=== PATIENT | male | born 1945 | race Caucasian/White ===

== ENCOUNTER 2016-11-11 09:36 | Emergency (ER) | payer OTHER, BC ==
[~2016-11-11] VITALS: Ht 177.8 cm; Wt 100.7 kg
[~2016-11-11 09:36] MED LIST: AMLO-114 PO; ASPI81TA28 PO; FINA5TAB PO; LSN/20125 PO; OMEG10007 PO; PRAV20TA PO; SILO8CAP PO
[2016-11-11 09:41] VITALS: TEMP 36.5; Ht 177.8 cm; Wt 100.7 kg
[2016-11-11] MEDS ORDERED: CILO50TA PO (09:56)
[2016-11-11] MEDS ORDERED: PROMETHAZINE HCL INJ 25 MG/ML 1 ML VIAL IM STA (10:17)
[2016-11-11] MEDS ORDERED: CYCLOBENZAPRINE HCL 5 MG TAB PO STA (10:17)
[2016-11-11] MEDS ORDERED: KETOROLAC TROMETHAMINE 60 MG/2 ML VIAL IM STA (10:17)
[2016-11-11] MEDS ORDERED: HYDROmorphone INJ 2 MG/ML SYR/VIAL IM STA ×2 (10:17→12:12)
--- NOTE | 2016-11-11 10:22 | EMERGENCY ROOM VISIT NOTE ---
History Report prepared by Jyoti: Siva Scott Under the Supervision of: Dr. Neil Almeida M.D. First contact with patient: 10:09 Chief Complaint: BACK PAIN Stated Complaint: BACK PAIN History of Present Illness The patient is a 70 year old male who presents to the Emergency Room with complaints of worsening right lower back pain starting 5 days ago. The patient rates his discomfort as 2/10 at rest and 8/10 with movement in severity. He reports that he went to pick strawberries for an hour five days ago when he felt a sudden strain in his lower right back to the right of his spine but denies any pain. He states that he is in severe pain with movement and reports that the pain radiated to his legs, upper back, and abdomen. The patient also reports he is experiencing nausea and dyspnea with pain radiating to his back whenever he breathes. He states that he was able to take medications last night and took his regular baby aspirin along with 80 mg of four aspirin. The patient states that he was not able to move this morning to eat or take his daily medication. He states that he had bacterial meningitis 30 years ago and has a history of prostate issues. The patient denies any incontinence. Source of History: patient Onset: 5 days ago Position: back (lower) Symptom Intensity: 2/10 rest 8/10 movement Timing: worsening Modifying Factors (Worsening): exertion, movement Modifying Factors (Relieving): rest, other (Aspirin) Associated Symptoms: + nausea, + vomiting, + abdominal pain, No urinary symptoms Review of Systems See HPI for pertinent positives & negatives. A total of 10 systems reviewed and were otherwise negative. Past Medical & Surgical Medical Problems: (1) CVA (cerebral infarction) (2) Diabetes (3) Hypertension (4) Hypertension Family History Diabetes mellitus Hypertension Social History Smoking Status: Never Smoker Alcohol Use: none Drug Use: none Marital Status: single Housing Status: lives with family Occupation Status: retired Current/Historical Medications Scheduled Amlodipine (Norvasc), 10 MG PO DAILY Aspirin (Aspirin Ec), 81 MG PO DAILY Cilostazol (Pletal), Unknown Dose PO BID Cyclobenzaprine Hcl (Flexeril), 10 MG PO TID Finasteride (Proscar), 5 MG PO DAILY Fish Oil ([place]-3), 1 CAP PO DAILY Hctz/Lisinopril (Zestoretic 20MG/12.5MG), 2 TAB PO DAILY Pravastatin (Pravachol ), 40 MG PO DAILY Silodosin (Rapaflo), 8 MG PO DAILY Scheduled PRN Oxycodone/Acetaminophen 5MG/325MG (Percocet 5MG/325MG), 1-2 TAB PO Q4H PRN for Pain Allergies Coded Allergies: Metformin (Unverified Adverse Reaction, Unknown, PROFOUND DARRHEA, 11/11/16 ) Physical Exam Vital Signs Date Time Temp Pulse Resp B/P (MAP) Pulse Ox O2 Delivery O2 Flow Rate FiO2 11/11/16 15:12 70 12 147/78 92 11/11/16 14:41 66 12 135/75 95 11/11/16 13:33 64 11 94 11/11/16 13:18 66 10 90 11/11/16 13:10 66 11/11/16 13:03 65 17 97 11/11/16 12:48 73 12 92 11/11/16 12:33 63 12 92 11/11/16 12:18 62 15 93 11/11/16 12:03 64 10 92 11/11/16 11:48 83 16 11/11/16 11:18 65 13 92 11/11/16 11:13 66 13 92 11/11/16 10:58 69 12 93 11/11/16 10:43 69 17 11/11/16 10:28 71 13 11/11/16 10:13 80 17 97 11/11/16 09:58 73 15 94 11/11/16 09:56 76 13 94 11/11/16 09:53 69 16 94 11/11/16 09:48 78 14 99 11/11/16 09:43 71 21 99 11/11/16 09:42 73 11/11/16 09:41 36.5 76 24 186/96 99 Room Air 11/11/16 09:38 186/96 Physical Exam GENERAL: Patient is a healthy-appearing well-nourished uncomfortable male HEAD: Normocephalic atraumatic EYES: Ocular movements intact pupils equal and react to light OROPHARYNX mucous membranes are moist no exudates present no erythema or edema present NECK: Supple no nuchal rigidity CHEST: Good equal expansion LUNGS: Clear and equal to auscultation CARDIAC: Normal S1 and S2 ABDOMEN: Soft nontender no guarding BACK: No CVA tenderness EXTREMITIES: No pain upon palpation normal muscle strength in all groups no clubbing cyanosis or edema 5/5 strength B/L extremities NEURO: Patient is following commands is answering questions appropriately. Alert and oriented x3 Cranial Nerves 2-12 grossly intact Medical Decision & Procedures ER Provider Diagnostic Interpretation: CT results as stated below per my review and radiologist interpretation: CT LUMBAR SPINE WITHOUT CT DOSE: 797.03 mGycm CLINICAL HISTORY: Low back pain. TECHNIQUE: Axial images of lumbar spine were obtained without IV contrast. Sagittal and coronal reconstructions were viewed. COMPARISON STUDY: None. FINDINGS: For purposes of numbering on this exam, the L5-S1 disc space is assigned to axial image 277 of 329. There is straightening of the normal lumbar lordosis. There is no fracture or suspicious lesion within the lumbar spine by CT. Paravertebral soft tissues are unremarkable. The central canal and neural foramen are suboptimally assessed by CT. However, there is suspected moderate to severe multilevel central canal stenosis at the L2-L3, L3-L4, L4-L5 levels. There is moderate to severe multilevel neural foraminal stenosis. IMPRESSION: 1. No acute lumbar spine fracture or subluxation. 2. Suboptimal evaluation of the central canal and neural foramen due to CT technique. However, suspected moderate to severe multilevel central canal and neural foraminal stenosis due to disc bulges, ligamentous hypertrophy and facet arthrosis. Electronically signed by: Alon Cervantes M.D. 11/11/2016 12:07 PM Dictated Date/Time: 11/11/2016 12:01 PM LUMBAR SPINE MRI HISTORY: Pain Pt c/o low back pain TECHNIQUE: Multiplanar multisequence MRI of the lumbar spine was performed without the use of contrast. COMPARISON: CT lumbar spine same date FINDINGS: For the purpose of the report the L5-S1 disc space will be located on axial image 23 of 25. Moderate degenerative disc changes throughout. Multilevel spinal stenosis based on the sagittal images. No evidence for bone marrow replacing process. L1-L2: Broad-based left central disc herniation. Moderate impact upon the left anterior aspect of thecal sac and left neural foramina. L2-L3: Moderate multi bacterial narrowing of spinal canal. Mild narrowing of the neuroforamina bilaterally. L3-L4: Moderate rather significant multifactorial narrowing of spinal canal. Broad-based bulging disc. Moderate narrowing of the neuroforamina bilaterally. L4-L5: Severe multifactorial spinal stenosis. Moderate narrowing of the right and to lesser extent left neuroforamina. L5-S1: Very mild broad-based disc bulge. Minimal impact upon the S1 nerve roots with no significant impact upon the thecal sac. IMPRESSION: 1. Moderate Multifactorial spinal stenosis from L1 through L3. 2. Severe multifactorial spinal stenosis L4-L5. 3. Mild disc bulge L5-S1. Electronically signed by: Didier French M.D. 11/11/2016 2:34 PM Dictated Date/Time: 11/11/2016 2:29 PM Medications Administered Medications (Trade) Dose Ordered Sig/James Route Start Time Stop Time Status Last Admin Dose Admin Hydromorphone HCl (Dilaudid Inj) 2 mg NOW STAT IM 11/11/16 10:17 11/11/16 10:20 DC 11/11/16 10:48 2 MG Ketorolac Tromethamine (Toradol Inj) 60 mg NOW STAT IM 11/11/16 10:17 11/11/16 10:20 DC 11/11/16 10:44 60 MG Promethazine HCl (Phenergan Inj) 25 mg NOW STAT IM 11/11/16 10:17 11/11/16 10:20 DC 11/11/16 10:48 25 MG Cyclobenzaprine HCl (Flexeril Tab) 10 mg NOW STAT PO 11/11/16 10:17 11/11/16 10:20 DC 11/11/16 10:43 10 MG Dexamethasone Sodium Phosphate (Decadron Inj) 10 mg NOW ONCE IM 11/11/16 12:30 11/11/16 12:31 DC 11/11/16 12:45 10 MG Miscellaneous Information (Nursing Verbal Med Order) 1 ea ONE ONCE N/A 11/11/16 12:30 11/11/16 13:38 DC 11/11/16 12:47 1 EA ED Course 1010: Past medical records reviewed. The patient was evaluated in room B05. A complete history and physical examination was performed. 1017: Flexeril Tab 10 mg PO, Phenergan Injection 25 mg IM, Toradol Injection 60 mg IM, Dilaudid Injection 2 mg IM. 1212: Dilaudid Injection 1 mg IM. 1230: Decadron Injection 10 mg IM. 1345: Dilaudid Injection 2 mg. 1502: Upon reexamination the patient is doing well. I discussed results and treatment plan with the patient. He verbalizes agreement and understanding. The patient is ready for discharge. Medical Decision The differential diagnosis includes but is not limited to: Etiologies such as musculoskeletal, disc herniation, fracture, aortic disease, metastatic disease, cord compression, discitis, infection, renal colic, gastrointestinal, acute exacerbation of chronic back pain, sciatica, cauda equina, as well as others were entertained. This is a 70-year-old male who presents emergency department complaining of severe back pain after picking strawberries several days ago. Patient's pain is so severe he could not get out of bed this morning. He has not taken anything for the pain today. Based on the patient's inability to sit up he was given pain medications including IM Dilaudid Toradol and Phenergan. Repeat exam revealed some improvement the patient's symptoms however the patient still grossly uncomfortable. He was sent for CAT scan of the spine which was concerning for possible disc slippage. Based on how uncomfortable the patient remains as well as a CT we elected to get an MRI of the spine. MRI just shows a slight disc bulge I do not see any evidence of acute process. Based on this I 'll try to conservatively treat the patient's pain. He was written for Percocet home. The patient is going to follow-up with his primary care physician as well as orthospine. Patient was in agreement with the treatment plan. Impression Primary Impression: Low back pain Scribe Attestation The scribe's documentation has been prepared under my direction and personally reviewed by me in its entirety. I confirm that the note above accurately reflects all work, treatment, procedures, and medical decision making performed by me. Departure Information Dispostion Home / Self-Care Prescriptions Oxycodone/Acetaminophen 5MG/325MG (PERCOCET 5MG/325MG) Tab 1-2 TAB PO Q4H Y for Pain, #14 TAB Prov: Neil Almeida MD 11/11/16 Cyclobenzaprine Hcl (FLEXERIL) 10 Mg Tab 10 MG PO TID, #21 TAB Prov: Neil Almeida MD 11/11/16 Referrals Lake Skinner D.O. (PCP) Forms HOME CARE DOCUMENTATION FORM, IMPORTANT VISIT INFORMATION Patient Instructions ED Back Care Tips, ED Exercises Lumbar Muscles, Lumbar Pain Causes, My [facility] Additional Instructions Need follow up with Dr Morales's office You were found to have an elevated blood pressure today (>120 sytolic or >90 diastolic). Per medicare guidelines, you need to follow up with this blood pressure screening with your Primary Care Physician (PCP). For a new PCP call [phone]. You received narcotic or benzodiazepene medication while in the emergency room today. Do not drive, operate heavy machinery, or drink alcohol under the influence of this medication. Take 600 mg Ibuprofen every 6 hours Take Flexeril as directed Take Percocet for breakthrough pain You have been examined and treated today on an emergency basis only. This is not a substitute for, or an effort to provide, complete comprehensive medical care. It is impossible to recognize and treat all injuries or illnesses in a single emergency department visit. It is therefore important that you follow up closely with Dr Wagner. Call as soon as possible for an appointment. Thank you for your time and consideration. I look forward to speaking with you again soon. Please don't hesitate to call us if you have any questions. Problem Qualifiers Primary Impression: Low back pain Chronicity: acute Back pain laterality: midline Sciatica presence: without sciatica Qualified Codes: M54.5 - Low back pain
--- NOTE | 2016-11-11 12:09 | DIAGNOSTIC IMAGING REPORT ---
CT LUMBAR SPINE WITHOUT CT DOSE: 797.03 mGycm CLINICAL HISTORY: Low back pain. TECHNIQUE: Axial images of lumbar spine were obtained without IV contrast. Sagittal and coronal reconstructions were viewed. COMPARISON STUDY: None. FINDINGS: For purposes of numbering on this exam, the L5-S1 disc space is assigned to axial image 277 of 329. There is straightening of the normal lumbar lordosis. There is no fracture or suspicious lesion within the lumbar spine by CT. Paravertebral soft tissues are unremarkable. The central canal and neural foramen are suboptimally assessed by CT. However, there is suspected moderate to severe multilevel central canal stenosis at the L2-L3, L3-L4, L4-L5 levels. There is moderate to severe multilevel neural foraminal stenosis. IMPRESSION: 1. No acute lumbar spine fracture or subluxation. 2. Suboptimal evaluation of the central canal and neural foramen due to CT technique. However, suspected moderate to severe multilevel central canal and neural foraminal stenosis due to disc bulges, ligamentous hypertrophy and facet arthrosis. Electronically signed by: Alon Cervantes M.D. 11/11/2016 12:07 PM Dictated Date/Time: 11/11/2016 12:01 PM
[2016-11-11] MEDS ORDERED: HYDROmorphone INJ 1 MG/ML SYR IM STA (12:12)
[2016-11-11] MEDS ORDERED: NURSING VERBAL MED ORDER ONE (12:30)
[2016-11-11] MEDS ORDERED: DEXAMETHASONE SOD INJ 10 MG/ML VIAL IM ONE (12:30)
[2016-11-11] MEDS ORDERED: HYDROmorphone INJ 2 MG/ML SYR/VIAL IM ONE (13:45)
--- NOTE | 2016-11-11 14:35 | DIAGNOSTIC IMAGING REPORT ---
LUMBAR SPINE MRI HISTORY: Pain Pt c/o low back pain TECHNIQUE: Multiplanar multisequence MRI of the lumbar spine was performed without the use of contrast. COMPARISON: CT lumbar spine same date FINDINGS: For the purpose of the report the L5-S1 disc space will be located on axial image 23 of 25. Moderate degenerative disc changes throughout. Multilevel spinal stenosis based on the sagittal images. No evidence for bone marrow replacing process. L1-L2: Broad-based left central disc herniation. Moderate impact upon the left anterior aspect of thecal sac and left neural foramina. L2-L3: Moderate multi bacterial narrowing of spinal canal. Mild narrowing of the neuroforamina bilaterally. L3-L4: Moderate rather significant multifactorial narrowing of spinal canal. Broad-based bulging disc. Moderate narrowing of the neuroforamina bilaterally. L4-L5: Severe multifactorial spinal stenosis. Moderate narrowing of the right and to lesser extent left neuroforamina. L5-S1: Very mild broad-based disc bulge. Minimal impact upon the S1 nerve roots with no significant impact upon the thecal sac. IMPRESSION: 1. Moderate Multifactorial spinal stenosis from L1 through L3. 2. Severe multifactorial spinal stenosis L4-L5. 3. Mild disc bulge L5-S1. Electronically signed by: Didier French M.D. 11/11/2016 2:34 PM Dictated Date/Time: 11/11/2016 2:29 PM
[2016-11-11] MEDS ORDERED: OXYC-57 PO (14:59)
[2016-11-11] MEDS ORDERED: CYCL10TA6 PO (14:59)
[2016-11-11 15:12] VITALS: BP 147/78; PULSE 70; O2SAT 92
== END 2016-11-11 15:14 | disposition home or self-care (01) ==
LOC: EDBD 09:36 → C.EDB 09:39
DX: M54.5 Low back pain (principal); I10 Essential (primary) hypertension; E11.9 Type 2 diabetes mellitus without complications; Z86.73 Personal history of transient ischemic attack (TIA), and cerebral infarction without residual deficits; Z79.82 Long term (current) use of aspirin; Z79.899 Other long term (current) drug therapy; Z88.8 Allergy status to other drugs, medicaments and biological substances; Z83.3 Family history of diabetes mellitus; Z82.49 Family history of ischemic heart disease and other diseases of the circulatory system

== ENCOUNTER 2019-05-02 07:40 | Inpatient (IN) ==
--- NOTE | 2019-04-18 14:39 | PAT Medication Instructions ---
Medication Instructions Date of Service April 18, 2019 Home Medications furosemide 20 mg tablet 20 mg PO DAILY PRN omega-3 fatty acids 1,000 mg capsule 2,000 mg PO QPM tamsulosin 0.4 mg capsule 0.4 mg PO QPM cilostazol 100 mg tablet 100 mg PO BID irbesartan 300 mg tablet 300 mg PO QPM amlodipine 5 mg tablet 5 mg PO QAM aspirin 81 mg tablet,delayed release 81 mg PO QAM pravastatin 40 mg PO QPM ASK your prescriber and surgeon aspirin 81 mg tablet,delayed release 81 mg PO QAM cilostazol 100 mg tablet 100 mg PO BID STOP taking 2 weeks before surgery (or as soon as possible if surgery is within 2 weeks) omega-3 fatty acids 1,000 mg capsule 2,000 mg PO QPM DO NOT take the morning of surgery furosemide 20 mg tablet 20 mg PO DAILY PRN Take morning of surgery With a small sip of water, OTHERWISE NOTHING TO EAT OR DRINK AFTER MIDNIGHT: amlodipine 5 mg tablet 5 mg PO QAM Take evening before surgery furosemide 20 mg tablet 20 mg PO DAILY PRN (if needed) tamsulosin 0.4 mg capsule 0.4 mg PO QPM irbesartan 300 mg tablet 300 mg PO QPM pravastatin 40 mg PO QPM Other Notes If you have any questions please call us at [phone] or [phone] or [phone] or [phone]
--- NOTE | 2019-04-19 09:19 | Anesthesiology Consultation ---
Date of Service April 19, 2019 Assessment & Plan (1) Encounter for pre-operative examination: CHECK BSG AM DOS Cardiology clearance (Alfredo) 04/11/2019: "From my standpoint, he can proceed with surgery. I believe his risk of cardiac events is in the range of 2 to 3%. His aspirin and Pletal can be stopped 1 week before the surgery and then restar tito in the postoperative period when it is safe from a surgical standpoint. Although his functional capacity is limited, his EKG is unchanged. His catheterization was 3-1/2 years ago with mild to moderate coronary artery disease. Clinically he is not having any heart failure symptoms. He has no lower extremity edema." Chart Review Chart Review: Acceptable Risk for Surgery and Patient seen in Pre Admission Testing Teaching & Discussion Instructed NPO after midnight before surgery, except medications with 15 cc of water. Medication instructions provided according to the PAT guidelines. History Surgery Operation Date: 05/03/19 09:55 Proposed Procedures p L3-L5 Decompression and Fusion with Spinal Cord Monitoring - Mateus Tsai, Height/Weight Height: 5 ft 10 in Weight: 104 kg Allergies Allergy/AdvReac Type Severity Reaction Status Date / Time metformin AdvReac Severe Diarrhea Verified 04/12/19 14:19 Medications Home Medications Medication Instructions Recorded Confirmed Last Taken furosemide 20 mg tablet 20 mg PO DAILY PRN 04/13/18 04/12/19 Unknown omega-3 fatty acids 1,000 mg 2,000 mg PO QPM cap 04/13/18 04/12/19 02/21/19 capsule tamsulosin 0.4 mg capsule 0.4 mg PO QPM 04/13/18 04/12/19 02/21/19 cilostazol 100 mg tablet 100 mg PO BID 07/01/18 04/12/19 02/21/19 irbesartan 300 mg tablet 300 mg PO QPM 07/01/18 04/12/19 02/21/19 amlodipine 5 mg tablet 5 mg PO QAM tab 09/23/18 04/12/19 02/22/19 08:15 aspirin 81 mg tablet,delayed 81 mg PO QAM tab 09/23/18 04/12/19 02/21/19 release pravastatin 40 mg PO QPM 04/12/19 04/12/19 Unknown Past Medical History Medical History Chronic back pain Coronary artery disease mild-moderate 3 vessel on 2016 cath per cardiology. CVA (cerebral vascular accident) (Chronic) 2010, no residual deficits. DM type 2 (diabetes mellitus, type 2) DIET CONTROLLED High cholesterol Hypertension (Chronic) Sleep apnea CPAP HS SOB (shortness of breath) on exertion Spinal stenosis Systolic dysfunction EF 50% Exercise / Class Metabolic Activity III < 4 Walking/Shop/Light housework (Limited by spinal stenosis and frequently SOB with exertion/walking up hills) Past Family History Family History Other Patient's father is Patient's mother is Past Surgical History Surgical History History of cardiac cath 2015 - [facility] - CP - NO STENTS/ANGIOPLASTY History of cataract surgery BL History of sebaceous cyst & REMOVED History of toe surgery History of tooth extraction Past Anesthesia History No Hx of Anesthesia Complications and No Family Hx of Anesthesia Complications History of PONV No Hx of PONV and No Hx of Motion Sickness Social History Smoking Status: Never smoker Do You Dip or Chew Tobacco: No Hx Alcohol Use: No Hx Substance Use: No substance use type: does not use Review of Systems Pt denies any recent chest pain, shortness of breath above baseline, cough, fever or URI. +occasional palpitations/awareness of heartbeat Physical Exam Vital Signs BP: 96/64 (denies lightheadedness/dizziness) P: 86bpm SPO2: 96% RA T: 97.8 F R: 16 Constitutional + obese ENMT Mouth: + dental restorations (two crowns); no chipped teeth and no loose teeth Thyromental Distance: > or= 3.5 Finger Breadths (4) Mallampati Class: II Neck + thick neck; neck extension not limited Respiratory normal respiratory effort Auscultation: lungs clear to auscultation bilaterally Cardiovascular Rate/Rhythm: regular rate and regular rhythm Heart Sounds: no murmur Vessels: no carotid bruit Extremities: no edema Testing Laboratory Results 04/19/19 09:56 04/19/19 09:56 PT 10.6 Seconds (9.0-12.0) 04/19/19 09:56 INR 1.0 (0.9-1.1) 04/19/19 09:56 APTT 24.7 Seconds (21.0-31.0) 04/19/19 09:56 Urine Color Yellow 04/19/19 09:56 Urine Appearance Clear (Clear) 04/19/19 09:56 Urine pH 5.5 (4.5-7.5) 04/19/19 09:56 Ur Specific [place] >= 1.030 (1.000-1.030) 04/19/19 09:56 Urine Protein Negative (Negative) 04/19/19 09:56 Urine Glucose (UA) 3+ (Negative) H 04/19/19 09:56 Urine Ketones Negative (Negative) 04/19/19 09:56 Urine Nitrite Negative (Negative) 04/19/19 09:56 Ur Leukocyte Esterase Negative (Negative) 04/19/19 09:56 Blood Type B Negative 04/19/19 09:56 Antibody Screen NEGATIVE 04/19/19 09:56 *surgeon notified re: elevated glucose and A1C A1C 04/19/19 = 7.7% Electrocardiogram Date: 02/03/19 Findings: + NSR @ (76) Chest X-Ray Date: 04/19/19 Findings: + NAD Cardiac Catheterization Date: 06/14/15 Findings: Mild coronary artery calcifications. Right dominant circulation. Large caliber left main giving rise to medium caliber left anterior descending and left circumflex coronary arteries. Mid LAD gives rise to a long,bifurcating diagonal. Very proximal left circumflex gives rise to a long medium caliber high marginal. Mid left circumflex gives rise to small caliber and bifurcating second marginal. The right coronary artery was a large caliber vessel giving rise to long, small -medium caliber posterior descending and posterolateral arteries. Stenoses (%) : Distal left main 10; proximal LAD 30-50; mid LAD 20-30; ostial D1 30-50; proximal and mid D1 20; proximal 30 and mid 10-20 L Cx OM1; proximal 20 OM2; proximal 10-20, mid 0-10, distal 0-10 RCA; proximal 30-50, mid 10-20 PDA; mid and distal RPL 10-20. Left ventricular angiography in 30 degree HEARN projection 65%. No mitral regurgitation. Plan: Medical therapy for CAD symptoms and CAD risk factor modification. Outpatient cardiology follow up and management by Dr. Marcus Fuentes.
--- NOTE | 2019-04-19 10:32 | XRay Report ---
XR chest Pre-admission PA/Lat CLINICAL HISTORY: pat preoperative evaluation COMPARISON STUDY: 01/26/2015 FINDINGS: The bones soft tissues and hemidiaphragms are normal. The cardiomediastinal silhouette is n ormal. The lungs are clear. The pulmonary vasculature is normal. IMPRESSION: Negative chest. The above report was generated using voice recognition software. It may contain grammatical, syntax or spelling errors. Electronically signed by: Didier French M.D. 04/19/2019 10:31 AM
[2019-04-19 10:54] LABS: Basophils # (auto) 0.03 K/uL (0-0.2); Basophils % (auto) 0.4 %; Eosinophils # (auto) 0.34 K/uL (0-0.5); Eosinophils % (auto) 4.4 %; Hematocrit (blood only) 37.6 % (42-52); Hemoglobin 13.2 g/dL (14.0-18.0); Immature Granulocytes # (auto) 0.04 K/uL (0.00-0.02); Immature Granulocytes % (auto) 0.5 %; Lymphocytes # (auto) 1.33 K/uL (1.2-3.4); Lymphocytes % (auto) 17.4 %; Mean Corpuscular Hemoglobin 30.5 pg (25-34); Mean Corpuscular Hgb Conc 35.1 g/dL (32-36); Mean Corpuscular Volume 86.8 fL (80-100); Monocytes # (auto) 0.75 K/uL (0.11-0.59); Monocytes % (auto) 9.8 %; Neutrophils # (auto) 5.16 K/uL (1.4-6.5); Neutrophils % (auto) 67.5 %; Platelet Count 153 K/uL (130-400); RDW Coefficient of Variation 13.8 % (11.5-14.5); RDW Standard Deviation 43.5 fL (36.4-46.3); Red Blood Count 4.33 M/uL (4.7-6.1); White Blood Count 7.65 K/uL (4.8-10.8)
[2019-04-19 11:05] LABS: Appearance Urine Clear (Clear); Bilirubin Urine Negative (Negative); Blood Urine Negative (Negative); Color Urine Yellow; Glucose Urine UA 3+ (Negative); Ketones Urine Negative (Negative); Leukocyte Esterase Urine Negative (Negative); Nitrite Urine Negative (Negative); Protein Urine Negative (Negative); Specific Gravity Urine >= 1.030 (1.000-1.030); Urobilinogen Urine Negative (Negative); pH Urine 5.5 (4.5-7.5)
[2019-04-19 11:08] LABS: Partial Thromboplastin Ratio 0.9; Partial Thromboplastin Time 24.7 Seconds (21.0-31.0); Prothrombin Time 10.6 Seconds (9.0-12.0)
[2019-04-19 11:09] LABS: BUN Creatinine Ratio 11.5 (10-20); Calcium 9.9 mg/dl (8.5-10.1); Creatinine Clr Calc Pharmacy 49.2 ml/min; Est GFR (African American) 47.7; Est GFR (Non-African American) 41.2; Potassium 4.8 mmol/L (3.5-5.1)
[~2019-05-02 07:40] MED LIST changes: +ACETAMINOPHEN 500 MG TAB PO SCH; -AMLO-114 PO; -ASPI81TA28 PO; +CEFAZOLIN 2000MG 2,000 MG/15 ML SYR IV SCH; +CeleBREX 200 MG CAP PO SCH; -FINA5TAB PO; +GABAPENTIN 300 MG CAP PO SCH; +HYDROmorphone INJ 2 MG/ML SYR/VIAL ONE; +LR 15ML/HR IV SCH; -LSN/20125 PO; +MIDAZOLAM HCL 1 MG/ML 2ML VIAL ONE; -OMEG10007 PO; -PRAV20TA PO; -SILO8CAP PO; +fentaNYL citrate 100 MCG/2 ML VIAL ONE
[2019-05-02] MEDS ORDERED: ePHEDrine sulfate 50 MG/ML AMP IV PRN (09:18)
[2019-05-02] MEDS ORDERED: ONDANSETRON INJ 2 MG/ML 2 ML VIAL IV PRN ×2 (09:18→14:31)
[2019-05-02] MEDS ORDERED: HYDROmorphone INJ 2 MG/ML SYR/VIAL IV PRN (09:18)
[2019-05-02] MEDS ORDERED: LABETALOL HCL IV 5 MG/ML 20ML IV PRN (09:18)
[2019-05-02] MEDS ORDERED: fentaNYL citrate 100 MCG/2 ML VIAL IV PRN (09:18)
[2019-05-02] MEDS ORDERED: ATROPINE SULFATE 0.1 MG/ML 10ML SYR IV PRN (09:18)
[2019-05-02] MEDS ORDERED: PHENYLEPHRINE 100MCG/ML 5ML SYR IV PRN (09:18)
[2019-05-02] MEDS ORDERED: MEPERIDINE HCL 25 MG/ML CARP IV PRN (09:18)
[2019-05-02] MEDS ORDERED: NovoLIN-R INSULIN PER UNIT CHARGE ONE ×2 (09:28→09:37)
[2019-05-02] MEDS ORDERED: INSULIN ASPART PER UNIT SC STA (09:38)
[2019-05-02] MEDS ORDERED: INSULIN ASPART PER UNIT ONE (09:46)
[2019-05-02] MEDS ORDERED: ONDANSETRON INJ 2 MG/ML 2 ML VIAL ONE (09:59)
[2019-05-02] MEDS ORDERED: GLYCOPYRROLATE 0.2 MG/ML VIAL ONE (09:59)
[2019-05-02] MEDS ORDERED: PROPOFOL IV EMULSION 10 MG/ML 20 ML VIAL IV ONE (09:59)
[2019-05-02] MEDS ORDERED: NEOSTIGMINE METHYLSULFATE 1 MG/ML 10ML VIAL ONE (09:59)
[2019-05-02] MEDS ORDERED: HYDROmorphone INJ 2 MG/ML SYR/VIAL ONE ×2 (09:59→11:45)
[2019-05-02] MEDS ORDERED: DEXAMETHASONE SOD INJ 4 MG/ML VIAL ONE (09:59)
[2019-05-02] MEDS ORDERED: LIDOCAINE HCL 2% 2 ML VIAL/AMP(20MG/ML) INFIL ONE (09:59)
[2019-05-02] MEDS ORDERED: ROCURONIUM BROMIDE 10 MG/ML 5 ML VIAL ONE (09:59)
--- NOTE | 2019-05-02 10:06 | History & Physical Bridge Note ---
Date of Service May 02, 2019 History & Physical Bridge Note I have examined the patient, reviewed the History & Physical and in the interval since the performance of the History & Physical I have noted the following changes of clinical significance: no changes noted
--- NOTE | 2019-05-02 10:07 | History & Physical Report ---
Date of Service May 02, 2019 Assessment & Plan (1) Neurogenic claudication due to lumbar spinal stenosis: Decompression fusion L3-L5 Present on Admission?: Yes History of Present Illness Chief Complaint: Back and bilateral leg pain Primary Care Provider: Endy Wagner MD This is a 73-year-old male well-known to me that presents with worsening back and bilateral leg pain. After failing extensive course of nonoperative care is here for surgical intervention. Allergies Allergy/AdvReac Type Severity Reaction Status Date / Time metformin AdvReac Severe Diarrhea Verified 05/02/19 08:21 Home Medications Home Medications Medication Instructions Recorded Confirmed Type furosemide 20 mg tablet 20 mg PO DAILY PRN 04/13/18 05/02/19 History omega-3 fatty acids 1,000 mg 2,000 mg PO QPM cap 04/13/18 05/02/19 History capsule tamsulosin 0.4 mg capsule 0.4 mg PO QPM 04/13/18 05/02/19 History cilostazol 100 mg tablet 100 mg PO BID 07/01/18 05/02/19 History irbesartan 300 mg tablet 300 mg PO QPM 07/01/18 05/02/19 History amlodipine 5 mg tablet 5 mg PO QAM tab 09/23/18 05/02/19 History aspirin 81 mg tablet,delayed 81 mg PO QAM tab 09/23/18 05/02/19 History release pravastatin 40 mg PO QPM 04/12/19 05/02/19 History Past Med/Surg History Medical History Chronic back pain Coronary artery disease mild-moderate 3 vessel on 2016 cath per cardiology. CVA (cerebral vascular accident) (Chronic) 2010, no residual deficits. 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 Results & Data Vital Signs (Past 12 Hours) Vital Signs Temp Pulse Resp BP Pulse Ox 05/02/19 08:27 36.3 C L 61 20 158/87 H 97
[2019-05-02] MEDS ORDERED: BACITRACIN INJ 50,000 UNIT VIAL ONE (10:24)
[2019-05-02] MEDS ORDERED: BUPIVACAINE/EPINEPHRINE 0.25% 1:200,000 30 ML VIAL ONE (10:24)
[2019-05-02] MEDS ORDERED: fentaNYL citrate 100 MCG/2 ML VIAL ONE ×5 (11:08→12:54)
[2019-05-02] MEDS ORDERED: FLOSEAL HEMOSTATIC MATRIX 10ML TOP ONE (11:14)
[2019-05-02] MEDS ORDERED: ESMOLOL HCL INJ 10 MG/ML 10ML VIAL IV ONE (13:01)
[2019-05-02] MEDS ORDERED: ePHEDrine sulfate 50 MG/ML SYR ONE (13:02)
[2019-05-02] MEDS ORDERED: LARYING-O-JET KIT (LTA) ONE (13:02)
[2019-05-02] MEDS ORDERED: PHENYLEPHRINE 100MCG/ML 5ML SYR ONE (13:02)
[2019-05-02] MEDS ORDERED: ePHEDrine sulfate 50 MG/ML AMP ONE (13:02)
[2019-05-02] MEDS ORDERED: VOLUVEN IN NSS IV ONE (13:03)
--- NOTE | 2019-05-02 13:09 | Operative Report ---
Post Operative Report Pre & Post Diagnosis Operation Date: 05/02/19 09:55 Pre-Op Diagnosis: LUMBAR SPINAL STENOSIS W/NEUROGENIC CLAUDICATION Post-Op Diagnosis: LUMBAR SPINAL STENOSIS W/NEUROGENIC CLAUDICATION I identified the patient and participated in the time-out.: Yes Procedure Operation Date: 05/02/19 09:55 Actual Procedures #1 lumbar decompression with bilateral medial facetectomies and foraminotomies L2-3 L3-4 L4-5. #2 posterior spinal fusion L3-4 L4-5. #3 placement posterior instrumentation L3-4 L4-5. #4 placement of locally harvested morselized autograft in the posterior lateral gutters. #5 placement infuse collagen sponge, master graft in the posterior lateral gutters. Surgeon Mateus Tsai, DO Nut Packer None Estimated Blood Loss 400 Findings See Below The patient is 5 foot 10 inches tall weighing over 104 kg with a BMI of 33. This combined with an EBL of 400 cc created significant technical difficulty. He required our deepest retractors and longer instruments in order to perform his surgery. This added at least 40% increase in operative time. Specimens None Indications This is a 73-year-old male that presents with above-mentioned diagnosis after failing extensive course of nonoperative care elected to go the above-mentioned procedure. Description of Procedure Patient was met with identified and informed consent obtained. Patient was then taken to the operative suite underwent intubation placed in the prone position the Barrie table on top of the Rashad frame. All bony prominences were well- padded eyes inspected to ensure no external pressure placed upon the peer at this point the lumbar spine was prepped and draped in normal sterile fashion. Sharp dissection with the assistance of Bovie cautery was performed down to and exposing the lamina and transverse processes L3-L4 and L5 bilaterally. From a caudal to cephalad fashion complete laminectomy of L4 L3 and partial laminectomy of L2 was performed including bilateral medial facetectomies and foraminotomies addressing severe stenosis. Pedicle screw was then placed in the L3-L4-L5 bilaterally with assistance of fluoroscopy the purposes leah locked in position. The transverse processes of L3-L4-L5 bur to subcortical bleeding bone. Infuse collagen sponge mass graft and local autograft was placed in the posterior lateral gutters. 15 round ALICIA drain inserted. The incision was then closed with 1 Vicryl in the fascia 2-0 Vicryl subcutaneous and 4 Monocryl for final skin closure. Steri-Strip sterile dressings placed. Patient will continue to PACU stable condition. Please note spinal cord monitoring was utilized that the procedure no changes noted. I attest to the content of the Intraoperative Record and any orders documented therein. Any exceptions are noted below.
[2019-05-02] MEDS ORDERED: LABETALOL HCL IV 5 MG/ML 20ML IV ONE (13:39)
[2019-05-02] MEDS ORDERED: METOPROLOL TARTRATE 1 MG/ML VIAL IV ONE (13:39)
--- NOTE | 2019-05-02 13:39 | Fluoroscopy Report ---
LUMBAR SPINE, INTRAOPERATIVE FLUOROSCOPY HISTORY: L3-L5 decompression and fusion. FLUOROSCOPY TIME: 26 seconds. FINDINGS: Intraoperative fluoroscopy was provided for the lumbar spine. 2 fluoroscopic spot images we re obtained. Posterior decompression fusion from L3 through L5 with pedicle screws and rods. The hard rosario appears intact. IMPRESSION: Fluoroscopy provided for a L3-L5 posterior decompression and fusion. Electronically signed by: Carlton Odonnell M.D. 05/02/2019 1:37 PM
[2019-05-02] MEDS ORDERED: SOD PHOSPHATE/SOD BIPHOSPHATE ENEMA 132 ML BTL PR PRN (14:31)
[2019-05-02] MEDS ORDERED: DO NOT ADMINISTER FLU VACCINE PRN (14:31)
[2019-05-02] MEDS ORDERED: ACETAMINOPHEN 1,000 MG/100 ML VIAL IV PRN (14:31)
[2019-05-02] MEDS ORDERED: FUROSEMIDE 20 MG TAB PO PRN (14:31)
[2019-05-02] MEDS ORDERED: DO NOT ADMINISTER PNEUMOCOCCAL VACCINE PRN (14:31)
[2019-05-02] MEDS ORDERED: ONDANSETRON 4 MG OD TAB PO PRN (14:31)
[2019-05-02] MEDS ORDERED: LORazepam 0.5 MG/1 ML VIAL IV PRN (14:31)
[2019-05-02] MEDS ORDERED: HYDROmorphone INJ 1 MG/ML SYRINGE IV PRN (14:31)
[2019-05-02] MEDS ORDERED: FAMOTIDINE 20 MG TAB PO PRN (14:31)
[2019-05-02] MEDS ORDERED: HYDROmorphone INJ 0.5 MG/0.5 ML SYR IV PRN (14:31)
[2019-05-02] MEDS ORDERED: METOCLOPRAMIDE HCL INJ 5 MG/ML 2 ML VIAL IV PRN (14:31)
[2019-05-02] MEDS ORDERED: ALUMINUM/MAGNESIUM SUSP 30 ML UDC PO PRN (14:31)
[2019-05-02] MEDS ORDERED: ACETAMINOPHEN 500 MG TAB PO PRN (14:31)
[2019-05-02] MEDS ORDERED: MAGNESIUM HYDROXIDE SUSP 30 ML UDC PO PRN (14:31)
[2019-05-02] MEDS ORDERED: PROMETHAZINE HCL 12.5 MG in SODIUM CHLORIDE 0.9% 50 ML IV PRN (14:31)
[2019-05-02] MEDS ORDERED: NALOXONE HCL 0.4 MG/1 ML VIAL/CARP IV PRN (14:31)
[2019-05-02] MEDS ORDERED: bisacodyL 10 MG SUPP PR PRN (14:31)
[2019-05-02] MEDS ORDERED: LORazepam 0.5 MG TAB PO PRN (14:31)
--- NOTE | 2019-05-02 14:35 | Anesthesiology Progress Note ---
Date of Service May 02, 2019 Anesthesia Post Procedure Vital Signs Vital Signs: Temp Pulse Pulse Resp BP Pulse Ox 05/02/19 13:55 36.7 C 77 14 169/89 H 98 05/02/19 13:45 36.5 C 77 11 L 171/88 H 99 05/02/19 13:35 36.5 C 76 13 179/82 H 100 05/02/19 13:25 36.5 C 101 H 14 185/84 H 100 05/02/19 13:19 36.5 C 103 H 12 176/93 H 100 05/02/19 08:27 36.3 C L 61 20 158/87 H 97 Pain Intensity Lower Back: Pain Intensity: 0 Transfer of Care Handoff Completed per policy Notes Mental Status: alert / awake / arousable Patient Amnestic to Procedure: Yes Nausea / Vomiting: adequately controlled Pain: adequately controlled Airway Patency, RR, SpO2: stable & adequate BP & HR: stable & adequate Hydration State: stable & adequate Anesthetic Complications: no major complications apparent and Pt Satisfied with anesthetic care
[2019-05-02] MEDS: KETOROLAC TROMETHAMINE 15 MG/ML VIAL IV SCH ×2 (15:32→21:15)
[2019-05-02] MEDS: TRAMADOL HCL 50 MG TABLET PO PRN (17:34)
--- NOTE | 2019-05-02 18:50 | Hospitalist Consultation ---
Date of Consultation May 02, 2019 Assessment & Plan (1) Neurogenic claudication due to lumbar spinal stenosis: * S/P lumbar spine decompression/fusion with Dr. Tsai on 05/02 * EBL 400cc * PT/OT/pain management/DVT prophylaxis per primary service * Monitor CBC in AM (2) Coronary artery disease: * Non-obstructive cath June [address] Meehan -- 3 vessel disease with proximal LAD 30-50%, 30-50% of R PDA * Continue ASA 81mg * continue pravastatin 40mg daily * Continue cilostazol (3) Sleep apnea: * Moderate obstructive sleep apena * Continue home CPAP -- patient has in the room with him (4) Systolic dysfunction: * Most recent ECHO with LV EF ~50%, however per most recent cardiology outpatient note, possibly related to accelerated HTN * Continue home ARB * Patient not on BB * Continue to monitor for s/sx volume overload, given patient on NS @ 150mL/hr (5) CVA (cerebral infarction): * Per patient, approximately 10 years ago * Continue home ASA 81mg (6) Hypertension: * Patient with longstanding hx of HTN. Had been on multiple agent. Follows with Dr. Fuentes. *Patient takes medications at different times in the day due to history of low BP when taking all at the same time * Continue home amlodipine 5mg, irbesartan 300mg QHS * Per history, patient with lasix 20mg prn -- per patient, he has not taken that in quite some time -- he takes prn "feet swelling" (7) Diabetes: * Previously on metformin -- profuse diarrhea as side effect * Diet/exercise -- with most recent A1c 7.3 (up from previous value) -- however, with recent functional decline prior to surgery, patient had limited exercise * SSI while inpatient * may need to add Lantus if hyperglycemia secondary to corticosteroids persists (8) CKD (chronic kidney disease) stage 3, GFR 30-59 ml/min: * Creat pre-op 1.64, eGFR 49.2 * Does not follow with Nephrology -- unclear what baseline creat is, however notes in chart show cr 1.09 earlier this year -- will continue to monitor * Renally dose all medications when appropriate * IVF NS @ 150 (9) BPH (benign prostatic hyperplasia): * Continue home flomax * Will need to monitor for urinary retention once mendoza is removed (10) Cardiomyopathy: * As above, likely secondary to longstanding HTN (11) Seborrheic keratoses: * Multiple skin lesions removed with cyotherapy, most recent 1 weeks ago -- head, right ear, etc * No evidence of further lesions currently (12) DVT prophylaxis: * Per primary * Continue ASA, pletal * SCDs Supervising Physician Co-Signing Physician Notes PA Supervision Note: I personally saw and examined the patient. I verified all nuno points and agree with BUDDY Curtis with the following exceptions and/or additions: Pt doing very well post-op, says pain in lower back is a 2-3/20 in severity. Biggest complaint is actually irritation at the penis from the Mendoza. Denies chest pain or SOB, no abd pain. History reviewed, ROS reviewed VSS NAD, AAOx3 RRR no mgr CTAB no wcr, breathing unlabored ABd +BS soft NT ND MSK: lower back with dressing in place c/d/i : Mendoza in place, meatus appears normal, no erythema, no bleeding from penis, no discharge. Mendoza is functioning appropriately with drainage of clear yellow urine Ext no edema 73 yo male here with history as above, here for lumbar decompression and fusion -plan as above -will add topical lidocaine jelly to meatus of penis for Mendoza discomfort and hope to remove Mendoza possibly tomorrow History of Present Illness Reason for Consultation: Medical Management Requesting Physician: Dr. Tsai Attending Physician: Mateus Tsai, DO History of Present Illness This is a 73-year-old white male with PMH significant for CAD (non- obstructive cath Jun 2015 with 3-vessel disease), HTN, CVA, DMII, CKD III, DM, BPH, sleep apnea presented for lumbar decompression and fusion with Dr. Tsai for worsening back and bilateral leg pain/numbness after failing extensive non- operative treatment. Patient states he had been tolerating his back and bilateral leg pain for years, but after picking strawberries several months ago, he admits his pain and numbness had worsened significantly.He states he had been given multiple pain medications and injections and nothing has worked thus far. He states it starts in his lower back and wraps around both legs and he has numbness and tingling of bilateral lower extremities to his toes. He states "it feels like someone put your feet in a container and squeezed them really hard." He does voice concerns regarding not having had a bowel movement. He states he usually has a BM everyday, but has not had one since surgery but he admits he has not been up much since arrival to his room. He denies any nausea or vomiting, as well as abdominal pain currently, and is hoping to get up with st aff for a walk around his room this evening, and was able to stand without difficulty during our conversation. 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 Meehan and was told that he had blockages, but did not require a stent at that time. He states his diabetes had been well controlled with diet and exercise following an adverse reaction of profuse diarrhea with metformin, however recently due to his decreased activity he has not had as much exercise as in the past. He states he does walk up [facility] downtown and after the three blocks uphill he does become winded. He uses that as a bench rasheeda to determine if his CAD has worsened, and denies any decline in ability to walk the same distance. He does admit to taking pletal faithfully in hopes to improve circulation in his legs. He states he does have a longstanding history of hypertension and had been on various agents in the past to see which one "fit best". He also states he did have difficulty with his blood pressure dropping and him becoming lightheaded when he was taking all of his blood pressure medications at the same time, and has since switched to his amlodipine in the morning and irbesartan in the evening at the instruction of his PCP, Dr. Wagner. With regards to his lasix prn, he states he has not required that in months, and only takes it if his legs have become swollen. Allergies Allergy/AdvReac Type Severity Reaction Status Date / Time metformin AdvReac Severe Diarrhea Verified 05/02/19 08:21 Home Medications Home Medications Medication Instructions Recorded Confirmed Type furosemide 20 mg tablet 20 mg PO DAILY PRN 04/13/18 05/02/19 History omega-3 fatty acids 1,000 mg 2,000 mg PO QPM cap 04/13/18 05/02/19 History capsule tamsulosin 0.4 mg capsule 0.4 mg PO QPM 04/13/18 05/02/19 History cilostazol 100 mg tablet 100 mg PO BID 07/01/18 05/02/19 History irbesartan 300 mg tablet 300 mg PO QPM 07/01/18 05/02/19 History amlodipine 5 mg tablet 5 mg PO QAM tab 09/23/18 05/02/19 History aspirin 81 mg tablet,delayed 81 mg PO QAM tab 09/23/18 05/02/19 History release pravastatin 40 mg PO QPM 04/12/19 05/02/19 History Patient History Medical History (Updated 05/02/19 @ 20:45 by Mallory Curtis PA-C) Chronic back pain Coronary artery disease mild-moderate 3 vessel on 2015 cath per cardiology. CVA (cerebral vascular accident) (Chronic) 2010, no residual deficits. DM type 2 (diabetes mellitus, type 2) DIET CONTROLLED High cholesterol Hypertension (Chronic) Seborrheic keratoses Sleep apnea CPAP HS SOB (shortness of breath) on exertion Spinal stenosis Systolic dysfunction EF 50% Surgical History (Updated 05/02/19 @ 19:29 by Mallory Curtis PA-C) History of cardiac cath 2016 - [facility] - CP - NO STENTS/ANGIOPLASTY History of cataract surgery BL History of sebaceous cyst & REMOVED History of toe surgery History of tooth extraction Hx of tonsillectomy Family History Other Patient's father is Patient's mother is Social History Preferred Language: Armenian Communication Ability: Effective Hearing Ability: Normal Threat Monitoring Analyst Required: No Beliefs That Will Affect Care: None marital status: Current Living Situation: Alone current occupational status: retired Other Information That Helps Us Care for You: 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 Feels Safe at Home: Yes Safety Concerns: Feels Safe At This Time Smoking Status: Never smoker Do You Dip or Chew Tobacco: No ; Second Hand Exposure: No ; Hx Alcohol Use: No Hx Substance Use: No Review of Systems Constitutional: no fever and no chills Eyes: no diplopia and no spots in vision Ear, Nose, Mouth, Throat: no sore throat and no dysphagia Respiratory: + dyspnea on exertion (3 blocks); no cough Cardiovascular: no chest pain, no palpitations and no edema Gastrointestinal: no abdominal pain, no nausea, no vomiting, no constipation and no diarrhea/loose stools Genitourinary: + problem reported (irritation from catheter, urge) Musculoskeletal: + back pain; no muscle weakness Integumentary: multiple seborrheic keratoses Neurologic: + tingling and + numbness Physical Exam Constitutional: WD/WN, vitals as above Eyes: PERRL, conjunctivae normal, anicteric sclerae ENMT: external ear and nose normal, oropharynx normal Neck: trachea midline, no thyromegaly Respiratory: normal respiratory effort, lungs clear to auscultation Cardiovascular: Rate/Rhythm: regular rate and regular rhythm Heart Sounds: normal S1, normal S2 and + murmur (1/6 systolic ejection murmur) Extremities: normal capillary refill; no edema Musculoskeletal: Dressing to lumbar spine - c/d/i -- ALICIA drain in place with 30cc bloody drainage Neurologic: PERRL, EOMI, accommodation nl, no face palsy, no dysarthria Psychiatric: A+Ox3, euthymic affect Genitourinary: Mendoza in place with copious light yellow urine Results & Data Vital Signs (Past 12 Hours) Vital Signs Temp Pulse Pulse Resp BP Pulse Ox 05/02/19 17:15 36.6 C 87 16 163/78 H 93 05/02/19 16:15 36.7 C 87 17 144/74 H 95 05/02/19 15:06 36.5 C 75 17 157/82 H 96 05/02/19 14:45 36.4 C L 75 18 154/70 H 97 05/02/19 14:15 36.9 C 70 16 166/83 H 98 05/02/19 13:55 36.7 C 77 14 169/89 H 98 05/02/19 13:45 36.5 C 77 11 L 171/88 H 99 05/02/19 13:35 36.5 C 76 13 179/82 H 100 05/02/19 13:25 36.5 C 101 H 14 185/84 H 100 05/02/19 13:19 36.5 C 103 H 12 176/93 H 100 05/02/19 08:27 36.3 C L 61 20 158/87 H 97 PG Care Time/CCT Total # of Minutes Spent Total Time Spent with Patient: Total time spent is greater than 50% in coordination of care (as documented) at patient's floor/unit and/or counseling patient:
[2019-05-02] MEDS ORDERED: GLUCOSE 40% GEL 15 GM TUBE PO PRN (18:55)
[2019-05-02] MEDS ORDERED: DEXTROSE 50% 50 ML SYRINGE IV PRN (18:55)
[2019-05-02] MEDS ORDERED: GLUCAGON FOR INJ 1 MG VIAL SQ PRN (18:55)
[2019-05-02] MEDS ORDERED: GLUCOSE 10 TABS/TUBE PO PRN (18:55)
[2019-05-02] MEDS ORDERED: CARBOHYDRATES FOR HYPOGLYCEMIA PO PRN (18:55)
[2019-05-02] MEDS ORDERED: LIDOCAINE 2% JELLY 5 ML TUBE EXT PRN (19:08)
[2019-05-02] MEDS: SODIUM CHLORIDE 0.9% 1000ML 1,000 ML IV SCH ×2 (19:15→23:44)
[2019-05-02] MEDS: CEFAZOLIN 2000MG 2,000 MG/15 ML SYR IV SCH (19:16)
[2019-05-02] MEDS: TAMSULOSIN HCL 0.4 MG CAP PO SCH (20:08)
[2019-05-02] MEDS: PRAVASTATIN SOD 40 MG TAB PO SCH (20:08)
[2019-05-02] MEDS: CILOSTAZOL 100 MG TAB PO SCH (20:09)
[2019-05-02] MEDS: IRBESARTAN 150 MG TAB PO SCH (20:09)
[2019-05-02] MEDS: DOCUSATE SODIUM/SENNA 50/8.6MG TAB PO SCH (20:09)
[2019-05-02] MEDS ORDERED: COUGH DROP (SUGAR FREE) LOZ 24 LOZ/1 BOX BUCCAL PRN (20:14)
[2019-05-02] MEDS: INSULIN ASPART 100 UNITS/ML 3 ML PEN SC SCH (21:13)
[2019-05-02] MEDS ORDERED: LANTUS PER UNIT CHARGE SQ ONE (22:00)
[2019-05-03] MEDS: CEFAZOLIN 2000MG 2,000 MG/15 ML SYR IV SCH (04:16)
[2019-05-03] MEDS: SODIUM CHLORIDE 0.9% 1000ML 1,000 ML IV SCH (04:16)
[2019-05-03] MEDS: KETOROLAC TROMETHAMINE 15 MG/ML VIAL IV SCH ×2 (04:17→10:45)
[2019-05-03] MEDS: POLYETHYLENE (MIRALAX) 17 GM PACK PO SCH ×4 (04:19→23:40)
[2019-05-03] MEDS: INSULIN ASPART 100 UNITS/ML 3 ML PEN SC SCH ×5 (04:46→21:19)
[2019-05-03 05:46] LABS: Hematocrit (blood only) 30.2 % (42-52); Hemoglobin 10.5 g/dL (14.0-18.0); Immature Granulocytes # (auto) 0.05 K/uL (0.00-0.02); Immature Granulocytes % (auto) 0.4 %; Lymphocytes # (auto) 0.86 K/uL (1.2-3.4); Mean Corpuscular Hemoglobin 30.7 pg (25-34); Mean Corpuscular Hgb Conc 34.8 g/dL (32-36); Mean Corpuscular Volume 88.3 fL (80-100); Mean Platelet Volume 8.4 fL (7.4-10.4); Monocytes # (auto) 1.05 K/uL (0.11-0.59); Monocytes % (auto) 7.4 %; Neutrophils # (auto) 12.28 K/uL (1.4-6.5); Neutrophils % (auto) 86.2 %; Platelet Count 155 K/uL (130-400); RDW Coefficient of Variation 13.6 % (11.5-14.5); RDW Standard Deviation 43.4 fL (36.4-46.3); Red Blood Count 3.42 M/uL (4.7-6.1); White Blood Count 14.24 K/uL (4.8-10.8)
[2019-05-03] MEDS ORDERED: GABAPENTIN 300 MG CAP PO SCH (06:00)
[2019-05-03] MEDS ORDERED: CEFAZOLIN 2000MG 2,000 MG/15 ML SYR IV SCH (06:00)
[2019-05-03] MEDS ORDERED: CeleBREX 200 MG CAP PO SCH (06:00)
[2019-05-03] MEDS ORDERED: ACETAMINOPHEN 500 MG TAB PO SCH (06:00)
[2019-05-03] MEDS ORDERED: LR 15ML/HR IV SCH (06:00)
[2019-05-03 06:23] LABS: BUN Creatinine Ratio 14.6 (10-20); Calcium 8.9 mg/dl (8.5-10.1); Est GFR (African American) 47.4; Est GFR (Non-African American) 40.9; Potassium 4.3 mmol/L (3.5-5.1)
--- NOTE | 2019-05-03 08:09 | Anesthesiology Progress Note ---
Date of Service May 03, 2019 Anesthesia Post Procedure Vital Signs Vital Signs: Temp Pulse Pulse Resp BP Pulse Ox 05/03/19 07:02 36.7 C 81 17 117/68 96 05/03/19 03:43 36.7 C 94 H 16 129/69 96 05/02/19 23:45 36.8 C 90 15 117/69 95 05/02/19 20:06 36.5 C 86 18 138/77 95 05/02/19 17:15 36.6 C 87 16 163/78 H 93 05/02/19 16:15 36.7 C 87 17 144/74 H 95 05/02/19 15:06 36.5 C 75 17 157/82 H 96 05/02/19 14:45 36.4 C L 75 18 154/70 H 97 05/02/19 14:15 36.9 C 70 16 166/83 H 98 05/02/19 13:55 36.7 C 77 14 169/89 H 98 05/02/19 13:45 36.5 C 77 11 L 171/88 H 99 05/02/19 13:35 36.5 C 76 13 179/82 H 100 05/02/19 13:25 36.5 C 101 H 14 185/84 H 100 05/02/19 13:19 36.5 C 103 H 12 176/93 H 100 05/02/19 08:27 36.3 C L 61 20 158/87 H 97 Pain Intensity Lower Back: Pain Intensity: 1 Notes Mental Status: alert / awake / arousable and participated in evaluation Patient Amnestic to Procedure: Yes Nausea / Vomiting: adequately controlled Pain: adequately controlled Airway Patency, RR, SpO2: stable & adequate BP & HR: stable & adequate Hydration State: stable & adequate Anesthetic Complications: no major complications apparent and Pt Satisfied with anesthetic care
--- NOTE | 2019-05-03 08:25 | Orthopedic Progress Note ---
Date of Service May 03, 2019 Assessment & Plan (1) Lumbar stenosis with neurogenic claudication: Patient will initiate physical therapy today advance his bowel regiment hopefully discharge home in the next few days. Present on Admission?: Yes Subjective Back pain controlled leg symptoms improved. Physical Exam Physical Exam: Patient is good strength testing appears comfortable. Results & Data Vital Signs (Past 12 Hours) Vital Signs Temp Pulse Resp BP Pulse Ox 05/03/19 07:02 36.7 C 81 17 117/68 96 05/03/19 03:43 36.7 C 94 H 16 129/69 96 05/02/19 23:45 36.8 C 90 15 117/69 95
[2019-05-03] MEDS: TRAMADOL HCL 50 MG TABLET PO PRN ×2 (08:57→14:19)
[2019-05-03] MEDS: CILOSTAZOL 100 MG TAB PO SCH ×2 (08:58→21:13)
[2019-05-03] MEDS: AMLODIPINE BESYLATE 5 MG TAB PO SCH (08:58)
[2019-05-03] MEDS: ASPIRIN 81 MG ECTAB PO SCH (08:58)
--- NOTE | 2019-05-03 16:31 | Hospitalist Progress Note ---
Date of Service May 03, 2019 Assessment & Plan (1) Neurogenic claudication due to lumbar spinal stenosis: * Improving * POD #1 S/P lumbar spine decompression/fusion with Dr. Tsai on 05/02 * PT/OT/pain management/DVT prophylaxis per primary service * EBL 400cc -- h/h declined to 10.5/30.2 from 13.2/37.6 * Monitor CBC in AM (2) Acute blood loss anemia: * As above * Hemoglobin dropped from 13.2 to 10.5 post-operatively -- likely due to multiple factors including blood loss from surgery, NS @150ml/hr until this morning * Of note: donation of one unit of blood two weeks ago with [facility] * Stable- h/h 10.5/30.2 -- will continue to monitor (3) Hypertension: * Patient with longstanding hx of HTN. Had been on multiple agent. Follows with Dr. Fuentes. *Patient takes medications at different times in the day due to history of low BP when taking all at the same time * Continue home amlodipine 5mg * Per history, patient with lasix 20mg prn -- per patient, he has not taken that in quite some time -- he takes prn "feet swelling" * Given patient with continue HTN post-operatively, irbesartan was continued -- BP 129/69 this morning * However, 105/57 currently --> Will hold irbesartan this evening, re-evaluate in AM (4) Coronary artery disease: * Non-obstructive cath June [address] Meehan -- 3 vessel disease with proximal LAD 30-50%, 30-50% of R PDA * Continue ASA 81mg * continue pravastatin 40mg daily * Continue cilostazol (5) Sleep apnea: * Moderate obstructive sleep apena * Continue home CPAP -- patient has in the room with him (6) Systolic dysfunction: * Most recent ECHO with LV EF ~50%, however per most recent cardiology outpatient note, possibly related to accelerated HTN * Continue home ARB * Patient not on BB * No evidence of volume overload on exam today, currently 95% on RA -- continue to monitor (7) CVA (cerebral infarction): * Per patient, approximately 10 years ago * Continue home ASA 81mg (8) Diabetes: * Previously on metformin -- profuse diarrhea as side effect * Diet/exercise, per patient, although it seems as though his dietary choices are less than healthy-- most recent A1c 7.3 (up from previous value) -- however, with recent functional decline prior to surgery, patient had limited exercise * SSI while inpatient * Tightened CF last evening as well as addition of 10 units of lantus for basal coverage * Repeat A1c in AM -- may need to initiate different oral agent at discharge (9) CKD (chronic kidney disease) stage 3, GFR 30-59 ml/min: * Unchanged, creat 1.65 today * Creat pre-op 1.64, eGFR 49.2 * Does not follow with Nephrology -- unclear what baseline creat is, however notes in chart show cr 1.09 earlier this year -- will continue to monitor * Renally dose all medications when appropriate (10) BPH (benign prostatic hyperplasia): * Continue home flomax * No signs of urinary retention since mendoza removed (11) Cardiomyopathy: * As above, likely secondary to longstanding HTN (12) Seborrheic keratoses: * Multiple skin lesions removed with cyotherapy, most recent 1 weeks ago -- head, right ear, etc * No evidence of further lesions currently (13) DVT prophylaxis: * Per primary * Continue ASA, pletal * SCDs Thank you for asking the hospitalist team for medical management of Mr. Wagner. Will follow along. Supervising Physician Co-Signing Physician Notes PA Supervision Note: I did not personally see or examine the patient today, but I verified all nuno points of BUDDY Curtis's assessment and plan with the following exceptions/additions: None Subjective Patient evaluated this morning. He states he believes the numbness has subsided in his lower extremities but he does still have some tingling. He states his back pain is tolerable with pain medications. He states he no longer has penile irritation since the mendoza was removed this morning and he did not have difficulty urinating afterword. He states he does hav e a little bit of a sore throat, but this has been manageable with cough drops. He states he has been up walking without much difficulty. Has been passing a lot of gas but no bowel movement yet. Denies abdominal pain, n/v. States that he believes he should be ready for discharge on after he spoke with Dr. Tsai this morning, and is hopeful to have the drain removed when the output is decreased. Of note, the patient does admit that he donated blood about 2 weeks ago and was told he should let his physician know. Review of Systems Constitutional: no fever and no chills Eyes: no diplopia and no eye pain Ear, Nose, Mouth, Throat: + sore throat; no dysphagia Respiratory: + dyspnea on exertion (3 blocks); no cough Cardiovascular: no chest pain, no palpitations and no edema Gastrointestinal: + constipation; no abdominal pain, no nausea and no vomiting Genitourinary: no dysuria and no hematuria Musculoskeletal: + back pain; no muscle weakness Integumentary: multiple seborrheic keratoses Neurologic: + tingling and + numbness Physical Exam Physical Exam: Constitutional WD/WN, vitals as above Eyes PERRL, conjunctivae normal, anicteric sclerae ENMT external ear and nose normal, oropharynx normal Neck trachea midline, no thyromegaly Respiratory normal respiratory effort, lungs clear to auscultation Cardiovascular Rate/Rhythm: regular rate and regular rhythm Heart Sounds: normal S1, normal S2 and + murmur (1/6 systolic ejection murmur) Extremities: normal capillary refill; no edema Musculoskeletal Dressing to lumbar spine - c/d/i -- ALICIA drain in place with 10cc bloody drainage Neurologic PERRL, EOMI, accommodation nl, no face palsy, no dysarthria Psychiatric A+Ox3, euthymic affect Lymphatic: + cervical lymphadenopathy Results & Data Vital Signs (Past 12 Hours) Vital Signs Temp Pulse Resp BP BP Pulse Ox 05/03/19 15:37 105/57 L 05/03/19 15:34 36.6 C 59 L 16 89/48 L 95 05/03/19 13:05 36.6 C 78 17 123/70 100 05/03/19 07:02 36.7 C 81 17 117/68 96 PG Care Time/CCT Total # of Minutes Spent Total Time Spent with Patient: Total time spent is greater than 50% in coordination of care (as documented) at patient's floor/unit and/or counseling patient:
[2019-05-03] MEDS: DOCUSATE SODIUM/SENNA 50/8.6MG TAB PO SCH (21:12)
[2019-05-03] MEDS: PRAVASTATIN SOD 40 MG TAB PO SCH (21:12)
[2019-05-03] MEDS: TAMSULOSIN HCL 0.4 MG CAP PO SCH (21:13)
[2019-05-03] MEDS: INSULIN GLARGINE SOLOSTAR 100 UNITS/ML 3 ML PEN SC SCH (21:20)
[2019-05-04] MEDS: TRAMADOL HCL 50 MG TABLET PO PRN ×3 (05:10→22:49)
[2019-05-04] MEDS: POLYETHYLENE (MIRALAX) 17 GM PACK PO SCH ×4 (05:10→23:35)
[2019-05-04 06:45] LABS: Hematocrit (blood only) 28.5 % (42-52); Hemoglobin 9.7 g/dL (14.0-18.0); Mean Corpuscular Hemoglobin 30.5 pg (25-34); Mean Corpuscular Volume 89.6 fL (80-100); Mean Platelet Volume 8.3 fL (7.4-10.4); Platelet Count 148 K/uL (130-400); RDW Coefficient of Variation 13.9 % (11.5-14.5); RDW Standard Deviation 46.2 fL (36.4-46.3); Red Blood Count 3.18 M/uL (4.7-6.1); White Blood Count 10.35 K/uL (4.8-10.8)
[2019-05-04 07:12] LABS: Estimated Average Glucose 200 mg/dl; Hemoglobin A1C 8.6 % (4.5-5.6)
[2019-05-04 07:18] LABS: BUN Creatinine Ratio 19.7 (10-20); Calcium 9.4 mg/dl (8.5-10.1); Creatinine Clr Calc Pharmacy 55.3 ml/min; Est GFR (African American) 54.9; Est GFR (Non-African American) 47.4; Potassium 4.1 mmol/L (3.5-5.1)
[2019-05-04] MEDS: OXYCODONE HCL IR 5 MG TAB (IMMEDIATE RELEASE) PO PRN ×4 (07:37→21:01)
[2019-05-04] MEDS: AMLODIPINE BESYLATE 5 MG TAB PO SCH (07:37)
[2019-05-04] MEDS: CILOSTAZOL 100 MG TAB PO SCH ×2 (07:37→20:54)
[2019-05-04] MEDS: ASPIRIN 81 MG ECTAB PO SCH (07:38)
[2019-05-04] MEDS: INSULIN ASPART 100 UNITS/ML 3 ML PEN SC SCH ×4 (07:41→20:48)
--- NOTE | 2019-05-04 09:41 | Orthopedic Progress Note ---
Date of Service May 04, 2019 Assessment & Plan (1) Neurogenic claudication due to lumbar spinal stenosis: This time we will continue physical therapy monitor his ALICIA output anticipate discharge home tomorrow. Present on Admission?: Yes Physical Exam Physical Exam: Patient has good strength testing appears comfortable. Results & Data Vital Signs (Past 12 Hours) Vital Signs Temp Pulse Resp BP Pulse Ox 05/04/19 06:32 36.8 C 74 16 121/65 93 05/03/19 23:12 36.7 C 76 16 115/67 96
--- NOTE | 2019-05-04 12:52 | Hospitalist Progress Note ---
Date of Service May 04, 2019 Assessment & Plan (1) Neurogenic claudication due to lumbar spinal stenosis: * Improving -- patient no longer with numbness or tingling in b/l LE * POD #2 S/P lumbar spine decompression/fusion with Dr. Tsai on 05/02. EBL 400cc * PT/OT/pain management/DVT prophylaxis per primary service * Pre-op h/h 13.2/37.6 --> currently declined to 9.7/28.5 from 10.5/30.2 yesterday -- likley donation of blood two weeks ago in addition to acute blood loss from surgery and dilution from IVF -- patient asymptomatic at this time * Continue to monitor CBC in AM (2) Acute blood loss anemia: * As above * H/H further declined from yesterday --> currently 9.7/28.5 * Of note: donation of one unit of blood two weeks ago with [place] * Continue to monitor (3) Hypertension: * STABLE * Patient with longstanding hx of HTN. Had been on multiple agent. Follows with Dr. Fuentes. *Patient takes medications at different times in the day due to history of low BP when taking all at the same time. Per history, patient with lasix 20mg prn -- per patient, he has not taken that in quite some time -- he takes prn "feet swelling" * Continue home amlodipine 5mg * Given patient with continue HTN post-operatively, irbesartan was continued * Patient did drop to 105/57 last evening and irbesartan was held * BP this morning excellent, at 121/65 --> will restart this evening and continue to monitor (4) Coronary artery disease: * Non-obstructive cath June [address] Meehan -- 3 vessel disease with proximal LAD 30-50%, 30-50% of R PDA * Continue ASA 81mg * continue pravastatin 40mg daily * Continue cilostazol for PAD * not on beta mihai-will find out why (5) Sleep apnea: * Moderate obstructive sleep apena * Continue home CPAP -- patient has in the room with him, however after discussion with patient he has not used it since Thursday and was told by staff that he wasn't snoring and felt he didn't need to use it. Discussed importance of compliance and encouraged him to use it every night. (6) Systolic dysfunction: * Most recent ECHO with LV EF ~50%, however per most recent cardiology outpatient note, possibly related to accelerated HTN * Continue home ARB * Patient not on BB * No evidence of volume overload on exam today, currently 93% on RA -- continue to monitor (7) CVA (cerebral infarction): * Per patient, approximately 10 years ago * Continue home ASA 81mg (8) Diabetes: * Previously on metformin -- profuse diarrhea as side effect * Diet/exercise, per patient, although it seems as though his dietary choices are less than healthy-- most recent A1c 7.7 on 04/18/19 and is 8.6 this morning. * After further discussion with patient, he states that he had been on glipizide in the past but had problems with feeling lightheaded and was told to discontinue it for a while. He states he did restart this medication at the lowest dose approximately 1 week ago * Diabetic education consult * SSI while inpatient * Lantus increased again last evening and multiple adjustments to CF and carb ratio with sugars 159-215 over the past 24 hours * May need to consider addition of once weekly injectable, ie Ozempic, as outpatient -- patient would like to further discuss with PCP Dr. Wagner prior to initiation of any new agents (9) CKD (chronic kidney disease) stage 3, GFR 30-59 ml/min: * Improved -- Cr down to 1.49 from 1.65 * Creat pre-op 1.64, eGFR 49.2 * Renally dose all medications when appropriate (10) BPH (benign prostatic hyperplasia): * Continue home flomax * No signs of urinary retention since mendoza removed (11) Cardiomyopathy: * As above, likely secondary to longstanding HTN (12) Seborrheic keratoses: * Multiple skin lesions removed with cyotherapy, most recent 1 weeks ago -- head, right ear, etc * No evidence of further lesions currently (13) DVT prophylaxis: * Per primary * Continue ASA, pletal * SCDs Thank you for asking the hospitalist team for medical management of Mr. Wagner. Will follow along. Supervising Physician Co-Signing Physician Notes PA Supervision Note: I did not personally see or examine the patient today, but I verified all nuno points of BUDDY Curtis's assessment and plan with the following exceptions/additions: None Subjective Patient evaluated this morning. Numbness and tingling resolved. Patient states he did not get much rest last night due to multiple interuptions as well as increased low back pain with radiation to right hip and down his legs this morning. He rated it a 5/10 worsened by bending over with a reduction to 3-4/10 after pain medications. He states he hopes to have his drain removed tomorrow. He states he has been up ambulating without much difficulty and plans on getting a walker for short term at discharge. He denies any abdominal pain, but states he continues to be without a bowel movement since surgery. He is hopeful that he will be able to have a BM today. Review of Systems Constitutional: no fever and no chills Eyes: no diplopia and no eye pain Ear, Nose, Mouth, Throat: no sore throat and no dysphagia dry mouth Respiratory: no cough and no dyspnea Cardiovascular: no chest pain, no palpitations and no edema Gastrointestinal: + constipation; no abdominal pain, no nausea and no vomiting Genitourinary: no dysuria, no difficulty urinating and no hematuria Musculoskeletal: + back pain (low back pain); no myalgia Neurologic: no tingling and no numbness Physical Exam Constitutional: WD/WN, vitals as above Eyes: PERRL, conjunctivae normal, anicteric sclerae ENMT: external ear and nose normal, oropharynx normal Neck: trachea midline, no thyromegaly Respiratory: normal respiratory effort, lungs clear to auscultation Cardiovascular: Rate/Rhythm: regular rate and regular rhythm Heart Sounds: + murmur (1/6 systolic ejection murmur) Extremities: normal capillary refill; no edema Gastrointestinal (Abdomen): normal bowel sounds, soft, nontender, no hepatosplenomegaly Musculoskeletal: no cyanosis or clubbing, extremities motor strength 5/5 Skin: ALICIA drain in place Neurologic: PERRL, EOMI, accommodation nl, no face palsy, no dysarthria Psychiatric: A+Ox3, euthymic affect Lymphatic: + cervical lymphadenopathy (enlarged Right submandibular lymph node, approx 1cm ) Results & Data Vital Signs (Past 12 Hours) Vital Signs Temp Pulse Resp BP Pulse Ox 05/04/19 06:32 36.8 C 74 16 121/65 93 Laboratory Results 05/04/19 05/04/19 05/04/19 Range/Units 12:18 06:36 06:21 WBC (4.8-10.8) K/uL RBC (4.7-6.1) M/uL Hgb (14.0-18.0) g/dL Hct (42-52) % MCV (80-100) fL MCH (25-34) pg MCHC (32-36) g/dL RDW Std Deviation (36.4-46.3) fL RDW Coeff of Patti (11.5-14.5) % Plt Count (130-400) K/uL MPV (7.4-10.4) fL Sodium (136-145) mmol/L Potassium (3.5-5.1) mmol/L Chloride (98-107) mmol/L Carbon Dioxide (21-32) mmol/L Anion Gap (3-11) BUN (7-18) mg/dl Creatinine (0.6-1.4) mg/dl Est Cr Clr Drug Dosing ml/min Est GFR ( Amer) Est GFR (Non-Af Amer) BUN/Creatinine Ratio (10-20) Glucose (70-99) mg/dl POC Glucose 159 H 168 H (70-99) Estimat Average Glucose 200 mg/dl Hemoglobin A1c 8.6 H (4.5-5.6) % Calcium (8.5-10.1) mg/dl 05/04/19 05/04/19 05/03/19 Range/Units 06:21 06:21 21:06 WBC 10.35 (4.8-10.8) K/uL RBC 3.18 L (4.7-6.1) M/uL Hgb 9.7 L (14.0-18.0) g/dL Hct 28.5 L (42-52) % MCV 89.6 (80-100) fL MCH 30.5 (25-34) pg MCHC 34.0 (32-36) g/dL RDW Std Deviation 46.2 (36.4-46.3) fL RDW Coeff of Patti 13.9 (11.5-14.5) % Plt Count 148 (130-400) K/uL MPV 8.3 (7.4-10.4) fL Sodium 139 (136-145) mmol/L Potassium 4.1 (3.5-5.1) mmol/L Chloride 109 H (98-107) mmol/L Carbon Dioxide 25 (21-32) mmol/L Anion Gap 5.0 (3-11) BUN 29 H (7-18) mg/dl Creatinine 1.46 H (0.6-1.4) mg/dl Est Cr Clr Drug Dosing 55.3 ml/min Est GFR ( Amer) 54.9 Est GFR (Non-Af Amer) 47.4 BUN/Creatinine Ratio 19.7 (10-20) Glucose 166 H (70-99) mg/dl POC Glucose 223 H (70-99) Estimat Average Glucose mg/dl Hemoglobin A1c (4.5-5.6) % Calcium 9.4 (8.5-10.1) mg/dl 05/03/19 Range/Units 17:16 WBC (4.8-10.8) K/uL RBC (4.7-6.1) M/uL Hgb (14.0-18.0) g/dL Hct (42-52) % MCV (80-100) fL MCH (25-34) pg MCHC (32-36) g/dL RDW Std Deviation (36.4-46.3) fL RDW Coeff of Patti (11.5-14.5) % Plt Count (130-400) K/uL MPV (7.4-10.4) fL Sodium (136-145) mmol/L Potassium (3.5-5.1) mmol/L Chloride (98-107) mmol/L Carbon Dioxide (21-32) mmol/L Anion Gap (3-11) BUN (7-18) mg/dl Creatinine (0.6-1.4) mg/dl Est Cr Clr Drug Dosing ml/min Est GFR ( Amer) Est GFR (Non-Af Amer) BUN/Creatinine Ratio (10-20) Glucose (70-99) mg/dl POC Glucose 215 H (70-99) Estimat Average Glucose mg/dl Hemoglobin A1c (4.5-5.6) % Calcium (8.5-10.1) mg/dl PG Care Time/CCT Total # of Minutes Spent Total Time Spent with Patient: Total time spent is greater than 50% in coordination of care (as documented) at patient's floor/unit and/or counseling patient:
[2019-05-04] MEDS: INSULIN GLARGINE SOLOSTAR 100 UNITS/ML 3 ML PEN SC SCH (20:49)
[2019-05-04] MEDS: PRAVASTATIN SOD 40 MG TAB PO SCH (20:53)
[2019-05-04] MEDS: TAMSULOSIN HCL 0.4 MG CAP PO SCH (20:54)
[2019-05-04] MEDS: DOCUSATE SODIUM/SENNA 50/8.6MG TAB PO SCH (20:54)
[2019-05-04] MEDS: IRBESARTAN 150 MG TAB PO SCH (22:42)
[2019-05-05] MEDS: OXYCODONE HCL IR 5 MG TAB (IMMEDIATE RELEASE) PO PRN ×2 (02:27→14:15)
[2019-05-05 05:47] LABS: Hematocrit (blood only) 29.5 % (42-52); Mean Corpuscular Hemoglobin 30.6 pg (25-34); Mean Corpuscular Hgb Conc 33.9 g/dL (32-36); Mean Corpuscular Volume 90.2 fL (80-100); Mean Platelet Volume 8.9 fL (7.4-10.4); Platelet Count 148 K/uL (130-400); RDW Coefficient of Variation 13.7 % (11.5-14.5); RDW Standard Deviation 45.4 fL (36.4-46.3); Red Blood Count 3.27 M/uL (4.7-6.1); White Blood Count 9.49 K/uL (4.8-10.8)
[2019-05-05 06:17] LABS: BUN Creatinine Ratio 15.8 (10-20); Calcium 9.2 mg/dl (8.5-10.1); Creatinine Clr Calc Pharmacy 57.3 ml/min; Est GFR (African American) 57.3; Est GFR (Non-African American) 49.4; Potassium 4.2 mmol/L (3.5-5.1)
[2019-05-05] MEDS: POLYETHYLENE (MIRALAX) 17 GM PACK PO SCH ×2 (06:33→15:12)
[2019-05-05] MEDS: AMLODIPINE BESYLATE 5 MG TAB PO SCH (07:32)
[2019-05-05] MEDS: TRAMADOL HCL 50 MG TABLET PO PRN (07:32)
[2019-05-05] MEDS: CILOSTAZOL 100 MG TAB PO SCH (07:33)
[2019-05-05] MEDS: ASPIRIN 81 MG ECTAB PO SCH (07:33)
[2019-05-05] MEDS: INSULIN ASPART 100 UNITS/ML 3 ML PEN SC SCH ×2 (07:35→12:52)
--- NOTE | 2019-05-05 08:31 | Discharge Summary ---
Date of Service May 05, 2019 Admission HPI Per Admitting Provider This is a 73-year-old male well-known to me that presents with worsening back and bilateral leg pain. After failing extensive course of nonoperative care is here for surgical intervention. Principal Diagnosis Lumbar spinal stenosis with neurogenic claudication Discharge Data Allergies Allergy/AdvReac Type Severity Reaction Status Date / Time metformin AdvReac Severe Diarrhea Verified 05/02/19 08:21 Consultations 05/02/19 14:31 Consult Case Management - Discharge Planning Routine 05/02/19 14:42 Consult Hospitalist Routine Procedures Performed Operation Date: 05/02/19 09:55 Actual Procedures p L3-L5 Decompression and Fusion with Spinal Cord Monitoring(Not Applicable) - Mateus Tsai DO Ordered Studies 05/02/19 09:55 FL fluoroscopy <1hr Routine FL lumbar spine 2-3V Routine Hospital Course (1) Lumbar stenosis with neurogenic claudication: Patient underwent lumbar decompression fusion tolerated so was taken to orthopedic for postoperative. Postop day 1 is up and ambulating progressed appropriately postop day #2. Postop day 3 is neurologically intact comfortable ALICIA drain decreasing probably. Subsequently discharged home. Discharge orders and instructions on the chart for further review. Total Time Total Time Spent Total Time Spent (In Minutes): 20 minutes Discharge Plan Discharge Items Patient Disposition: Home - Self-Care Reason For Visit: LUMBAR SPINAL STENOSIS W/NEUROGENIC CLAUDICATION Discharge Diagnosis: Lumbar spinal stenosis with neurogenic claudication Activity: As commented below Non-emergency contact: Primary Care Provider Call non-emergency contact if: you have any medication questions Follow-up/Referrals: Endy Wagner MD [Primary Care Provider] - Diet: Regular Addtl Attending Provider Instructions: ACTIVITY RECOMMENDATIONS: SELF CARE INSTRUCTIONS AFTER THORACIC/LUMBAR FUSIONS 1. You may walk to your tolerance. It is good exercise for your legs and back. Expect some back and intermittent leg aches and pains. 2. You may perform "counter-top" level activities (make a sandwich, yolanda with a project, etc.). 3. No bending or lifting of more than 10 pounds or back twisting of any nature (roll like a log when turning in bed). 4. You may ride in a car for 20-30 minutes at a time. No driving until after your first visit with your doctor. 5. Frequent changes of position and restricting sitting to 30 minutes at a time will help limit the amount of back spasms and stiffness you may experience. 6. You may discontinue the use of ambulatory aids (cane, crutches, etc.) once your strength and confidence allow. 7. You may finishing department supervisor the shower and let water strike your incision when you arrive home at least once daily. Do not take a tub bath, sit in a hot tub or go into a swimming pool until after your first recheck in the office. SPECIAL CARE INSTRUCTIONS: VERY IMPORTANT TO READ AND REVIEW A. Your surgical incision has been closed with a cosmetic suture under the skin that will dissolve in about 6 weeks. In 14 days, you can use a pair of clean scissors and cut the suture that is left outside of the skin at the ends of your incision. 1. The small skin tapes can be removed 7 days after surgery if they have not fallen off by that point. 2. You may keep the wound open to air as much as possible to promote healing after post-op day number 5 unless told otherwise by your doctor. 3. If you think the wound looks like it is becoming infected (redness or worsening drainage) and/or you are experiencing fever, chill or worsening back pain and muscle spasms, contact the office so that we may evaluate you as soon as possible. B. Complications are uncommon, but please contact us if you have any signs or symptoms of: 1. wound infection (fever higher than 102.5 degrees F, redness, separation of wound, drainage, or increasing pain from the incision) 2. blood clots in legs (pain, swelling, redness and warmth in legs) 3. urinary tract infection (fever higher than 102.5 degrees F, burning upon urination or increased frequency of urination) 4. nerve problems (inability to walk on your toes or heels, numbness, loss of bowel or bladder control) 5. any other symptoms that concern you C. Please call the office at if you have any concerns or questions about your operation or recovery. D. No smoking! Smoking drastically decreases the chance of a solid fusion. E. Do not take any anti-inflammatory medications (Indocin, Advil, Motrin, Asp irin, Naprosyn, etc.) as these may inhibit the chance of a solid fusion. Tylenol is okay to take for pain. MANAGING PAIN AFTER SPINAL SURGERY 1. Narcotic medication is intended for short-term use and will be provided for surgical pain. Surgical pain usually lasts for a period of 4-6 weeks. Narcotic medication includes Percocet, Vicodin, Darvocet, Tylenol #3 or Lortab. 2. Longer-term pain is more appropriately treated with non-narcotic medication such as Tylenol ES. 3. Muscle spasm is not appropriately treated with narcotics. Muscle relaxers such as Soma, Flexeril or Skelaxin can be used along with Tylenol ES. 4. Remember that we all live with some "aches and pains". This is not unusual or uncommon after an injury or as we get older. a. Back pain is expected and may include muscle spasms for 4 to 6 weeks after surgery. The pain should gradually improve. If the pain worsens for no apparent reason, please contact the office. b. Intermittent leg pain may also be experienced and should not be concerned about unless it worsens for no apparent reason. If so, please contact the office. 5. We will provide appropriate medication within the normal guidelines of their prescribed use. We will also be very cautious and aware of potential abuse and extended duration of patients' medication needs. a. Pain medications are for your comfort and to assist with sleep and rest so that the tissue can heal. They are not provided in order to return to normal activity and should not be used through the day. To do so or worsening pain at night can result from ongoing tissue damage and development of tolerance to the prescribed medicine. 6. Please allow 2-3 days to process refills. Prescriptions will not be mailed but must be picked up at the office. FOLLOW UP VISIT: Keep your scheduled follow-up appointment. Any questions, please call the office at . Pending Studies at Discharge: No Stand-Alone Forms: My [employer], Smoking Cessation Medications and DC Order Prescriptions: New tramadol 50 mg tablet 50 mg PO Q6H PRN (Reason: pain, moderate) Qty: 30 RF: 0 oxycodone 5 mg tablet 5 mg PO Q6H PRN (Reason: pain, severe) Qty: 30 RF: 0 Continued omega-3 fatty acids [Fish Oil Concentrate] 1,000 mg capsule 2,000 mg PO QPM RF: 0 tamsulosin 0.4 mg capsule 0.4 mg PO QPM RF: 0 furosemide [Lasix] 20 mg tablet 20 mg PO DAILY PRN (Reason: WATER RETENTION) RF: 0 amlodipine 5 mg tablet 5 mg PO QAM RF: 0 aspirin [Adult Aspirin Regimen] 81 mg tablet,delayed release (DR/EC) 81 mg PO QAM RF: 0 irbesartan 300 mg tablet 300 mg PO QPM RF: 0 cilostazol 100 mg tablet 100 mg PO BID RF: 0 pravastatin 40 mg Tablet 40 mg PO QPM RF: 0 Discharge Orders: Discharge Order (Routine); Ordered 05/05/19 Ordered By: Mateus Tsai Admission Data Admit Date/Time: 05/02/19 13:26 Attending Provider: Mateus Tsai Admit Provider: Mateus Tsai Primary Care Provider: Endy Wagner Other Providers: Tran Sinclair
== END 2019-05-05 15:36 | disposition home or self-care (01) | DRG 460 ==
LOC: ASU 07:40 → 3E 13:26

== ENCOUNTER 2021-04-18 05:55 | Inpatient (IN) ==
[2021-04-18] MEDS ORDERED: dexAMETHasone**PF** 10 MG/ML VIAL IV ONE (06:36)
[2021-04-18] MEDS ORDERED: ACETAMINOPHEN 500 MG TAB PO STA (06:36)
--- NOTE | 2021-04-18 06:45 | Emergency Department Note ---
Impression & Plan 2019 novel coronavirus-infected pneumonia (NCIP), Hypoxia, Weakness ED Provider Note Provider: Asad Flores MD DATE OF SERVICE: 04/18/2021 CHIEF COMPLAINT: Covid, weakness, shortness of breath HISTORY OF PRESENT ILLNESS: Patient is a 75-year-old gentleman past medical history of CKD, CAD, spinal stenosis, CVA, and diabetes presenting here today complaining of increasing weakness fatigue with COVID-19. Patient states began symptomatic on the of this month and tested positive the next day while being seen here in the ER. Patient states he is unvaccinated. Denies a history of smoking or asthma. Patient states he has not had anything significant to eat since being seen last week. Patient evidently this morning was on the way to the bathroom and felt very weak and had a lower himself to the ground. Denies actually falling or losing consciousness. States he has generalized myalgias as well as some pain in his chest and feels short of breath. Reports headaches. Denies significant fevers. Has not taken any Motrin or Tylenol recently per his report. Patient has not received monoclonal antibodies. Patient's is sick at home as well but he reports she is doing somewhat better. REVIEW OF SYSTEMS: A total of 10 review of systems was obtained and negative except as stated above in the HPI. PAST MEDICAL HISTORY: As noted above MEDICATIONS: Reviewed home medications SOCIAL HISTORY: Non-smoker, lives at home with PHYSICAL EXAM: GENERAL: alert and oriented in no acute distress on stretcher but fatigued in appearance Head: normocephalic and atraumatic EYES: No injection, discharge or icterus. NECK: Trachea midline. ENT: Mucous membranes pink and moist. LUNGS: Airway patent. No retractions but somewhat tachypneic Breath sounds clear HEART: Regular rate and rhythm. No chest wall tenderness ABDOMEN: Soft and non-tender, without guarding or rebound. SKIN: Acyanotic, warm, dry, without rashes EXTREMITIES: Without swelling, tenderness or deformity NEUROLOGICAL: No focal deficits. No aphasia. No facial droop or slurred speech. EK bpm normal sinus rhythm. No PVC or PAC. No acute ST segment elevation or depression noted with a QTC of 416. CONTINUOUS CARDIAC MONITORING: was ordered and showed a heart rate of 80s-90s bpm in normal sinus rhythm Patient's laboratory studies and imaging reviewed. Differential includes Infection, dehydration, metabolic abnormality, hypo/hyperglycemia, electrolyte disturbance, anemia, hypoxia, cardiac sources, intracerebral event, toxicologic, neurologic, as well as other pathologies. IMPRESSION/MEDICAL DECISION MAKING: Patient noted to be hypoxic on room air with significant sinus congestion reported. Placed on oxygen mask. Given dexamethasone for hypoxic Covid. Blood work was obtained in addition to chest x-ray. Chest x-ray and radiology report reviewed. Patient unvaccinated and did not receive monoclonal antibodies. Likely related to Covid symptomatologies. Not significantly tachycardic at this point but significant generalized weakness. Mild leukopenia consistent with Co vid. No anemia. No significant hypercarbia. Creatinine is mildly elevated 2.0 given a very small fluid bolus here. C-reactive protein is elevated. Again Covid positive. Negative flu last week and believe this is all Covid. Given oxygen requirement generalized weakness discussed with the hospitalist for further care here. Sounds like the patient slid to the floor and I doubt any significant traumatic injury from this requiring additional imaging. DIAGNOSIS: COVID-19 pneumonia, hypoxia, weakness DISPOSITION: Hospitalist will evaluate Patient was agreeable with this plan. Past Med/Surg History Medical History (Updated 04/18/21 @ 08:45 by Mary Landis MD) BPH (benign prostatic hyperplasia) Cardiomyopathy Chronic back pain CKD (chronic kidney disease) stage 3, GFR 30-59 ml/min Coronary artery disease mild-moderate 3 vessel on 2016 cath per cardiology. CVA (cerebral vascular accident) 2010, no residual deficits. DM type 2 (diabetes mellitus, type 2) DIET CONTROLLED High cholesterol Hypertension Seborrheic keratoses Sleep apnea CPAP HS SOB (shortness of breath) on exertion Spinal stenosis Systolic dysfunction EF 50% Surgical History History of cardiac cath 2015 - [facility] - CP - NO STENTS/ANGIOPLASTY History of cataract surgery BL History of fusion of lumbar spine History of sebaceous cyst & REMOVED History of toe surgery History of tooth extraction Hx of tonsillectomy Family History Other Patient's father is Patient's mother is Social History Smoking Status: Never smoker Second Hand Exposure: No; Hx Alcohol Use: No Hx Substance Use: No Preferred Language: Belarusian Communication Ability: Effective Hearing Ability: Normal Slope Hoist Operator Required: No Beliefs That Will Affect Care: None marital status: Current Living Situation: Alone 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 Feels Safe at Home: Yes Assistive Devices: Walker Allergies Allergies Allergy/AdvReac Type Severity Reaction Status Date / Time metformin AdvReac Severe Diarrhea Verified 04/18/21 07:52 Home Meds Home Medications Medication Instructions Recorded Confirmed omega-3 fatty acids 1,000 mg 2,000 mg PO QPM cap 04/13/18 04/18/21 capsule (Fish Oil Concentrate) cilostazol 100 mg tablet 100 mg PO BID 07/01/18 04/18/21 irbesartan 300 mg tablet 300 mg PO QPM 07/01/18 04/18/21 aspirin 81 mg tablet,delayed 81 mg PO QAM tab 09/23/18 04/18/21 release (Adult Aspirin Regimen) pravastatin 40 mg tablet 40 mg PO QPM 04/12/19 04/18/21 canagliflozin 100 mg tablet 100 mg PO DAILY 11/07/20 04/18/21 (Invokana) glipizide 2.5 mg tablet, extended 2.5 mg PO DAILY 11/07/20 04/18/21 release 24 hr Previous Rx's Medication Instructions Recorded oxycodone 5 mg tablet 5 mg PO Q6H PRN #30 tab 05/04/19 tamsulosin 0.4 mg capsule 0.4 mg PO QPM #90 cap 11/07/20 cholecalciferol (vitamin D3) 50 2,000 unit PO DAILY #30 cap 12/11/20 mcg (2,000 unit) capsule Results & Data (ED) Vital Signs Vital Signs - 24 hr 04/18/21 06:00 04/18/21 06:15 04/18/21 07:00 Temperature 37.1 C Temperature Source Oral Pulse Rate 87 81 Pulse Rate from SpO2 Sensor 81 Respiratory Rate 24 21 Blood Pressure 118/64 107/61 Blood Pressure Mean 82 76 Pulse Oximetry 88 L 88 L 91 Oxygen Delivery Method Room Air Room Air Sepsis Recent Fever Within 48 Hours No Sepsis New/Unexplained Change in Mental Status N/A Sepsis Action Taken by Nursing No Action Required Oxygen Flow Rate - Titration 2 Pulse Oximetry Post Tiitration 91 11/18/21 07:30 04/18/21 08:30 Temperature Temperature Source Pulse Rate 80 76 Pulse Rate from SpO2 Sensor 81 77 Respiratory Rate 21 15 Blood Pressure 109/73 120/71 Blood Pressure Mean 85 87 Pulse Oximetry 94 95 Oxygen Delivery Method Sepsis Recent Fever Within 48 Hours Sepsis New/Unexplained Change in Mental Status Sepsis Action Taken by Nursing Oxygen Flow Rate - Titration Pulse Oximetry Post Tiitration Laboratory Data Result diagrams: 04/18/21 06:30 04/18/21 06:30 Lab Results 04/18/21 04/18/21 04/18/21 Range/Units 05:30 05:30 06:30 WBC 4.57 L (4.8-10.8) K/uL RBC 4.92 (4.7-6.1) M/uL Hgb 14.8 (14.0-18.0) g/dL Hct 43.0 (42-52) % MCV 87.4 (80-100) fL MCH 30.1 (25-34) pg MCHC 34.4 (32-36) g/dL RDW Std Deviation 46.3 (36.4-46.3) fL RDW Coeff of Patti 14.3 (11.5-14.5) % Plt Count 121 L (130-400) K/uL MPV 9.6 (7.4-10.4) fL Immature Gran % (Auto) 0.0 % Neut % (Auto) 80.3 % Lymph % (Auto) 9.4 % Centre % (Auto) 10.3 % Eos % (Auto) 0.0 % Baso % (Auto) 0.0 % Neut # (Auto) 3.67 (1.4-6.5) K/uL Lymph # (Auto) 0.43 L (1.2-3.4) K/uL Centre # (Auto) 0.47 (0.11-0.59) K/uL Eos # (Auto) 0.00 (0-0.5) K/uL Baso # (Auto) 0.00 (0-0.2) K/uL Immature Gran # (Auto) 0.00 (0.00-0.02) K/uL PT (9.0-12.0) Seconds INR (0.9-1.1) APTT (21.0-31.0) Seconds PTT Ratio VBG pH (7.36-7.41) VBG pCO2 (38-50) mmHg VBG pO2 mmHg VBG HCO3 mmol/L VBG O2 Saturation % VBG Base Excess mEq/L Barometric Pressure mm/Hg Sodium (136-145) mmol/L Potassium (3.5-5.1) mmol/L Chloride (98-107) mmol/L Carbon Dioxide (21-32) mmol/L Anion Gap (3-11) BUN (7-18) mg/dl Creatinine (0.6-1.4) mg/dl Est Cr Clr Drug Dosing ml/min Est GFR ( Amer) ml/min Est GFR (Non-Af Amer) ml/min BUN/Creatinine Ratio (10-20) Glucose (70-99) mg/dl Calcium (8.5-10.1) mg/dl Total Bilirubin (0.2-1) mg/dl AST (15-37) U/L ALT (12-78) U/L Alkaline Phosphatase (45-117) U/L Troponin I (0-0.045) ng/ml C-Reactive Protein (0-0.29) mg/dl Total Protein (6.4-8.2) gm/dl Albumin (3.4-5.0) gm/dl Globulin (2.5-4.0) gm/dl Albumin/Globulin Ratio (0.9-2) Lipase (73-393) U/L COVID-19 Eval Order Covid19 at [facility] SARS-CoV-2 (PCR) POSITIVE A* (Negative) 04/18/21 04/18/21 04/18/21 Range/Units 06:30 06:30 06:30 WBC (4.8-10.8) K/uL RBC (4.7-6.1) M/uL Hgb (14.0-18.0) g/dL Hct (42-52) % MCV (80-100) fL MCH (25-34) pg MCHC (32-36) g/dL RDW Std Deviation (36.4-46.3) fL RDW Coeff of Patti (11.5-14.5) % Plt Count (130-400) K/uL MPV (7.4-10.4) fL Immature Gran % (Auto) % Neut % (Auto) % Lymph % (Auto) % Centre % (Auto) % Eos % (Auto) % Baso % (Auto) % Neut # (Auto) (1.4-6.5) K/uL Lymph # (Auto) (1.2-3.4) K/uL Centre # (Auto) (0.11-0.59) K/uL Eos # (Auto) (0-0.5) K/uL Baso # (Auto) (0-0.2) K/uL Immature Gran # (Auto) (0.00-0.02) K/uL PT 11.1 (9.0-12.0) Seconds INR 1.1 (0.9-1.1) APTT 32.2 H (21.0-31.0) Seconds PTT Ratio 1.2 VBG pH (7.36-7.41) VBG pCO2 (38-50) mmHg VBG pO2 mmHg VBG HCO3 mmol/L VBG O2 Saturation % VBG Base Excess mEq/L Barometric Pressure mm/Hg Sodium 137 (136-145) mmol/L Potassium 4.4 (3.5-5.1) mmol/L Chloride 106 (98-107) mmol/L Carbon Dioxide 19 L (21-32) mmol/L Anion Gap 12.0 H (3-11) BUN 33 H (7-18) mg/dl Creatinine 2.00 H (0.6-1.4) mg/dl Est Cr Clr Drug Dosing 38.9 ml/min Est GFR ( Amer) 37.0 ml/min Est GFR (Non-Af Amer) 31.9 ml/min BUN/Creatinine Ratio 16.4 (10-20) Glucose 167 H (70-99) mg/dl Calcium 9.7 (8.5-10.1) mg/dl Total Bilirubin 0.5 (0.2-1) mg/dl AST 60 H (15-37) U/L ALT 36 (12-78) U/L Alkaline Phosphatase 60 (45-117) U/L Troponin I 0.015 (0-0.045) ng/ml C-Reactive Protein 10.60 H (0-0.29) mg/dl Total Protein 7.3 (6.4-8.2) gm/dl Albumin 2.8 L (3.4-5.0) gm/dl Globulin 4.5 H (2.5-4.0) gm/dl Albumin/Globulin Ratio 0.6 L (0.9-2) Lipase 236 (73-393) U/L COVID-19 Eval Order SARS-CoV-2 (PCR) (Negative) 04/18/21 Range/Units 06:42 WBC (4.8-10.8) K/uL RBC (4.7-6.1) M/uL Hgb (14.0-18.0) g/dL Hct (42-52) % MCV (80-100) fL MCH (25-34) pg MCHC (32-36) g/dL RDW Std Deviation (36.4-46.3) fL RDW Coeff of Patti (11.5-14.5) % Plt Count (130-400) K/uL MPV (7.4-10.4) fL Immature Gran % (Auto) % Neut % (Auto) % Lymph % (Auto) % Centre % (Auto) % Eos % (Auto) % Baso % (Auto) % Neut # (Auto) (1.4-6.5) K/uL Lymph # (Auto) (1.2-3.4) K/uL Centre # (Auto) (0.11-0.59) K/uL Eos # (Auto) (0-0.5) K/uL Baso # (Auto) (0-0.2) K/uL Immature Gran # (Auto) (0.00-0.02) K/uL PT (9.0-12.0) Seconds INR (0.9-1.1) APTT (21.0-31.0) Seconds PTT Ratio VBG pH 7.33 L (7.36-7.41) VBG pCO2 40 (38-50) mmHg VBG pO2 16 mmHg VBG HCO3 21 mmol/L VBG O2 Saturation < 60.0 % VBG Base Excess -4.8 mEq/L Barometric Pressure 731.5 mm/Hg Sodium (136-145) mmol/L Potassium (3.5-5.1) mmol/L Chloride (98-107) mmol/L Carbon Dioxide (21-32) mmol/L Anion Gap (3-11) BUN (7-18) mg/dl Creatinine (0.6-1.4) mg/dl Est Cr Clr Drug Dosing ml/min Est GFR ( Amer) ml/min Est GFR (Non-Af Amer) ml/min BUN/Creatinine Ratio (10-20) Glucose (70-99) mg/dl Calcium (8.5-10.1) mg/dl Total Bilirubin (0.2-1) mg/dl AST (15-37) U/L ALT (12-78) U/L Alkaline Phosphatase (45-117) U/L Troponin I (0-0.045) ng/ml C-Reactive Protein (0-0.29) mg/dl Total Protein (6.4-8.2) gm/dl Albumin (3.4-5.0) gm/dl Globulin (2.5-4.0) gm/dl Albumin/Globulin Ratio (0.9-2) Lipase (73-393) U/L COVID-19 Eval Order SARS-CoV-2 (PCR) (Negative) Administered Medications Aspirin (Aspirin 81 Mg Ectab) 81 mg PO QAM MIR Stop: 05/18/21 10:59 Last Admin: 04/18/21 12:10 Dose: 81 mg Documented by: [id number] Cilostazol (Cilostazol 100 Mg Tab) 100 mg PO BID MIR Stop: 05/18/21 11:14 Last Admin: 04/18/21 12:10 Dose: 100 mg Documented by: [id number] Enoxaparin Sodium (Enoxaparin Inj 40 Mg/0.4 Ml Syr) 40 mg SQ Q12 MIR Stop: 05/18/21 11:14 Last Admin: 04/18/21 12:10 Dose: 40 mg Documented by: [id number] Insulin Aspart (Insulin Aspart 100 Units/Ml 3 Ml Pen) 0 units SC ACHS MIR Stop: 05/18/21 11:29 Last Admin: 04/18/21 13:03 Dose: 10 units Documented by: [id number] Cosigned by: [id number] Insulin Human NPH (Insulin Human Nph) 20 units SC DAILY MIR Stop: 05/18/21 12:59 Last Admin: 04/18/21 13:09 Dose: 20 units Documented by: [id number] Cosigned by: [id number] Sodium Chloride (Sodium Chloride 0.9% 10ml Flush) 30 ml IV DAILY@1300 MIR Stop: 04/22/21 13:01 Last Admin: 04/18/21 12:09 Dose: 30 ml Documented by: [id number] Discontinued Medications Acetaminophen (Acetaminophen 500 Mg Tab) 1,000 mg PO NOW STA Stop: 04/18/21 06:37 Last Admin: 04/18/21 06:44 Dose: 1,000 mg Documented by: [id number] Dexamethasone Sodium Phosphate (DexamethasonePf 10 Mg/Ml Vial) 6 mg IV NOW ONE Stop: 04/18/21 06:37 Last Admin: 04/18/21 06:44 Dose: 6 mg Documented by: [id number] Sodium Chloride (Nss) 500 mls @ 999 mls/hr IV .Q31M ONE Stop: 04/18/21 07:52 Last Infusion: 04/18/21 09:06 Dose: 0 mls/hr Documented by: [id number] Admin: 04/18/21 08:30 Dose: 999 mls/hr Documented by: [id number] Remdesivir 200 mg/ Sodium (Chloride) 250 mls @ 125 mls/hr IV ONE STA; Protocol Stop: 04/18/21 10:56 Last Infusion: 04/18/21 12:12 Dose: 0 mls/hr Documented by: [id number] Admin: 04/18/21 10:08 Dose: 125 mls/hr Documented by: [id number] Insulin Glargine (Insulin Glargine Solostar 100 Units/Ml 3 Ml Pen) 7 units SC BID [facility] Stop: 05/18/21 09:01 Last Admin: 04/18/21 10:11 Dose: 7 units Documented by: [id number] Cosigned by: [id number] Sodium Chloride (Sodium Chloride 0.9% 10ml Flush) 30 ml IV Q24H [facility] Stop: 04/22/21 09:01 Last Admin: 04/18/21 12:12 Dose: Not Given Documented by: [id number] Imaging Data Radiologist's Impression: Chest X-Ray 04/18/21 06:08 XR chest 1V portable CLINICAL HISTORY: Atypical chest pain TECHNIQUE: Single frontal radiograph of the chest was obtained. Comparison: Comparison is made to chest one view 04/11/2021 FINDINGS: No lines and tubes are seen. The cardiomediastinal silhouette is normal. Airspace opacity is seen in the right midlung and left lower lung. No evidence of pleural effusion or pneumothorax. IMPRESSION: Multiple airspace opacities are favored to represent atelectasis with or without superimposed pneumonia/aspiration. ACT 112: Negative or not required by law. Electronically signed by: Jose Christensen M.D. 04/18/2021 8:16 AM Hip/Pelvis X-Ray 04/18/21 06:09 XR hips ONESIMO 1v w pelvis HISTORY: 75 years-old Male fall acute bilateral hip pain status post fall COMPARISON: Acute abdominal series radiographs 05/09/2019 TECHNIQUE: AP view of the pelvis with 2 views of the hips FINDINGS: Partially imaged lumbar spinal fusion hardware. There is mild right with [id number] left hip osteoarthritis. No acute fracture, dislocation or avascular necrosis. Unremarkable soft tissues. IMPRESSION: No acute fracture or dislocation. ACT 112: Negative or not required by law. The above report was generated using voice recognition software. It may contain grammatical, syntax or spelling errors. Electronically signed by: Nitin Titus M.D. 04/18/2021 7:32 AM Discharge Plan Visit Data Chief Complaint: Illness Stated Complaint: BREATHING DIFF ED Provider: Asad Flores Discharge Problem: 2019 novel coronavirus-infected pneumonia (NCIP), Hypoxia, Weakness Patient Disposition: Admitted As Inpatient Discharge Instructions Interventions: ED Discharge Assessment Last Done: 04/18/21 10:13
[2021-04-18 06:59] LABS: Base Excess VBG -4.8 mEq/L; HCO3 VBG 21 mmol/L; PCO2 VBG 40 mmHg (38-50); PO2 VBG 16 mmHg; pH VBG 7.33 (7.36-7.41)
[2021-04-18 06:59] LABS: Hemoglobin 14.8 g/dL (14.0-18.0); Lymphocytes # (auto) 0.43 K/uL (1.2-3.4); Lymphocytes % (auto) 9.4 %; Mean Corpuscular Hemoglobin 30.1 pg (25-34); Mean Corpuscular Hgb Conc 34.4 g/dL (32-36); Mean Corpuscular Volume 87.4 fL (80-100); Mean Platelet Volume 9.6 fL (7.4-10.4); Monocytes # (auto) 0.47 K/uL (0.11-0.59); Monocytes % (auto) 10.3 %; Neutrophils # (auto) 3.67 K/uL (1.4-6.5); Neutrophils % (auto) 80.3 %; Platelet Count 121 K/uL (130-400); RDW Coefficient of Variation 14.3 % (11.5-14.5); RDW Standard Deviation 46.3 fL (36.4-46.3); Red Blood Count 4.92 M/uL (4.7-6.1); White Blood Count 4.57 K/uL (4.8-10.8)
[2021-04-18 07:00] LABS: Oxygen Saturation VBG < 60.0 %
[2021-04-18 07:09] LABS: INR 1.1 (0.9-1.1); Partial Thromboplastin Ratio 1.2; Partial Thromboplastin Time 32.2 Seconds (21.0-31.0); Prothrombin Time 11.1 Seconds (9.0-12.0)
[2021-04-18 07:11] LABS: Albumin Level 2.8 gm/dl (3.4-5.0); BUN Creatinine Ratio 16.4 (10-20); Calcium 9.7 mg/dl (8.5-10.1); Creatinine Clr Calc Pharmacy 38.9 ml/min; Est GFR (Non-African American) 31.9 ml/min; Potassium 4.4 mmol/L (3.5-5.1)
[2021-04-18 07:15] LABS: Albumin Globulin Ratio 0.6 (0.9-2); Bilirubin,Total 0.5 mg/dl (0.2-1); Globulin 4.5 gm/dl (2.5-4.0); Total Protein 7.3 gm/dl (6.4-8.2); Troponin I 0.015 ng/ml (0-0.045)
[2021-04-18] MEDS ORDERED: SODIUM CHLORIDE 0.9% 500 ML IV ONE (07:22)
--- NOTE | 2021-04-18 07:33 | XRay Report ---
XR hips ONESIMO 1v w pelvis HISTORY: 75 years-old Male fall acute bilateral hip pain status post fall COMPARISON: Acute abdominal series radiographs 05/09/2019 TECHNIQUE: AP view of the pelvis with 2 views of the hips FINDINGS: Partially imaged lumbar spinal fusion hardware. There is mild right with [id number] left hip os teoarthritis. No acute fracture, dislocation or avascular necrosis. Unremarkable soft tissues. IMPRESSION: No acute fracture or dislocation. ACT 112: Negative or not required by law. The above report was generated using voice recognition software. It may contain grammatical, syntax o r spelling errors. Electronically signed by: Nitin Titus M.D. 04/18/2021 7:32 AM
--- NOTE | 2021-04-18 08:18 | XRay Report ---
XR chest 1V portable CLINICAL HISTORY: Atypical chest pain TECHNIQUE: Single frontal radiograph of the chest was obtained. Comparison: Comparison is made to chest one view 04/11/2021 FINDINGS: No lines and tubes are seen. The cardiomediastinal silhouette is normal. Airspace opacity is seen in the right midlung and left lower lung. No evidence of pleural effusion or pneumothorax. IMPRESSION: Multiple airspace opacities are favored to represent atelectasis with or without superimposed pneumon ia/aspiration. ACT 112: Negative or not required by law. Electronically signed by: Jose Christensen M.D. 04/18/2021 8:16 AM
--- NOTE | 2021-04-18 08:46 | History & Physical Report ---
Date of Service April 18, 2021 Assessment & Plan (1) COVID-19: Plan: 75 y/o M with multiple comorbidites here with weakness and shortness of breath sec to covid 19 Covid 19 with hypoxia - severe Unvaccinated Immunosuppressed given h/o DM and CMP/CAD/CKD/HTN. Procal last week was negative. Received IV dexa 6mgs in ED. continue 10 days. Remdesivir 5 days. Current GFR 38. Monitor renal and liver function. Combivent QID prn. Check daily CRP, cbc, cmp Lovenox for DVT proph ROCKY on CKD-3 - prerenal 500ml NSS in ED Bladder scan Hold nephrotoxic meds - irbesartan Encourage PO intake bmp in am Diarrhea Start with clears. Follow. Chest pain with h/o CAD/CMP - EF 50% Trend trop continue statin, aspirin. Holding ARB Abnormal CBC mildly low wbc/platelet follow cbc DM Sept A1c 8.3 hold oral meds. Start insulin - lantus/log. glycemic consult. HTN Hold irbesartan d/t renal function. systolic in 100s BPH flomax. bladder scan. PAD Continue cilostazol. Chronic back pain No concern of injury this morning as he slid down and not fall. Hip xray done in ED - neg continue home narcotics Lovenox DNR NSS 500ml. Med/Tele, Isolation (2) Hypoxia: (3) Acute renal failure: (4) Diarrhea: (5) CKD (chronic kidney disease) stage 3, GFR 30-59 ml/min: (6) Coronary artery disease: (7) Diabetes: (8) Hypertension: (9) Sleep apnea: (10) HTN (hypertension), benign: (11) BPH (benign prostatic hyperplasia): (12) Hyperparathyroidism: History of Present Illness Chief Complaint: Weakness Primary Care Provider: Endy Wagner MD 75 y/o M with PMHx CAD - 3 vessel ds - noted on C in range of 30-50% stenosis, CKD -3, spinal stenosis, CVA, diabetes, HTN, PAD, h/o CVA 2010, CMP - EF 50%, BPH and moderate sleep apnea came to ED for increasing weakness fatigue with COVID-19. He started having symptom on the of this month as diarrhea and tested positive the next day in the ER. Since Apr 11 he has had continued diarrhea and was seen in ED. He has not had anything significant to eat since being seen last week. This morning he started to feel very weak and had to lower himself to the ground so came to ED. Denies actually falling or losing consciousness. He does report having pain all over and worse in the back. He reported feeling short of breath and mild left sided chest pain. No further questioning he repored pain all over the body. Patient states he is unvaccinated. During his earlier ED visit, he declined monoclonal antibodies due to concern of side effects. Patient's is sick at home as well but he reports she is doing somewhat better. In the ED he has received IV steroids and is receiving 500ml NSS Allergies Allergy/AdvReac Type Severity Reaction Status Date / Time metformin AdvReac Severe Diarrhea Verified 04/18/21 07:52 Home Medications Medication Instructions Recorded Confirmed Type omega-3 fatty acids 1,000 mg 2,000 mg PO QPM cap 04/13/18 04/18/21 History capsule (Fish Oil Concentrate) cilostazol 100 mg tablet 100 mg PO BID 07/01/18 04/18/21 History irbesartan 300 mg tablet 300 mg PO QPM 07/01/18 04/18/21 History aspirin 81 mg tablet,delayed 81 mg PO QAM tab 09/23/18 04/18/21 History release (Adult Aspirin Regimen) pravastatin 40 mg tablet 40 mg PO QPM 04/12/19 04/18/21 History oxycodone 5 mg tablet 5 mg PO Q6H PRN #30 tab 05/04/19 04/18/21 Rx canagliflozin 100 mg tablet 100 mg PO DAILY 11/07/20 04/18/21 History (Invokana) glipizide 2.5 mg tablet, extended 2.5 mg PO DAILY 11/07/20 04/18/21 History release 24 hr tamsulosin 0.4 mg capsule 0.4 mg PO QPM #90 cap 11/07/20 04/18/21 Rx cholecalciferol (vitamin D3) 50 2,000 unit PO DAILY #30 cap 12/11/20 04/18/21 Rx mcg (2,000 unit) capsule Past Med/Surg History Medical History (Updated 04/18/21 @ 08:45 by Mary Landis MD) BPH (benign prostatic hyperplasia) Cardiomyopathy Chronic back pain CKD (chronic kidney disease) stage 3, GFR 30-59 ml/min Coronary artery disease mild-moderate 3 vessel on 2016 cath per cardiology. CVA (cerebral vascular accident) 2010, no residual deficits. DM type 2 (diabetes mellitus, type 2) DIET CONTROLLED High cholesterol Hypertension Seborrheic keratoses Sleep apnea CPAP HS SOB (shortness of breath) on exertion Spinal stenosis Systolic dysfunction EF 50% Surgical History History of cardiac cath 2016 - [facility] - CP - NO STENTS/ANGIOPLASTY History of cataract surgery BL History of fusion of lumbar spine History of sebaceous cyst & REMOVED History of toe surgery History of tooth extraction Hx of tonsillectomy Family History Other Patient's father is Patient's mother is Social History Smoking Status: Never smoker Second Hand Exposure: No; Hx Alcohol Use: No Hx Substance Use: No Preferred Language: Maori Communication Ability: Effective Hearing Ability: Normal Marketing Information Analyst Required: No Beliefs That Will Affect Care: None marital status: Current Living Situation: Alone 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 Mild lethargy. Eyes: PERRL, conjunctivae normal, anicteric sclerae ENMT: external ear and nose normal, oropharynx normal (mucous membrane dry) Neck: trachea midline, no thyromegaly Respiratory: normal respiratory effort, lungs clear to auscultation Cardiovascular: RRR, no murmur, no edema Gastrointestinal (Abdomen): normal bowel sounds, soft, nontender, no hepatosplenomegaly Musculoskeletal: Extremities: extremities normal to inspection Skin: no rashes, warm and dry Neurologic: No focal deficit Psychiatric: A+Ox3, euthymic affect Results & Data Results & Data ([facility]) Vital Signs (Past 12 Hours) Vital Signs Temp Pulse Resp BP Pulse Ox 04/18/21 07:30 80 21 109/73 94 04/18/21 07:00 81 21 107/61 91 04/18/21 06:15 88 L 04/18/21 06:00 37.1 C 87 24 118/64 88 L
[2021-04-18] MEDS ORDERED: REMDESIVIR 200 MG in SODIUM CHLORIDE 0.9% 210 ML IV STA (08:57)
[2021-04-18] MEDS ORDERED: SODIUM CHLORIDE 0.9% 10ML FLUSH IV SCH (09:00)
[2021-04-18] MEDS ORDERED: INSULIN GLARGINE SOLOSTAR 100 UNITS/ML 3 ML PEN SC SCH (09:02)
--- NOTE | 2021-04-18 09:25 | Electrocardiogram Report ---
Test Reason : Blood Pressure : / mmHG Vent. Rate : 086 BPM Atrial Rate : 086 BPM P-R Int : 160 ms QRS Dur : 096 ms QT Int : 348 ms P-R-T Axes : 044 004 038 degrees QTc Int : 416 ms Normal sinus rhythm Normal ECG When compared with ECG of 11-APR-2021 18:41, No significant change was found Confirmed by Chon Smith [id number]) on 04/18/2021 9:24:33 AM Referred By: REFERRED SELF Confirmed By:Chon Smith
[2021-04-18] MEDS ORDERED: MoRPHine SULFATE 2 MG/ML CARP IV PRN (10:15)
[2021-04-18] MEDS ORDERED: PHARMACY GLYCEMIC MGMT CONSULT PRN (10:15)
[2021-04-18] MEDS ORDERED: DEXTROSE 50% 50 ML SYRINGE IV PRN (10:15)
[2021-04-18] MEDS ORDERED: GLUCAGON FOR INJ 1 MG VIAL SQ PRN (10:15)
[2021-04-18] MEDS ORDERED: ONDANSETRON INJ 2 MG/ML 2 ML VIAL IV PRN (10:15)
[2021-04-18] MEDS ORDERED: ALUMINUM/MAGNESIUM SUSP 30 ML UDC PO PRN (10:15)
[2021-04-18] MEDS ORDERED: ALBUTEROL HFA 8 GM INHALER INH PRN (10:15)
[2021-04-18] MEDS ORDERED: IPRATROPIUM BROMIDE HFA INHALER INH PRN (10:15)
[2021-04-18] MEDS ORDERED: GLUCOSE 40% GEL 15 GM TUBE PO PRN (10:15)
[2021-04-18] MEDS ORDERED: NITROGLYCERIN SL 0.4 MG/TAB TAB SL PRN (10:15)
[2021-04-18] MEDS ORDERED: GLUCOSE 10 TABS/TUBE PO PRN (10:15)
[2021-04-18] MEDS ORDERED: oxyCODONE HCL IR 5 MG TAB (IMMEDIATE RELEASE) PO PRN (10:15)
[2021-04-18] MEDS ORDERED: IPRATROPIUM BROMIDE/ALBUTEROL respimat INH INH PRN (10:15)
[2021-04-18] MEDS: SODIUM CHLORIDE 0.9% 10ML FLUSH IV SCH (12:09)
[2021-04-18] MEDS: ASPIRIN 81 MG ECTAB PO SCH (12:10)
[2021-04-18] MEDS: ENOXAPARIN INJ 40 MG/0.4 ML SYR SQ SCH ×2 (12:10→22:11)
[2021-04-18] MEDS: cilostazoL 100 MG TAB PO SCH ×2 (12:10→22:11)
[2021-04-18] MEDS ORDERED: INSULIN HUMAN NPH SC SCH (13:00)
[2021-04-18] MEDS: INSULIN ASPART 100 UNITS/ML 3 ML PEN SC SCH ×3 (13:03→21:01)
--- NOTE | 2021-04-18 13:03 | Pharmacy Report ---
Pharmacy Glycemic Short Note 2 - Date of Service April 18, 2021 - Glycemic Short BSG Results (Last 24 hours): 04/18/21 04/18/21 06:30 12:06 Glucose 167 H POC Glucose 208 H OUTPATIENT ANTIDIABETIC REGIMEN: * CANAGLIFLOZIN 100MG PO DAILY * GLIPIZIDE ER 25MG PO DAILY ASSESSMENT: * Initial BSGs elevated in setting of history of DM, acute stressors, and daily steroids (dex 6mg). * Type 2 DM diet ordered. Acute on chronic kidney injury (SCr-2mg/dL today) which may prolong duration of action of insulin doses. * HbA1C 8.6% from 05/2019. A1C ordered for tomorrow to assess outpatient control. * Will start Novolog weight based stress of 3 based upon steroid use and utilize NPH for prandial coverage of steroid. * Plan for midnight/0400 checks overnight tonight for close monitoring of initial BSGs. PLAN FOR INPATIENT GLYCEMIC CONTROL: * Hold outpatient oral diabetes medications * Basal insulin * Lantus -- HS scale depending on HS BSG * NPH: 20 units daily with dexamethasone * Bolus insulin * NovoLog per scale ACHS or Q6hrs while NPO * Goal Range: Low 110 mg/dL - High 140 mg/dL * Correction Factor: 15mg/dL/unit * Nutritional / Prandial insulin per carb ratio of 1 unit per 5 grams CHO consumed
[2021-04-18] MEDS ORDERED: INSULIN GLARGINE SOLOSTAR 100 UNITS/ML 3 ML PEN SC ONE (21:00)
[2021-04-18] MEDS: PRAVASTATIN SOD 40 MG TAB PO SCH (22:11)
[2021-04-18] MEDS: TAMSULOSIN HCL 0.4 MG CAP PO SCH (22:12)
[2021-04-19] MEDS: INSULIN ASPART 100 UNITS/ML 3 ML PEN SC SCH ×6 (01:12→21:03)
[2021-04-19 02:42] LABS: Appearance Urine Clear (Clear); Bilirubin Urine Negative (Negative); Blood Urine 2+ (Negative); Color Urine Yellow; Glucose Urine UA 3+ (Negative); Ketones Urine Trace (Negative); Leukocyte Esterase Urine Negative (Negative); Nitrite Urine Negative (Negative); Protein Urine 1+ (Negative); RBC Urine Automated 0-4 /hpf (0-4); Specific Gravity Urine 1.026 (1.000-1.030); Urobilinogen Urine Negative (Negative)
[2021-04-19 03:12] LABS: Bacteria Urine Automated 1+ (Negative)
[2021-04-19 08:11] LABS: Hematocrit (blood only) 42.9 % (42-52); Hemoglobin 14.5 g/dL (14.0-18.0); Immature Granulocytes # (auto) 0.01 K/uL (0.00-0.02); Immature Granulocytes % (auto) 0.2 %; Lymphocytes # (auto) 0.45 K/uL (1.2-3.4); Mean Corpuscular Hemoglobin 29.4 pg (25-34); Mean Corpuscular Hgb Conc 33.8 g/dL (32-36); Mean Platelet Volume 9.5 fL (7.4-10.4); Monocytes # (auto) 0.53 K/uL (0.11-0.59); Monocytes % (auto) 10.6 %; Neutrophils % (auto) 80.2 %; Platelet Count 135 K/uL (130-400); RDW Coefficient of Variation 14.3 % (11.5-14.5); RDW Standard Deviation 45.8 fL (36.4-46.3); Red Blood Count 4.93 M/uL (4.7-6.1); White Blood Count 4.99 K/uL (4.8-10.8)
[2021-04-19 08:39] LABS: Albumin Level 2.4 gm/dl (3.4-5.0); BUN Creatinine Ratio 28.8 (10-20); C Reactive Protein 10.8 mg/dl (0-0.29); Calcium 9.8 mg/dl (8.5-10.1); Creatinine Clr Calc Pharmacy 45.5 ml/min; Est GFR (Non-African American) 38.9 ml/min; Magnesium 2.7 mg/dl (1.8-2.4); Potassium 4.3 mmol/L (3.5-5.1)
[2021-04-19 08:43] LABS: Albumin Globulin Ratio 0.6 (0.9-2); Bilirubin,Total 0.5 mg/dl (0.2-1); Estimated Average Glucose 192 mg/dl; Hemoglobin A1C 8.3 % (4.5-5.6); Phosphorus 3.1 mg/dl (2.5-4.9); Total Protein 6.4 gm/dl (6.4-8.2)
[2021-04-19] MEDS ORDERED: dexAMETHasone 6 MG in SYRINGE 0 ML IV SCH (09:00)
[2021-04-19] MEDS ORDERED: REMDESIVIR 100 MG in SODIUM CHLORIDE 0.9% 230 ML IV SCH (09:00)
[2021-04-19] MEDS: ASPIRIN 81 MG ECTAB PO SCH (09:44)
[2021-04-19] MEDS: ENOXAPARIN INJ 40 MG/0.4 ML SYR SQ SCH ×2 (09:44→21:01)
[2021-04-19] MEDS: INSULIN HUMAN NPH SC SCH (11:00)
[2021-04-19] MEDS: cilostazoL 100 MG TAB PO SCH ×2 (11:27→21:00)
[2021-04-19] MEDS: REMDESIVIR 100 MG in SODIUM CHLORIDE 0.9% 230 ML IV SCH (13:41)
--- NOTE | 2021-04-19 14:47 | Pharmacy Report ---
Pharmacy Glycemic Short Note 2 - Date of Service April 19, 2021 - Glycemic Short BSG Results (Last 24 hours): 04/18/21 04/18/21 04/19/21 16:54 20:20 00:14 Glucose POC Glucose 176 H 154 H 140 H 04/19/21 04/19/21 04/19/21 04:30 07:36 07:54 Glucose 161 H POC Glucose 168 H 144 H 04/19/21 11:51 Glucose POC Glucose 204 H OUTPATIENT ANTIDIABETIC REGIMEN: * CANAGLIFLOZIN 100MG PO DAILY * GLIPIZIDE ER 25MG PO DAILY ASSESSMENT: 04/18 * Patient received total of 60 units of insulin yesterday, of which 44 units were basal * Fasting BSG 144 mg/dL - plan to trial Lantus 20 units at HS * Received Lantus 7 + NPH 20 units yesterday AM, plan to increase NPH to 30 units this AM to give with IV dex * Late administration of insulin on JUL documented this Am, spoke with RN and it was actually given early 9-10am, she will adjust time 04/19 * Initial BSGs elevated in setting of history of DM, acute stressors, and daily steroids (dex 6mg). * Type 2 DM diet ordered. Acute on chronic kidney injury (SCr-2mg/dL today) which may prolong duration of action of insulin doses. * HbA1C 8.6% from 05/2019. A1C ordered for tomorrow to assess outpatient control. * Will start Novolog weight based stress of 3 based upon steroid use and utilize NPH for prandial coverage of steroid. * Plan for midnight/0400 checks overnight tonight for close monitoring of initial BSGs. PLAN FOR INPATIENT GLYCEMIC CONTROL: * Hold outpatient oral diabetes medications * Basal insulin * Lantus - 20 units HS * NPH: 30 units daily with dexamethasone * Bolus insulin * NovoLog per scale ACHS or Q6hrs while NPO * Goal Range: Low 110 mg/dL - High 140 mg/dL * Correction Factor: 15 mg/dL/unit * Nutritional / Prandial insulin per carb ratio of 1 unit per 5 grams CHO consumed
[2021-04-19] MEDS: SODIUM CHLORIDE 0.9% 10ML FLUSH IV SCH (15:17)
--- NOTE | 2021-04-19 16:54 | Hospitalist Progress Note ---
Date of Service April 19, 2021 Assessment & Plan (1) COVID-19: Plan: 75 y/o M with multiple comorbidites here with weakness and shortness of breath sec to covid 19 Covid 19 Pneumonia - severe Unvaccinated Immunosuppressed given h/o DM and CMP/CAD/CKD/HTN. Procal last week was negative. Received IV dexa 6mgs in ED. continue 10 days. Remdesivir 5 days. Current GFR 38. Monitor renal and liver function. Combivent QID prn. CRP - stable Check daily CRP, cbc, cmp Lovenox for DVT proph Acute hypoxic respiratory failure Now on high flow O2. consult pulmonary. ROCKY on CKD-3 - prerenal 500ml NSS in ED Hold nephrotoxic meds - irbesartan Encourage PO intake Creatinine improved bmp in am Diarrhea None since admitted. Chest pain with h/o CAD/CMP - EF 50% Trend trop continue statin, aspirin. Holding ARB DM Sept A1c 8.3 hold oral meds. Start insulin - lantus/log. glycemic consult. HTN Hold irbesartan d/t renal function. systolic in 90s BPH flomax. PAD Continue cilostazol. Chronic back pain No concern of injury this morning as he slid down and not fall. Hip xray done in ED - neg continue home narcotics Lovenox DNR NSS 500ml. Med/Tele, Isolation (2) Hypoxia: (3) Acute renal failure: (4) Diarrhea: (5) CKD (chronic kidney disease) stage 3, GFR 30-59 ml/min: (6) Coronary artery disease: (7) Diabetes: (8) Hypertension: (9) Sleep apnea: (10) HTN (hypertension), benign: (11) BPH (benign prostatic hyperplasia): (12) Hyperparathyroidism: Admission and Anticipated Discharge Date Admission Date: April 18, 2021 Subjective Feels the same with breathing. coughing with minimal movement. generalized pain not as bad. ate his meals. no fever Physical Exam Eyes: PERRL, conjunctivae normal, anicteric sclerae Respiratory: Mild respiratory distress fair air entry. no rhonchi. Cardiovascular: RRR, no murmur, no edema Gastrointestinal (Abdomen): normal bowel sounds, soft, nontender, no hepatosplenomegaly Musculoskeletal: Extremities: extremities normal to inspection Skin: no rashes, warm and dry Psychiatric: A+Ox3, euthymic affect Results & Data Results & Data ([facility]) Vital Signs (Past 12 Hours) Vital Signs Temp Pulse Pulse Resp BP BP Pulse Ox 04/19/21 15:31 73 20 93 04/19/21 12:04 36.3 C L 77 18 107/69 95 04/19/21 11:37 75 20 92 04/19/21 08:25 36.6 C 75 16 129/76 98 04/19/21 07:18 73 19 93 04/19/21 04:59 83
[2021-04-19] MEDS ORDERED: dexAMETHasone 4 MG in SYRINGE 0 ML IV ONE (18:15)
[2021-04-19] MEDS: TAMSULOSIN HCL 0.4 MG CAP PO SCH (21:00)
[2021-04-19] MEDS: PRAVASTATIN SOD 40 MG TAB PO SCH (21:00)
[2021-04-19] MEDS: INSULIN GLARGINE SOLOSTAR 100 UNITS/ML 3 ML PEN SC SCH (21:04)
[2021-04-20 07:00] LABS: Hematocrit (blood only) 40.1 % (42-52); Hemoglobin 13.8 g/dL (14.0-18.0); Immature Granulocytes # (auto) 0.03 K/uL (0.00-0.02); Immature Granulocytes % (auto) 0.5 %; Lymphocytes # (auto) 0.41 K/uL (1.2-3.4); Lymphocytes % (auto) 7.1 %; Mean Corpuscular Hemoglobin 29.8 pg (25-34); Mean Corpuscular Hgb Conc 34.4 g/dL (32-36); Mean Corpuscular Volume 86.6 fL (80-100); Mean Platelet Volume 9.8 fL (7.4-10.4); Monocytes % (auto) 6.9 %; Neutrophils # (auto) 4.95 K/uL (1.4-6.5); Neutrophils % (auto) 85.5 %; Platelet Count 159 K/uL (130-400); RDW Coefficient of Variation 14.4 % (11.5-14.5); RDW Standard Deviation 45.8 fL (36.4-46.3); Red Blood Count 4.63 M/uL (4.7-6.1); White Blood Count 5.79 K/uL (4.8-10.8)
[2021-04-20 07:37] LABS: Albumin Level 2.2 gm/dl (3.4-5.0); BUN Creatinine Ratio 33.8 (10-20); C Reactive Protein 5.68 mg/dl (0-0.29); Calcium 9.3 mg/dl (8.5-10.1); Creatinine Clr Calc Pharmacy 42.5 ml/min; Est GFR (African American) 41.5 ml/min; Est GFR (Non-African American) 35.8 ml/min; Magnesium 2.7 mg/dl (1.8-2.4); Potassium 4.1 mmol/L (3.5-5.1)
[2021-04-20 07:43] LABS: Albumin Globulin Ratio 0.6 (0.9-2); Bilirubin,Total 0.3 mg/dl (0.2-1); Globulin 3.8 gm/dl (2.5-4.0)
[2021-04-20] MEDS: dexAMETHasone 10 MG in SYRINGE 0 ML IV SCH (08:44)
[2021-04-20] MEDS: ASPIRIN 81 MG ECTAB PO SCH (08:45)
[2021-04-20] MEDS: cilostazoL 100 MG TAB PO SCH ×2 (08:45→19:35)
[2021-04-20] MEDS: ENOXAPARIN INJ 40 MG/0.4 ML SYR SQ SCH (08:46)
[2021-04-20] MEDS ORDERED: Heparin IV Adult Wt-Based Standard WITH Bolus Protocol IV SCH (09:00)
[2021-04-20] MEDS: INSULIN ASPART 100 UNITS/ML 3 ML PEN SC SCH ×4 (09:12→21:13)
[2021-04-20] MEDS: INSULIN HUMAN NPH SC SCH (09:13)
[2021-04-20] MEDS ORDERED: HEPARIN SOD (PORCINE) 1000 UNIT/ML IV ONE (10:00)
[2021-04-20 10:37] LABS: INR 1.2 (0.9-1.1); Partial Thromboplastin Ratio 1.2; Partial Thromboplastin Time 31.1 Seconds (21.0-31.0); Prothrombin Time 11.7 Seconds (9.0-12.0)
--- NOTE | 2021-04-20 10:46 | Ultrasound Report ---
US venous doppler LE BI CLINICAL HISTORY: r/o DVT, B/l COMPARISON: None available at the time of this dictation. TECHNIQUE: Bilateral lower extremity real-time compression venous ultrasound with Color Doppler imagi ng. Utilizing real-time ultrasonic imaging multiple real time high-resolution ultrasonic images with comp ression and noncompression maneuvers of the deep venous system in addition to color doppler imaging w ere performed from the common femoral vein through the proximal calf veins. FINDINGS: Currently there is normal compressibility of the deep venous system from the common femoral vein thro ugh the proximal calf veins. No current evidence of acute thrombosis is identified. Impression: No evidence of deep venous thrombus. ACT 112: Negative or not required by law. Electronically signed by: Jose Christensen M.D. 04/20/2021 10:44 AM
[2021-04-20] MEDS: HEPARIN SODIUM/DEXTROSE 25,000 UNITS/500 ML BAG IV SCH (11:16)
[2021-04-20] MEDS: REMDESIVIR 100 MG in SODIUM CHLORIDE 0.9% 230 ML IV SCH (13:01)
--- NOTE | 2021-04-20 13:21 | Pharmacy Report ---
Pharmacy Glycemic Short Note 2 - Date of Service April 20, 2021 - Glycemic Short BSG Results (Last 24 hours): 04/19/21 04/19/21 04/20/21 16:43 20:53 06:30 Glucose 195 H POC Glucose 148 H 194 H 04/20/21 04/20/21 08:35 12:37 Glucose POC Glucose 183 H 191 H OUTPATIENT ANTIDIABETIC REGIMEN: * CANAGLIFLOZIN 100MG PO DAILY * GLIPIZIDE ER 25MG PO DAILY ASSESSMENT: 04/20 * Patient received total of 89 units of insulin yesterday, of which 50 units were basal, blood sugars 144-204mg/dl * Blood sugars rising throughout the day, tighten CF/CR starting today at lunch * Dexamethasone increased from 6mg to 10mg IV Daily today, NPH already given, increase dose tomorrow morning 04/19 * Patient received total of 60 units of insulin yesterday, of which 44 units were basal * Fasting BSG 144 mg/dL - plan to trial Lantus 20 units at HS * Received Lantus 7 + NPH 20 units yesterday AM, plan to increase NPH to 30 units this AM to give with IV dex * Late administration of insulin on JUL documented this Am, spoke with RN and it was actually given early 9-10am, she will adjust time 04/18 * Initial BSGs elevated in setting of history of DM, acute stressors, and daily steroids (dex 6mg). * Type 2 DM diet ordered. Acute on chronic kidney injury (SCr-2mg/dL today) which may prolong duration of action of insulin doses. * HbA1C 8.6% from 05/2019. A1C ordered for tomorrow to assess outpatient control. * Will start Novolog weight based stress of 3 based upon steroid use and utilize NPH for prandial coverage of steroid. * Plan for midnight/0400 checks overnight tonight for close monitoring of initial BSGs. PLAN FOR INPATIENT GLYCEMIC CONTROL: * Hold outpatient oral diabetes medications * Basal insulin * Lantus - 20 units HS * NPH: 35 units daily with dexamethasone * Bolus insulin * NovoLog per scale ACHS or Q6hrs while NPO * Goal Range: Low 110 mg/dL - High 140 mg/dL * Correction Factor: 12 mg/dL/unit * Nutritional / Prandial insulin per carb ratio of 1 unit per 3 grams CHO consumed
--- NOTE | 2021-04-20 13:42 | Pulmonary Consultation ---
Date of Consultation April 20, 2021 Assessment & Plan (1) Sleep apnea: (2) Acute respiratory failure with hypoxia: (3) Multilobar lung infiltrate: (4) COVID-19: Chest x-ray 04/18/2021 personally reviewed: Portable film, good inspiratory effort, bilateral costophrenic and cardiophrenic angles are clean, increased cardiac silhouette --Acute hypoxic respiratory failure Secondary to multilobar COVID-19 pneumonia COVID-19 PCR positive 04/11/2021 CRP 10.8 --> 5.68 Procalcitonin <0.05 Continue with O2 supplementation to keep oxygen saturation between 90-92%. Awake proning will be helpful Continue with incentive spirometry Continue with flutter valve. Recommend patient to be kept euvolemic to negative balance --STEPHANIE Patient does not like to use the mask at the head. We will try to get the CPAP which he uses at home Plan: Patient's degree of hypoxia does not correlate with the chest x-ray finding Patient has underlying CKD and unfortunately we cannot use IV contrast VQ scan will not be helpful as during the Covid pandemic ventilation is not being performed only perfusion is I will order Doppler bilateral lower extremity to see if the patient has DVT and start the patient on heparin drip irrespective of Doppler results Increase dexamethasone 10 mg on a daily basis Continue with incentive spirometry and flutter valve Social work consult to get home CPAP for the patient Try to keep the patient negative balance Case discussed with Dr. Landis Please note the above document was generated using voice recognition software. It may contain grammatical, syntax or spelling errors.Any formal questions or concerns about the content, text or information contained within the body of this dictation should be directly addressed to the provider for clarification. History of Present Illness Attending Physician: Mary Landis MD History of Present Illness 75-year-old male past medical history of coronary artery disease, CKD, hypertension, CVA, STEPHANIE presented to the hospital with increased weakness and shortness of breath He was diagnosed COVID-19 Pulmonary consulted because of increasing oxygen requirement At the time of examination patient was on 40 L, 100% high flow, saturating 92- 93% He was saying that he is feeling the same and is not improving since last couple of days. He seems to be depressed He says he has been using incentive spirometry as well as flutter valve not bringing up any phlegm Denies any hemoptysis. Had diarrhea prior to coming to the hospital but it has since resolved He seems to be constipated for the last 10 days Patient is unable to tolerate the full facemask although he has CPAP. Denies any vomiting. Does complain of nausea. Social history: Lifetime non-smoker Allergies Allergy/AdvReac Type Severity Reaction Status Date / Time metformin AdvReac Severe Diarrhea Verified 04/18/21 07:52 Home Medications Medication Instructions Recorded Confirmed Type omega-3 fatty acids 1,000 mg 2,000 mg PO QPM cap 04/13/18 04/18/21 History capsule (Fish Oil Concentrate) cilostazol 100 mg tablet 100 mg PO BID 07/01/18 04/18/21 History irbesartan 300 mg tablet 300 mg PO QPM 07/01/18 04/18/21 History aspirin 81 mg tablet,delayed 81 mg PO QAM tab 09/23/18 04/18/21 History release (Adult Aspirin Regimen) pravastatin 40 mg tablet 40 mg PO QPM 04/12/19 04/18/21 History oxycodone 5 mg tablet 5 mg PO Q6H PRN #30 tab 05/04/19 04/18/21 Rx canagliflozin 100 mg tablet 100 mg PO DAILY 11/07/20 04/18/21 History (Invokana) glipizide 2.5 mg tablet, extended 2.5 mg PO DAILY 11/07/20 04/18/21 History release 24 hr tamsulosin 0.4 mg capsule 0.4 mg PO QPM #90 cap 11/07/20 04/18/21 Rx cholecalciferol (vitamin D3) 50 2,000 unit PO DAILY #30 cap 12/11/20 04/18/21 Rx mcg (2,000 unit) capsule Patient History Medical History (Updated 04/20/21 @ 13:37 by Les Hernandez MD) BPH (benign prostatic hyperplasia) Cardiomyopathy Chronic back pain CKD (chronic kidney disease) stage 3, GFR 30-59 ml/min Coronary artery disease mild-moderate 3 vessel on 2016 cath per cardiology. CVA (cerebral vascular accident) 2010, no residual deficits. DM type 2 (diabetes mellitus, type 2) DIET CONTROLLED High cholesterol Hypertension Seborrheic keratoses Sleep apnea CPAP HS SOB (shortness of breath) on exertion Spinal stenosis Systolic dysfunction EF 50% Surgical History History of cardiac cath 2016 - [facility] - CP - NO STENTS/ANGIOPLASTY History of cataract surgery BL History of fusion of lumbar spine History of sebaceous cyst & REMOVED History of toe surgery History of tooth extraction Hx of tonsillectomy Family History Other Patient's father is Patient's mother is Social History Smoking Status: Never smoker Second Hand Exposure: No; Do You Dip or Chew Tobacco: No; Tobacco Cessation Education Requested by Patient: No Hx Alcohol Use: No Hx Substance Use: No Preferred Language: Frisian Communication Ability: Impaired Hearing Ability: Normal Insurance Special Agent Required: No Beliefs That Will Affect Care: None marital status: Current Living Situation: Alone current occupational status: retired Other Information That Helps Us Care for You: No other: 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 Feels Safe at Home: Yes Safety Concerns: Feels Safe At This Time Assistive Devices: Walker Review of Systems Review of Systems: All systems reviewed & are unremarkable except as noted in HPI & below Physical Exam Physical Exam: Constitutional: No acute distress HEENT: EOMI, PERRLA Respiratory system: Decreased antibiotic, no wheeze, rhonchi, positive crackles bilaterally CVS: S1-S2 positive, no murmurs or gallops Abdomen: Soft, nontender, nondistended, positive bowel sounds x4, obese Extremities: +2 pulses bilaterally radialis/ dorsalis pedis, no cyanosis, no edema Neuro: Awake alert oriented x3 Psych: Normal mood and affect G/U: No Santiago Skin: no rashes, warm and dry Lymphatic: no cervical or axillary lymphadenopathy Results & Data Results & Data ([facility]) Vital Signs (Past 12 Hours) Vital Signs Temp Pulse Pulse Pulse Resp BP Pulse Ox 04/20/21 13:09 36.4 C L 87 18 115/71 91 04/20/21 10:57 81 20 90 04/20/21 07:10 73 04/20/21 06:07 79 22 93 04/20/21 04:25 24 86 L 04/20/21 03:41 36.5 C 78 20 108/65 91 04/20/21 02:51 74 04/20/21 06:30 04/20/21 06:30 PG Care Time/CCT Total # of Minutes Spent Total Time Spent with Patient: Total time spent is greater than 50% in coordination of care (as documented) at patient's floor/unit and/or counseling patient: Coding Level of Care Code 18459 Initial Inpt Care Lvl 3 Diagnoses Sleep apnea G47.30 Acute respiratory failure with hypoxia J96.01 Multilobar lung infiltrate R91.8 COVID-19 U07.1
[2021-04-20] MEDS: SODIUM CHLORIDE 0.9% 10ML FLUSH IV SCH (14:34)
--- NOTE | 2021-04-20 15:29 | Hospitalist Progress Note ---
Date of Service April 20, 2021 Assessment & Plan (1) COVID-19: Plan: 75 y/o M with multiple comorbidites here with weakness and shortness of breath sec to covid 19 Covid 19 Pneumonia - severe Unvaccinated Immunosuppressed given h/o DM and CMP/CAD/CKD/HTN. Procal last week was negative. Received IV dexa 6mgs in ED. continue 10 days. Remdesivir 5 days. Monitor labs Combivent QID prn. CRP - better. Keep negative fluid balance Flutter valve, Incentive spirometry. Lovenox for DVT proph Acute hypoxic respiratory failure Worsening hypoxia high flow O2. Pul consulted- Hypoxia disproportionate to the CXR findings - concern of PE. unable to do CT angiogram. VQ not helpful Started heparin Venous doppler - neg Continue with O2 supplementation to keep oxygen saturation between 90-92%. Awake proning will be helpful ROCKY on CKD-3 - prerenal 500ml NSS in ED. Rise in creatinine. Holding IV hydration to maintain neg fluid balance. Hold nephrotoxic meds - irbesartan Encourage PO intake Creatinine improved bmp in am Diarrhea None since admitted. Chest pain with h/o CAD/CMP - EF 50% Trend trop continue statin, aspirin. Holding ARB Sleep apnea Cpap ordered on admission doesnt' like to use the mask. DM Sept A1c 8.3 hold oral meds. Added insulin - lantus/log. glycemic consult. HTN Hold irbesartan d/t renal function. systolic in 90s BPH flomax. PAD Continue cilostazol. Chronic back pain No concern of injury this morning as he slid down and not fall. Hip xray done in ED - neg continue home narcotics Lovenox DNR NSS 500ml. Med/Tele, Isolation (2) Hypoxia: (3) Acute renal failure: (4) Diarrhea: (5) CKD (chronic kidney disease) stage 3, GFR 30-59 ml/min: (6) Coronary artery disease: (7) Diabetes: (8) Hypertension: (9) Sleep apnea: (10) HTN (hypertension), benign: (11) BPH (benign prostatic hyperplasia): (12) Hyperparathyroidism: Admission and Anticipated Discharge Date Admission Date: April 18, 2021 Subjective continuing to feel the same declined using cpap mask. very uncomfortable. no chest pain. eating breakfast no fever Physical Exam Eyes: PERRL, conjunctivae normal, anicteric sclerae Respiratory: Mild resp distress decreased breath sounds. no adventitious sounds Cardiovascular: RRR, no murmur, no edema Gastrointestinal (Abdomen): normal bowel sounds, soft, nontender, no hepatosplenomegaly Musculoskeletal: Extremities: extremities normal to inspection Skin: no rashes, warm and dry Psychiatric: A+Ox3, euthymic affect Results & Data Results & Data ([facility]) Vital Signs (Past 12 Hours) Vital Signs Temp Pulse Pulse Pulse Resp BP Pulse Ox 04/20/21 15:14 87 04/20/21 14:28 21 87 L 04/20/21 13:09 36.4 C L 87 18 115/71 91 04/20/21 10:57 81 20 90 04/20/21 07:10 73 04/20/21 06:07 79 22 93 04/20/21 04:25 24 86 L 04/20/21 03:41 36.5 C 78 20 108/65 91
[2021-04-20 17:56] LABS: Partial Thromboplastin Ratio > 5.3
[2021-04-20 18:00] LABS: Partial Thromboplastin Time > 139.0 Seconds (21.0-31.0)
[2021-04-20] MEDS: PRAVASTATIN SOD 40 MG TAB PO SCH (19:34)
[2021-04-20] MEDS: TAMSULOSIN HCL 0.4 MG CAP PO SCH (19:34)
[2021-04-20] MEDS: guaiFENesin 600 MG TABCR PO SCH (19:35)
[2021-04-20 19:59] LABS: Partial Thromboplastin Ratio 3.3
--- NOTE | 2021-04-20 21:32 | Communication Note ---
Date of Service: April 20, 2021 Notified by nursing that patient was not tolerating bipap and that he "would rather than wear this." Discussed with patient at the bedside about the harms of removal of bipap and the risks including sudden . Patient notes that he understands the risks and would still prefer removal of the bipap mask knowing the risks. Discussed with respiratory therapy and will at this time remove bipap and switch back to high flow with oxymask overlay. Should patients oxygenation continue to worsen while off of bipap and on max high-flow/oxymask settings, will return to room to further discuss with patient goals of care. Nursing notified of change. Resident Activity Tracking Resident Involvement: Resident Care Provided and Change Management Administrator Coverage Note Care Provided: Adult Hospital Medicine
[2021-04-20] MEDS: INSULIN GLARGINE SOLOSTAR 100 UNITS/ML 3 ML PEN SC SCH (22:14)
[2021-04-20] MEDS ORDERED: MoRPHine SULFATE 2 MG/ML CARP IV PRN (22:58)
--- NOTE | 2021-04-20 22:58 | Communication Note ---
Date of Service: April 20, 2021 Returned to patient's room as he remains roughly 80-85% O2 saturation while maxxed on High-Flow. Discussed with patient in regards to his goals of care moving forward. At this time he notes that he would not want any further escalations to his care and would prefer a comfort approach instead. He notes that should his breathing worsen or he become uncomfortable, he would prefer analgesics such as morphine for his air hunger and tachypnea. He is willing to continue his current medications and care including the heparin gtt and oxygen. 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
[2021-04-21 02:27] LABS: Partial Thromboplastin Ratio 2.4
[2021-04-21 02:39] LABS: Partial Thromboplastin Time 63.6 Seconds (21.0-31.0)
[2021-04-21 07:24] LABS: Hematocrit (blood only) 40.1 % (42-52); Hemoglobin 13.9 g/dL (14.0-18.0); Mean Corpuscular Hemoglobin 29.8 pg (25-34); Mean Corpuscular Hgb Conc 34.7 g/dL (32-36); Mean Corpuscular Volume 85.9 fL (80-100); Mean Platelet Volume 9.6 fL (7.4-10.4); Platelet Count 180 K/uL (130-400); RDW Coefficient of Variation 14.3 % (11.5-14.5); Red Blood Count 4.67 M/uL (4.7-6.1); White Blood Count 6.92 K/uL (4.8-10.8)
[2021-04-21 07:44] LABS: Partial Thromboplastin Ratio 1.9
[2021-04-21 07:50] LABS: Basophils # (auto) 0.01 K/uL (0-0.2); Basophils % (auto) 0.1 %; Immature Granulocytes # (auto) 0.06 K/uL (0.00-0.02); Immature Granulocytes % (auto) 0.9 %; Lymphocytes # (auto) 0.52 K/uL (1.2-3.4); Lymphocytes % (auto) 7.5 %; Monocytes # (auto) 0.61 K/uL (0.11-0.59); Monocytes % (auto) 8.8 %; Neutrophils # (auto) 5.72 K/uL (1.4-6.5); Neutrophils % (auto) 82.7 %
[2021-04-21 07:54] LABS: Albumin Level 2.3 gm/dl (3.4-5.0); BUN Creatinine Ratio 33.7 (10-20); C Reactive Protein 2.72 mg/dl (0-0.29); Calcium 9.8 mg/dl (8.5-10.1); Creatinine Clr Calc Pharmacy 41.6 ml/min; Est GFR (African American) 40.4 ml/min; Est GFR (Non-African American) 34.9 ml/min; Magnesium 2.7 mg/dl (1.8-2.4); Potassium 4.2 mmol/L (3.5-5.1)
[2021-04-21 07:59] LABS: Partial Thromboplastin Time 50.6 Seconds (21.0-31.0)
[2021-04-21 08:00] LABS: Albumin Globulin Ratio 0.6 (0.9-2); Bilirubin,Total 0.4 mg/dl (0.2-1); Globulin 3.9 gm/dl (2.5-4.0); Phosphorus 3.4 mg/dl (2.5-4.9); Total Protein 6.2 gm/dl (6.4-8.2)
[2021-04-21] MEDS: ASPIRIN 81 MG ECTAB PO SCH (08:46)
[2021-04-21] MEDS: cilostazoL 100 MG TAB PO SCH ×2 (08:47→20:25)
[2021-04-21] MEDS: dexAMETHasone 10 MG in SYRINGE 0 ML IV SCH (08:47)
[2021-04-21] MEDS: guaiFENesin 600 MG TABCR PO SCH ×2 (08:48→20:24)
[2021-04-21] MEDS ORDERED: INSULIN HUMAN NPH SC SCH (09:00)
[2021-04-21] MEDS: INSULIN ASPART 100 UNITS/ML 3 ML PEN SC SCH ×4 (09:14→21:00)
[2021-04-21] MEDS: HEPARIN SODIUM/DEXTROSE 25,000 UNITS/500 ML BAG IV SCH (09:16)
--- NOTE | 2021-04-21 12:10 | Pulmonology Progress Note ---
Date of Service April 21, 2021 Assessment & Plan (1) Sleep apnea: (2) Acute respiratory failure with hypoxia: (3) Multilobar lung infiltrate: (4) COVID-19: Plan: Chest x-ray 04/18/2021 personally reviewed: Portable film, good inspiratory effort, bilateral costophrenic and cardiophrenic angles are clean, increased cardiac silhouette --Acute hypoxic respiratory failure Secondary to multilobar COVID-19 pneumonia COVID-19 PCR positive 04/11/2021 CRP 10.8 --> 5.68 Procalcitonin <0.05 Continue with O2 supplementation to keep oxygen saturation between 90-92%. Awake proning will be helpful Continue with incentive spirometry Continue with flutter valve. Recommend patient to be kept euvolemic to negative balance --Doppler bilateral lower extremity negative for DVT Patient has CKD unfortunately cannot do CTA Given the high risk of PE would continue with heparin drip VQ scan will not be helpful as during the Covid pandemic ventilation is not being performed only perfusion is --STEPHANIE Patient does not like to use the mask at the head. We will try to get the CPAP which he uses at home Plan: Continue with heparin drip Continue with steroids Need to get patient's home CPAP so that he can use it Keep the patient negative balance Addition of antidepressive would be beneficial Case discussed with Dr. Landis Please note the above document was generated using voice recognition software. It may contain grammatical, syntax or spelling errors.Any formal questions or concerns about the content, text or information contained within the body of this dictation should be directly addressed to the provider for clarification. Admission and Anticipated Discharge Date Admission Date: April 18, 2021 Subjective Patient seen and examined at bedside. No acute distress. Patient seems to be depressed He was on 40 L, 95% saturating 90-92% Denied any chest pain no abdominal pain. Decreased appetite He says he is feeling the same no significant change in his shortness of breath No headache, no vomiting. Patient had breakfast as well as lunch Review of Systems Review of Systems: All systems reviewed & are unremarkable except as noted in Subjective Physical Exam Physical Exam: Constitutional: No acute distress HEENT: EOMI, PERRLA Respiratory system: Decreased antibiotic, no wheeze, rhonchi, positive crackles bilaterally CVS: S1-S2 positive, no murmurs or gallops Abdomen: Soft, nontender, nondistended, positive bowel sounds x4, obese Extremities: +2 pulses bilaterally radialis/ dorsalis pedis, no cyanosis, no edema Neuro: Awake alert oriented x3 Psych: Normal mood and affect G/U: No Santiago Skin: no rashes, warm and dry Lymphatic: no cervical or axillary lymphadenopathy Results & Data Results & Data ([facility]) Vital Signs (Past 12 Hours) Vital Signs Temp Pulse Pulse Pulse Resp BP Pulse Ox 04/21/21 10:29 83 18 94 04/21/21 08:57 36.8 C 81 18 119/73 90 04/21/21 07:28 87 21 83 L 04/21/21 07:09 100 H 04/21/21 03:37 86 20 72 L 04/21/21 03:16 36.6 C 83 16 124/74 77 L 04/21/21 02:10 93 H 04/21/21 06:25 04/21/21 06:25 PG Care Time/CCT Total # of Minutes Spent Total Time Spent with Patient: Total time spent is greater than 50% in coordination of care (as documented) at patient's floor/unit and/or counseling patient: Coding Level of Care Code 62820 Subseq Hosp Care Lvl 2 Diagnoses Sleep apnea G47.30 Acute respiratory failure with hypoxia J96.01 Multilobar lung infiltrate R91.8 COVID-19 U07.1
--- NOTE | 2021-04-21 12:13 | Hospitalist Progress Note ---
Date of Service April 21, 2021 Assessment & Plan (1) COVID-19: Plan: 75 y/o M with multiple comorbidites here with weakness and shortness of breath sec to covid 19 Covid 19 Pneumonia - severe Unvaccinated Immunosuppressed given h/o DM and CMP/CAD/CKD/HTN. Received IV dexa 6mgs in ED. continue 10 days. Remdesivir 5 days. Monitor labs Combivent QID prn. CRP - down to 2 Keep negative fluid balance Flutter valve, Incentive spirometry. Lovenox for DVT proph Acute hypoxic respiratory failure On High flow with saturation of high 80s. Pul consulted- Hypoxia disproportionate to the CXR findings - concern of PE. unable to do CT angiogram. VQ not helpful Started heparin Venous doppler - neg Continue with O2 supplementation to keep oxygen saturation between 90-92%. Awake proning will be helpful Declining bipap mask. Attempting to get cpap from home to see if will be able to tolerate that mask. ROCKY on CKD-3 - prerenal 500ml NSS in ED. Rise in creatinine. Holding IV hydration to maintain neg fluid balance. Hold nephrotoxic meds - irbesartan Encourage PO intake bmp in am Depression Add prozac 10mgs (significant CY inhibition with Cilostazol - see below) Diarrhea None since admitted. Chest pain with h/o CAD/CMP - EF 50% Trend trop continue statin, aspirin. Holding ARB due to BP running low and renal function Sleep apnea Cpap ordered on admission doesnt' like to use the mask. DM Sept A1c 8.3 hold oral meds. Added insulin - lantus/log. glycemic consult. HTN Hold irbesartan d/t renal function. systolic in 90s BPH flomax. PAD Continue cilostazol - dose decreased to 50mgs bid due to addition of prozac Chronic back pain No concern of injury this morning as he slid down and not fall. Hip xray done in ED - neg continue home narcotics Lovenox DNR NSS 500ml. Med/Tele, Isolation (2) Hypoxia: (3) Acute renal failure: (4) Diarrhea: (5) CKD (chronic kidney disease) stage 3, GFR 30-59 ml/min: (6) Coronary artery disease: (7) Diabetes: (8) Hypertension: (9) Sleep apnea: (10) HTN (hypertension), benign: (11) BPH (benign prostatic hyperplasia): (12) Hyperparathyroidism: Admission and Anticipated Discharge Date Admission Date: April 18, 2021 Subjective hypoxic overnight. kept refusing bipap. this morning - feeling fatigues, tired. coughing dry off and on. breathing feels the same. no fever doesnt' care if he dies Physical Exam Respiratory: normal respiratory effort, lungs clear to auscultation Cardiovascular: RRR, no murmur, no edema Psychiatric: A+Ox3, euthymic affect Results & Data Results & Data ([facility]) Vital Signs (Past 12 Hours) Vital Signs Temp Pulse Pulse Pulse Resp BP Pulse Ox 04/21/21 10:29 83 18 94 04/21/21 08:57 36.8 C 81 18 119/73 90 04/21/21 07:28 87 21 83 L 04/21/21 07:09 100 H 04/21/21 03:37 86 20 72 L 04/21/21 03:16 36.6 C 83 16 124/74 77 L 04/21/21 02:10 93 H
[2021-04-21] MEDS: REMDESIVIR 100 MG in SODIUM CHLORIDE 0.9% 230 ML IV SCH (12:17)
[2021-04-21] MEDS: FLUoxetine HCL 10 MG CAP PO SCH (13:19)
[2021-04-21] MEDS: guaiFENesin/CODEINE 100MG/10MG 5ML UDC PO SCH ×3 (13:20→23:32)
[2021-04-21] MEDS: SODIUM CHLORIDE 0.9% 10ML FLUSH IV SCH (13:20)
[2021-04-21] MEDS: PRAVASTATIN SOD 40 MG TAB PO SCH (20:23)
[2021-04-21] MEDS: TAMSULOSIN HCL 0.4 MG CAP PO SCH (20:24)
[2021-04-21] MEDS: INSULIN GLARGINE SOLOSTAR 100 UNITS/ML 3 ML PEN SC SCH (21:10)
[2021-04-22] MEDS: guaiFENesin/CODEINE 100MG/10MG 5ML UDC PO SCH ×3 (05:14→17:19)
[2021-04-22] MEDS: HEPARIN SODIUM/DEXTROSE 25,000 UNITS/500 ML BAG IV SCH (05:23)
[2021-04-22 08:29] LABS: Basophils # (auto) 0.01 K/uL (0-0.2); Basophils % (auto) 0.1 %; Hematocrit (blood only) 41.2 % (42-52); Hemoglobin 14.2 g/dL (14.0-18.0); Immature Granulocytes # (auto) 0.06 K/uL (0.00-0.02); Immature Granulocytes % (auto) 0.8 %; Lymphocytes # (auto) 0.48 K/uL (1.2-3.4); Lymphocytes % (auto) 6.5 %; Mean Corpuscular Hemoglobin 29.9 pg (25-34); Mean Corpuscular Hgb Conc 34.5 g/dL (32-36); Mean Corpuscular Volume 86.7 fL (80-100); Mean Platelet Volume 9.7 fL (7.4-10.4); Monocytes # (auto) 0.83 K/uL (0.11-0.59); Monocytes % (auto) 11.2 %; Neutrophils # (auto) 6.02 K/uL (1.4-6.5); Neutrophils % (auto) 81.4 %; Platelet Count 190 K/uL (130-400); RDW Coefficient of Variation 14.1 % (11.5-14.5); RDW Standard Deviation 45.1 fL (36.4-46.3); Red Blood Count 4.75 M/uL (4.7-6.1)
[2021-04-22 08:47] LABS: Partial Thromboplastin Ratio 1.9
[2021-04-22] MEDS: cilostazoL 100 MG TAB PO SCH ×2 (08:50→20:32)
[2021-04-22] MEDS: ASPIRIN 81 MG ECTAB PO SCH (08:50)
[2021-04-22] MEDS: dexAMETHasone 10 MG in SYRINGE 0 ML IV SCH (08:51)
[2021-04-22] MEDS: FLUoxetine HCL 10 MG CAP PO SCH (08:51)
[2021-04-22] MEDS: guaiFENesin 600 MG TABCR PO SCH ×2 (08:51→20:32)
[2021-04-22 08:52] LABS: Albumin Level 2.3 gm/dl (3.4-5.0); BUN Creatinine Ratio 32.3 (10-20); C Reactive Protein 1.33 mg/dl (0-0.29); Calcium 9.4 mg/dl (8.5-10.1); Creatinine Clr Calc Pharmacy 46.9 ml/min; Est GFR (African American) 46.7 ml/min; Est GFR (Non-African American) 40.3 ml/min; Potassium 4.6 mmol/L (3.5-5.1)
[2021-04-22 08:53] LABS: Partial Thromboplastin Time 51.2 Seconds (21.0-31.0)
[2021-04-22 08:55] LABS: Albumin Globulin Ratio 0.6 (0.9-2); Bilirubin,Total 0.6 mg/dl (0.2-1); Globulin 3.8 gm/dl (2.5-4.0); Total Protein 6.1 gm/dl (6.4-8.2)
[2021-04-22] MEDS: INSULIN HUMAN NPH SC SCH (09:07)
[2021-04-22] MEDS: INSULIN ASPART 100 UNITS/ML 3 ML PEN SC SCH ×4 (09:07→20:43)
[2021-04-22] MEDS: REMDESIVIR 100 MG in SODIUM CHLORIDE 0.9% 230 ML IV SCH (11:42)
[2021-04-22] MEDS: SODIUM CHLORIDE 0.9% 10ML FLUSH IV SCH (13:45)
[2021-04-22] MEDS ORDERED: FUROSEMIDE INJ 20 MG/2 ML VIAL IV ONE (14:22)
--- NOTE | 2021-04-22 15:39 | Pulmonology Progress Note ---
Date of Service April 22, 2021 Assessment & Plan (1) Sleep apnea: (2) Acute respiratory failure with hypoxia: (3) Multilobar lung infiltrate: (4) COVID-19: Plan: Attending: Dr. Major Impression: This is a 75-year-old male. He has a past medical history including chronic kidney disease stage III hypercalcemia, hyperparathyroidism, BPH, cardiomyopathy, neurogenic claudication due to lumbar spinal stenosis, systolic dysfunction, CAD, obstructive sleep apnea on CPAP at home, history of CVA, hypertension, diabetes mellitus type 2, chronic noncardiac chest pain, obesity with a BMI of 32.1 kg/m. Patient presented to the emergency department on 04/11/2021 with flulike symptoms. Covid testing was done and patient was found to be positive. He refused monoclonal treatment at that time and was discharged home. The patient continued to have worsening of symptoms and presented back to emergency department 04/18/2021 and was admitted by the medic ine service. He was started on dexamethasone 6 mg IV daily, remdesivir daily, and supplemental oxygen. Since that time, the dexamethasone has been increased to 10 mg IV daily. Remdesivir was discontinued after 5 days. I do not see any record of administration of tocilizumab or baricitinib. Patient continues on high flow oxygen and currently is at 40 L/min with an FiO2 of 95%. He is currently saturating at 87 to 88% with rest. Recommendations: 1. COVID-19/ARDs: * Completed course of remdesivir * Dexamethasone 10 mg IV daily (increased from 6 mg IV daily) * Currently requiring high flow supplemental oxygen * Refusing BiPAP or other noninvasive ventilation * Refusing endotracheal intubation/mechanical ventilation * CRP is trending downward. Procalcitonin was negative. * Most previous chest x-ray is 04/18/2021 with multifocal opacities. * No CT scan of the chest has been completed. 2. Acute hypoxic respiratory failure: * Secondary to COVID-19 * Continue supplemental oxygenation to maintain SaO2 greater than 90% * No tobacco abuse history * Continue with incentive spirometry and flutter valve * Discussed proning with patient. He states he is unwilling to prone as it is not comfortable for him. * Lower extremity Dopplers negative for DVT * Patient has continued on heparin drip due to high risk of pulmonary emboli * Unable to perform CTA of chest secondary to acute on chronic renal failure 3. Obstructive sleep apnea: * Previous diagnosis. Patient has CPAP machine at home. He reports settings have been 6 cm of water * Patient currently refusing CPAP mask * Continue with high flow supplemental oxygen * BiPAP when tolerated Long discussion with primary care hospitalist team with Dr. Jack. At this time, continue supportive care. The pulmonary team will sign off. Please feel free to reconsult as needed should the patient's condition change. Case discussed with Dr. Major. Please refer to his addendum for any corrections or changes. Admission and Anticipated Discharge Date Admission Date: April 18, 2021 Supervising Physician Co-Signing Physician Notes Reviewed with ASHER and discussed with off going pulmonary provider. Pt refusing most interventions and wants to be kept comfortable. Seems appropriate to initiate palliative care at this point. Not much to offer. Will sign off. Call if needed. Subjective Attending: Dr. Major Patient seen and examined at bedside in room 278-2. He continues to be hypoxic. He continues on high flow nasal cannula at 40 L/min and an FiO2 of 95%. Is currently saturating 87% at rest. Patient states that he feels "miserable". He is refusing BiPAP. I had a lengthy discussion with him regarding endotracheal intubation and mechanical ventilation. He continues to state that he does not want mechanical ventilation. I expressed that this could result in him dying. He stated that he was aware but he does not want it. The patient is fairly uncomfortable. He states he has generalized back pain. He has some rib pain and chest pain with deep inspiration. Inflammatory markers are trending downward. Troponin was negative on 04/18/2021 at which time patient has similar complaints. Patient states that he is not vaccinated. His is also sick at home with Covid. When asked how she is doing, patient says that he does not talk to her that she cannot hear. Patient denies any sputum production. He does have chronic cough associated with this admission. He states he is chronically short of breath since admi ssion. He does not tolerate BiPAP. Unable to use home BiPAP unit as it will not provide enough flow of supplemental oxygen. Patient reports he is afebrile. He has no nausea or vomiting. No diarrhea. He is having some urinary incontinence. He has no rigors. He is unaware of any tachyarrhythmia or palpitations. Ventilator Ordered Settings Respiratory Rate 20 04/22/21 11:08 Fraction of Inspired Oxygen 95 04/22/21 12:27 Ventilator - PT Measurements Respiratory Rate 20 Review of Systems Review of Systems: All systems reviewed & are unremarkable except as noted in Subjective Physical Exam Physical Exam: GENERAL : Patient appears ill EYES: No icterus, gaze conjugate. Pupils equal and round NOSE: No evidence of epistaxis. High flow nasal cannula in place. MOUTH: No lesions or candidiasis. Mucosa is moist NECK: Supple. No evidence of JVD LUNGS: Diminished. Poor inspirational effort due to cough. Rales at the bilateral bases. HEART: Regular, rate controlled in the 80s ABDOMEN: Soft, NT, ND, BS Present EXTREMITIES: No LE edema, pedal pulses intact NEURO: A&OX3 Results & Data Results & Data ([facility]) Vital Signs (Past 12 Hours) Vital Signs Temp Pulse Pulse Resp BP Pulse Ox 04/22/21 11:08 83 20 91 04/22/21 09:26 36.5 C 83 16 146/84 H 84 L 04/22/21 07:21 75 04/22/21 04:00 36.4 C L 81 18 137/82 91 Laboratory Results 04/22/21 08:03 04/22/21 08:03 04/18/21 06:42 VBG pH 7.33 L VBG pCO2 40 VBG pO2 16 VBG HCO3 21 VBG O2 Saturation < 60.0 VBG Base Excess -4.8 COVID-19 Results 04/18/21 05:30 SARS-CoV-2 (PCR) POSITIVE A* PG Care Time/CCT Total # of Minutes Spent Total Time Spent with Patient: Total time spent is greater than 50% in coordination of care (as documented) at patient's floor/unit and/or counseling patient: 30 minutes including discussion with Dr. Jack and with the patient Coding Level of Care Code 93817 Subseq Hosp Care Lvl 2 Diagnoses Sleep apnea G47.30 Acute respiratory failure with hypoxia J96.01 Multilobar lung infiltrate R91.8 COVID-19 U07.1 Time Spent (min) 30
--- NOTE | 2021-04-22 16:56 | Hospitalist Progress Note ---
Date of Service April 22, 2021 Assessment & Plan (1) COVID-19: Plan: COVID-19 with acute respiratory failure and multilobar infiltratesdoes not appear to have a secondary bacterial pneumonia based on his exam/vitals/lab workobviously need to maintain vigilance for this, low threshold to initiate antibiotic coverage but none at this time -Has been treated with remdesivir, continue dexamethasone -Due to sudden worsening of hypoxia without a clear explanation, heparin was initiated to empirically cover for PEcontinue -Continue supplemental oxygen and supportive care -Given situations with other similar patients, coarse lung exam to myself, bibasilar rales to pulmonary (who was able to listen to his back a little bit better)continue Lasix dose by dose, following for response, and following creatinine (2) Acute respiratory failure with hypoxia: (3) Multilobar lung infiltrate: (4) Fatigue: (5) Weakness: Plan: Appears to be due to the severity of his Covid pneumonia/hypoxiaright now too soon to really be out of work with him with PT/OT, but as his oxygenation improves, will need to try to push for more exertion. Fortunately he is able to eat and drink, and I encouraged him to continue to do so (6) CKD (chronic kidney disease) stage 3, GFR 30-59 ml/min: Plan: Creatinine 1.65 todaysafe to redose with Lasix (7) Coronary artery disease: Plan: No angina, continue to monitor (8) Sleep apnea: Plan: Does not want CPAP at this time, perhaps if his is able to bring in his unit from home he may be more amenable (9) Hypertension: Plan: Blood pressures quite reasonable given situation (10) Diabetes: Plan: Poorly controlled at baseline as well as acutely. Adjust insulinspharmacy managing at this time (11) HTN (hypertension), benign: (12) Lumbar stenosis with neurogenic claudication: Plan: Will likely represent an impediment to PT/OT once he has improved enough, will need to help him work through this as well (13) DVT prophylaxis: Plan: Currently on heparin drip (14) Discharge planning issues: Plan: Remains acutely ill on high flow nasal cannula, continue current level of supportive care. Highly likely to need rehab once he starts to show improvement Admission and Anticipated Discharge Date Admission Date: April 18, 2021 Subjective Still feeling baddoes not feel that he is any worse than the last 2 days, but definitely not any better either. Dyspnea/very fatigued/very weak. Is able to eat and drink, no loss of taste or smell. Discussed with pulmonary, input appreciated. Review of Systems Review of Systems: All systems reviewed & are unremarkable except as noted in HPI & below Review of systems otherwise negative except for as above Physical Exam Physical Exam: In general he is awake and alert very fatigued appearing but otherwise not in respiratory distresshe is laying in bed appearing very tired but without obvious dyspnea. HEENT normocephalic atraumatic mucous membranes moist. Breathing is unlabored without accessory muscles although he is on high flow nasal cannulawhenever I go in the room the cannulas only in his left nostril, but he is still 90%, help adjust the cannula back in place, lungs sound somewhat coarseit is a bit of a difficult exam due to fatigue/weakness/positioning, some not able to get a great listen to his\lung bases. Cardio is regular without rubs murmurs or gallops. Results & Data Results & Data ([facility]) Vital Signs (Past 12 Hours) Vital Signs Temp Pulse Pulse Resp BP Pulse Ox 04/22/21 16:33 80 04/22/21 16:08 98.2 F 84 20 136/86 90 04/22/21 11:08 83 20 91 04/22/21 09:26 97.7 F 83 16 146/84 H 84 L 04/22/21 07:21 75 PG Care Time/CCT Total # of Minutes Spent Total Time Spent with Patient: Total time spent is greater than 50% in coordination of care (as documented) at patient's floor/unit and/or counseling patient: Coding Level of Care Code 96779 Subseq Hosp Care Lvl 3 Diagnoses COVID-19 U07.1 Acute respiratory failure with hypoxia J96.01 Multilobar lung infiltrate R91.8 Fatigue R53.83 Fatigue type: unspecified Weakness R53.1 CKD (chronic kidney disease) stage 3, GFR 30-59 ml/min N18.3 Coronary artery disease I25.10 Sleep apnea G47.30 Hypertension I10 Diabetes E11.9 HTN (hypertension), benign I10 Lumbar stenosis with neurogenic claudication M48.062 DVT prophylaxis Z29.9 Discharge planning issues Z02.9 (1) Fatigue Fatigue type: unspecified Qualified Code(s): R53.83 - Other fatigue
[2021-04-22] MEDS: PRAVASTATIN SOD 40 MG TAB PO SCH (20:32)
[2021-04-22] MEDS: TAMSULOSIN HCL 0.4 MG CAP PO SCH (20:32)
[2021-04-22] MEDS: INSULIN GLARGINE SOLOSTAR 100 UNITS/ML 3 ML PEN SC SCH (20:43)
[2021-04-23] MEDS: guaiFENesin/CODEINE 100MG/10MG 5ML UDC PO SCH ×4 (00:23→18:06)
[2021-04-23] MEDS: HEPARIN SODIUM/DEXTROSE 25,000 UNITS/500 ML BAG IV SCH (06:41)
[2021-04-23 10:13] LABS: Partial Thromboplastin Ratio 1.8
[2021-04-23 10:15] LABS: Partial Thromboplastin Time 46.4 Seconds (21.0-31.0)
[2021-04-23] MEDS: INSULIN ASPART 100 UNITS/ML 3 ML PEN SC SCH ×4 (10:15→22:01)
[2021-04-23] MEDS: INSULIN HUMAN NPH SC SCH (10:15)
[2021-04-23] MEDS: cilostazoL 100 MG TAB PO SCH ×2 (10:23→20:40)
[2021-04-23] MEDS: guaiFENesin 600 MG TABCR PO SCH ×2 (10:23→20:42)
[2021-04-23] MEDS: ASPIRIN 81 MG ECTAB PO SCH (10:24)
[2021-04-23] MEDS: FLUoxetine HCL 10 MG CAP PO SCH (10:24)
[2021-04-23] MEDS: dexAMETHasone 10 MG in SYRINGE 0 ML IV SCH (10:24)
[2021-04-23 10:38] LABS: BUN Creatinine Ratio 34.5 (10-20); C Reactive Protein 1.26 mg/dl (0-0.29); Calcium 9.2 mg/dl (8.5-10.1); Creatinine Clr Calc Pharmacy 52.4 ml/min; Est GFR (African American) 53.3 ml/min
--- NOTE | 2021-04-23 15:12 | Pharmacy Report ---
Pharmacy Glycemic Short Note 2 - Date of Service April 23, 2021 - Glycemic Short BSG Results (Last 24 hours): 04/22/21 04/22/21 04/23/21 16:08 20:11 08:40 Glucose POC Glucose 258 H 224 H 118 H 04/23/21 04/23/21 09:20 12:32 Glucose 150 H POC Glucose 146 H OUTPATIENT ANTIDIABETIC REGIMEN: * CANAGLIFLOZIN 100MG PO DAILY * GLIPIZIDE ER 25MG PO DAILY ASSESSMENT: 04/23 * Patient received total of 154 units of insulin yesterday, of which 40 units NPH to cover Dex and 20 units basal * Fasting BSG 118 mg/dL - continue same basal insulin * Had tighten CR slightly more this AM, but will loosen more today as I anticipate higher dosing of NPH 40 units to cover steroids (day 2 of higher NPH dose) 04/20 * Patient received total of 89 units of insulin yesterday, of which 50 units were basal, blood sugars 144-204mg/dl * Blood sugars rising throughout the day, tighten CF/CR starting today at lunch * Dexamethasone increased from 6mg to 10mg IV Daily today, NPH already given, increase dose tomorrow morning 04/19 * Patient received total of 60 units of insulin yesterday, of which 44 units were basal * Fasting BSG 144 mg/dL - plan to trial Lantus 20 units at HS * Received Lantus 7 + NPH 20 units yesterday AM, plan to increase NPH to 30 units this AM to give with IV dex * Late administration of insulin on JUL documented this Am, spoke with RN and it was actually given early 9-10am, she will adjust time 04/18 * Initial BSGs elevated in setting of history of DM, acute stressors, and daily steroids (dex 6mg). * Type 2 DM diet ordered. Acute on chronic kidney injury (SCr-2mg/dL today) which may prolong duration of action of insulin doses. * HbA1C 8.6% from 05/2019. A1C ordered for tomorrow to assess outpatient control. * Will start Novolog weight based stress of 3 based upon steroid use and utilize NPH for prandial coverage of steroid. * Plan for midnight/0400 checks overnight tonight for close monitoring of initial BSGs. PLAN FOR INPATIENT GLYCEMIC CONTROL: * Hold outpatient oral diabetes medications * Basal insulin * Lantus - 20 units HS * NPH: 40 units daily with dexamethasone * Bolus insulin * NovoLog per scale AC * Goal Range: Low 110 mg/dL - High 140 mg/dL * Correction Factor: 8 mg/dL/unit * Nutritional / Prandial insulin per carb ratio of 1 unit per 2 grams CHO consumed
[2021-04-23] MEDS ORDERED: FUROSEMIDE INJ 20 MG/2 ML VIAL IV ONE (16:40)
--- NOTE | 2021-04-23 16:40 | Hospitalist Progress Note ---
Date of Service April 23, 2021 Assessment & Plan (1) COVID-19: Plan: COVID-19 with acute respiratory failure and multilobar infiltratesdoes not appear to have a secondary bacterial pneumonia based on his exam/vitals/lab workobviously need to maintain vigilance for this, low threshold to initiate antibiotic coverage but none at this time -Has been treated with remdesivir, continue dexamethasone -Due to sudden worsening of hypoxia without a clear explanation, heparin was initiated to empirically cover for PEcontinue -Continue supplemental oxygen and supportive care, encourage proning, scheduled combivent to see if improvement, incentive spirometer -since still rales and creat improved after lasix - additional 20mg IV today (2) Acute respiratory failure with hypoxia: (3) Multilobar lung infiltrate: (4) Fatigue: (5) Weakness: Plan: Appears to be due to the severity of his Covid pneumonia/hypoxiaright now too soon to really be out of work with him with PT/OT, but as his oxygenation improves, will need to try to push for more exertion. Fortunately he is able to eat and drink, and I encouraged him to continue to do so - with poor appetite and broken sleep - trial of remeron to hopefully help w sleep and improve appetite (6) CKD (chronic kidney disease) stage 3, GFR 30-59 ml/min: Plan: Creatinine 1.48 todaysafe to redose with Lasix (7) Coronary artery disease: Plan: No angina, continue to monitor (8) Sleep apnea: Plan: Does not want CPAP at this time, perhaps if his is able to bring in his unit from home he may be more amenable (9) Hypertension: Plan: Blood pressures quite reasonable given situation (10) Diabetes: Plan: Poorly controlled at baseline as well as acutely. continue to adjust insulinspharmacy managing at this time (11) HTN (hypertension), benign: (12) Lumbar stenosis with neurogenic claudication: Plan: Will likely represent an impediment to PT/OT once he has improved enough, will need to help him work through this as well (13) DVT prophylaxis: Plan: Currently on heparin drip (14) Discharge planning issues: Plan: Remains acutely ill on high flow nasal cannula, continue current level of supportive care. Highly likely to need rehab once he starts to show improvement Admission and Anticipated Discharge Date Admission Date: April 18, 2021 Subjective Generally feeling about the samevery easily fatigued, shortness of breath persistsyet again not really any better or worse than yesterday. Not much of an appetite, although with encouragement whenever I am in the room he eats about half of his chicken. Notes that his sleep is off and on and rather broken. Review of Systems Review of Systems: All systems reviewed & are unremarkable except as noted in HPI & below Physical Exam Physical Exam: gen aaox3 fatigued heent nc at mmm cardio reg no r/m/g lungs faint base rales better exam than yesterday, vaguely coarse throughout no rhonchi or wheeze good effort no accessory muscles good effort skin no rashes no pallor or icterus neuro no focal deficits Results & Data Results & Data ([facility]) Vital Signs (Past 12 Hours) Vital Signs Temp Pulse Pulse Resp BP Pulse Ox 04/23/21 15:23 76 18 91 04/23/21 14:19 77 04/23/21 12:53 97.7 F 84 22 147/78 H 90 04/23/21 08:56 97.7 F 78 22 148/77 H 90 04/23/21 07:58 78 20 92 04/23/21 06:15 72 PG Care Time/CCT Total # of Minutes Spent Total Time Spent with Patient: Total time spent is greater than 50% in coordination of care (as documented) at patient's floor/unit and/or counseling patient: Coding Level of Care Code 04909 Subseq Hosp Care Lvl 3 Diagnoses COVID-19 U07.1 Acute respiratory failure with hypoxia J96.01 Multilobar lung infiltrate R91.8 Fatigue R53.83 Fatigue type: unspecified Weakness R53.1 CKD (chronic kidney disease) stage 3, GFR 30-59 ml/min N18.3 Coronary artery disease I25.10 Sleep apnea G47.30 Hypertension I10 Diabetes E11.9 HTN (hypertension), benign I10 Lumbar stenosis with neurogenic claudication M48.062 DVT prophylaxis Z29.9 Discharge planning issues Z02.9 (1) Fatigue Fatigue type: unspecified Qualified Code(s): R53.83 - Other fatigue
[2021-04-23] MEDS ORDERED: IPRATROPIUM BROMIDE/ALBUTEROL respimat INH INH SCH (17:00)
[2021-04-23] MEDS: ALBUTEROL HFA 8 GM INHALER INH SCH (19:43)
[2021-04-23] MEDS: IPRATROPIUM BROMIDE HFA INHALER INH SCH (19:44)
[2021-04-23] MEDS: TAMSULOSIN HCL 0.4 MG CAP PO SCH (20:40)
[2021-04-23] MEDS: MIRTAZAPINE TAB 15 MG TAB PO SCH (20:40)
[2021-04-23] MEDS: PRAVASTATIN SOD 40 MG TAB PO SCH (20:40)
[2021-04-23] MEDS: FAMOTIDINE 20 MG TAB PO SCH (20:41)
[2021-04-23] MEDS: INSULIN GLARGINE SOLOSTAR 100 UNITS/ML 3 ML PEN SC SCH (22:01)
[2021-04-24] MEDS: guaiFENesin/CODEINE 100MG/10MG 5ML UDC PO SCH ×5 (00:05→23:49)
[2021-04-24] MEDS: HEPARIN SODIUM/DEXTROSE 25,000 UNITS/500 ML BAG IV SCH (05:25)
[2021-04-24] MEDS: IPRATROPIUM BROMIDE HFA INHALER INH SCH ×4 (07:53→19:26)
[2021-04-24] MEDS: ALBUTEROL HFA 8 GM INHALER INH SCH ×4 (07:53→19:27)
[2021-04-24 08:30] LABS: Basophils # (auto) 0.02 K/uL (0-0.2); Basophils % (auto) 0.3 %; Hematocrit (blood only) 38.7 % (42-52); Hemoglobin 13.1 g/dL (14.0-18.0); Immature Granulocytes # (auto) 0.32 K/uL (0.00-0.02); Immature Granulocytes % (auto) 4.5 %; Lymphocytes # (auto) 0.41 K/uL (1.2-3.4); Lymphocytes % (auto) 5.7 %; Mean Corpuscular Hemoglobin 29.8 pg (25-34); Mean Corpuscular Hgb Conc 33.9 g/dL (32-36); Mean Platelet Volume 9.5 fL (7.4-10.4); Monocytes # (auto) 0.87 K/uL (0.11-0.59); Monocytes % (auto) 12.2 %; Neutrophils # (auto) 5.53 K/uL (1.4-6.5); Neutrophils % (auto) 77.3 %; Platelet Count 178 K/uL (130-400); RDW Coefficient of Variation 14.2 % (11.5-14.5); RDW Standard Deviation 46.3 fL (36.4-46.3); White Blood Count 7.15 K/uL (4.8-10.8)
[2021-04-24] MEDS: INSULIN HUMAN NPH SC SCH (08:30)
[2021-04-24] MEDS: INSULIN ASPART 100 UNITS/ML 3 ML PEN SC SCH ×4 (08:30→21:31)
[2021-04-24] MEDS: dexAMETHasone 10 MG in SYRINGE 0 ML IV SCH (08:35)
[2021-04-24] MEDS: cilostazoL 100 MG TAB PO SCH ×2 (08:35→21:48)
[2021-04-24] MEDS: ASPIRIN 81 MG ECTAB PO SCH (08:35)
[2021-04-24] MEDS: FAMOTIDINE 20 MG TAB PO SCH ×2 (08:36→21:50)
[2021-04-24] MEDS: FLUoxetine HCL 10 MG CAP PO SCH (08:36)
[2021-04-24] MEDS: ZINC SULFATE 220 MG CAPSULE PO SCH (08:37)
[2021-04-24 08:56] LABS: Partial Thromboplastin Ratio 2.4
[2021-04-24 09:02] LABS: Partial Thromboplastin Time 63.4 Seconds (21.0-31.0)
[2021-04-24 09:39] LABS: BUN Creatinine Ratio 36.6 (10-20); Calcium 9.2 mg/dl (8.5-10.1); Creatinine Clr Calc Pharmacy 57.7 ml/min; Est GFR (African American) 60.1 ml/min; Est GFR (Non-African American) 51.8 ml/min; Potassium 4.7 mmol/L (3.5-5.1)
[2021-04-24] MEDS: guaiFENesin 600 MG TABCR PO SCH ×2 (12:25→21:50)
--- NOTE | 2021-04-24 16:59 | Hospitalist Progress Note ---
Date of Service April 24, 2021 Assessment & Plan (1) COVID-19: Plan: COVID-19 with acute respiratory failure and multilobar infiltratesdoes not appear to have a secondary bacterial pneumonia based on his exam/vitals/lab workobviously need to maintain vigilance for this, low threshold to initiate antibiotic coverage but none at this time -Has been treated with remdesivir, continue dexamethasone for 10 days unless significant clincal changes -Due to sudden worsening of hypoxia without a clear explanation, heparin was initiated to empirically cover for PEcontinue this for now -Continue supplemental oxygen and supportive care, encourage proning, scheduled combivent to see if improvement (has shown improvement - will continue), incentive spirometer -hold on additional lasix today -CRP slight uptrend but still in overall reassuringly low range - continue to follow -encourage nutrition (2) Acute respiratory failure with hypoxia: (3) Multilobar lung infiltrate: (4) Fatigue: (5) Weakness: Plan: Appears to be due to the severity of his Covid pneumonia/hypoxiaright now too soon to really be out of work with him with PT/OT, but as his oxygenation improves, will need to try to push for more exertion. Fortunately he is able to eat and drink, and I encouraged him to continue to do so - with poor appetite and broken sleep - trial of remeron to hopefully help w sleep and improve appe tite (last night no change but will continue for now) (6) CKD (chronic kidney disease) stage 3, GFR 30-59 ml/min: Plan: Continue to follow creatinine (7) Coronary artery disease: Plan: No angina, continue to monitor (8) Sleep apnea: Plan: Does not want CPAP at this time, perhaps if his is able to bring in his unit from home he may be more amenable (9) Hypertension: Plan: Blood pressures remain quite reasonable given situation (10) Diabetes: Plan: Poorly controlled at baseline as well as acutely. continue to adjust insulinspharmacy managing at this time (11) HTN (hypertension), benign: (12) Lumbar stenosis with neurogenic claudication: Plan: Will likely represent an impediment to PT/OT once he has improved enough, will need to help him work through this as well (13) DVT prophylaxis: Plan: Currently on heparin drip (14) Discharge planning issues: Plan: Remains acutely ill on high flow nasal cannula, continue current level of supportive care. Highly likely to need rehab once he starts to show improvement. possibly starting to turn corner given FiO2 was able to be reduced a little today Admission and Anticipated Discharge Date Admission Date: April 18, 2021 Subjective moderately poor appetite, no real change. sleep still intermittent and broken, no real chnage. still quite fatigued and tires easily. breathing feels about the same. is down to 90% FiO2 though. hasn't talked with family and does not have anyone he wants me to call to update Review of Systems Review of Systems: All systems reviewed & are unremarkable except as noted in HPI & below Physical Exam Physical Exam: gen aao pleasant very fatigued. heent nc at mmm lungs overall seem clear maybe possibly faint base rales but not entirely overt that this is the case definitely more clear than before and better air entry overall no accessory muscles. no focal neuro deficits Results & Data Results & Data ([facility]) Vital Signs (Past 12 Hours) Vital Signs Temp Pulse Pulse Resp BP BP Pulse Ox 04/24/21 15:17 74 04/24/21 15:04 98.2 F 92 H 20 134/74 90 04/24/21 14:48 83 20 91 04/24/21 12:11 98.1 F 81 20 139/77 88 L 04/24/21 11:36 82 20 92 04/24/21 11:19 04/24/21 08:08 97.7 F 76 20 162/93 H 90 04/24/21 07:55 73 20 95 04/24/21 07:16 63 Pulse Ox 04/24/21 15:17 04/24/21 15:04 04/24/21 14:48 04/24/21 12:11 04/24/21 11:36 04/24/21 11:19 88 L 04/24/21 08:08 04/24/21 07:55 04/24/21 07:16 PG Care Time/CCT Total # of Minutes Spent Total Time Spent with Patient: Total time spent is greater than 50% in coordination of care (as documented) at patient's floor/unit and/or counseling patient: Coding Level of Care Code 17790 Subseq Hosp Care Lvl 3 Diagnoses COVID-19 U07.1 Acute respiratory failure with hypoxia J96.01 Multilobar lung infiltrate R91.8 Fatigue R53.83 Fatigue type: unspecified Weakness R53.1 CKD (chronic kidney disease) stage 3, GFR 30-59 ml/min N18.3 Coronary artery disease I25.10 Sleep apnea G47.30 Hypertension I10 Diabetes E11.9 HTN (hypertension), benign I10 Lumbar stenosis with neurogenic claudication M48.062 DVT prophylaxis Z29.9 Discharge planning issues Z02.9 (1) Fatigue Fatigue type: unspecified Qualified Code(s): R53.83 - Other fatigue
[2021-04-24] MEDS: INSULIN GLARGINE SOLOSTAR 100 UNITS/ML 3 ML PEN SC SCH (21:33)
[2021-04-24] MEDS: MIRTAZAPINE TAB 15 MG TAB PO SCH (21:51)
[2021-04-24] MEDS: TAMSULOSIN HCL 0.4 MG CAP PO SCH (21:51)
[2021-04-24] MEDS: PRAVASTATIN SOD 40 MG TAB PO SCH (21:51)
[2021-04-25] MEDS: guaiFENesin/CODEINE 100MG/10MG 5ML UDC PO SCH ×4 (05:54→23:37)
[2021-04-25] MEDS: HEPARIN SODIUM/DEXTROSE 25,000 UNITS/500 ML BAG IV SCH (06:12)
[2021-04-25] MEDS: IPRATROPIUM BROMIDE HFA INHALER INH SCH ×4 (07:15→20:17)
[2021-04-25] MEDS: ALBUTEROL HFA 8 GM INHALER INH SCH ×4 (07:15→20:16)
[2021-04-25 08:14] LABS: Partial Thromboplastin Ratio 2.4
[2021-04-25 08:18] LABS: C Reactive Protein 1.97 mg/dl (0-0.29); Calcium 9.4 mg/dl (8.5-10.1); Creatinine Clr Calc Pharmacy 55.2 ml/min; Est GFR (African American) 56.5 ml/min; Est GFR (Non-African American) 48.7 ml/min; Potassium 4.6 mmol/L (3.5-5.1)
[2021-04-25 08:19] LABS: Partial Thromboplastin Time 61.9 Seconds (21.0-31.0)
[2021-04-25] MEDS: INSULIN ASPART 100 UNITS/ML 3 ML PEN SC SCH ×4 (08:30→21:23)
[2021-04-25] MEDS: INSULIN HUMAN NPH SC SCH (08:30)
[2021-04-25] MEDS: POLYETHYLENE (MIRALAX) 17 GM PACK PO PRN (08:34)
[2021-04-25] MEDS: FAMOTIDINE 20 MG TAB PO SCH ×2 (08:34→20:55)
[2021-04-25] MEDS: MAGNESIUM HYDROXIDE SUSP 30 ML UDC PO PRN (08:34)
[2021-04-25] MEDS: dexAMETHasone 10 MG in SYRINGE 0 ML IV SCH (08:34)
[2021-04-25] MEDS: FLUoxetine HCL 10 MG CAP PO SCH (08:35)
[2021-04-25] MEDS: ZINC SULFATE 220 MG CAPSULE PO SCH (08:35)
[2021-04-25] MEDS: cilostazoL 100 MG TAB PO SCH ×2 (08:35→20:54)
[2021-04-25] MEDS: ASPIRIN 81 MG ECTAB PO SCH (08:35)
[2021-04-25] MEDS: guaiFENesin 600 MG TABCR PO SCH ×2 (08:37→20:55)
--- NOTE | 2021-04-25 11:15 | Pharmacy Report ---
Pharmacy Glycemic Short Note 2 - Date of Service April 25, 2021 - Glycemic Short BSG Results (Last 24 hours): 04/24/21 04/24/21 04/24/21 12:03 17:24 20:59 Glucose POC Glucose 173 H 210 H 238 H 04/25/21 04/25/21 07:26 07:29 Glucose 189 H POC Glucose 179 H OUTPATIENT ANTIDIABETIC REGIMEN: * Canagliflozin 100MG PO daily * Glipizide ER 2.5 mg PO daily * HbA1c: 8.3% (04/19/21) ASSESSMENT: 04/25 * BSGs trended up throughout the day yesterday, 152, 173, 210, and 238 mg/dL * Received 152 units of insulin (40 units of NPH, 20 units of Lantus, and 92 units of Novolog) * Given upward trend throughout the day, will increase NPH with IV dexamethasone today * Fasting BSG elevated at 179 mg/dL - will likely increase Lantus this evening 04/23 * Patient received total of 154 units of insulin yesterday, of which 40 units NPH to cover Dex and 20 units basal * Fasting BSG 118 mg/dL - continue same basal insulin * Had tighten CR slightly more this AM, but will loosen more today as I anticipate higher dosing of NPH 40 units to cover steroids (day 2 of higher NPH dose) 04/18 * Initial BSGs elevated in setting of history of DM, acute stressors, and daily steroids (dex 6mg). * Type 2 DM diet ordered. Acute on chronic kidney injury (SCr-2mg/dL today) which may prolong duration of action of insulin doses. * HbA1C 8.6% from 05/2019. A1C ordered for tomorrow to assess outpatient control. * Will start Novolog weight based stress of 3 based upon steroid use and utilize NPH for prandial coverage of steroid. * Plan for midnight/0400 checks overnight tonight for close monitoring of initial BSGs. PLAN FOR INPATIENT GLYCEMIC CONTROL: * Hold outpatient oral diabetes medications * Basal insulin - increase NPH, scale Lantus * Lantus - 20-25 units HS (see EHR for details) * NPH: 45 units daily with dexamethasone * Bolus insulin * NovoLog per scale AC * Goal Range: Low 110 mg/dL - High 140 mg/dL * Correction Factor: 8 mg/dL/unit AC, 15 mg/dL/unit HS * Nutritional / Prandial insulin per carb ratio of 1 unit per 1.5 grams CHO consumed AC, none at HS PLAN FOR DISCHARGE: * HbA1c of 8.3% is elevated * Reasonable goal may be less than 8% given multiple comorbidities * Options limited based on CKD and reported intolerance to metformin * Continue current outpatient regimen * Could consider addition of a third oral agent such as an SGLT-2 inhibitor (i.e. linagliptin 5 mg PO daily)
--- NOTE | 2021-04-25 16:07 | Hospitalist Progress Note ---
Date of Service April 25, 2021 Assessment & Plan (1) COVID-19: Plan: COVID-19 with acute respiratory failure and multilobar infiltratesdoes not appear to have a secondary bacterial pneumonia based on his exam/vitals/lab workobviously need to maintain vigilance for this, low threshold to initiate antibiotic coverage but none at this time -Has been treated with remdesivir, continue dexamethasone for 10 days unless significant clinical changes -Due to sudden worsening of hypoxia without a clear explanation, heparin was initiated to empirically cover for PEhe is clinically improving, at some point in the near future with his kidney function improving, hopefully we can consider CT to confirm, for now to aid in the ability of hopefully being able to get him out of bed and moving more, we will transition heparin to Eliquis -Continue supplemental oxygen and supportive care, encourage proning, scheduled combivent, incentive spirometer -hold on additional lasix today againcreatinine seems to have been in a plateau, and his lungs continue to examine overall clear of rales -CRP trended back down -encourage nutrition (2) Acute respiratory failure with hypoxia: (3) Multilobar lung infiltrate: (4) Fatigue: Plan: Encourage activity, encourage out of bed, PT/OT eval and treat, hopefully with better sleep that may start to improve some to. (5) Weakness: Plan: Appears to be due to the severity of his Covid pneumonia/hypoxiasee above (6) CKD (chronic kidney disease) stage 3, GFR 30-59 ml/min: Plan: Continue to follow creatininestable at this time (7) Coronary artery disease: Plan: No angina, continue to monitor (8) Sleep apnea: Plan: Does not want CPAP at this time, perhaps if his is able to bring in his unit from home he may be more amenable (9) Hypertension: Plan: Blood pressures remain quite reasonable given situation (10) Diabetes: Plan: Poorly controlled at baseline as well as acutely. continue to adjust insulinspharmacy managing at this time (11) HTN (hypertension), benign: (12) Lumbar stenosis with neurogenic claudication: Plan: Will likely represent an impediment to PT/OT once he has improved enough, will need to help him work through this as well (13) DVT prophylaxis: Plan: Currently on heparin drip (14) Discharge planning issues: Plan: Remains acutely ill on high flow nasal cannula, continue current level of supportive care. Highly likely to need rehab once he starts to show improvement. Becoming more reassuring as his FiO2 is trending down daily Admission and Anticipated Discharge Date Admission Date: April 18, 2021 Subjective Continues to feel about the same. Probably 8 about the same, although may be a little bit better. Does note that he slept better. Oxygen is now down to 80%. He has not been out of bed. Review of Systems Review of Systems: All systems reviewed & are unremarkable except as noted in HPI & below Physical Exam Physical Exam: In general he is awake and alert still very fatigued no distress. HEENT normocephalic atraumatic mucous membranes moist. Breathing is unlabored, diminished air entry throughout although still better than it was a few days ago, little bit more difficult exam due to his weakness and positioning although yet again today I do not hear rales rhonchi on his first breath there was a wheeze but it pretty much immediately cleared, no accessory muscle use. Skin shows no rashes no pallor or icterus. Neuro without focal deficits. Results & Data Results & Data ([facility]) Vital Signs (Past 12 Hours) Vital Signs Temp Pulse Pulse Resp BP Pulse Ox Pulse Ox 04/25/21 15:15 77 04/25/21 15:06 75 18 90 04/25/21 12:00 98.1 F 90 19 164/80 H 88 L 04/25/21 11:00 84 20 91 04/25/21 10:58 84 20 94 04/25/21 10:53 61 04/25/21 10:49 93 04/25/21 07:39 97.3 F L 66 20 156/82 H 92 04/25/21 07:27 58 L 18 95 PG Care Time/CCT Total # of Minutes Spent Total Time Spent with Patient: Total time spent is greater than 50% in coordination of care (as documented) at patient's floor/unit and/or counseling patient: Coding Level of Care Code 32484 Subseq Hosp Care Lvl 3 Diagnoses COVID-19 U07.1 Acute respiratory failure with hypoxia J96.01 Multilobar lung infiltrate R91.8 Fatigue R53.83 Fatigue type: unspecified Weakness R53.1 CKD (chronic kidney disease) stage 3, GFR 30-59 ml/min N18.3 Coronary artery disease I25.10 Sleep apnea G47.30 Hypertension I10 Diabetes E11.9 HTN (hypertension), benign I10 Lumbar stenosis with neurogenic claudication M48.062 DVT prophylaxis Z29.9 Discharge planning issues Z02.9 (1) Fatigue Fatigue type: unspecified Qualified Code(s): R53.83 - Other fatigue
[2021-04-25] MEDS ORDERED: INSULIN HUMAN REGULAR PER UNIT 10 UNITS in SYRINGE 9.9 ML IV ONE (17:00)
[2021-04-25] MEDS: APIXABAN 5 MG TABLET PO SCH (17:54)
[2021-04-25] MEDS: TAMSULOSIN HCL 0.4 MG CAP PO SCH (20:54)
[2021-04-25] MEDS: PRAVASTATIN SOD 40 MG TAB PO SCH (20:54)
[2021-04-25] MEDS: MIRTAZAPINE TAB 15 MG TAB PO SCH (20:55)
[2021-04-25] MEDS: INSULIN GLARGINE SOLOSTAR 100 UNITS/ML 3 ML PEN SC SCH (21:23)
[2021-04-26] MEDS: guaiFENesin/CODEINE 100MG/10MG 5ML UDC PO SCH ×4 (05:53→22:18)
[2021-04-26] MEDS: IPRATROPIUM BROMIDE HFA INHALER INH SCH ×4 (06:32→20:11)
[2021-04-26] MEDS: ALBUTEROL HFA 8 GM INHALER INH SCH ×4 (06:33→20:13)
[2021-04-26 06:58] LABS: Hematocrit (blood only) 37.5 % (42-52); Hemoglobin 12.5 g/dL (14.0-18.0); Mean Corpuscular Hemoglobin 29.4 pg (25-34); Mean Corpuscular Hgb Conc 33.3 g/dL (32-36); Mean Corpuscular Volume 88.2 fL (80-100); Mean Platelet Volume 9.7 fL (7.4-10.4); Platelet Count 197 K/uL (130-400); RDW Coefficient of Variation 14.4 % (11.5-14.5); RDW Standard Deviation 46.7 fL (36.4-46.3); Red Blood Count 4.25 M/uL (4.7-6.1); White Blood Count 9.13 K/uL (4.8-10.8)
[2021-04-26 07:17] LABS: Basophils # (auto) 0.02 K/uL (0-0.2); Basophils % (auto) 0.2 %; Eosinophils # (auto) 0.02 K/uL (0-0.5); Eosinophils % (auto) 0.2 %; Immature Granulocytes # (auto) 0.56 K/uL (0.00-0.02); Immature Granulocytes % (auto) 6.1 %; Lymphocytes # (auto) 1.03 K/uL (1.2-3.4); Lymphocytes % (auto) 11.3 %; Monocytes # (auto) 0.38 K/uL (0.11-0.59); Monocytes % (auto) 4.2 %; Neutrophils # (auto) 7.12 K/uL (1.4-6.5); Partial Thromboplastin Ratio 0.9; Partial Thromboplastin Time 24.9 Seconds (21.0-31.0)
[2021-04-26 07:29] LABS: BUN Creatinine Ratio 31.5 (10-20); C Reactive Protein 1.58 mg/dl (0-0.29); Calcium 9.8 mg/dl (8.5-10.1); Est GFR (African American) 56.5 ml/min; Est GFR (Non-African American) 48.7 ml/min; Potassium 4.6 mmol/L (3.5-5.1)
[2021-04-26] MEDS: INSULIN ASPART 100 UNITS/ML 3 ML PEN SC SCH ×3 (08:00→21:53)
[2021-04-26] MEDS: ZINC SULFATE 220 MG CAPSULE PO SCH (08:23)
[2021-04-26] MEDS: guaiFENesin 600 MG TABCR PO SCH ×2 (08:23→22:17)
[2021-04-26] MEDS: cilostazoL 100 MG TAB PO SCH ×2 (08:24→20:37)
[2021-04-26] MEDS: APIXABAN 5 MG TABLET PO SCH ×2 (08:24→22:16)
[2021-04-26] MEDS: dexAMETHasone 10 MG in SYRINGE 0 ML IV SCH (08:25)
[2021-04-26] MEDS: FAMOTIDINE 20 MG TAB PO SCH ×2 (08:25→22:17)
[2021-04-26] MEDS: ASPIRIN 81 MG ECTAB PO SCH (08:26)
[2021-04-26] MEDS: INSULIN HUMAN NPH SC SCH (08:46)
[2021-04-26] MEDS: FLUoxetine HCL 10 MG CAP PO SCH (11:06)
[2021-04-26] MEDS ORDERED: INSULIN ASPART 100 UNITS/ML 3 ML PEN SC SCH ×2 (11:30→16:30)
[2021-04-26] MEDS ORDERED: FUROSEMIDE 40 MG/4 ML VIAL IV ONE (17:03)
--- NOTE | 2021-04-26 17:08 | Hospitalist Progress Note ---
Date of Service April 26, 2021 Assessment & Plan (1) COVID-19: Plan: COVID-19 with acute respiratory failure and multilobar infiltratesdoes not appear to have a secondary bacterial pneumonia based on his exam/vitals/lab workobviously need to maintain vigilance for this, low threshold to initiate antibiotic coverage but none at this time -Has been treated with remdesivir, continue dexamethasone for 10 days unless significant clinical changes -Due to sudden worsening of hypoxia without a clear explanation, heparin was initiated to empirically cover for PEhe is clinically improving, at some point in the near future with his kidney function improving, hopefully we can consider CT to confirm, for now to aid in the ability of hopefully being able to get him out of bed and moving more, we will transition heparin to Eliquis -Continue supplemental oxygen and supportive care, encourage proning, scheduled combivent, incentive spirometer -CRP trended back down -encourage nutrition (added Remeron a few days ago, still not really helpingafter discussion of risk/benefit will give trial to Marinol) -With lung findings todayadditional Lasix today (2) Acute respiratory failure with hypoxia: (3) Multilobar lung infiltrate: (4) Fatigue: Plan: Encourage activity, encourage out of bed, PT/OT eval and treat, hopefully with better sleep that may start to improve some too. Did get out of bed (5) Weakness: Plan: Appears to be due to the severity of his Covid pneumonia/hypoxiasee above (6) CKD (chronic kidney disease) stage 3, GFR 30-59 ml/min: Plan: Continue to follow creatininestable at this time, certainly stable to administer more Lasix (7) Coronary artery disease: Plan: No angina, continue to monitor (8) Sleep apnea: Plan: Does not want CPAP at this time, perhaps if his is able to bring in his unit from home he may be more amenable (9) Hypertension: Plan: Blood pressures are acceptable given situation (10) Diabetes: Plan: Poorly controlled at baseline as well as acutely. continue to adjust insulinspharmacy is managing at this time (11) Lumbar stenosis with neurogenic claudication: Plan: Will likely represent an impediment to PT/OT once he has improved enough, will need to help him work through this as well (12) DVT prophylaxis: Plan: Currently on heparin drip (13) Discharge planning issues: Plan: Remains acutely ill on high flow nasal cannula, continue current level of supportive care. Highly likely to need rehab once he starts to show improvement. Becoming more reassuring with his overall trend looking like it will hopefully be slow improvement Admission and Anticipated Discharge Date Admission Date: April 18, 2021 Subjective Continues to feel about the same, breathing about the same not worse. eating still fairly poor. just not much of an appetite. did get out of bed Review of Systems Review of Systems: All systems reviewed & are unremarkable except as noted in HPI & below Physical Exam Physical Exam: In general he is awake and alert fatigued but no distress. HEENT normocephalic atraumatic mucous membranes moist. Breathing unlabored no a ccessory muscle use good effort. Lungs, however, do have a return of some diffuse wet sounds, sort of more of a rhonchorous but predominantly basilar. No accessory muscle use, no conversational dyspnea. Very fatigued. No focal neuro deficits. Skin without rashes/pallor/icterus Results & Data Results & Data ([facility]) Vital Signs (Past 12 Hours) Vital Signs Temp Pulse Pulse Resp BP BP Pulse Ox 04/26/21 15:26 67 04/26/21 15:18 57 L 18 93 04/26/21 12:33 97.7 F 86 18 153/80 H 84 L 04/26/21 11:04 69 18 90 04/26/21 08:54 98.6 F 80 18 165/80 H 86 L 04/26/21 07:19 60 04/26/21 06:35 68 18 95 PG Care Time/CCT Total # of Minutes Spent Total Time Spent with Patient: Total time spent is greater than 50% in coordination of care (as documented) at patient's floor/unit and/or counseling patient: Coding Level of Care Code 87048 Subseq Hosp Care Lvl 3 Diagnoses COVID-19 U07.1 Acute respiratory failure with hypoxia J96.01 Multilobar lung infiltrate R91.8 Fatigue R53.83 Fatigue type: unspecified Weakness R53.1 CKD (chronic kidney disease) stage 3, GFR 30-59 ml/min N18.3 Coronary artery disease I25.10 Sleep apnea G47.30 Hypertension I10 Diabetes E11.9 Lumbar stenosis with neurogenic claudication M48.062 DVT prophylaxis Z29.9 Discharge planning issues Z02.9 (1) Fatigue Fatigue type: unspecified Qualified Code(s): R53.83 - Other fatigue
[2021-04-26] MEDS: INSULIN GLARGINE SOLOSTAR 100 UNITS/ML 3 ML PEN SC SCH (21:53)
[2021-04-26] MEDS: TAMSULOSIN HCL 0.4 MG CAP PO SCH (22:16)
[2021-04-26] MEDS: PRAVASTATIN SOD 40 MG TAB PO SCH (22:16)
[2021-04-26] MEDS: MIRTAZAPINE TAB 15 MG TAB PO SCH (22:16)
[2021-04-26 22:55] LABS: Appearance Urine Clear (Clear); Bacteria Urine Automated 1+ (Negative); Bilirubin Urine Negative (Negative); Blood Urine 1+ (Negative); Color Urine Yellow; Glucose Urine UA Negative (Negative); Ketones Urine Negative (Negative); Leukocyte Esterase Urine Negative (Negative); Nitrite Urine Positive (Negative); Protein Urine Negative (Negative); RBC Urine Automated 0-4 /hpf (0-4); Urobilinogen Urine Negative (Negative); WBC Urine Automated 0 /hpf (0-5)
[2021-04-27] MEDS: guaiFENesin/CODEINE 100MG/10MG 5ML UDC PO SCH ×4 (06:42→20:58)
[2021-04-27 07:17] LABS: BUN Creatinine Ratio 37.7 (10-20); Calcium 10.2 mg/dl (8.5-10.1); Creatinine Clr Calc Pharmacy 52.6 ml/min; Est GFR (African American) 54.6 ml/min; Est GFR (Non-African American) 47.1 ml/min; Potassium 4.5 mmol/L (3.5-5.1)
[2021-04-27 07:21] LABS: C Reactive Protein 1.38 mg/dl (0-0.29)
[2021-04-27] MEDS ORDERED: INSULIN ASPART 100 UNITS/ML 3 ML PEN SC SCH (07:30)
[2021-04-27] MEDS: POLYETHYLENE (MIRALAX) 17 GM PACK PO PRN (07:39)
[2021-04-27] MEDS: dexAMETHasone 10 MG in SYRINGE 0 ML IV SCH (07:40)
[2021-04-27] MEDS: cilostazoL 100 MG TAB PO SCH ×2 (07:40→20:57)
[2021-04-27] MEDS: ZINC SULFATE 220 MG CAPSULE PO SCH (07:41)
[2021-04-27] MEDS: FAMOTIDINE 20 MG TAB PO SCH ×2 (07:41→20:56)
[2021-04-27] MEDS: ASPIRIN 81 MG ECTAB PO SCH (07:41)
[2021-04-27] MEDS: FLUoxetine HCL 10 MG CAP PO SCH (07:41)
[2021-04-27] MEDS: APIXABAN 5 MG TABLET PO SCH ×2 (07:41→20:57)
[2021-04-27] MEDS: guaiFENesin 600 MG TABCR PO SCH ×2 (07:41→20:57)
[2021-04-27] MEDS: ALBUTEROL HFA 8 GM INHALER INH SCH ×3 (08:13→17:44)
[2021-04-27] MEDS: IPRATROPIUM BROMIDE HFA INHALER INH SCH ×3 (08:13→17:44)
[2021-04-27] MEDS: INSULIN ASPART 100 UNITS/ML 3 ML PEN SC SCH ×4 (08:42→22:40)
[2021-04-27] MEDS: INSULIN HUMAN NPH SC SCH (08:43)
--- NOTE | 2021-04-27 08:50 | Pharmacy Report ---
Pharmacy Glycemic Short Note 2 - Date of Service April 27, 2021 - Glycemic Short BSG Results (Last 24 hours): 04/26/21 04/26/21 04/26/21 12:10 17:19 20:41 Glucose POC Glucose 134 H 115 H 168 H 04/27/21 04/27/21 06:21 07:33 Glucose 101 H POC Glucose 95 OUTPATIENT ANTIDIABETIC REGIMEN: * Canagliflozin 100MG PO daily * Glipizide ER 2.5 mg PO daily * HbA1c: 8.3% (04/19/21) ASSESSMENT: 04/27/21 * Patient's BSGs yesterday were [phone] mg/dL with fasting today of 95 mg/dL. * Patient received 158 units of insulin with 65 units of basal (20 units of Lantus and 45 units of bolus) and 93 units of bolus. * Fasting stable at 95 mg/dL. Will fix dose at 22 units nightly -- believe 25 units too aggressive but 20 units is probably not sufficient. * BSGs stable throughout the day so continue. Loosen HS CF. 04/25 * BSGs trended up throughout the day yesterday, 152, 173, 210, and 238 mg/dL * Received 152 units of insulin (40 units of NPH, 20 units of Lantus, and 92 units of Novolog) * Given upward trend throughout the day, will increase NPH with IV dexamethasone today * Fasting BSG elevated at 179 mg/dL - will likely increase Lantus this evening 04/23 * Patient received total of 154 units of insulin yesterday, of which 40 units NPH to cover Dex and 20 units basal * Fasting BSG 118 mg/dL - continue same basal insulin * Had tighten CR slightly more this AM, but will loosen more today as I anticipate higher dosing of NPH 40 units to cover steroids (day 2 of higher NPH dose) 04/18 * Initial BSGs elevated in setting of history of DM, acute stressors, and daily steroids (dex 6mg). * Type 2 DM diet ordered. Acute on chronic kidney injury (SCr-2mg/dL today) which may prolong duration of action of insulin doses. * HbA1C 8.6% from 05/2019. A1C ordered for tomorrow to assess outpatient control. * Will start Novolog weight based stress of 3 based upon steroid use and utilize NPH for prandial coverage of steroid. * Plan for midnight/0400 checks overnight tonight for close monitoring of initial BSGs. PLAN FOR INPATIENT GLYCEMIC CONTROL: * Hold outpatient oral diabetes medications * Basal insulin * Lantus -22 units nightly * NPH: 45 units daily with dexamethasone * Bolus insulin * NovoLog per scale AC * Goal Range: Low 110 mg/dL - High 140 mg/dL * Correction Factor: 8 mg/dL/unit AC, 25 mg/dL/unit HS * Nutritional / Prandial insulin per carb ratio of 1 unit per 1.5 grams CHO consumed AC, none at HS PLAN FOR DISCHARGE: * HbA1c of 8.3% is elevated * Reasonable goal may be less than 8% given multiple comorbidities * Options limited based on CKD and reported intolerance to metformin * Continue current outpatient regimen * with eGFR 30-59 mL/min do not exceed Invokana 100 mg daily. * Could consider addition of Lantus 20 units nightly.
--- NOTE | 2021-04-27 14:32 | Hospitalist Progress Note ---
Date of Service April 27, 2021 Assessment & Plan (1) COVID-19: Plan: COVID-19 with acute respiratory failure and multilobar infiltratesdoes not appear to have a secondary bacterial pneumonia based on his exam/vitals/lab workobviously need to maintain vigilance for this, low threshold to initiate antibiotic coverage but none at this time -Has been treated with remdesivir, continue dexamethasone for 10 days unless significant clinical changes -Due to sudden worsening of hypoxia without a clear explanation, heparin was initiated to empirically cover for PEhe is clinically improving, at some point in the near future with his kidney function improving, hopefully we can consider CT to confirm, for now to aid in the ability of hopefully being able to get him out of bed and moving more, we will transition heparin to Eliquis -Continue high flow supplemental oxygen and supportive care, encourage proning, scheduled combivent, incentive spirometer -CRP continue to improve. -encourage nutrition (added Remeron a few days ago, still not really helpingafter discussion of risk/benefit will give trial to Marinol) -will continue above treatment. (2) Acute respiratory failure with hypoxia: (3) Multilobar lung infiltrate: (4) Fatigue: Plan: Encourage activity, encourage out of bed, PT/OT eval and treat, hopefully with better sleep that may start to improve some too. Did get out of bed (5) Weakness: Plan: Appears to be due to the severity of his Covid pneumonia/hypoxiasee above (6) CKD (chronic kidney disease) stage 3, GFR 30-59 ml/min: Plan: Continue to follow creatininestable at this time, certainly stable to administer more Lasix (7) Coronary artery disease: Plan: No angina, continue to monitor (8) Sleep apnea: Plan: Does not want CPAP at this time, perhaps if his is able to bring in his unit from home he may be more amenable (9) Hypertension: Plan: Blood pressures are acceptable given situation (10) Diabetes: Plan: Poorly controlled at baseline as well as acutely. continue to adjust insulinspharmacy is managing at this time (11) Lumbar stenosis with neurogenic claudication: Plan: Will likely represent an impediment to PT/OT once he has improved enough, will need to help him work through this as well (12) DVT prophylaxis: Plan: Currently on heparin drip (13) Discharge planning issues: Plan: Remains acutely ill on high flow nasal cannula, continue current level of supportive care. Highly likely to need rehab once he starts to show improvement. Becoming more reassuring with his overall trend looking like it will hopefully be slow improvement Admission and Anticipated Discharge Date Admission Date: April 18, 2021 Subjective Patient is a 75 yo male who reports no new changes. He is not proning but reports that he understands the possible benefits of proning. Patient reports feeling comfortable on the high flow oxygen. Review of Systems Review of Systems: All systems reviewed & are unremarkable except as noted in HPI & below Physical Exam Physical Exam: Constitutional: Patient is lying in bed with no new complaints. Eyes: PERRL, conjunctivae normal, anicteric sclerae Respiratory: Mild resp distress, decreased breath sounds. no adventitious sounds Cardiovascular: RRR, no murmur, no edema Gastrointestinal (Abdomen): normal bowel sounds, soft, nontender, no hepatosplenomegaly Musculoskeletal: Extremities: extremities normal to inspection Skin: no rashes, warm and dry Psychiatric: A+Ox3, euthymic affect Results & Data Results & Data ([facility]) Vital Signs (Past 12 Hours) Vital Signs Temp Pulse Pulse Resp BP BP Pulse Ox 04/27/21 11:10 36.6 C 69 16 145/83 H 92 04/27/21 10:40 72 22 93 04/27/21 08:15 81 22 94 04/27/21 08:13 87 20 94 04/27/21 07:37 36.4 C L 67 16 137/82 40 L 04/27/21 07:15 63 04/27/21 03:20 36.6 C 68 20 179/77 H 87 L PG Care Time/CCT Total # of Minutes Spent Total Time Spent with Patient: Total time spent is greater than 50% in coordination of care (as documented) at patient's floor/unit and/or counseling patient: Coding Level of Care Code 97665 Subseq Hosp Care Lvl 2 Diagnoses COVID-19 U07.1 Acute respiratory failure with hypoxia J96.01 Multilobar lung infiltrate R91.8 Fatigue R53.83 Fatigue type: unspecified Weakness R53.1 CKD (chronic kidney disease) stage 3, GFR 30-59 ml/min N18.3 Coronary artery disease I25.10 Sleep apnea G47.30 Hypertension I10 Diabetes E11.9 Lumbar stenosis with neurogenic claudication M48.062 DVT prophylaxis Z29.9 Discharge planning issues Z02.9 Time Spent (min) 25 (1) Fatigue Fatigue type: unspecified Qualified Code(s): R53.83 - Other fatigue
[2021-04-27] MEDS ORDERED: ALBUTEROL HFA 8 GM INHALER INH PRN (17:16)
[2021-04-27] MEDS ORDERED: IPRATROPIUM BROMIDE HFA INHALER INH PRN (17:17)
[2021-04-27] MEDS: TAMSULOSIN HCL 0.4 MG CAP PO SCH (20:57)
[2021-04-27] MEDS: PRAVASTATIN SOD 40 MG TAB PO SCH (20:57)
[2021-04-27] MEDS: MIRTAZAPINE TAB 15 MG TAB PO SCH (20:57)
[2021-04-27] MEDS ORDERED: INSULIN GLARGINE SOLOSTAR 100 UNITS/ML 3 ML PEN SC SCH (21:00)
[2021-04-28] MEDS: guaiFENesin/CODEINE 100MG/10MG 5ML UDC PO SCH ×3 (06:11→17:37)
[2021-04-28] MEDS: CARBOHYDRATES FOR HYPOGLYCEMIA PO PRN ×2 (08:03→08:31)
[2021-04-28] MEDS: dexAMETHasone 10 MG in SYRINGE 0 ML IV SCH (08:09)
[2021-04-28] MEDS: cilostazoL 100 MG TAB PO SCH ×2 (08:09→21:53)
[2021-04-28] MEDS: MAGNESIUM HYDROXIDE SUSP 30 ML UDC PO PRN (08:09)
[2021-04-28] MEDS: APIXABAN 5 MG TABLET PO SCH ×2 (08:10→21:54)
[2021-04-28] MEDS: FLUoxetine HCL 10 MG CAP PO SCH (08:10)
[2021-04-28] MEDS: guaiFENesin 600 MG TABCR PO SCH ×2 (08:10→21:52)
[2021-04-28] MEDS: FAMOTIDINE 20 MG TAB PO SCH ×2 (08:11→21:53)
[2021-04-28] MEDS: ZINC SULFATE 220 MG CAPSULE PO SCH (08:11)
[2021-04-28] MEDS: ASPIRIN 81 MG ECTAB PO SCH (08:11)
[2021-04-28 08:18] LABS: Basophils # (auto) 0.03 K/uL (0-0.2); Basophils % (auto) 0.2 %; Eosinophils # (auto) 0.12 K/uL (0-0.5); Eosinophils % (auto) 0.9 %; Hematocrit (blood only) 43.1 % (42-52); Hemoglobin 14.3 g/dL (14.0-18.0); Immature Granulocytes # (auto) 0.64 K/uL (0.00-0.02); Lymphocytes # (auto) 1.36 K/uL (1.2-3.4); Lymphocytes % (auto) 10.6 %; Mean Corpuscular Hgb Conc 33.2 g/dL (32-36); Mean Corpuscular Volume 90.4 fL (80-100); Mean Platelet Volume 9.5 fL (7.4-10.4); Monocytes # (auto) 0.58 K/uL (0.11-0.59); Monocytes % (auto) 4.5 %; Neutrophils # (auto) 10.12 K/uL (1.4-6.5); Neutrophils % (auto) 78.8 %; Platelet Count 197 K/uL (130-400); RDW Coefficient of Variation 14.5 % (11.5-14.5); RDW Standard Deviation 48.2 fL (36.4-46.3); Red Blood Count 4.77 M/uL (4.7-6.1); White Blood Count 12.85 K/uL (4.8-10.8)
[2021-04-28 08:47] LABS: C Reactive Protein 1.62 mg/dl (0-0.29)
[2021-04-28] MEDS: INSULIN ASPART 100 UNITS/ML 3 ML PEN SC SCH ×4 (08:54→21:55)
--- NOTE | 2021-04-28 08:54 | Pharmacy Report ---
Pharmacy Glycemic Short Note 2 - Date of Service April 28, 2021 - Glycemic Short BSG Results (Last 24 hours): 04/27/21 04/27/21 04/27/21 11:06 17:15 21:03 POC Glucose 118 H 126 H 156 H 04/28/21 04/28/21 04/28/21 08:00 08:01 08:29 POC Glucose 68 L* 66 L* 66 L* 04/28/21 04/28/21 08:29 08:47 POC Glucose 69 L* 80 OUTPATIENT ANTIDIABETIC REGIMEN: * Canagliflozin 100MG PO daily * Glipizide ER 2.5 mg PO daily * HbA1c: 8.3% (04/19/21) ASSESSMENT: 04/28/21 * Patient's BSGs yesterday were [phone] mg/dL with fasting today of 68 mg/dL. * Patient received 169 units of insulin with 67 units of basal (22 units of Lantus and 45 units of basal) and 102 units of bolus. * Hypoglycemic this morning with several OJ. Decrease Lantus by 50% to 10 units. * BSGs stable throughout the day. Concern with lower BSG this AM so loosen CR. 04/27/21 * Patient's BSGs yesterday were [phone] mg/dL with fasting today of 95 mg/dL. * Patient received 158 units of insulin with 65 units of basal (20 units of Lantus and 45 units of bolus) and 93 units of bolus. * Fasting stable at 95 mg/dL. Will fix dose at 22 units nightly -- believe 25 units too aggressive but 20 units is probably not sufficient. * BSGs stable throughout the day so continue. Loosen HS CF. 04/25 * BSGs trended up throughout the day yesterday, 152, 173, 210, and 238 mg/dL * Received 152 units of insulin (40 units of NPH, 20 units of Lantus, and 92 units of Novolog) * Given upward trend throughout the day, will increase NPH with IV dexamethasone today * Fasting BSG elevated at 179 mg/dL - will likely increase Lantus this evening 04/23 * Patient received total of 154 units of insulin yesterday, of which 40 units NPH to cover Dex and 20 units basal * Fasting BSG 118 mg/dL - continue same basal insulin * Had tighten CR slightly more this AM, but will loosen more today as I anticipate higher dosing of NPH 40 units to cover steroids (day 2 of higher NPH dose) 04/18 * Initial BSGs elevated in setting of history of DM, acute stressors, and daily steroids (dex 6mg). * Type 2 DM diet ordered. Acute on chronic kidney injury (SCr-2mg/dL today) which may prolong duration of action of insulin doses. * HbA1C 8.6% from 05/2019. A1C ordered for tomorrow to assess outpatient control. * Will start Novolog weight based stress of 3 based upon steroid use and utilize NPH for prandial coverage of steroid. * Plan for midnight/0400 checks overnight tonight for close monitoring of initial BSGs. PLAN FOR INPATIENT GLYCEMIC CONTROL: * Hold outpatient oral diabetes medications * Basal insulin * Lantus -10 units nightly * NPH: 45 units daily with dexamethasone * Bolus insulin * NovoLog per scale AC * Goal Range: Low 110 mg/dL - High 140 mg/dL * Correction Factor: 8 mg/dL/unit AC, 25 mg/dL/unit HS * Nutritional / Prandial insulin per carb ratio of 1 unit per 2 grams CHO consumed AC, none at HS PLAN FOR DISCHARGE: * HbA1c of 8.3% is elevated * Reasonable goal may be less than 8% given multiple comorbidities * Options limited based on CKD and reported intolerance to metformin * Continue current outpatient regimen * with eGFR 30-59 mL/min do not exceed Invokana 100 mg daily. * Could consider addition of Lantus 20 units nightly.
[2021-04-28] MEDS: INSULIN HUMAN NPH SC SCH (08:55)
[2021-04-28] MEDS ORDERED: INSULIN GLARGINE SOLOSTAR 100 UNITS/ML 3 ML PEN SC SCH ×2 (21:00)
--- NOTE | 2021-04-28 21:03 | Hospitalist Progress Note ---
Date of Service April 28, 2021 Assessment & Plan (1) COVID-19: Plan: COVID-19 with acute respiratory failure and multilobar infiltratesdoes not appear to have a secondary bacterial pneumonia based on his exam/vitals/lab workobviously need to maintain vigilance for this, low threshold to initiate antibiotic coverage but none at this time -Has been treated with remdesivir, continue dexamethasone for 10 days unless significant clinical changes -Due to sudden worsening of hypoxia without a clear explanation, heparin was initiated to empirically cover for PEhe is clinically improving, at some point in the near future with his kidney function improving, hopefully we can consider CT to confirm, for now to aid in the ability of hopefully being able to get him out of bed and moving more, we will transition heparin to Eliquis -Patient continues to fail to prone. -Continue high flow supplemental oxygen and supportive care, encourage proning, scheduled combivent, incentive spirometer -CRP is stable. -encourage nutrition (added Remeron a few days ago, still not really helpingafter discussion of risk/benefit will give trial to Marinol) -will continue above treatment. (2) Acute respiratory failure with hypoxia: (3) Multilobar lung infiltrate: (4) Fatigue: Plan: Encourage activity, encourage out of bed, PT/OT eval and treat, hopefully with better sleep that may start to improve some too. Did get out of bed (5) Weakness: Plan: Appears to be due to the severity of his Covid pneumonia/hypoxiasee above (6) CKD (chronic kidney disease) stage 3, GFR 30-59 ml/min: Plan: Continue to follow creatininestable at this time, certainly stable to administ er more Lasix (7) Coronary artery disease: Plan: No angina, continue to monitor (8) Sleep apnea: Plan: Does not want CPAP at this time, perhaps if his is able to bring in his unit from home he may be more amenable (9) Hypertension: Plan: Blood pressures are acceptable given situation (10) Diabetes: Plan: Poorly controlled at baseline as well as acutely. continue to adjust insulinspharmacy is managing at this time (11) Lumbar stenosis with neurogenic claudication: Plan: Will likely represent an impediment to PT/OT once he has improved enough, will need to help him work through this as well (12) DVT prophylaxis: Plan: Currently on heparin drip (13) Discharge planning issues: Plan: Remains acutely ill on high flow nasal cannula, continue current level of supportive care. Highly likely to need rehab once he starts to show improvement. Becoming more reassuring with his overall trend looking like it will hopefully be slow improvement Admission and Anticipated Discharge Date Admission Date: April 18, 2021 Subjective Patient reports no new symptoms. Review of Systems Review of Systems: All systems reviewed & are unremarkable except as noted in HPI & below Physical Exam Physical Exam: Constitutional: Patient is lying in bed with no new complaints. Eyes: PERRL, conjunctivae normal, anicteric sclerae Respiratory: Mild resp distress, decreased breath sounds. no adventitious sounds Cardiovascular: RRR, no murmur, no edema Gastrointestinal (Abdomen): normal bowel sounds, soft, nontender, no hepatosplenomegaly Musculoskeletal: Extremities: extremities normal to inspection Skin: no rashes, warm and dry Psychiatric: A+Ox3, euthymic affect Results & Data Results & Data ([facility]) Vital Signs (Past 12 Hours) Vital Signs Temp Pulse Pulse Resp BP Pulse Ox 04/28/21 16:58 36.8 C 73 16 136/81 94 04/28/21 15:33 77 04/28/21 15:00 67 20 92 04/28/21 12:16 36.9 C 75 16 132/72 93 04/28/21 11:28 77 22 89 L PG Care Time/CCT Total # of Minutes Spent Total Time Spent with Patient: Total time spent is greater than 50% in coordination of care (as documented) at patient's floor/unit and/or counseling patient: Coding Level of Care Code 77489 Subseq Hosp Care Lvl 2 Diagnoses COVID-19 U07.1 Acute respiratory failure with hypoxia J96.01 Multilobar lung infiltrate R91.8 Fatigue R53.83 Fatigue type: unspecified Weakness R53.1 CKD (chronic kidney disease) stage 3, GFR 30-59 ml/min N18.3 Coronary artery disease I25.10 Sleep apnea G47.30 Hypertension I10 Diabetes E11.9 Lumbar stenosis with neurogenic claudication M48.062 DVT prophylaxis Z29.9 Discharge planning issues Z02.9 Time Spent (min) 25 (1) Fatigue Fatigue type: unspecified Qualified Code(s): R53.83 - Other fatigue
[2021-04-28] MEDS: PRAVASTATIN SOD 40 MG TAB PO SCH (21:51)
[2021-04-28] MEDS: TAMSULOSIN HCL 0.4 MG CAP PO SCH (21:51)
[2021-04-28] MEDS: MIRTAZAPINE TAB 15 MG TAB PO SCH (21:52)
[2021-04-29] MEDS: guaiFENesin/CODEINE 100MG/10MG 5ML UDC PO SCH ×3 (00:46→13:00)
[2021-04-29 08:40] LABS: Hematocrit (blood only) 42.5 % (42-52); Mean Corpuscular Hemoglobin 29.7 pg (25-34); Mean Corpuscular Hgb Conc 32.9 g/dL (32-36); Mean Corpuscular Volume 90.2 fL (80-100); Mean Platelet Volume 10.2 fL (7.4-10.4); Platelet Count 169 K/uL (130-400); RDW Coefficient of Variation 14.3 % (11.5-14.5); RDW Standard Deviation 47.6 fL (36.4-46.3); Red Blood Count 4.71 M/uL (4.7-6.1)
[2021-04-29] MEDS: dexAMETHasone 10 MG in SYRINGE 0 ML IV SCH (09:06)
[2021-04-29] MEDS: cilostazoL 100 MG TAB PO SCH ×2 (09:06→23:15)
[2021-04-29] MEDS: APIXABAN 5 MG TABLET PO SCH ×2 (09:06→23:16)
[2021-04-29] MEDS: ASPIRIN 81 MG ECTAB PO SCH (09:07)
[2021-04-29] MEDS: ZINC SULFATE 220 MG CAPSULE PO SCH (09:07)
[2021-04-29] MEDS: FLUoxetine HCL 10 MG CAP PO SCH (09:08)
[2021-04-29] MEDS: guaiFENesin 600 MG TABCR PO SCH ×2 (09:08→23:16)
[2021-04-29] MEDS: FAMOTIDINE 20 MG TAB PO SCH ×2 (09:08→23:16)
[2021-04-29 09:10] LABS: BUN Creatinine Ratio 32.1 (10-20); C Reactive Protein 3.77 mg/dl (0-0.29); Calcium 9.9 mg/dl (8.5-10.1); Est GFR (African American) 58.5 ml/min; Est GFR (Non-African American) 50.4 ml/min; Potassium 4.8 mmol/L (3.5-5.1)
[2021-04-29] MEDS: INSULIN ASPART 100 UNITS/ML 3 ML PEN SC SCH ×4 (09:54→21:00)
[2021-04-29] MEDS: INSULIN HUMAN NPH SC SCH (09:58)
--- NOTE | 2021-04-29 10:31 | Pharmacy Report ---
Pharmacy Glycemic Short Note 2 - Date of Service April 29, 2021 - Glycemic Short BSG Results (Last 24 hours): 04/28/21 04/28/21 04/28/21 11:39 16:41 21:37 Glucose POC Glucose 151 H 146 H 96 04/29/21 04/29/21 07:57 07:58 Glucose 75 POC Glucose 77 OUTPATIENT ANTIDIABETIC REGIMEN: * Canagliflozin 100MG PO daily * Glipizide ER 2.5 mg PO daily * HbA1c: 8.3% (04/19/21) ASSESSMENT: 04/29/21 * Last day of dexamethsone will be today - dc NPH tomorrow when dexamethasone dc. * AM fasting still below goal range despite significant dose reduction in Lantus last evening. Will hold Lantus this AM and restart QAM tomorrow. Will give Lantus when NPH dc. * NovoLog CF/CR will need loosened 04/30 without steroids on board. 04/28/21 * Patient's BSGs yesterday were [phone] mg/dL with fasting today of 68 mg/dL. * Patient received 169 units of insulin with 67 units of basal (22 units of Lantus and 45 units of basal) and 102 units of bolus. * Hypoglycemic this morning with several OJ. Decrease Lantus by 50% to 10 units. * BSGs stable throughout the day. Concern with lower BSG this AM so loosen CR. 04/27/21 * Patient's BSGs yesterday were [phone] mg/dL with fasting today of 95 mg/dL. * Patient received 158 units of insulin with 65 units of basal (20 units of Lantus and 45 units of bolus) and 93 units of bolus. * Fasting stable at 95 mg/dL. Will fix dose at 22 units nightly -- believe 25 units too aggressive but 20 units is probably not sufficient. * BSGs stable throughout the day so continue. Loosen HS CF. 04/25 * BSGs trended up throughout the day yesterday, 152, 173, 210, and 238 mg/dL * Received 152 units of insulin (40 units of NPH, 20 units of Lantus, and 92 units of Novolog) * Given upward trend throughout the day, will increase NPH with IV dexamethasone today * Fasting BSG elevated at 179 mg/dL - will likely increase Lantus this evening 04/23 * Patient received total of 154 units of insulin yesterday, of which 40 units NPH to cover Dex and 20 units basal * Fasting BSG 118 mg/dL - continue same basal insulin * Had tighten CR slightly more this AM, but will loosen more today as I anticipate higher dosing of NPH 40 units to cover steroids (day 2 of higher NPH dose) 04/18 * Initial BSGs elevated in setting of history of DM, acute stressors, and daily steroids (dex 6mg). * Type 2 DM diet ordered. Acute on chronic kidney injury (SCr-2mg/dL today) which may prolong duration of action of insulin doses. * HbA1C 8.6% from 05/2019. A1C ordered for tomorrow to assess outpatient control. * Will start Novolog weight based stress of 3 based upon steroid use and utilize NPH for prandial coverage of steroid. * Plan for midnight/0400 checks overnight tonight for close monitoring of initial BSGs. PLAN FOR INPATIENT GLYCEMIC CONTROL: * Hold outpatient oral diabetes medications * Basal insulin * Lantus- d/c HOLD today * Start Lantus 10 units SQ AM tomorrow (no NPH will be given tomorrow) * NPH: 45 units daily with dexamethasone- last dose today * Bolus insulin * NovoLog per scale AC * Goal Range: Low 110 mg/dL - High 140 mg/dL * Correction Factor: 8 mg/dL/unit AC, 25 mg/dL/unit HS * Nutritional / Prandial insulin per carb ratio of 1 unit per 2 grams CHO consumed AC, none at HS PLAN FOR DISCHARGE: * HbA1c of 8.3% is elevated * Reasonable goal may be less than 8% given multiple comorbidities * Options limited based on CKD and reported intolerance to metformin * Continue current outpatient regimen * with eGFR 30-59 mL/min do not exceed Invokana 100 mg daily. * Could consider addition of Lantus 20 units nightly.
--- NOTE | 2021-04-29 22:51 | Hospitalist Progress Note ---
Date of Service April 29, 2021 Assessment & Plan (1) COVID-19: Plan: COVID-19 with acute respiratory failure and multilobar infiltratesdoes not appear to have a secondary bacterial pneumonia based on his exam/vitals/lab workobviously need to maintain vigilance for this, low threshold to initiate antibiotic coverage but none at this time -Has been treated with remdesivir, continue dexamethasone for 10 days unless significant clinical changes -Due to sudden worsening of hypoxia without a clear explanation, heparin was initiated to empirically cover for PEhe is clinically improving, at some point in the near future with his kidney function improving, hopefully we can consider CT to confirm, for now to aid in the ability of hopefully being able to get him out of bed and moving more, we will transition heparin to Eliquis -Patient continues to fail to prone. -Continue high flow supplemental oxygen and supportive care, encourage proning, scheduled combivent, incentive spirometer -CRP is increasing. Patient on 10 mg of dexamethasone. -encourage nutrition (added Remeron a few days ago, still not really helpingafter discussion of risk/benefit will give trial to Marinol) -will continue above treatment. (2) Acute respiratory failure with hypoxia: (3) Multilobar lung infiltrate: (4) Fatigue: Plan: Encourage activity, encourage out of bed, PT/OT eval and treat, hopefully with better sleep that may start to improve some too. Did get out of bed (5) Weakness: Plan: Appears to be due to the severity of his Covid pneumonia/hypoxiasee above (6) CKD (chronic kidney disease) stage 3, GFR 30-59 ml/min: Plan: Continue to follow creatininestable at this time, certainly stable to administer more Lasix (7) Coronary artery disease: Plan: No angina, continue to monitor (8) Sleep apnea: Plan: Does not want CPAP at this time, perhaps if his is able to bring in his unit from home he may be more amenable (9) Hypertension: Plan: Blood pressures are acceptable given situation (10) Diabetes: Plan: Poorly controlled at baseline as well as acutely. continue to adjust insulinspharmacy is managing at this time (11) Lumbar stenosis with neurogenic claudication: Plan: Will likely represent an impediment to PT/OT once he has improved enough, will need to help him work through this as well (12) DVT prophylaxis: Plan: Currently on heparin ip (13) Discharge planning issues: Plan: Remains acutely ill on high flow nasal cannula, continue current level of supportive care. Highly likely to need rehab once he starts to show improvement. Becoming more reassuring with his overall trend looking like it will hopefully be slow improvement Admission and Anticipated Discharge Date Admission Date: April 18, 2021 Subjective Patient continues to refuse to prone. No new complaints. Review of Systems Review of Systems: All systems reviewed & are unremarkable except as noted in HPI & below Physical Exam Physical Exam: Constitutional: Patient is lying in bed with no new complaints. Eyes: PERRL, conjunctivae normal, anicteric sclerae Respiratory: Mild resp distress, decreased breath sounds. no adventitious sounds Cardiovascular: RRR, no murmur, no edema Gastrointestinal (Abdomen): normal bowel sounds, soft, nontender, no hepatosplenomegaly Musculoskeletal: Extremities: extremities normal to inspection Skin: no rashes, warm and dry Psychiatric: A+Ox3, euthymic affect Results & Data Results & Data ([facility]) Vital Signs (Past 12 Hours) Vital Signs Temp Pulse Pulse Resp BP Pulse Ox 04/29/21 20:15 36.4 C L 68 18 136/71 91 04/29/21 16:36 36.5 C 74 20 135/76 87 L 04/29/21 15:46 69 04/29/21 14:46 77 24 92 04/29/21 11:53 36.8 C 70 20 117/68 90 PG Care Time/CCT Total # of Minutes Spent Total Time Spent with Patient: Total time spent is greater than 50% in coordination of care (as documented) at patient's floor/unit and/or counseling patient: Coding Level of Care Code 74711 Subseq Hosp Care Lvl 2 Diagnoses COVID-19 U07.1 Acute respiratory failure with hypoxia J96.01 Multilobar lung infiltrate R91.8 Fatigue R53.83 Fatigue type: unspecified Weakness R53.1 CKD (chronic kidney disease) stage 3, GFR 30-59 ml/min N18.3 Coronary artery disease I25.10 Sleep apnea G47.30 Hypertension I10 Diabetes E11.9 Lumbar stenosis with neurogenic claudication M48.062 DVT prophylaxis Z29.9 Discharge planning issues Z02.9 (1) Fatigue Fatigue type: unspecified Qualified Code(s): R53.83 - Other fatigue
[2021-04-29] MEDS: PRAVASTATIN SOD 40 MG TAB PO SCH (23:16)
[2021-04-29] MEDS: MIRTAZAPINE TAB 15 MG TAB PO SCH (23:16)
[2021-04-29] MEDS: TAMSULOSIN HCL 0.4 MG CAP PO SCH (23:17)
[2021-04-30] MEDS: guaiFENesin/CODEINE 100MG/10MG 5ML UDC PO SCH ×5 (00:09→18:27)
[2021-04-30] MEDS ORDERED: MoRPHine SULFATE 2 MG/ML CARP ONE (02:50)
[2021-04-30] MEDS ORDERED: NITROGLYCERIN 2% OINTMENT 30GM TUBE ONE ×2 (02:54→02:55)
[2021-04-30] MEDS ORDERED: HEPARIN 25000 UNIT/500 ML D5W IV ONE (03:01)
[2021-04-30 03:34] LABS: Basophils # (auto) 0.03 K/uL (0-0.2); Basophils % (auto) 0.2 %; Eosinophils # (auto) 0.01 K/uL (0-0.5); Eosinophils % (auto) 0.1 %; Hematocrit (blood only) 46.1 % (42-52); Hemoglobin 15.2 g/dL (14.0-18.0); Immature Granulocytes # (auto) 0.65 K/uL (0.00-0.02); Immature Granulocytes % (auto) 4.6 %; Lymphocytes # (auto) 0.89 K/uL (1.2-3.4); Lymphocytes % (auto) 6.3 %; Mean Corpuscular Volume 90.9 fL (80-100); Mean Platelet Volume 10.6 fL (7.4-10.4); Monocytes # (auto) 1.63 K/uL (0.11-0.59); Monocytes % (auto) 11.6 %; Neutrophils # (auto) 10.87 K/uL (1.4-6.5); Neutrophils % (auto) 77.2 %; Platelet Count 195 K/uL (130-400); RDW Coefficient of Variation 14.7 % (11.5-14.5); RDW Standard Deviation 48.4 fL (36.4-46.3); Red Blood Count 5.07 M/uL (4.7-6.1); White Blood Count 14.08 K/uL (4.8-10.8)
--- NOTE | 2021-04-30 03:34 | Communication Note ---
Date of Service: April 30, 2021 Notified by nursing at 02:43 that patient was having increased SOB, wheezing, and distress. Patient was noted to have taken off his oxygen and scooted himself to the edge of the bed and when asked, was attempting to get out of bed to have a bowel movement. Upon my arrival to the room patient was laying in bed saturating in the high 60-low 70's on high-flow in addition to overlying oxymask. Patient was noting crushing chest pain in addition to abdominal pain and would motion that the pain ran from the top of his chest down through his stomach. He was given 2mg of morphine IV and a repeat given shortly after for a total 4mg. Discussed with patient again in regards to cpap/bipap mask, and at this time he noted that HE WOULD want a mask. Patient was placed on cpap 16 100% and his saturations improved to 89-90%. As patient was still complaining of chest pain, he was given 1 inch of nitro paste, 1 SL nitro, and an EKG was performed showing sinus rhythm without obvious ST-Twave changes concerning for STEMI or NSTEMI. Patients pain did improve from a 10/10 to a 3/10. 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
[2021-04-30] MEDS ORDERED: NITROGLYCERIN SL 0.4 MG/TAB TAB SL STA (03:38)
[2021-04-30] MEDS ORDERED: MoRPHine SULFATE 2 MG/ML CARP IV STA ×2 (03:38)
[2021-04-30] MEDS ORDERED: NITROGLYCERIN 2% OINTMENT 30GM TUBE EXT STA (03:38)
[2021-04-30 04:02] LABS: Base Excess ABG -2.4 mEq/L (-9-1.8); HCO3 ABG 22 mmol/L (19-24); Oxygen Saturation ABG 92.8 % (90-95); PCO2 ABG 38 mmHg (35-46); PO2 ABG 77 mmHg (80-95); pH ABG 7.38 (7.35-7.45)
[2021-04-30 04:04] LABS: Allen Test Pos (Pos)
[2021-04-30 04:47] LABS: BUN Creatinine Ratio 35.1 (10-20); Blood Urea Nitrogen 51 mg/dl (7-18); Calcium 10.7 mg/dl (8.5-10.1); Carbon Dioxide 23 mmol/L (21-32); Chloride 111 mmol/L (98-107); Creatinine Clr Calc Pharmacy 52.9 ml/min; Est GFR (African American) 54.6 ml/min; Est GFR (Non-African American) 47.1 ml/min; Glucose 157 mg/dl (70-99); Potassium 4.8 mmol/L (3.5-5.1); Sodium 139 mmol/L (136-145); Troponin I < 0.015 ng/ml (0-0.045)
[2021-04-30 04:59] LABS: Magnesium 2.6 mg/dl (1.8-2.4); Phosphorus 3.7 mg/dl (2.5-4.9)
[2021-04-30] MEDS ORDERED: INSULIN GLARGINE SOLOSTAR 100 UNITS/ML 3 ML PEN SC SCH ×2 (09:00→10:45)
[2021-04-30] MEDS: INSULIN ASPART 100 UNITS/ML 3 ML PEN SC SCH ×4 (10:00→23:24)
[2021-04-30] MEDS: APIXABAN 5 MG TABLET PO SCH (10:19)
[2021-04-30] MEDS: ASPIRIN 81 MG ECTAB PO SCH (10:20)
[2021-04-30] MEDS: cilostazoL 100 MG TAB PO SCH ×2 (10:20→23:19)
[2021-04-30] MEDS: guaiFENesin 600 MG TABCR PO SCH (10:21)
[2021-04-30] MEDS: FLUoxetine HCL 10 MG CAP PO SCH (10:21)
[2021-04-30] MEDS: ZINC SULFATE 220 MG CAPSULE PO SCH (10:22)
--- NOTE | 2021-04-30 10:51 | XRay Report ---
SINGLE VIEW CHEST CLINICAL HISTORY: Hypoxia. Covid pneumonia. FINDINGS: An AP, portable, upright chest radiograph is compared to study dated 04/18/2021. The heart appears enlarged. Pneumomediastinum is new from previous. Multifocal airspace consolidation is seen t hroughout both lungs. This has significantly increased from previous. No large pleural effusion is id entified. Suspect trace left apical pneumothorax. The skeletal structures are osteopenic. The bony th orax is grossly intact. IMPRESSION: 1. Multifocal airspace consolidation has significantly worsened as compared to 04/18/2021. This is co nsistent with the reported history of a viral pneumonia. 2. Pneumomediastinum is new from previous. 3. Suspect a trace left apical pneumothorax. ACT 112: Negative or not required by law. Electronically signed by: Stevie Fermin M.D. 04/30/2021 10:50 AM
[2021-04-30] MEDS ORDERED: ENOXAPARIN 100 MG/1ML SYR SQ SCH (11:00)
[2021-04-30] MEDS: NORMOSOL-R 1,000 ML IV SCH (11:43)
[2021-04-30] MEDS: FAMOTIDINE 20 MG TAB PO SCH (13:00)
--- NOTE | 2021-04-30 13:04 | Pharmacy Report ---
Pharmacy Glycemic Short Note 2 - Date of Service April 30, 2021 - Glycemic Short BSG Results (Last 24 hours): 04/29/21 04/29/21 04/30/21 16:35 19:57 03:26 Glucose 157 H POC Glucose 173 H 188 H 04/30/21 04/30/21 07:55 12:32 Glucose POC Glucose 144 H 155 H OUTPATIENT ANTIDIABETIC REGIMEN: * Canagliflozin 100MG PO daily * Glipizide ER 2.5 mg PO daily * HbA1c: 8.3% (04/19/21) ASSESSMENT: 04/30: * Patient received total of 109 units of insulin yesterday: 45 units basal NPH + 64 units bolus. * Fasting BSG = 144 mg/dl today. Since Dexamethasone was discontinued, basal NPH discontinued after yesterday's dose. * Lantus HS dose was moved to AM today but since patient was hypoxic last night and started on continuous CPAP, Lantus dose reduced to [address] Burks. Spoke to RN, patient's CPAP should not be paused per respiratory and hence he cannot take anything by mouth for now. Novolog dose held this AM. 04/29/21 * Last day of dexamethsone will be today - dc NPH tomorrow when dexamethasone dc. * AM fasting still below goal range despite significant dose reduction in Lantus last evening. Will hold Lantus this AM and restart QAM tomorrow. Will give Lantus when NPH dc. * NovoLog CF/CR will need loosened 04/30 without steroids on board. 04/28/21 * Patient's BSGs yesterday were [phone] mg/dL with fasting today of 68 mg/dL. * Patient received 169 units of insulin with 67 units of basal (22 units of Lantus and 45 units of basal) and 102 units of bolus. * Hypoglycemic this morning with several OJ. Decrease Lantus by 50% to 10 units. * BSGs stable throughout the day. Concern with lower BSG this AM so loosen CR. 04/27/21 * Patient's BSGs yesterday were 70-155-198-168 mg/dL with fasting today of 95 mg/dL. * Patient received 158 units of insulin with 65 units of basal (20 units of Lantus and 45 units of bolus) and 93 units of bolus. * Fasting stable at 95 mg/dL. Will fix dose at 22 units nightly -- believe 25 units too aggressive but 20 units is probably not sufficient. * BSGs stable throughout the day so continue. Loosen HS CF. 04/25 * BSGs trended up throughout the day yesterday, 152, 173, 210, and 238 mg/dL * Received 152 units of insulin (40 units of NPH, 20 units of Lantus, and 92 units of Novolog) * Given upward trend throughout the day, will increase NPH with IV dexamethasone today * Fasting BSG elevated at 179 mg/dL - will likely increase Lantus this evening 04/23 * Patient received total of 154 units of insulin yesterday, of which 40 units NPH to cover Dex and 20 units basal * Fasting BSG 118 mg/dL - continue same basal insulin * Had tighten CR slightly more this AM, but will loosen more today as I anticipate higher dosing of NPH 40 units to cover steroids (day 2 of higher NPH dose) 04/18 * Initial BSGs elevated in setting of history of DM, acute stressors, and daily steroids (dex 6mg). * Type 2 DM diet ordered. Acute on chronic kidney injury (SCr-2mg/dL today) which may prolong duration of action of insulin doses. * HbA1C 8.6% from 05/2019. A1C ordered for tomorrow to assess outpatient control. * Will start Novolog weight based stress of 3 based upon steroid use and utilize NPH for prandial coverage of steroid. * Plan for midnight/0400 checks overnight tonight for close monitoring of initial BSGs. PLAN FOR INPATIENT GLYCEMIC CONTROL: * Hold outpatient oral diabetes medications * Basal insulin * Lantus 5 units SQ AM * Bolus insulin * NovoLog per scale ACHS * Goal Range: Low 110 mg/dL - High 140 mg/dL * Correction Factor: 20 mg/dL/unit * Nutritional / Prandial insulin per carb ratio of 1 unit per 7 grams CHO consumed PLAN FOR DISCHARGE: * HbA1c of 8.3% is elevated * Reasonable goal may be less than 8% given multiple comorbidities * Options limited based on CKD and reported intolerance to metformin * Continue current outpatient regimen * with eGFR 30-59 mL/min do not exceed Invokana 100 mg daily. * Could consider addition of Lantus 15 units QAM
--- NOTE | 2021-04-30 13:23 | Electrocardiogram Report ---
Test Reason : Blood Pressure : / mmHG Vent. Rate : 110 BPM Atrial Rate : 468 BPM P-R Int : 000 ms QRS Dur : 084 ms QT Int : 370 ms P-R-T Axes : 000 004 029 degrees QTc Int : 500 ms Poor data quality, interpretation may be adversely affected Tachycardia Confirmed by Hong Feldman ([id number]) on 04/30/2021 1:23:10 PM Referred By: REFERRED SELF Confirmed By:Mundo Feldman
--- NOTE | 2021-04-30 13:23 | Electrocardiogram Report ---
Test Reason : Blood Pressure : / mmHG Vent. Rate : 096 BPM Atrial Rate : 096 BPM P-R Int : 168 ms QRS Dur : 088 ms QT Int : 338 ms P-R-T Axes : 081 003 070 degrees QTc Int : 427 ms Normal sinus rhythm Normal ECG Confirmed by Hong Feldman ([id number]) on 04/30/2021 1:23:23 PM Referred By: REFERRED SELF Confirmed By:Mundo Feldman
--- NOTE | 2021-04-30 13:24 | Electrocardiogram Report ---
Test Reason : Blood Pressure : / mmHG Vent. Rate : 091 BPM Atrial Rate : 091 BPM P-R Int : 160 ms QRS Dur : 090 ms QT Int : 348 ms P-R-T Axes : 043 004 074 degrees QTc Int : 428 ms Normal sinus rhythm Normal ECG When compared with ECG of 30-APR-2021 03:11, (unconfirmed) No significant change was found Confirmed by Hong Feldman ([id number] on 04/30/2021 1:23:32 PM Referred By: REFERRED SELF Confirmed By:Mundo Feldman
[2021-04-30] MEDS ORDERED: LORazepam 0.5 MG/1 ML VIAL IV STA (13:46)
[2021-04-30] MEDS ORDERED: LORazepam 2 MG/4 ML VIAL ONE (13:49)
[2021-04-30] MEDS ORDERED: RAPID SEQUENCE INDUCTION BAG ONE (14:11)
[2021-04-30] MEDS ORDERED: PROPOFOL IV EMULSION 10 MG/ML 100 ML VIAL IV ONE (14:26)
[2021-04-30] MEDS ORDERED: fentaNYL citrate 100 MCG/2 ML VIAL ONE (14:48)
[2021-04-30] MEDS ORDERED: NOREPINEPHRINE/D5W 8 MG/508 ML IV ONE (15:07)
--- NOTE | 2021-04-30 15:45 | XRay Report ---
XR chest 1V portable at 3:10 PM CLINICAL HISTORY: Status post intubation. COMPARISON STUDY: Portable chest on 04/30/2021 at 10:08 AM TECHNIQUE: 1 view of the chest FINDINGS: Single frontal view of the chest demonstrates the cardiomediastinal silhouette to be within normal li mits. However, there is radiolucency at the left heart border suspicious for pneumopericardium. The p atient is status post intubation with the tip of the endotracheal tube 4.2 cm above the ana. There is decreased expansion of lungs with interval development of patchy alveolar opacities bilatera lly. Diffuse haziness is now seen involving the left lung when compared to the right characteristic o f pleural fluid layering along the posterior gutter. There is no evidence for right pleural effusion. There is mild central vascular congestion. There is no acute osseous pathology. Left subclavian catheter is also been placed with its tip in the distal SVC. IMPRESSION: Status post intubation with endotracheal tube in anatomic position. Left subclavian jorge ter is also in place with no evidence for pneumothorax. However, there has been interval development of bilateral alveolar opacities, left greater than right and probable left pleural effusion. There is also evidence for mild pneumopericardium. ACT 112: Negative or not required by law. Electronically signed by: Taz Gavin M.D. 04/30/2021 3:44 PM
[2021-04-30] MEDS ORDERED: VECURONIUM BROMIDE 10 MG VIAL IV STA (16:03)
[2021-04-30] MEDS ORDERED: VECURONIUM BROMIDE 10 MG VIAL IV ONE ×3 (16:04→18:20)
--- NOTE | 2021-04-30 16:29 | Procedure Note ---
Procedure Note Date of Service April 30, 2021 Note INTUBATION PROCEDURE NOTE: Dr. Aaron Temple A time-out was completed verifying correct patient, procedure, site, positioning. Patient was evaluated and required intubation for hypoxemic respiratory failure. Sedative agent used: 20 mg of etomidate Paralysis agent used: 50 mg of rocuronium Emergent consent was implied given patients rapidly declining clinical status and need for airway protection. Number of attempts: 1 The patient was prepared in the appropriate fashion. Sedation was achieved utilizing etomidate and rocuronium. The patient was easily ventilated using [id number] to achieve adequate oxygenation. A 8 Sammarinese endotracheal tube was placed under glide scope guidance to twenty-four cm at the lip. The stylette was removed and balloon was inflated with 10mL of air. Appropriate Colorimetric change was appreciated. Bilateral breath sounds were heard without air sounds in the abdomen. Post Intubation Chest X-ray ordered. Post procedure chest x-ray reviewed with adequate placement of the endotracheal tube. Increasing left-sided infiltrates. Coding CPT Codes Resuscitation - Resuscitation: 09006 Endotracheal Intubation, emergency (P [id number]) [facility] [place] Procedure Codes (Charges) Resuscitation Resuscitation: 49811 Endotracheal Intubation, emergency
[2021-04-30 16:40] LABS: Basophils # (auto) 0.02 K/uL (0-0.2); Basophils % (auto) 0.1 %; Eosinophils # (auto) 0.03 K/uL (0-0.5); Eosinophils % (auto) 0.2 %; Hematocrit (blood only) 40.4 % (42-52); Hemoglobin 13.1 g/dL (14.0-18.0); Immature Granulocytes # (auto) 0.37 K/uL (0.00-0.02); Immature Granulocytes % (auto) 2.4 %; Lymphocytes # (auto) 1.06 K/uL (1.2-3.4); Lymphocytes % (auto) 6.9 %; Mean Corpuscular Hemoglobin 29.7 pg (25-34); Mean Corpuscular Volume 91.6 fL (80-100); Monocytes # (auto) 0.84 K/uL (0.11-0.59); Monocytes % (auto) 5.5 %; Neutrophils # (auto) 12.94 K/uL (1.4-6.5); Neutrophils % (auto) 84.9 %; Platelet Count 173 K/uL (130-400); RDW Coefficient of Variation 14.6 % (11.5-14.5); RDW Standard Deviation 49.4 fL (36.4-46.3); Red Blood Count 4.41 M/uL (4.7-6.1); White Blood Count 15.26 K/uL (4.8-10.8)
[2021-04-30 16:55] LABS: Mean Corpuscular Hgb Conc 32.4 g/dL (32-36)
[2021-04-30] MEDS ORDERED: OPTIRAY 320 125ml IV ONE (16:55)
--- NOTE | 2021-04-30 16:56 | Procedure Note ---
Procedure Note Date of Service April 30, 2021 Note INTERNAL JUGULAR CENTRAL LINE PROCEDURE NOTE: Procedure: Left internal Jugular Central Line Placement Indication: Central Drug Administration, Poor Venous Access, Multiple Lab Draws Necessary, etc. Anesthesia: Continuous propofol fentanyl infusing. 8 mL of 1% lidocaine used. Emergent consent was implied due to the patient's respiratory failure and need for access. A time-out was completed verifying correct patient, procedure, site, positioning, and implants(s) or special equipment if applicable. Patients left neck was cleansed and draped in the typical sterile fashion using Chloraprep. The Internal Jugular Vein and Carotid Artery were identified using ultrasound. The superficial tissue was anesthetized using eight mL of 1% lidocaine without epinephrine under direct visualization with the ultrasound. After adequate an esthetization was achieved, the Internal Jugular vein was cannulated under direct ultrasound guidance using an introducer needle on a syringe. Good venous blood return was maintained prior to removal of syringe from introducer needle. Using Seldinger Technique, a guide wire was advanced through the introducer needle without resistance. The introducer needle was removed and ultrasound images were obtained of the guide wire within the Internal Jugular Vein and saved to the patients medical record. A small incision was made in penetrating fashion at the guide wire insertion site utilizing an 11 blade scalpel. The dilator was advanced to the vessel without resistance. The dilator was exchanged for the triple lumen catheter which was advanced into the vessel without resistance. The guide wire was removed intact from the catheter without issue. Claves were placed on each catheter tip with confirmation of good blood flow from each lumen. Each port was easily flushed with sterile saline. The catheter was placed at thirteen cm and sutured in place. BioPatch was applied to the catheter and a sterile Tegaderm dressing was applied over the catheter with careful attention to sterility. Patient tolerated procedure well. No immediate complications were met. Post procedure x-ray was completed, placement was appropriate and no pneumothorax was noted. Coding CPT Codes Tubes, Drains, and Vasc Access - Tubes, Drains, and Vasc Access: [id number] Place catheter in vein superior or inferior vena cava ([id number]) Tubes, Drains, and Vasc Access - Tubes, Drains, and Vasc Access: [id number] Ultrasound Guidance For Vascular ([id number]) [facility] [place] Codes (Charges) Tubes, Drains, and Vasc Access Procedure 1: Tubes, Drains, and Vasc Access: [id number] Place catheter in vein superior or inferior vena cava Procedure 2: Tubes, Drains, and Vasc Access: [id number] Ultrasound Guidance For Vascular
[2021-04-30] MEDS ORDERED: VANCOMYCIN CONSULT ACTIVE PRN (16:57)
--- NOTE | 2021-04-30 17:03 | Critical Care Consultation ---
Date of Consultation April 30, 2021 Assessment & Plan (1) Multilobar lung infiltrate: (2) Acute respiratory failure with hypoxia: (3) Pleural effusion: Neurologic: Continue sedation and analgesia with propofol and fentanyl. Nimbex started to promote ventilator synchrony. Pulmonary: Continue lung protective ventilation strategy. CT chest without evidence of pulmonary blood some, but possible hemothorax that is loculated in the left lower lobe. Diffuse pneumomediastinum seen. No clear pocket for chest tube insertion. Will need to consider transfer to a tertiary center for thoracic surgery or interventional radiology. Bronchoscopy performed today at bedside while intubated with minimal old blood noted in the left lower lobe. Consent was obtained for the bronchoscopy to the patient's over the phone as the patient is unable to give consent at this time due to his intubation status. No airway malformations were seen in the bilateral tracheobronchial tree. No active signs of bleeding. Hold all anticoagulation at this time. Unclear whether the loculation represents a chronic or acute process. Will trend CBC. Cardiovascular: Hypotension related to sedation. No hemodynamic issues prior to intubation. Continue Levophed as needed. The left IJ central venous line placed by me appears to be abutting the SVC on the chest x-ray. 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 Repeat chest x-ray demonstrates that the central line appears to be in the same position. I attempted placement of a right IJ central line and was unsuccessful due to poor vascular anatomy and collapse of the internal jugular vein. I did puncture the carotid artery at one point and pressure was applied. No obvious signs of bleeding were seen no hematoma was seen to be forming. We will continue to keep a close eye on this. Will attempt arterial line placement later this evening. Gastrointestinal: NPO. PPI twice daily. Renal: Hypercalcemia present likely related to immobility. Will check vitamin D and PTH. Continue gentle hydration. ROCKY present likely related to poor p.o. intake. Infectious disease: Vancomycin and cefepime initiated. MRSA screen obtained. Hematologic: Monitor CBC given the concern for hemothorax. Hold all anticoagulation. Fibrinogen pending. Endocrine: Hyperglycemia per ICU protocol VTE prophylaxis: SCD CODE STATUS: Full code. Lengthy discussion with the patient's over the phone. She notes that he has a history of prostate cancer. He used to follow closely with Dr. Wagner of primary care. Patient was adamant throughout the hospitalization per nursing and hospitalist that he did not want intubation or life support. Prior to moving to the ICU, the patient insisted that he actually would want to be intubated if it were to prolong his life and help with potential recovery. Palliative care consult in the a.m. Family at bedside: Updated both son and over the phone. Disposition: Remain in the ICU I have personally spent 109 minutes of critical care time in the direct management of this patient. This is a life/limb threatening event. This includes time spent evaluating patient, direct bedside care, chart review, placing or ders, interpretation of diagnostic studies, discussion with consultants, patient, and family members, as well as other required patient management activities. This time is exclusive of all separately billable procedures, and teaching time and separate from and in addition to any other critical care service time. Thank you for allowing us to participate in the care of this patient. History of Present Illness Reason for Consultation: Worsening hypoxemic respiratory failure and COVID-19 Attending Physician: Ace Burks History of Present Illness 75-year-old male with history of CAD, CKD stage III, hypertension, CVA and obstructive sleep apnea who presented to the hospital due to shortness of breath. Diagnosed with COVID-19. Apparently earlier in the hospitalization he was refusing CPAP therapy intermittently and did not wish to be intubated. Today he had increasing oxygen demands and was ripping off his oxygen and CPAP. He was agreeable to intubation. Endorses shortness of breath and cough. He denies chest pain. Overnight he had an event with increasing shortness of breath and chest pain. EKG was obtained with no concerning signs for ischemia. He has been on full dose anticoagulation with Lovenox due to concerns of possible pulmonary embolism. He has not undergone a CT of his chest due to ROCKY. I have ordered a CT chest with contrast. Chest x-ray obtained today demonstrated trace left apical pneumothorax and pneumomediastinum. Allergies Allergy/AdvReac Type Severity Reaction Status Date / Time metformin AdvReac Severe Diarrhea Verified 04/18/21 07:52 Home Medications Medication Instructions Recorded Confirmed Type omega-3 fatty acids 1,000 mg 2,000 mg PO QPM cap 04/13/18 04/18/21 History capsule (Fish Oil Concentrate) cilostazol 100 mg tablet 100 mg PO BID 07/01/18 04/18/21 History irbesartan 300 mg tablet 300 mg PO QPM 07/01/18 04/18/21 History aspirin 81 mg tablet,delayed 81 mg PO QAM tab 09/23/18 04/18/21 History release (Adult Aspirin Regimen) pravastatin 40 mg tablet 40 mg PO QPM 04/12/19 04/18/21 History oxycodone 5 mg tablet 5 mg PO Q6H PRN #30 tab 05/04/19 04/18/21 Rx canagliflozin 100 mg tablet 100 mg PO DAILY 11/07/20 04/18/21 History (Invokana) glipizide 2.5 mg tablet, extended 2.5 mg PO DAILY 11/07/20 04/18/21 History release 24 hr tamsulosin 0.4 mg capsule 0.4 mg PO QPM #90 cap 11/07/20 04/18/21 Rx cholecalciferol (vitamin D3) 50 2,000 unit PO DAILY #30 cap 12/11/20 04/18/21 Rx mcg (2,000 unit) capsule Patient History Medical History (Updated 04/30/21 @ 19:52 by Aaron Temple MD) BPH (benign prostatic hyperplasia) Cardiomyopathy Chronic back pain CKD (chronic kidney disease) stage 3, GFR 30-59 ml/min Coronary artery disease mild-moderate 3 vessel on 2016 cath per cardiology. CVA (cerebral vascular accident) 2010, no residual deficits. DM type 2 (diabetes mellitus, type 2) DIET CONTROLLED High cholesterol Hypertension Pleural effusion Seborrheic keratoses Sleep apnea CPAP HS SOB (shortness of breath) on exertion Spinal stenosis Systolic dysfunction EF 50% Surgical History History of cardiac cath 2015 - [facility] - CP - NO STENTS/ANGIOPLASTY History of cataract surgery BL History of fusion of lumbar spine History of sebaceous cyst & REMOVED History of toe surgery History of tooth extraction Hx of tonsillectomy Family History Other Patient's father is Patient's mother is Social History Smoking Status: Never smoker Second Hand Exposure: No; Do You Dip or Chew Tobacco: No; Tobacco Cessation Education Requested by Patient: No Hx Alcohol Use: No Hx Substance Use: No Preferred Language: Khmer Communication Ability: Impaired Hearing Ability: Normal 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 Appears stated age. Eyes: Pupils are equal round and reactive to light. Conjunctivae are normal. Anicteric sclera. Ears nose, mouth and throat: Mallampati class 2. Normal posterior oropharynx. Uvula is midline. Neck: Trachea is midline. Visual inspection is normal. Respiratory: Tachypneic. Decreased lung sounds bilaterally. Cardiovascular: Tachycardic. No edema. No murmurs. Gastrointestinal: Normal bowel sounds, soft, nontender and nondistended. No hepatosplenomegaly noted. Musculoskeletal: Patient is able to move all extremities. Skin: No rashes, warm dry and intact. Neurologic: No obvious focal neurological deficits seen. Psychiatric: Alert and oriented x3 with a euthymic affect. Results & Data Results & Data ([facility]) Vital Signs (Past 12 Hours) Vital Signs Temp Pulse Pulse Resp BP Pulse Ox 04/30/21 14:36 105 H 20 95 04/30/21 11:55 36.5 C 93 H 18 157/94 H 86 L 04/30/21 10:34 72 22 94 04/30/21 08:19 36.5 C 90 17 156/98 H 95 04/30/21 07:45 90 27 H 90 04/30/21 06:20 55 L Vital signs, labs and imaging reviewed [facility] [place] Procedure Codes (Charges) Pulmonary/Thoracic Procedure 1: Pulmonary and Thoracic: 79341 Bronchoscopy, clear airways Tubes, Drains, and Vasc Access Procedure 1: Tubes, Drains, and Vasc Access: [id number] Place catheter in vein superior or inferior vena cava Procedure 2: Tubes, Drains, and Vasc Access: [id number] Ultrasound Guidance For Vascular Coding Level of Care Code Critical Care 1st 30-74 mins Medical Decision Making Low Complexity Diagnoses Multilobar lung infiltrate R91.8 Acute respiratory failure with hypoxia J96.01 Pleural effusion J90 CPT Codes Tubes, Drains, and Vasc Access - Tubes, Drains, and Vasc Access: [id number] Place catheter in vein superior or inferior vena cava ([id number]) Tubes, Drains, and Vasc Access - Tubes, Drains, and Vasc Access: [id number] Ultrasound Guidance For Vascular ([id number]) Pulmonary/Thoracic - Pulmonary and Thoracic: 37613 Bronchoscopy, clear airways ([id number]) Time Spent (min) 109
--- NOTE | 2021-04-30 17:12 | CT Scan Report ---
CHEST CTA for PULMONARY ARTERIES CT DOSE: 513.12 mGycm HISTORY: Shortness of breath. Covid positive. TECHNIQUE: Multiaxial CT images of the chest were performed following the intravenous administration of contrast to evaluate the pulmonary arteries. Maximal intensity projection images were also obtaine d. A dose lowering technique was utilized adhering to the principles of ALARA. COMPARISON STUDY: Chest 04/30/2021. FINDINGS: Limited views of the upper abdomen demonstrate a normal liver and spleen. The visualized ri ght adrenal gland contains a 7 mm indeterminate nodule. The left adrenal gland is not identified on t his study. Nasogastric tube terminates below the diaphragm. The tip is not included on this study. No pericardial effusion. The heart is normal in size. There is a hyperdense loculated small to moderate left posterior pleural effusion. This favors a loculated hemothorax. No acute fractures within the v isualized osseous structures. Normal caliber esophagus. No significant mediastinal or hilar lymphaden opathy. Normal caliber thoracic aorta with no evidence for dissection. Nondiagnostic evaluation of th e bilateral lower lobe and left upper lobe subsegmental pulmonary arteries due to the respiratory mot ion. However, the remaining pulmonary arteries show no filling defects to suggest a pulmonary embolus . There is extensive pneumomediastinum. No pneumothorax. Bilateral patchy groundglass airspace opacit ies consistent with the patient's history of a viral pneumonia. There are additional consolidative de nsities within the lungs posteriorly. This could represent a combination of atelectasis and pneumonia . Endotracheal tube terminates 3.5 cm from the ana. IMPRESSION: 1. No evidence for pulmonary embolus with limitations as described above. 2. Multifocal bilateral airspace opacities consistent with a viral pneumonia. 3. Small to moderate hyperdense loculated left posterior pleural effusion. This favors a loculated he mothorax. 4. Extensive pneumomediastinum. 5. Satisfactory support line placement. ACT 112: Negative or not required by law. Electronically signed by: Carlton Odonnell M.D. 04/30/2021 5:11 PM
[2021-04-30] MEDS ORDERED: VANCOMYCIN HCL 2,000 MG in SODIUM CHLORIDE 0.9% 500 ML IV ONE (17:30)
[2021-04-30] MEDS: CEFEPIME 2,000 MG in SYRINGE 0 ML IV SCH (17:49)
[2021-04-30 17:55] LABS: iSTAT Allen Test Pass; iSTAT Arterial Blood Gas HCO3 23 meg/L (19-24); iSTAT Arterial Blood Gas pCO2 46 mmHg (35-46); iSTAT Arterial Blood Gas pO2 37 mmHg (80-95); iSTAT Carbon Dioxide 24 mmol/L (24-31); iSTAT FiO2 100 %; iSTAT Site R Radial
[2021-04-30 17:55] LABS: iSTAT Allen Test Pass; iSTAT Arterial Blood Gas HCO3 21 meg/L (19-24); iSTAT Arterial Blood Gas pCO2 40 mmHg (35-46); iSTAT Arterial Blood Gas pH 7.32 (7.35-7.45); iSTAT Arterial Blood Gas pO2 64 mmHg (80-95); iSTAT Carbon Dioxide 22 mmol/L (24-31); iSTAT FiO2 100 %; iSTAT Site R Radial
[2021-04-30] MEDS ORDERED: MIDAZOLAM HCL 1 MG/ML 2ML VIAL ONE (18:17)
[2021-04-30 18:22] LABS: INR 1.2 (0.9-1.1); Partial Thromboplastin Ratio 1.1; Prothrombin Time 11.9 Seconds (9.0-12.0)
[2021-04-30] MEDS ORDERED: STAT IV Infusion **Titration per Protocol STA ×3 (18:33→23:13)
[2021-04-30] MEDS ORDERED: PROPOFOL BOLUS FROM BAG IV PRN (18:33)
[2021-04-30] MEDS: ARTIFICIAL TEARS OP OINT 3.5 GM TUBE OP SCH ×2 (18:37→23:26)
[2021-04-30] MEDS: CISATRACURIUM BESYLATE 40 MG in 0.9 % SODIUM CHLORIDE 80 ML IV SCH ×2 (19:06→23:27)
[2021-04-30] MEDS: fentaNYL DRIP 1,250 MCG/250 ML BAG IV SCH ×2 (19:06→23:26)
[2021-04-30] MEDS: propofoL 1,000 MG/100 ML VIAL IV SCH ×3 (19:07→23:27)
--- NOTE | 2021-04-30 19:40 | XRay Report ---
XR chest 1V portable HISTORY: R/O PNX, Fluid collection COMPARISON: Chest 04/30/2021. FINDINGS: Nasogastric tube terminates in the stomach. Endotracheal tube terminates 4.6 cm from the ca lissette. Left jugular central venous catheter terminates at the brachiocephalic/SVC junction. This remai ns unchanged. Bilateral airspace opacities, left greater the right persist. Pneumomediastinum is agai n noted. No definite pneumothorax. Left perihilar density corresponds the patient's known loculated l eft hemothorax. IMPRESSION: 1. Satisfactory support line placement which is unchanged from the prior study. 2. Bilateral airspace opacities and pneumomediastinum persists. 3. Left perihilar density corresponds the patient's known loculated left hemothorax. ACT 112: Negative or not required by law. Electronically signed by: Carlton Odonnell M.D. 04/30/2021 7:38 PM
[2021-04-30 20:10] LABS: Hematocrit (blood only) 47.1 % (42-52); Hemoglobin 15.5 g/dL (14.0-18.0); Mean Corpuscular Hemoglobin 29.9 pg (25-34); Mean Corpuscular Hgb Conc 32.9 g/dL (32-36); Mean Corpuscular Volume 90.8 fL (80-100); Mean Platelet Volume 10.3 fL (7.4-10.4); Platelet Count 257 K/uL (130-400); RDW Coefficient of Variation 14.5 % (11.5-14.5); RDW Standard Deviation 48.7 fL (36.4-46.3); Red Blood Count 5.19 M/uL (4.7-6.1); White Blood Count 26.68 K/uL (4.8-10.8)
--- NOTE | 2021-04-30 20:13 | Procedure Note ---
Procedure Note Date of Service April 30, 2021 Note Bronchoscopy performed due to concerns of massive hemoptysis. The bronchoscope was inserted via the endotracheal tube. Patient was on 100% FiO2 prior to insertion of the bronchoscope. Tracheobronchial tree was inspected. Old blood noted in the left lower lobe which was minimal with no active extravasation. No other intraluminal abnormalities were noted. Minimal secretions. Scope was withdrawn. Patient tolerated the procedure well. Please see the critical care consultation note from the same day for billing. Coding
[2021-04-30 20:26] LABS: Basophils # (auto) 0.02 K/uL (0-0.2); Basophils % (auto) 0.1 %; Eosinophils # (auto) 0.01 K/uL (0-0.5); Immature Granulocytes # (auto) 0.59 K/uL (0.00-0.02); Immature Granulocytes % (auto) 2.2 %; Lymphocytes # (auto) 2.49 K/uL (1.2-3.4); Lymphocytes % (auto) 9.3 %; Monocytes # (auto) 0.78 K/uL (0.11-0.59); Monocytes % (auto) 2.9 %; Neutrophils # (auto) 22.79 K/uL (1.4-6.5); Neutrophils % (auto) 85.5 %; Polychromasia 1+
[2021-04-30 21:06] LABS: Hematocrit (blood only) 41.6 % (42-52); Hemoglobin 13.8 g/dL (14.0-18.0); Mean Corpuscular Hemoglobin 30.4 pg (25-34); Mean Corpuscular Hgb Conc 33.2 g/dL (32-36); Mean Corpuscular Volume 91.6 fL (80-100); Mean Platelet Volume 9.9 fL (7.4-10.4); Platelet Count 272 K/uL (130-400); RDW Coefficient of Variation 14.6 % (11.5-14.5); RDW Standard Deviation 48.7 fL (36.4-46.3); Red Blood Count 4.54 M/uL (4.7-6.1)
--- NOTE | 2021-04-30 21:12 | Procedure Note ---
Procedure Note Date of Service April 30, 2021 Note Procedure: Arterial Line Placement Attending: Dr. Temple APC: Juan Ramirez PA-C Indication: Hemodynamic monitoring Anesthesia: None Emergent Consent implied in the setting of clinical deterioration and need for close hemodynamic monitoring, ABG monitoring, frequent lab draws, etc. A time-out was completed verifying correct patient, procedure, site, positioning, and implant(s) or special equipment if applicable. Allens test was performed to ensure adequate perfusion. Patients RIGHT wrist was prepped and draped in the usual sterile fashion. Ultrasound guidance was used to aid needle placement. A 20g Arrow arterial line was introduced into the RIGHT Radial artery. Catheter was threaded, and the needle was removed with appropriate blood return. Good waveform was observed. The patient tolerated the procedure well. Confirmation of placement with ultrasound. Blood Loss: Minimal Complications: None Procedural Ultrasound Guidance: Procedure Date: 04/30/2021 Indication: Hemodynamic Monitoring, Frequent ABGs/Lab draws. Attending: Dr. Temple APC: Juan Ramirez PA-C Artery Identified: YES Line confirmed in Artery with ultrasound: YES Complications: NONE Patient tolerated procedure: WELL Coding CPT Codes Tubes, Drains, and Vasc Access - Tubes, Drains, and Vasc Access: [id number] Place Catheter In Artery ([id number]) [facility] [place] Codes (Charges) Tubes, Drains, and Vasc Access Procedure 3: Tubes, Drains, and Vasc Access: [id number] Place Catheter In Artery
--- NOTE | 2021-04-30 21:41 | Communication Note ---
Date of Service: April 30, [id number]: Spoke with patient's son, Ubaldo (patient's present as well). Provided update. Family ok with proning patient, chest tube, transfer, etc. if necessary. Family wishes to continue with FULL CODE status at this time, but they are realistic and recognize that if his condition were to deteriorate, we will readdress code status. I have personally spent 20 minutes of critical care time in the direct management of this patient. This is a life/limb threatening event. This includes time spent evaluating patient, direct bedside care, chart review, placing orders, interpretation of diagnostic studies, discussion with consultants, patient, and family members, as well as other required patient management activities. This time is exclusive of all separately billable procedures, and teaching time and separate from and in addition to any other critical care service time. Coding Level of Care Code Critical Care radha velasquez'l 30 min Time Spent (min) 20
[2021-04-30 21:46] LABS: Fibrinogen 657 mg/dl (184-400)
[2021-04-30 21:48] LABS: Basophils # (auto) 0.03 K/uL (0-0.2); Basophils % (auto) 0.1 %; Echinocytes 2+; Eosinophils # (auto) 0.03 K/uL (0-0.5); Eosinophils % (auto) 0.1 %; Immature Granulocytes # (auto) 0.41 K/uL (0.00-0.02); Immature Granulocytes % (auto) 1.3 %; Lymphocytes # (auto) 3.34 K/uL (1.2-3.4); Lymphocytes % (auto) 10.4 %; Monocytes # (auto) 0.53 K/uL (0.11-0.59); Monocytes % (auto) 1.7 %; Neutrophils # (auto) 27.76 K/uL (1.4-6.5); Neutrophils % (auto) 86.4 %; Polychromasia 1+
--- NOTE | 2021-04-30 21:56 | Hospitalist Progress Note ---
Date of Service April 30, 2021 Assessment & Plan (1) Acute respiratory failure with hypoxia: Plan: Patient is in acute respiratory failure. No longer tolerating high flow, on CPAP. Prognosis is poor, discussed code status, patient at this point chooses to be intubated if needed. D/W son on the phone. 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 will transfer patient to the ICU. will order cta chest and chest x ray (2) COVID-19: Plan: COVID-19 with acute respiratory failure and multilobar infiltratesdoes not appear to have a secondary bacterial pneumonia based on his exam/vitals/lab workobviously need to maintain vigilance for this, low threshold to initiate antibiotic coverage but none at this time -Has been treated with remdesivir, continue dexamethasone for 10 days unless significant clinical changes -Due to sudden worsening of hypoxia without a clear explanation, heparin was initiated to empirically cover for PEhe is clinically improving, at some point in the near future with his kidney function improving, hopefully we can consider CT to confirm, for now to aid in the ability of hopefully being able to get him out of bed and moving more, we will transition heparin to Eliquis -Patient continues to fail to prone. -as above on cpap. -CRP is increasing despite being on 10 mg of dexamethasone. -encourage nutrition (added Remeron a few days ago, still not really helpingafter discussion of risk/benefit will give trial to Marinol) -will continue above treatment. (3) Multilobar lung infiltrate: Plan: as above. (4) Fatigue: Plan: Encourage activity, encourage out of bed, PT/OT eval and treat, hopefully with better sleep that may start to improve some too. Did get out of bed (5) Weakness: Plan: Appears to be due to the severity of his Covid pneumonia/hypoxiasee above (6) CKD (chronic kidney disease) stage 3, GFR 30-59 ml/min: Plan: Continue to follow creatininestable at this time, certainly stable to administer more Lasix (7) Coronary artery disease: Plan: No angina, continue to monitor (8) Sleep apnea: Plan: Does not want CPAP at this time, perhaps if his is able to bring in his unit from home he may be more amenable (9) Hypertension: Plan: Blood pressures are acceptable given situation (10) Diabetes: Plan: Poorly controlled at baseline as well as acutely. continue to adjust insulinspharmacy is managing at this time (11) Lumbar stenosis with neurogenic claudication: Plan: Will likely represent an impediment to PT/OT once he has improved enough, will need to help him work through this as well (12) DVT prophylaxis: Plan: on eliquis (13) Discharge planning issues: Plan: Remains acutely ill on high flow nasal cannula, continue current level of supportive care. Highly likely to need rehab once he starts to show improvement. Becoming more reassuring with his overall trend looking like it will hopefully be slow improvement Admission and Anticipated Discharge Date Admission Date: April 18, 2021 Subjective Patient on CPAP overnight, unable to place him on high flow oxygen. Pstient states that he does not want to and if needed, can be intubated. Patient even mentioned that he is agreeable to a trach. Review of Systems Review of Systems: All systems reviewed & are unremarkable except as noted in HPI & below Physical Exam Physical Exam: Constitutional: Patient is lying in bed with a CPAP mask on. In moderate distress. Eyes: PERRL, conjunctivae normal, anicteric sclerae Respiratory: Moderate resp distress, decreased breath sounds. no adventitious sounds Cardiovascular: RRR, no murmur, no edema Gastrointestinal (Abdomen): normal bowel sounds, soft, nontender, no hepatosplenomegaly Musculoskeletal: Extremities: extremities normal to inspection Skin: no rashes, warm and dry Psychiatric: A+Ox3, euthymic affect Results & Data Results & Data ([facility]) Vital Signs (Past 12 Hours) Vital Signs Temp Pulse Pulse Resp BP BP Pulse Ox 04/30/21 21:15 38.1 C H 130 H 24 126/86 90 04/30/21 21:00 130 H 24 116/76 91 04/30/21 20:49 129 H 24 92 04/30/21 20:45 126 H 24 122/74 92 04/30/21 20:30 123 H 24 128/88 93 04/30/21 20:15 116 H 24 140/86 94 04/30/21 20:00 114 H 24 171/88 H 94 04/30/21 19:45 117 H 25 H 93 04/30/21 19:30 113 H 17 108/78 91 04/30/21 19:15 108 H 19 89 L 04/30/21 19:00 108 H 34 H 113/63 88 L 11/30/21 18:45 128 H 23 81 L 04/30/21 18:30 130 H 23 133/81 82 L 04/30/21 18:16 142 H 32 H 80 L 04/30/21 18:00 98 H 15 126/74 92 04/30/21 17:45 92 H 15 92 04/30/21 17:43 36.6 C 92 H 22 107/45 L 04/30/21 17:30 93 H 15 90 04/30/21 17:17 94 H 30 H 87 L 04/30/21 17:00 0 L 04/30/21 16:30 96 H 23 90/66 L 88 L 04/30/21 16:01 128 H 24 82 L 04/30/21 15:30 139 H 25 H 89 L 04/30/21 15:00 83 20 81/56 L 96 04/30/21 14:36 105 H 20 95 04/30/21 14:30 106 H 156/98 H 92 04/30/21 14:00 89 18 04/30/21 13:30 67 15 04/30/21 13:00 68 16 94 04/30/21 12:30 69 15 93 04/30/21 12:00 74 18 96 04/30/21 11:55 36.5 C 93 H 18 157/94 H 86 L 04/30/21 11:30 92 H 26 H 92 04/30/21 11:00 83 18 95 04/30/21 10:34 72 22 94 04/30/21 10:30 92 H 24 88 L 04/30/21 10:00 75 19 91 Pulse Ox 04/30/21 21:15 04/30/21 21:00 90 04/30/21 20:49 04/30/21 20:45 04/30/21 20:30 04/30/21 20:15 04/30/21 20:00 04/30/21 19:45 04/30/21 19:30 04/30/21 19:15 04/30/21 19:00 04/30/21 18:45 04/30/21 18:30 04/30/21 18:16 04/30/21 18:00 04/30/21 17:45 04/30/21 17:43 04/30/21 17:30 04/30/21 17:17 04/30/21 17:00 04/30/21 16:30 04/30/21 16:01 04/30/21 15:30 04/30/21 15:00 04/30/21 14:36 04/30/21 14:30 04/30/21 14:00 04/30/21 13:30 04/30/21 13:00 04/30/21 12:30 04/30/21 12:00 04/30/21 11:55 04/30/21 11:30 04/30/21 11:00 04/30/21 10:34 04/30/21 10:30 04/30/21 10:00 PG Care Time/CCT Total # of Minutes Spent Total Time Spent with Patient: Total time spent is greater than 50% in coordination of care (as documented) at patient's floor/unit and/or counseling patient: Critical Care Time: Yes (55) I have personally spent 55 minutes of critical care time in the direct management of this patient. This is a life/limb threatening event. This includes time spent evaluating patient, direct bedside care, chart review, placing orders, interpretation of diagnostic studies, discussion with consultants, patient, and family members, as well as other required patient management activities. This time is exclusive of all separately billable procedures, and teaching time and separate from and in addition to any other critical care service time. Coding Level of Care Code 11628 Subseq Hosp Care Lvl 3 (25 - SIGNIFICANT, SEPARATELY IDENTIFIABLE ) Diagnoses COVID-19 U07.1 Acute respiratory failure with hypoxia J96.01 Multilobar lung infiltrate R91.8 Fatigue R53.83 Fatigue type: unspecified Weakness R53.1 CKD (chronic kidney disease) stage 3, GFR 30-59 ml/min N18.3 Coronary artery disease I25.10 Sleep apnea G47.30 Hypertension I10 Diabetes E11.9 Lumbar stenosis with neurogenic claudication M48.062 DVT prophylaxis Z29.9 Discharge planning issues Z02.9 Additional Codes Critical Care Time - Critical Care Time: Yes ([id number]) (1) Fatigue Fatigue type: unspecified Qualified Code(s): R53.83 - Other fatigue
[2021-04-30] MEDS: FAMOTIDINE 20 MG in SYRINGE 3 ML IV SCH (23:23)
[2021-04-30] MEDS: MIRTAZAPINE TAB 15 MG TAB PO SCH (23:23)
[2021-04-30] MEDS: PANTOprazole 40 MG in SYRINGE 0 ML IV SCH (23:23)
[2021-04-30] MEDS: PRAVASTATIN SOD 40 MG TAB PO SCH (23:23)
[2021-04-30 23:43] LABS: Hematocrit (blood only) 40.7 % (42-52); Hemoglobin 13.6 g/dL (14.0-18.0)
[2021-04-30 23:57] LABS: iSTAT Art Bld Gas pCO2 Correct 51 mmHg (35-46); iSTAT Arterial Blood Gas HCO3 24 meg/L (19-24); iSTAT Arterial Blood Gas pCO2 49 mmHg (35-46); iSTAT Arterial Blood Gas pH 7.29 (7.35-7.45); iSTAT Arterial Blood Gas pO2 95 mmHg (80-95); iSTAT Arterial Blood Gas pO2 C 100; iSTAT Carbon Dioxide 25 mmol/L (24-31); iSTAT FiO2 100 %; iSTAT Hematocrit 41 % (42-52); iSTAT Hemoglobin 13.9 g/dl (14.0-18.0); iSTAT Potassium 5.7 mmol/L (3.3-5.0); iSTAT Site Art Line; iSTAT Sodium 136 mmol/L (135-144)
[2021-05-01] MEDS: NOREPINEPHRINE/D5W 8 MG/508 ML BAG IV SCH ×3 (00:22→20:49)
[2021-05-01] MEDS: guaiFENesin/CODEINE 100MG/10MG 5ML UDC PO SCH ×2 (00:23→05:29)
[2021-05-01] MEDS: NORMOSOL-R 1,000 ML IV SCH ×2 (00:24→13:57)
[2021-05-01] MEDS: propofoL 1,000 MG/100 ML VIAL IV SCH ×6 (01:57→22:47)
[2021-05-01] MEDS: ARTIFICIAL TEARS OP OINT 3.5 GM TUBE OP SCH ×6 (03:38→21:46)
[2021-05-01] MEDS: CISATRACURIUM BESYLATE 40 MG in 0.9 % SODIUM CHLORIDE 80 ML IV SCH ×4 (03:38→20:16)
[2021-05-01 05:13] LABS: iSTAT Art Bld Gas pCO2 Correct 41 mmHg (35-46); iSTAT Art Bld Gas pH Corrected 7.326 (7.35-7.45); iSTAT Arterial Blood Gas HCO3 21 meg/L (19-24); iSTAT Arterial Blood Gas pCO2 40 mmHg (35-46); iSTAT Arterial Blood Gas pH 7.33 (7.35-7.45); iSTAT Arterial Blood Gas pO2 77 mmHg (80-95); iSTAT Arterial Blood Gas pO2 C 78; iSTAT Carbon Dioxide 22 mmol/L (24-31); iSTAT FiO2 80 %; iSTAT Hematocrit 36 % (42-52); iSTAT Hemoglobin 12.2 g/dl (14.0-18.0); iSTAT Potassium 5.9 mmol/L (3.3-5.0); iSTAT Site Art Line; iSTAT Sodium 134 mmol/L (135-144)
[2021-05-01] MEDS: CEFEPIME 2,000 MG in SYRINGE 0 ML IV SCH (05:29)
--- NOTE | 2021-05-01 06:26 | XRay Report ---
XR chest 1V portable CLINICAL HISTORY: f/u COMPARISON STUDY: Chest radiograph and chest CT April 30, 2021. FINDINGS: Tip of endotracheal tube is 5.1 cm above the ana. Tip of nasogastric tube is below the l ower aspect of this image but at least within the stomach. The left internal jugular central line rem ains in place. There is no pneumothorax. Bilateral airspace opacities, greater within the left lung p ersists. Left perihilar/retrocardiac opacities unchanged. Pneumomediastinum has slightly decreased. IMPRESSION: 1. Satisfactory positioning of lines and tubes. 2. Pneumomediastinum, likely decreased since prior exam. No pneumothorax. 3. Persistent extensive bilateral airspace opacities, greater within the left lung. Left perihilar an d left basilar opacity which corresponds to suspected loculated left hemothorax. ACT 112: Negative or not required by law. Electronically signed by: Alon Cervantes M.D. 05/01/2021 6:25 AM
[2021-05-01 06:44] LABS: Hematocrit (blood only) 37.8 % (42-52); Hemoglobin 12.3 g/dL (14.0-18.0); Mean Corpuscular Hemoglobin 29.7 pg (25-34); Mean Corpuscular Hgb Conc 32.5 g/dL (32-36); Mean Corpuscular Volume 91.3 fL (80-100); Mean Platelet Volume 9.9 fL (7.4-10.4); Platelet Count 195 K/uL (130-400); RDW Coefficient of Variation 14.6 % (11.5-14.5); RDW Standard Deviation 48.9 fL (36.4-46.3); Red Blood Count 4.14 M/uL (4.7-6.1); White Blood Count 32.19 K/uL (4.8-10.8)
[2021-05-01 06:50] LABS: Basophils # (auto) 0.02 K/uL (0-0.2); Basophils % (auto) 0.1 %; Echinocytes 1+; Eosinophils # (auto) 0.01 K/uL (0-0.5); Immature Granulocytes # (auto) 0.45 K/uL (0.00-0.02); Immature Granulocytes % (auto) 1.4 %; Lymphocytes # (auto) 1.64 K/uL (1.2-3.4); Lymphocytes % (auto) 5.1 %; Monocytes # (auto) 1.82 K/uL (0.11-0.59); Monocytes % (auto) 5.7 %; Neutrophils # (auto) 28.25 K/uL (1.4-6.5); Neutrophils % (auto) 87.7 %
[2021-05-01 06:58] LABS: C Reactive Protein 16.1 mg/dl (0-0.29); Calcium 8.9 mg/dl (8.5-10.1); Creatinine Clr Calc Pharmacy 44.9 ml/min; Est GFR (African American) 45.4 ml/min; Est GFR (Non-African American) 39.1 ml/min; Magnesium 2.6 mg/dl (1.8-2.4); Phosphorus 3.8 mg/dl (2.5-4.9)
[2021-05-01] MEDS ORDERED: SEVERE STRESS LEVEL ONE (07:14)
[2021-05-01] MEDS ORDERED: INSULIN PROTOCOL GOAL RANGE ONE (07:14)
[2021-05-01] MEDS ORDERED: STAT IV Infusion **Titration per Protocol STA (07:14)
[2021-05-01] MEDS: INSULIN ASPART 100 UNITS/ML 3 ML PEN SC SCH ×4 (07:46→20:22)
[2021-05-01 07:48] LABS: Beta-Hydroxybutyrate 3.89 mg/dl (0.2-2.81)
[2021-05-01] MEDS ORDERED: NovoLIN-R BOLUS FROM BAG IV ONE (08:00)
[2021-05-01] MEDS: INSULIN REGULAR 250 UNITS in SODIUM CHLORIDE 0.9% 247.5 ML IV SCH (08:28)
--- NOTE | 2021-05-01 08:32 | Communication Note ---
Date of Service: May 01, 2021 Procedure: Pronation Maneuver Attending: Dr. Temple APC: Juan Ramirez PA-C Indication: Requiring lung recruitment intervention in the setting of advanced ARDS with poor lung compliance and oxygenation on standard ventilator settings. Patient requiring pronation in the setting of advanced ARDS per imaging, ventilator requirements, and calculated P:F ratio. Appropriate staff was assembled including myself, Respiratory Therapy, and Nursing Staff. A time-out was completed verifying correct patient, time from recent pronation/supination, current ventilator settings, review of any prior issues during pronation/supination maneuvers. Patient was fully undressed as to be able to view all current IV sites, central venous access sites, arterial lines, endotracheal tube, Santiago catheter, etc. After properly identifying/securing all lines, tubes, etc., the patient was ``papoosed using flat sheets. On my count, the patient was slid to the edge of the bed. After reevaluating all lines, tubes, etc., the patient was then placed on their side allowing for RT to maintain control of ET tube and ready for completion of Pronation maneuver. Final check of all lines, tubes, etc. was completed by myself and nursing staff. Blood pressure, heart rhythm, and oxygen saturations were monitored for several minutes s/p maneuver. Discussion was held with patients RN and RT regarding ongoing management. Patient tolerated maneuver well. No immediate complications were noted. TIME PRONE: 0625 I have personally spent 20 minutes of critical care time in the direct management of this patient. This is a life/limb threatening event. This includes time spent evaluating patient, direct bedside care, chart review, placing orders, interpretation of diagnostic studies, discussion with consultants, patient, and family members, as well as other required patient management activities. This time is exclusive of all separately billable procedures, and teaching time and separate from and in addition to any other critical care service time. Coding Level of Care Code Critical Care 1st 30-74 mins Time Spent (min) 20
[2021-05-01] MEDS: PANTOprazole 40 MG in SYRINGE 0 ML IV SCH ×2 (08:33→20:20)
[2021-05-01] MEDS: FAMOTIDINE 20 MG in SYRINGE 3 ML IV SCH (08:34)
--- NOTE | 2021-05-01 08:38 | Palliative Care Consultation ---
Date of Consultation May 01, 2021 Assessment & Plan (1) Palliative care encounter: Mr. Wagner is a 75 year old male who presented to the [facility] with shortness of breath and increasing fatigue . He was diagnosed with COVID-19 and ended up being intubated. He has an additional PMH that includes: CVA, DM2, HTN, PAD, BPH and STEPHANIE. Intensive care provider has discussed code status and the family has stated they would like full press treatment, including transfer out of facility if necessary. Palliative medicine was consulted to discuss goals of care and confirm code status. I was able to meet with the patient who was currently proned. He currently has Leophed and Nimbex infusing, along with sedation. I did reach out the patients son, Ubaldo, who was able to talk with me at length regarding his Dad. He said that he is comfortable with continuing care right now, but knows that he signed an advanced directive form at some point with his PCP, Dr. Wagner. I suggested he call that office to obtain his AD for future conversations. For now, remain full code with aggressive treatment including chest tubes, pressors, and dialysis. We did discuss a tracheostomy and he does not think that his father would want that if he were not showing signs of improvement. For now, palliative will follow. (2) COVID-19: (3) Hypoxia: (4) Weakness: History of Present Illness Reason for Consultation: Goals of care Requesting Physician: Dr. Temple Attending Physician: Ace Burks History of Present Illness Mr. Wagner is a 75 year old male who presented to the [facility] with shortness of breath and increasing fatigue. He was diagnosed with COVID-19 and ended up being intubated. He has an additional PMH that includes: CVA, DM2, HTN, PAD, BPH and STEPHANIE. Intensive care provider has discussed code status and the family has stated they would like full press treatment, including transfer out of facility if necessary. Palliative medicine was consulted to discuss goals of care and confirm code status. Please see A/P for further details. Thanks for involving Palliative Medicine with this patient. Allergies Allergy/AdvReac Type Severity Reaction Status Date / Time metformin AdvReac Severe Diarrhea Verified 04/18/21 07:52 Home Medications Medication Instructions Recorded Confirmed Type omega-3 fatty acids 1,000 mg 2,000 mg PO QPM cap 04/13/18 04/18/21 History capsule (Fish Oil Concentrate) cilostazol 100 mg tablet 100 mg PO BID 07/01/18 04/18/21 History irbesartan 300 mg tablet 300 mg PO QPM 07/01/18 04/18/21 History aspirin 81 mg tablet,delayed 81 mg PO QAM tab 09/23/18 04/18/21 History release (Adult Aspirin Regimen) pravastatin 40 mg tablet 40 mg PO QPM 04/12/19 04/18/21 History oxycodone 5 mg tablet 5 mg PO Q6H PRN #30 tab 05/04/19 04/18/21 Rx canagliflozin 100 mg tablet 100 mg PO DAILY 11/07/20 04/18/21 History (Invokana) glipizide 2.5 mg tablet, extended 2.5 mg PO DAILY 11/07/20 04/18/21 History release 24 hr tamsulosin 0.4 mg capsule 0.4 mg PO QPM #90 cap 11/07/20 04/18/21 Rx cholecalciferol (vitamin D3) 50 2,000 unit PO DAILY #30 cap 12/11/20 04/18/21 Rx mcg (2,000 unit) capsule Patient History Medical History (Updated 05/01/21 @ 08:45 by RU Kidd) BPH (benign prostatic hyperplasia) Cardiomyopathy Chronic back pain CKD (chronic kidney disease) stage 3, GFR 30-59 ml/min Coronary artery disease mild-moderate 3 vessel on 2016 cath per cardiology. CVA (cerebral vascular accident) 2010, no residual deficits. DM type 2 (diabetes mellitus, type 2) DIET CONTROLLED High cholesterol Hypertension Palliative care encounter Pleural effusion Seborrheic keratoses Sleep apnea CPAP HS SOB (shortness of breath) on exertion Spinal stenosis Systolic dysfunction EF 50% Surgical History History of cardiac cath 2016 - [facility] - CP - NO STENTS/ANGIOPLASTY History of cataract surgery BL History of fusion of lumbar spine History of sebaceous cyst & REMOVED History of toe surgery History of tooth extraction Hx of tonsillectomy Family History Other Patient's father is Patient's mother is Social History (Reviewed 12/01/21 @ 08:38 by MICHELLE Kidd Smoking Status: Never smoker Second Hand Exposure: No; Do You Dip or Chew Tobacco: No; Tobacco Cessation Education Requested by Patient: No Hx Alcohol Use: No Hx Substance Use: No Preferred Language: Citizen Of [place] Communication Ability: Impaired Hearing Ability: Normal Lead Ramp Service Man Required: No Beliefs That Will Affect Care: None marital status: Current Living Situation: Alone current occupational status: retired Other Information That Helps Us Care for You: No 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: 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 Feels Safe at Home: Yes Safety Concerns: Feels Safe At This Time Assistive Devices: Oxygen - Continuous Review of Systems Review of Systems: Unobtainable due to endotracheal tube Physical Exam Constitutional: + frail appearing Respiratory: + tachypneic Neurologic: + obtunded Results & Data ([facility]) Vital Signs (Past 12 Hours) Vital Signs Temp Pulse Resp BP Pulse Ox Pulse Ox 05/01/21 08:00 83 28 H 91 05/01/21 03:30 37.5 C 81 28 H 120/69 93 05/01/21 03:00 37.5 C 84 28 H 119/78 93 05/01/21 02:33 87 28 H 95 05/01/21 02:30 37.6 C H 87 28 H 123/78 95 05/01/21 02:00 37.6 C H 93 H 28 H 119/86 95 05/01/21 01:30 37.6 C H 93 H 28 H 125/80 95 05/01/21 01:00 37.7 C H 99 H 28 H 131/77 93 05/01/21 00:30 37.7 C H 104 H 28 H 121/79 93 05/01/21 00:15 28 H 05/01/21 00:00 37.8 C H 109 H 24 144/87 H 95 04/30/21 23:45 37.8 C H 109 H 24 141/86 H 95 04/30/21 23:30 37.9 C H 111 H 24 145/86 H 94 04/30/21 23:15 37.9 C H 112 H 24 141/86 H 94 04/30/21 23:00 37.9 C H 113 H 24 137/84 94 04/30/21 22:45 37.9 C H 115 H 24 150/87 H 94 04/30/21 22:30 38.0 C H 119 H 24 137/89 93 04/30/21 22:25 119 H 24 94 04/30/21 22:15 38.0 C H 118 H 24 156/87 H 94 04/30/21 22:00 38.0 C H 119 H 24 130/82 94 04/30/21 21:45 38.1 C H 124 H 24 125/82 94 04/30/21 21:30 38.1 C H 132 H 24 121/82 91 04/30/21 21:15 38.1 C H 130 H 24 126/86 90 04/30/21 21:00 130 H 24 116/76 91 90 04/30/21 20:49 129 H 24 92 04/30/21 20:45 126 H 24 122/74 92 PG Care Time/CCT Total # of Minutes Spent Total Time Spent with Patient: Total time spent is greater than 50% in coordination of care (as documented) at patient's floor/unit and/or counseling patient: 70 minutes Coding Level of Care Code 89203 Initial Inpt Care Lvl 3 Diagnoses Palliative care encounter Z51.5 COVID-19 U07.1 Hypoxia R09.02 Weakness R53.1 Time Spent (min) 70
[2021-05-01 08:55] LABS: Potassium 5.7 mmol/L (3.5-5.1)
[2021-05-01] MEDS: INSULIN GLARGINE SOLOSTAR 100 UNITS/ML 3 ML PEN SC SCH ×3 (10:35→20:21)
[2021-05-01] MEDS: FLUoxetine HCL 10 MG CAP PO SCH (10:51)
--- NOTE | 2021-05-01 13:27 | Pharmacy Report ---
Pharmacy Glycemic Short Note 2 - Date of Service May 01, 2021 - Glycemic Short BSG Results (Last 24 hours): 04/30/21 04/30/21 05/01/21 17:21 23:20 05:41 Glucose 384 H* POC Glucose 218 H 277 H POC Glucose (other) 05/01/21 05/01/21 05/01/21 06:55 08:28 09:39 Glucose POC Glucose 374 H* POC Glucose (other) 367 H* 329 H 05/01/21 05/01/21 05/01/21 10:38 11:43 12:58 Glucose POC Glucose POC Glucose (other) 309 H 286 H 260 H OUTPATIENT ANTIDIABETIC REGIMEN: * Canagliflozin 100MG PO daily * Glipizide ER 2.5 mg PO daily * HbA1c: 8.3% (04/19/21) ASSESSMENT: 05/01: * Patient transferred to ICU [facility] yesterday for intubation and bronchoscope. * He was started on stressors and IV sedation with Fentanyl, propofol and Nimbex last night. * Blood sugars trended up to 384 early this AM. Insulin drip started per hyperglycemia protocol. * Basal Lantus dose 15 units (based off doses given early on during this admission) given this AM. BSGs trended down to 286 mg/dl around noon. * Plan for insulin drip to be weaned off this evening, otherwise by tomorrow morning. 04/30: * Patient received total of 109 units of insulin yesterday: 45 units basal NPH + 64 units bolus. * Fasting BSG = 144 mg/dl today. Since Dexamethasone was discontinued, basal NPH discontinued after yesterday's dose. * Lantus HS dose was moved to AM today but since patient was hypoxic last night and started on continuous CPAP, Lantus dose reduced to [address] Burks. Spoke to RN, patient's CPAP should not be paused per respiratory and hence he cannot take anything by mouth for now. Novolog dose held this AM. 04/29/21 * Last day of dexamethsone will be today - dc NPH tomorrow when dexamethasone dc. * AM fasting still below goal range despite significant dose reduction in Lantus last evening. Will hold Lantus this AM and restart QAM tomorrow. Will give Lantus when NPH dc. * NovoLog CF/CR will need loosened 04/30 without steroids on board. 04/28/21 * Patient's BSGs yesterday were [phone] mg/dL with fasting today of 68 mg/dL. * Patient received 169 units of insulin with 67 units of basal (22 units of Lantus and 45 units of basal) and 102 units of bolus. * Hypoglycemic this morning with several OJ. Decrease Lantus by 50% to 10 units. * BSGs stable throughout the day. Concern with lower BSG this AM so loosen CR. PLAN FOR INPATIENT GLYCEMIC CONTROL: * Hold outpatient oral diabetes medications * Insulin drip per protocol * Basal insulin * Lantus 15 units SQ AM * Lantus 0-5 units SQ HS based on BSG. When Insulin drip is discontinued, start bolus Novolog as below: * Bolus insulin * NovoLog per scale ACHS and checks * Goal Range: Low 110 mg/dL - High 140 mg/dL * Correction Factor: 15 mg/dL/unit * Nutritional / Prandial insulin per carb ratio of 1 unit per 7 grams CHO consumed PLAN FOR DISCHARGE: * HbA1c of 8.3% is elevated * Reasonable goal may be less than 8% given multiple comorbidities * Options limited based on CKD and reported intolerance to metformin * Continue current outpatient regimen * with eGFR 30-59 mL/min do not exceed Invokana 100 mg daily. * Could consider addition of Lantus 15 units QAM
--- NOTE | 2021-05-01 13:36 | Pharmacy Report ---
Pharmacy Vanc AUC Short Note - Date of Service May 01, 2021 - Assessment & Plan Assessment 75 year old M receiving vancomyin and cefepime for treatment of possible pulmonary source. Pertinent microbiologic data includes: negative MRSA Nasal Swab, however will continue due to concern for potential abscess. Will continue to monitor changing renal function and adjust dose accordingly. Day # 2 of antimicrobial therapy. Plan Vancomycin * AUC/LEON is the preferred PK/PD target for vancomycin * AUC guided dosing is effective and associated with decreased risk of nephrotoxicity compared to traditional trough targets * Predicted Trough level of 19.6 mcg/mL is predicted to achieve target AUC/LEON and may be associated with a 17 % risk of nephrotoxicity * Loading dose of 2000mg X 1 lasr evening * initiate dose of 1500 mg IV every 24 hours @ 1600 today * Trough or random level ordered for: 05/03/21 @1530 Pharmacy will continue to follow and will adjust dose/frequency as necessary. Thank you.
[2021-05-01] MEDS: fentaNYL DRIP 1,250 MCG/250 ML BAG IV SCH (13:56)
[2021-05-01 13:57] LABS: BUN Creatinine Ratio 31.4 (10-20); Creatinine Clr Calc Pharmacy 57.1 ml/min; Est GFR (African American) 60.6 ml/min; Est GFR (Non-African American) 52.3 ml/min; Potassium 4.5 mmol/L (3.5-5.1)
[2021-05-01] MEDS: ZINC SULFATE 220 MG CAPSULE PO SCH (15:03)
[2021-05-01] MEDS: cilostazoL 100 MG TAB PO SCH ×2 (15:03→20:16)
[2021-05-01] MEDS ORDERED: VANCOMYCIN HCL 1,500 MG in SODIUM CHLORIDE 0.9% 500 ML IV SCH (16:00)
--- NOTE | 2021-05-01 16:20 | Critical Care Progress Note ---
Date of Service May 01, 2021 Assessment & Plan (1) Multilobar lung infiltrate: (2) Acute respiratory failure with hypoxia: (3) Pleural effusion: (4) Septic shock: Plan: Neurologic: Continue sedation and analgesia with propofol and fentanyl. Continue Nimbex to promote ventilator synchrony. Pulmonary: Continue lung protective ventilation strategy. Essentially ARDS secondary to COVID-[address] chest from 04/30/2021 concerning for loculated le ft hemothorax. No clear pocket for insertion of a chest tube at this time. He does have an increasing leukocytosis. Pulmonary abscess also remains a possibility. Hemoglobin has remained stable. Cardiovascular: Maintain mean arterial pressure above 65. Possible element of septic shock given his increasing white count elevated procalcitonin 1.65. Gastrointestinal: NPO. PPI twice daily. Renal: Hypercalcemia resolved. ROCKY improved. We will hold on further fluid administration. Infectious disease: Blood cultures pending. MRSA screen negative. Procalcitonin elevated. Will change cefepime to Zosyn. Hematologic: No obvious signs of continuous bleeding. Hold all anticoagulation. Fibrinogen normal. Endocrine: Hyperglycemia per ICU protocol VTE prophylaxis: SCDs CODE STATUS: Full code. Poor prognosis overall. Palliative care on board. Disposition: Remain in the ICU I have personally spent 63 minutes of critical care time in the direct management of this patient. This is a life/limb threatening event. This includes time spent evaluating patient, direct bedside care, chart review, placing orders, interpretation of diagnostic studies, discussion with consultants, patient, and family members, as well as other required patient management activities. This time is exclusive of all separately billable procedures, and teaching time and separate from and in addition to any other critical care service time. Thank you for allowing us to participate in the care of this patient. Admission and Anticipated Discharge Date Admission Date: April 18, 2021 Subjective Patient in the prone position this morning. Requiring low-dose of Levophed. No significant events this morning. Review of Systems Review of Systems: Unobtainable due to endotracheal tube Physical Exam Physical Exam: Constitutional: Prone position. Intubated. Eyes: Pupils pinpoint. Reactive to light. Ears nose, mouth and throat: ET tube in place. Neck: Trachea midline. Respiratory: Diminished bilaterally. Coarse on the ventilator. Cardiovascular: Regular rate and rhythm. No murmurs. No edema. Gastrointestinal: Normal bowel sounds, soft, nontender and nondistended. No hepatosplenomegaly noted. Musculoskeletal: All extremities intact. Unable to assess movement. Skin: No rashes, warm dry and intact. Neurologic: Paralyzed and sedated Psychiatric: Unable to assess Results & Data Results & Data ([facility]) Vital Signs (Past 12 Hours) Vital Signs Temp Pulse Resp BP Pulse Ox 05/01/21 14:40 73 28 H 93 05/01/21 11:38 75 28 H 94 05/01/21 11:00 36.8 C 83 28 H 108/62 92 05/01/21 10:00 36.8 C 77 28 H 05/01/21 09:00 36.8 C 81 28 H 94 05/01/21 08:00 36.9 C 82 28 H 92 05/01/21 07:00 37.1 C 83 28 H 94 vitals labs Coding Level of Care Code Critical Care 1st 30-74 mins Diagnoses Multilobar lung infiltrate R91.8 Acute respiratory failure with hypoxia J96.01 Pleural effusion J90 Septic shock A41.9; R65.21 Time Spent (min) 63
[2021-05-01] MEDS ORDERED: PIPERACILL/TAZOBAC CONSULT ACTIVE PRN (16:39)
[2021-05-01] MEDS ORDERED: PIPERACILLIN/TAZOBACTAM 4.5 GM in DEXTROSE 5% 100 ML IV ONE (17:30)
[2021-05-01] MEDS: DC IV INSULIN INFUSION 1 EA DEVI SCH ×4 (18:57→23:54)
[2021-05-01] MEDS: MIRTAZAPINE TAB 15 MG TAB PO SCH (20:17)
[2021-05-01] MEDS: PRAVASTATIN SOD 40 MG TAB PO SCH (20:17)
--- NOTE | 2021-05-01 23:25 | Hospitalist Progress Note ---
Date of Service May 01, 2021 Assessment & Plan (1) Acute respiratory failure with hypoxia: Plan: Patient is in acute respiratory failure. now mechanically ventilated, with ARDS. Prognosis is poor Defer management to ICU. (2) COVID-19: Plan: COVID-19 with acute respiratory failure and multilobar infiltratesdoes not appear to have a secondary bacterial pneumonia based on his exam/vitals/lab wor kobviously need to maintain vigilance for this, low threshold to initiate antibiotic coverage but none at this time -Has been treated with remdesivir, continue dexamethasone for 10 days unless significant clinical changes -Due to sudden worsening of hypoxia without a clear explanation, heparin was initiated to empirically cover for PEhe is clinically improving, at some point in the near future with his kidney function improving, hopefully we can consider CT to confirm, for now to aid in the ability of hopefully being able to get him out of bed and moving more, we will transition heparin to Eliquis -Patient continues to fail to prone. -as above on cpap. -CRP is increasing despite being on 10 mg of dexamethasone. -encourage nutrition (added Remeron a few days ago, still not really helpingafter discussion of risk/benefit will give trial to Marinol) -will continue above treatment. (3) Multilobar lung infiltrate: Plan: as above. (4) Fatigue: Plan: Encourage activity, encourage out of bed, PT/OT eval and treat, hopefully with better sleep that may start to improve some too. Did get out of bed (5) Weakness: Plan: Appears to be due to the severity of his Covid pneumonia/hypoxiasee above (6) CKD (chronic kidney disease) stage 3, GFR 30-59 ml/min: Plan: Continue to follow creatininestable at this time, certainly stable to administer more Lasix (7) Coronary artery disease: Plan: No angina, continue to monitor (8) Sleep apnea: Plan: Does not want CPAP at this time, perhaps if his is able to bring in his unit from home he may be more amenable (9) Hypertension: Plan: Blood pressures are acceptable given situation (10) Diabetes: Plan: Poorly controlled at baseline as well as acutely. continue to adjust insulinspharmacy is managing at this time (11) Lumbar stenosis with neurogenic claudication: Plan: Will likely represent an impediment to PT/OT once he has improved enough, will need to help him work through this as well (12) DVT prophylaxis: Plan: on eliquis (13) Discharge planning issues: Plan: Remains acutely ill on high flow nasal cannula, continue current level of supportive care. Highly likely to need rehab once he starts to show improvement. Becoming more reassuring with his overall trend looking like it will hopefully be slow improvement Admission and Anticipated Discharge Date Admission Date: April 18, 2021 Subjective 75 yo male is intubated. Review of Systems Review of Systems: Unobtainable due to endotracheal tube Physical Exam Physical Exam: Constitutional: Patient is sedayed and intubated. Eyes: PERRL, conjunctivae normal, anicteric sclerae Respiratory: Moderate resp distress, decreased breath sounds. no adventitious sounds Cardiovascular: RRR, no murmur, no edema Gastrointestinal (Abdomen): normal bowel sounds, soft, nontender, no hepatosplenomegaly Musculoskeletal: Extremities: extremities normal to inspection Skin: no rashes, warm and dry Psychiatric: A+Ox3, euthymic affect Results & Data Results & Data ([facility]) Vital Signs (Past 12 Hours) Vital Signs Temp Pulse Resp BP Pulse Ox 05/01/21 22:37 70 28 H 95 05/01/21 21:30 36.9 C 74 28 H 94 05/01/21 21:00 36.9 C 79 28 H 95 05/01/21 20:30 36.9 C 74 28 H 96 05/01/21 20:00 36.8 C 75 28 H 96 05/01/21 19:48 73 28 H 98 05/01/21 19:30 36.8 C 70 28 H 99 05/01/21 19:00 36.7 C 73 28 H 144/83 H 99 05/01/21 18:00 36.7 C 73 28 H 121/69 98 05/01/21 17:00 36.7 C 74 28 H 124/77 98 05/01/21 16:00 36.7 C 75 28 H 134/77 98 05/01/21 15:00 36.7 C 73 28 H 123/78 96 05/01/21 14:40 73 28 H 93 05/01/21 14:00 36.7 C 77 28 H 127/68 96 05/01/21 13:00 36.8 C 74 28 H 99/51 L 93 05/01/21 12:00 36.8 C 75 28 H 100/51 L 90 05/01/21 11:38 75 28 H 94 PG Care Time/CCT Total # of Minutes Spent Total Time Spent with Patient: Total time spent is greater than 50% in coordination of care (as documented) at patient's floor/unit and/or counseling patient: Coding Level of Care Code 16518 Subseq Hosp Care Lvl 2 Diagnoses Acute respiratory failure with hypoxia J96.01 COVID-19 U07.1 Multilobar lung infiltrate R91.8 Fatigue R53.83 Fatigue type: unspecified Weakness R53.1 CKD (chronic kidney disease) stage 3, GFR 30-59 ml/min N18.3 Coronary artery disease I25.10 Sleep apnea G47.30 Hypertension I10 Diabetes E11.9 Lumbar stenosis with neurogenic claudication M48.062 DVT prophylaxis Z29.9 Discharge planning issues Z02.9 (1) Fatigue Fatigue type: unspecified Qualified Code(s): R53.83 - Other fatigue
[2021-05-02] MEDS: CISATRACURIUM BESYLATE 40 MG in 0.9 % SODIUM CHLORIDE 80 ML IV SCH ×11 (00:49→14:44)
[2021-05-02] MEDS: INSULIN ASPART 100 UNITS/ML 3 ML PEN SC SCH ×6 (01:03→20:46)
[2021-05-02] MEDS: PIPERACILLIN/TAZOBACTAM 4.5 GM in DEXTROSE 5% 100 ML IV SCH ×3 (01:22→16:48)
[2021-05-02] MEDS: DC IV INSULIN INFUSION 1 EA DEVI SCH ×6 (01:30→11:27)
[2021-05-02] MEDS: ARTIFICIAL TEARS OP OINT 3.5 GM TUBE OP SCH ×5 (03:44→18:25)
[2021-05-02] MEDS: propofoL 1,000 MG/100 ML VIAL IV SCH ×6 (03:46→22:42)
[2021-05-02] MEDS: fentaNYL DRIP 1,250 MCG/250 ML BAG IV SCH ×2 (04:02→17:19)
[2021-05-02 04:26] LABS: iSTAT Arterial Blood Gas HCO3 21 meg/L (19-24); iSTAT Arterial Blood Gas pCO2 37 mmHg (35-46); iSTAT Arterial Blood Gas pH 7.37 (7.35-7.45); iSTAT Arterial Blood Gas pO2 54 mmHg (80-95); iSTAT Carbon Dioxide 22 mmol/L (24-31); iSTAT FiO2 70 %; iSTAT Site Art Line
--- NOTE | 2021-05-02 04:47 | Communication Note ---
Date of Service: May 02, 2021 Procedure: Supination Maneuver Attending: Dr. Temple APC: Juan Ramirez PA-C Indication: Requiring lung recruitment intervention in the setting of advanced ARDS with poor lung compliance and oxygenation on standard ventilator settings. Patient requiring supination in the setting of advanced ARDS per imaging, ventilator requirements, and calculated P:F ratio. Appropriate staff was assembled including myself, Respiratory Therapy, and Nursing Staff. A time-out was completed verifying correct patient, time from recent pronation/supination, current ventilator settings, review of any prior issues during pronation/supination maneuvers. Patient was fully undressed as to be able to view all current IV sites, central venous access sites, arterial lines, endotracheal tube, Santiago catheter, etc. After properly identifying/securing all lines, tubes, etc., the patient was ``papoosed using flat sheets. On my count, the patient was slid to the edge of the bed. After reevaluating all lines, tubes, etc., the patient was then placed on their side allowing for RT to maintain control of ET tube and ready for completion of Supination maneuver. Final check of all lines, tubes, etc. was completed by myself and nursing staff. Blood pressure, heart rhythm, and oxygen saturations were monitored for several minutes s/p maneuver. Discussion was held with patients RN and RT regarding ongoing management. Patient tolerated maneuver well. No immediate complications were noted. TIME SUPINE: 0230 I have personally spent 20 minutes of critical care time in the direct management of this patient. This is a life/limb threatening event. This includes time spent evaluating patient, direct bedside care, chart review, placing orders, interpretation of diagnostic studies, discussion with consultants, patient, and family members, as well as other required patient management activities. This time is exclusive of all separately billable procedures, and teaching time and separate from and in addition to any other critical care service time. Coding Level of Care Code Critical Care 1st 30-74 mins Time Spent (min) 20
[2021-05-02 06:19] LABS: Basophils # (auto) 0.01 K/uL (0-0.2); Eosinophils # (auto) 0.36 K/uL (0-0.5); Eosinophils % (auto) 1.6 %; Hematocrit (blood only) 34.5 % (42-52); Hemoglobin 11.5 g/dL (14.0-18.0); Immature Granulocytes # (auto) 0.26 K/uL (0.00-0.02); Immature Granulocytes % (auto) 1.1 %; Lymphocytes # (auto) 0.74 K/uL (1.2-3.4); Lymphocytes % (auto) 3.2 %; Mean Corpuscular Hemoglobin 29.5 pg (25-34); Mean Corpuscular Hgb Conc 33.3 g/dL (32-36); Mean Corpuscular Volume 88.5 fL (80-100); Mean Platelet Volume 9.8 fL (7.4-10.4); Monocytes # (auto) 1.53 K/uL (0.11-0.59); Monocytes % (auto) 6.7 %; Neutrophils % (auto) 87.4 %; Platelet Count 154 K/uL (130-400); RDW Coefficient of Variation 14.6 % (11.5-14.5); RDW Standard Deviation 46.7 fL (36.4-46.3)
[2021-05-02 06:55] LABS: BUN Creatinine Ratio 26.1 (10-20); Calcium 9.1 mg/dl (8.5-10.1); Creatinine Clr Calc Pharmacy 70.8 ml/min; Est GFR (African American) 78.8 ml/min; Magnesium 2.8 mg/dl (1.8-2.4); Potassium 3.9 mmol/L (3.5-5.1)
[2021-05-02 07:21] LABS: Phosphorus 2.4 mg/dl (2.5-4.9)
--- NOTE | 2021-05-02 08:22 | XRay Report ---
SINGLE VIEW CHEST CLINICAL HISTORY: Respiratory failure. Covid pneumonia. FINDINGS: An AP, portable, upright chest radiograph is compared to study dated 05/01/2021. An endotrac heal tube, an enteric tube, and a left internal jugular central venous catheter are unchanged in posi tion. The heart appears enlarged. Pneumomediastinum persists. Multifocal airspace consolidation is ag ain seen throughout both lungs. This is similar to yesterday. No large pleural effusion or pneumothor ax is identified. The skeletal structures are osteopenic. The bony thorax is grossly intact. IMPRESSION: 1. Multifocal airspace consolidation has not significantly changed as compared to yesterday. 2. Pneumomediastinum persists. 3. Stable lines and tubes. ACT 112: Negative or not required by law. Electronically signed by: Stevie Fermin M.D. 05/02/2021 8:20 AM
[2021-05-02] MEDS ORDERED: INSULIN GLARGINE SOLOSTAR 100 UNITS/ML 3 ML PEN SC SCH (09:00)
[2021-05-02] MEDS: cilostazoL 100 MG TAB PO SCH ×2 (09:17→22:43)
[2021-05-02] MEDS: ZINC SULFATE 220 MG CAPSULE PO SCH (09:17)
[2021-05-02] MEDS: PANTOprazole 40 MG in SYRINGE 0 ML IV SCH (09:17)
[2021-05-02] MEDS ORDERED: SODIUM PHOSPHATE 3 MMOL/1 ML INFUSION IV STA (09:18)
[2021-05-02] MEDS ORDERED: SODIUM PHOSPHATE 21 MMOL in SODIUM CHLORIDE 0.9% 500 ML IV ONE (09:30)
[2021-05-02] MEDS ORDERED: dexAMETHasone 6 MG in SYRINGE 0 ML IV ONE (10:30)
[2021-05-02] MEDS ORDERED: INSULIN HUMAN NPH SC SCH (12:00)
[2021-05-02] MEDS: NOREPINEPHRINE/D5W 8 MG/508 ML BAG IV SCH ×2 (13:00→13:26)
--- NOTE | 2021-05-02 14:39 | Pharmacy Report ---
Pharmacy Glycemic Short Note 2 - Date of Service May 02, 2021 - Glycemic Short BSG Results (Last 24 hours): 05/01/21 05/01/21 05/01/21 15:02 16:07 17:23 Glucose POC Glucose (other) 219 H 201 H 180 H 05/01/21 05/01/21 05/01/21 19:17 20:14 21:16 Glucose POC Glucose (other) 154 H 143 H 147 H 05/01/21 05/02/21 05/02/21 23:17 01:23 02:18 Glucose POC Glucose (other) 125 H 106 H 110 H 05/02/21 05/02/21 05/02/21 03:37 04:48 05:49 Glucose 135 H POC Glucose (other) 118 H 136 H 05/02/21 05/02/21 05/02/21 06:43 08:24 10:58 Glucose POC Glucose (other) 131 H 140 H 160 H 05/02/21 12:50 Glucose POC Glucose (other) 176 H OUTPATIENT ANTIDIABETIC REGIMEN: * Canagliflozin 100MG PO daily * Glipizide ER 2.5 mg PO daily * HbA1c: 8.3% (04/19/21) ASSESSMENT: 05/02: * Insulin drip continued yesterday. Drip rate has been running at 5.1 ml/hr. BSGs have been at goal. since last night. * In addition, pt received total 20 units of basal insulin yesterday. AM dose of basal Lantus increased to 20 units this AM. * NPH insulin added this AM as well since pt was started on IV Decadron QAM. Dosed at 0.3 unit/kg. * Will let the insulin drip continue for now since IV steroids is now started and patient continues to be intubated and on pressors. 05/01: * Patient transferred to ICU [facility] yesterday for intubation and bronchos cope. * He was started on stressors and IV sedation with Fentanyl, propofol and Nimbex last night. * Blood sugars trended up to 384 early this AM. Insulin drip started per hyperglycemia protocol. * Basal Lantus dose 15 units (based off doses given early on during this admission) given this AM. BSGs trended down to 286 mg/dl around noon. * Plan for insulin drip to be weaned off this evening, otherwise by tomorrow morning. 04/30: * Patient received total of 109 units of insulin yesterday: 45 units basal NPH + 64 units bolus. * Fasting BSG = 144 mg/dl today. Since Dexamethasone was discontinued, basal NPH discontinued after yesterday's dose. * Lantus HS dose was moved to AM today but since patient was hypoxic last night and started on continuous CPAP, Lantus dose reduced to [address] Sa walker. Spoke to RN, patient's CPAP should not be paused per respiratory and hence he cannot take anything by mouth for now. Novolog dose held this AM. 04/29/21 * Last day of dexamethsone will be today - dc NPH tomorrow when dexamethasone dc. * AM fasting still below goal range despite significant dose reduction in Lantus last evening. Will hold Lantus this AM and restart QAM tomorrow. Will give Lantus when NPH dc. * NovoLog CF/CR will need loosened 04/30 without steroids on board. 04/28/21 * Patient's BSGs yesterday were [phone] mg/dL with fasting today of 68 mg/dL. * Patient received 169 units of insulin with 67 units of basal (22 units of Lantus and 45 units of basal) and 102 units of bolus. * Hypoglycemic this morning with several OJ. Decrease Lantus by 50% to 10 units. * BSGs stable throughout the day. Concern with lower BSG this AM so loosen CR. PLAN FOR INPATIENT GLYCEMIC CONTROL: * Hold outpatient oral diabetes medications * Insulin drip per protocol * Basal insulin * Lantus 20 units SQ AM * Lantus 0-5 units SQ HS based on BSG. * NPH 30 units with IV Decadron QAM * Bolus insulin: ordered but not used since IV insulin drip continues and patient is NPO. * NovoLog per scale ACHS and checks * Goal Range: Low 110 mg/dL - High 140 mg/dL * Correction Factor: __ mg/dL/unit * Nutritional / Prandial insulin per carb ratio of 1 unit per 7 grams CHO consumed PLAN FOR DISCHARGE: * HbA1c of 8.3% is elevated * Reasonable goal may be less than 8% given multiple comorbidities * Options limited based on CKD and reported intolerance to metformin * Continue current outpatient regimen * with eGFR 30-59 mL/min do not exceed Invokana 100 mg daily. * Could consider addition of Lantus 15 units QAM
--- NOTE | 2021-05-02 14:41 | Critical Care Progress Note ---
Date of Service May 02, 2021 Assessment & Plan (1) Multilobar lung infiltrate: (2) Acute respiratory failure with hypoxia: (3) Pleural effusion: (4) Septic shock: (5) Pneumomediastinum: Plan: Neurologic: Continue sedation and analgesia with propofol and fentanyl. Neuromuscular blockade weaned off. Pulmonary: Continue lung protective ventilation strategy. Essentially ARDS secondary to COVID-[address] chest from 04/30/2021 concerning for loculated left hemothorax. No clear pocket for insertion of a chest tube at this time. He does have an increasing leukocytosis. Pulmonary abscess also remains a possibility. Hemoglobin has remained stable. Vent parameters are weaned down considerably. He responded well to proning last night and he has been supine throughout the day without any significant issues. He continues to have persistent pneumomediastinum which is slowly improving. Multifocal airspace opacities stable. Cardiovascular: Maintain mean arterial pressure above 65. Hypotension has improved, but remains on low doses of Levophed possibly related to sedation. May have had septic shock earlier in the hospital course due to an elevated white count and elevated procalcitonin. Gastrointestinal: NPO. PPI twice daily. Renal: ROCKY resolved. Replacing Phos with Neutra-Phos this morning. Electrolytes otherwise acceptable. Infectious disease: Blood cultures negative to date. MRSA screen negative. White count improving. Continue Zosyn. We will recheck procalcitonin tomorrow morning. Possible abscess in the left lower lobe versus hemothorax. Unable to place chest tube as noted above. Hematologic: Hemoglobin trickling down slowly over the past 2 days. We will keep a close eye. We will hold on anticoagulation. Endocrine: Hyperglycemia per ICU protocol VTE prophylaxis: SCDs CODE STATUS: Full code. Poor prognosis overall. Palliative care on board. Disposition: Remain in the ICU I have personally spent 48 minutes of critical care time in the direct management of this patient. This is a life/limb threatening event. This includes time spent evaluating patient, direct bedside care, chart review, placing orders, interpretation of diagnostic studies, discussion with consultants, patient, and family members, as well as other required patient management activities. This time is exclusive of all separately billable procedures, and teaching time and separate from and in addition to any other critical care service time. Thank you for allowing us to participate in the care of this patient. Admission and Anticipated Discharge Date Admission Date: April 18, 2021 Subjective Patient remains on propofol and fentanyl. We were able to wean off neuromuscular blockade this afternoon. His vent parameters are improved with a PEEP of 6 and an FiO2 of 50%. Review of Systems Review of Systems: Unobtainable due to endotracheal tube Physical Exam Physical Exam: Constitutional: Prone position. Intubated. Eyes: Pupils pinpoint. Reactive to light. Ears nose, mouth and throat: ET tube in place. Neck: Trachea midline. Respiratory: Diminished bilaterally. Coarse on the ventilator. Cardiovascular: Regular rate and rhythm. No murmurs. No edema. Gastrointestinal: Normal bowel sounds, soft, nontender and nondistended. No hepatosplenomegaly noted. Musculoskeletal: All extremities intact. Unable to assess movement. Skin: No rashes, warm dry and intact. Neurologic: Paralyzed and sedated Psychiatric: Unable to assess Results & Data Results & Data ([facility]) Vital Signs (Past 12 Hours) Vital Signs Temp Pulse Resp BP Pulse Ox 05/02/21 10:23 26 H 05/02/21 10:21 68 28 H 96 05/02/21 09:00 37.2 C 69 28 H 97 05/02/21 08:30 37.1 C 77 28 H 97 05/02/21 08:00 37.1 C 68 28 H 96 05/02/21 07:30 37.1 C 68 28 H 93 05/02/21 07:00 37.0 C 69 28 H 96 05/02/21 06:28 72 28 H 94 05/02/21 06:00 37.0 C 69 28 H 112/59 L 95 05/02/21 05:30 36.9 C 68 28 H 96 05/02/21 05:00 36.9 C 69 28 H 96 05/02/21 04:30 36.9 C 65 28 H 96 05/02/21 04:00 37.0 C 67 28 H 92 05/02/21 03:30 37.1 C 67 28 H 92 05/02/21 03:00 37.1 C 67 28 H 97 vital signs, labs and imaging personally reviewed Coding Level of Care Code Critical Care 1st 30-74 mins Diagnoses Multilobar lung infiltrate R91.8 Acute respiratory failure with hypoxia J96.01 Pleural effusion J90 Septic shock A41.9; R65.21 Pneumomediastinum J98.2 Time Spent (min) 48
[2021-05-02] MEDS: INSULIN GLARGINE SOLOSTAR 100 UNITS/ML 3 ML PEN SC SCH (20:46)
[2021-05-02] MEDS: INSULIN REGULAR 250 UNITS in SODIUM CHLORIDE 0.9% 247.5 ML IV SCH (20:47)
[2021-05-02] MEDS: PRAVASTATIN SOD 40 MG TAB PO SCH (22:44)
--- NOTE | 2021-05-02 23:21 | Hospitalist Progress Note ---
Date of Service May 02, 2021 Assessment & Plan (1) Acute respiratory failure with hypoxia: Plan: Patient is in acute respiratory failure. now mechanically ventilated, with ARDS. Prognosis is poor Defer management to ICU. (2) COVID-19: Plan: COVID-19 with acute respiratory failure and multilobar infiltratesdoes not appear to have a secondary bacterial pneumonia based on his exam/vitals/lab wor kobviously need to maintain vigilance for this, low threshold to initiate antibiotic coverage but none at this time -Has been treated with remdesivir, continue dexamethasone for 10 days unless significant clinical changes -Due to sudden worsening of hypoxia without a clear explanation, heparin was initiated to empirically cover for PEhe is clinically improving, at some point in the near future with his kidney function improving, hopefully we can consider CT to confirm, for now to aid in the ability of hopefully being able to get him out of bed and moving more, we will transition heparin to Eliquis -Patient continues to fail to prone. -as above on cpap. -CRP is increasing despite being on 10 mg of dexamethasone. -encourage nutrition (added Remeron a few days ago, still not really helpingafter discussion of risk/benefit will give trial to Marinol) -will continue above treatment. (3) Multilobar lung infiltrate: Plan: as above. (4) Fatigue: Plan: Encourage activity, encourage out of bed, PT/OT eval and treat, hopefully with better sleep that may start to improve some too. Did get out of bed (5) Weakness: Plan: Appears to be due to the severity of his Covid pneumonia/hypoxiasee above (6) CKD (chronic kidney disease) stage 3, GFR 30-59 ml/min: Plan: Continue to follow creatininestable at this time, certainly stable to administer more Lasix (7) Coronary artery disease: Plan: No angina, continue to monitor (8) Sleep apnea: Plan: Does not want CPAP at this time, perhaps if his is able to bring in his unit from home he may be more amenable (9) Hypertension: Plan: Blood pressures are acceptable given situation (10) Diabetes: Plan: Poorly controlled at baseline as well as acutely. continue to adjust insulinspharmacy is managing at this time (11) Lumbar stenosis with neurogenic claudication: Plan: Will likely represent an impediment to PT/OT once he has improved enough, will need to help him work through this as well (12) DVT prophylaxis: Plan: on eliquis (13) Discharge planning issues: Plan: Remains acutely ill on high flow nasal cannula, continue current level of supportive care. Highly likely to need rehab once he starts to show improvement. Becoming more reassuring with his overall trend looking like it will hopefully be slow improvement Admission and Anticipated Discharge Date Admission Date: April 18, 2021 Subjective Patient is sedated. Review of Systems Review of Systems: Unobtainable due to cognitive status Physical Exam Physical Exam: Constitutional: Patient is sedayed and intubated. Eyes: PERRL, conjunctivae normal, anicteric sclerae Respiratory: decreased breath sounds. no adventitious sounds Cardiovascular: RRR, no murmur, no edema Gastrointestinal (Abdomen): normal bowel sounds, soft, nontender, no hepatosplenomegaly Musculoskeletal: Extremities: extremities normal to inspection Skin: no rashes, warm and dry Psychiatric: sedated Results & Data Results & Data ([facility]) Vital Signs (Past 12 Hours) Vital Signs Temp Pulse Resp Pulse Ox 05/02/21 18:48 66 05/02/21 17:54 76 31 H 90 05/02/21 16:00 37.1 C 53 L 26 H 92 05/02/21 15:30 37.1 C 54 L 26 H 92 05/02/21 15:00 37.1 C 59 L 26 H 90 05/02/21 14:52 61 26 H 93 05/02/21 14:30 37.1 C 57 L 26 H 89 L 05/02/21 14:00 37.1 C 59 L 26 H 92 05/02/21 13:30 37.1 C 62 26 H 92 05/02/21 13:00 37.0 C 72 26 H 91 05/02/21 12:30 37.1 C 62 26 H 94 05/02/21 12:00 37.2 C 64 26 H 96 05/02/21 11:30 37.2 C 67 26 H 95 PG Care Time/CCT Total # of Minutes Spent Total Time Spent with Patient: Total time spent is greater than 50% in coordination of care (as documented) at patient's floor/unit and/or counseling patient: Coding Level of Care Code 87970 Subseq Hosp Care Lvl 2 Diagnoses Acute respiratory failure with hypoxia J96.01 COVID-19 U07.1 Multilobar lung infiltrate R91.8 Fatigue R53.83 Fatigue type: unspecified Weakness R53.1 CKD (chronic kidney disease) stage 3, GFR 30-59 ml/min N18.3 Coronary artery disease I25.10 Sleep apnea G47.30 Hypertension I10 Diabetes E11.9 Lumbar stenosis with neurogenic claudication M48.062 DVT prophylaxis Z29.9 Discharge planning issues Z02.9 (1) Fatigue Fatigue type: unspecified Qualified Code(s): R53.83 - Other fatigue
[2021-05-02] MEDS: MIRTAZAPINE TAB 15 MG TAB PO SCH (23:54)
[2021-05-03] MEDS: ARTIFICIAL TEARS OP OINT 3.5 GM TUBE OP SCH ×4 (01:12→10:02)
[2021-05-03] MEDS: PIPERACILLIN/TAZOBACTAM 4.5 GM in DEXTROSE 5% 100 ML IV SCH ×3 (01:12→17:02)
[2021-05-03] MEDS: propofoL 1,000 MG/100 ML VIAL IV SCH ×3 (04:10→15:03)
[2021-05-03 04:13] LABS: iSTAT Art Bld Gas pCO2 Correct 33 mmHg (35-46); iSTAT Art Bld Gas pH Corrected 7.449 (7.35-7.45); iSTAT Arterial Blood Gas HCO3 23 meg/L (19-24); iSTAT Arterial Blood Gas pCO2 34 mmHg (35-46); iSTAT Arterial Blood Gas pH 7.44 (7.35-7.45); iSTAT Arterial Blood Gas pO2 53 mmHg (80-95); iSTAT Arterial Blood Gas pO2 C 51; iSTAT Carbon Dioxide 24 mmol/L (24-31); iSTAT FiO2 45 %; iSTAT Hematocrit 25 % (42-52); iSTAT Hemoglobin 8.5 g/dl (14.0-18.0); iSTAT Potassium 4.3 mmol/L (3.3-5.0); iSTAT Site Art Line; iSTAT Sodium 141 mmol/L (135-144)
[2021-05-03 06:19] LABS: Hematocrit (blood only) 28.5 % (42-52); Hemoglobin 9.3 g/dL (14.0-18.0); Immature Granulocytes % (auto) 1.3 %; Lymphocytes # (auto) 0.57 K/uL (1.2-3.4); Lymphocytes % (auto) 3.6 %; Mean Corpuscular Hemoglobin 29.1 pg (25-34); Mean Corpuscular Hgb Conc 32.6 g/dL (32-36); Mean Corpuscular Volume 89.1 fL (80-100); Mean Platelet Volume 10.1 fL (7.4-10.4); Monocytes # (auto) 1.22 K/uL (0.11-0.59); Monocytes % (auto) 7.7 %; Neutrophils % (auto) 87.4 %; Platelet Count 136 K/uL (130-400); RDW Coefficient of Variation 14.8 % (11.5-14.5); RDW Standard Deviation 48.7 fL (36.4-46.3); White Blood Count 15.79 K/uL (4.8-10.8)
[2021-05-03 06:54] LABS: BUN Creatinine Ratio 21.2 (10-20); Calcium 8.9 mg/dl (8.5-10.1); Creatinine Clr Calc Pharmacy 66.8 ml/min; Est GFR (African American) 71.5 ml/min; Est GFR (Non-African American) 61.7 ml/min; Magnesium 2.9 mg/dl (1.8-2.4); Potassium 4.3 mmol/L (3.5-5.1)
[2021-05-03 06:56] LABS: Phosphorus 2.9 mg/dl (2.5-4.9)
--- NOTE | 2021-05-03 08:01 | XRay Report ---
XR chest 1V portable HISTORY: Shortness of breath. follow up pneumonia COMPARISON: Chest 05/02/2021. FINDINGS: The endotracheal tube terminates 5.7 cm from the ana. Left jugular central venous cathet er terminates at the proximal SVC. No pneumothorax. Patchy bilateral airspace opacities have slightly progressed. This is most pronounced within the left lower lobe. The heart remains borderline enlarge d. No evidence for pulmonary edema. Nasogastric tube terminates below the diaphragm. The tip is not i ncluded on this study. Slight improvement in the pneumomediastinum. IMPRESSION: 1. Satisfactory support line placement. 2. Slight progression of the patchy bilateral airspace opacities consistent with a viral pneumonia. 3. The pneumomediastinum appears to have improved. ACT 112: Negative or not required by law. Electronically signed by: Carlton Odonnell M.D. 05/03/2021 8:00 AM
[2021-05-03] MEDS ORDERED: hydrALAZINE HCL 20 MG/ML VIAL IV STA (08:03)
[2021-05-03] MEDS ORDERED: hydrALAZINE HCL 20 MG/ML VIAL ONE (08:05)
[2021-05-03] MEDS: INSULIN ASPART 100 UNITS/ML 3 ML PEN SC SCH ×4 (08:58→20:40)
[2021-05-03] MEDS ORDERED: INSULIN GLARGINE SOLOSTAR 100 UNITS/ML 3 ML PEN SC SCH ×3 (09:00→18:45)
[2021-05-03] MEDS: cilostazoL 100 MG TAB PO SCH ×2 (09:16→20:39)
[2021-05-03] MEDS: dexAMETHasone 6 MG in SYRINGE 0 ML IV SCH (09:17)
[2021-05-03] MEDS: PANTOprazole 40 MG in SYRINGE 0 ML IV SCH (09:17)
[2021-05-03] MEDS: ZINC SULFATE 220 MG CAPSULE PO SCH (09:17)
[2021-05-03 10:59] LABS: Basophils # (auto) 0.01 K/uL (0-0.2); Basophils % (auto) 0.1 %; Eosinophils # (auto) 0.01 K/uL (0-0.5); Eosinophils % (auto) 0.1 %; Hematocrit (blood only) 27.5 % (42-52); Hemoglobin 9.1 g/dL (14.0-18.0); Immature Granulocytes # (auto) 0.19 K/uL (0.00-0.02); Immature Granulocytes % (auto) 1.4 %; Lymphocytes # (auto) 0.47 K/uL (1.2-3.4); Lymphocytes % (auto) 3.6 %; Mean Corpuscular Hemoglobin 29.5 pg (25-34); Mean Corpuscular Hgb Conc 33.1 g/dL (32-36); Mean Corpuscular Volume 89.3 fL (80-100); Mean Platelet Volume 9.5 fL (7.4-10.4); Monocytes # (auto) 0.71 K/uL (0.11-0.59); Monocytes % (auto) 5.4 %; Neutrophils # (auto) 11.82 K/uL (1.4-6.5); Neutrophils % (auto) 89.4 %; Platelet Count 124 K/uL (130-400); RDW Coefficient of Variation 14.8 % (11.5-14.5); RDW Standard Deviation 48.2 fL (36.4-46.3); Red Blood Count 3.08 M/uL (4.7-6.1); White Blood Count 13.21 K/uL (4.8-10.8)
[2021-05-03] MEDS: fentaNYL DRIP 1,250 MCG/250 ML BAG IV SCH (11:59)
--- NOTE | 2021-05-03 12:22 | Critical Care Progress Note ---
Date of Service May 03, 2021 Assessment & Plan (1) Multilobar lung infiltrate: (2) Acute respiratory failure with hypoxia: (3) Pleural effusion: (4) Septic shock: (5) Pneumomediastinum: Plan: Neurologic: Continue sedation and analgesia with propofol and fentanyl. Neuromuscular blockade weaned off. Pulmonary: Continue lung protective ventilation strategy. Essentially ARDS secondary to COVID-[address] chest from 04/30/2021 concerning for loculated left hemothorax. No clear pocket for insertion of a chest tube at this time. He does have an increasing leukocytosis. Pulmonary abscess also remains a possibility. Hemoglobin has remained stable. Vent parameters are weaned down considerably. He continues to have persistent pneumomediastinum which is slowly improving. Multifocal airspace opacities stable. Vent parameters improved today. Did not tolerate spontaneous breathing trial. Will reattempt tomorrow. Cardiovascular: Maintain mean arterial pressure above 65. Hypotension has improved, but remains on low doses of Levophed possibly related to sedation. May have had septic shock earlier in the hospital course due to an elevated white count and elevated procalcitonin. Gastrointestinal: Continue tube feeds. PPI twice daily. Renal: ROCKY resolved. Replacing Phos with Neutra-Phos this morning. Electrolytes otherwise acceptable. Infectious disease: Blood cultures negative to date. MRSA screen negative. White count improving. Continue Zosyn. Procalcitonin substantially improved. Possible abscess in the left lower lobe versus hemothorax. Unable to place chest tube as noted above. Hematologic: Hemoglobin trickling down slowly over the past 2 days. Hemoglobin dropped from 11.5-9.3 as compared to yesterday. Recheck at 1042 stable at 9.1. Platelets decreased slightly to 124,000. Continue to hold anticoagulation. Endocrine: Hyperglycemia per ICU protocol VTE prophylaxis: SCDs CODE STATUS: Full code. Poor prognosis overall. Palliative care on board. Disposition: Remain in the ICU I have personally spent 41 minutes of critical care time in the direct management of this patient. This is a life/limb threatening event. This includes time spent evaluating patient, direct bedside care, chart review, placing orders, interpretation of diagnostic studies, discussion with consultants, patient, and family members, as well as other required patient management activities. This time is exclusive of all separately billable procedures, and teaching time and separate from and in addition to any other critical care service time. Thank you for allowing us to participate in the care of this patient. Admission and Anticipated Discharge Date Admission Date: April 18, 2021 Subjective Patient seen and examined today. Performed a spontaneous awakening trial and spontaneous breathing trial. Patient did not tolerate spontaneous breathing trial desaturated to the low 80s with a respiratory rate in the 30s. Placed back on sedation with propofol and fentanyl. Review of Systems Review of Systems: Unobtainable due to endotracheal tube Physical Exam Physical Exam: Constitutional: Intubated. Eyes: Pupils pinpoint. Reactive to light. Ears nose, mouth and throat: ET tube in place. Neck: Trachea midline. Respiratory: Diminished bilaterally. Coarse on the ventilator. Cardiovascular: Regular rate and rhythm. No murmurs. No edema. Gastrointestinal: Normal bowel sounds, soft, nontender and nondistended. No hepatosplenomegaly noted. Musculoskeletal: All extremities intact. Unable to assess movement. Skin: No rashes, warm dry and intact. Neurologic: sedated Psychiatric: Unable to assess Results & Data Results & Data ([facility]) Vital Signs (Past 12 Hours) Vital Signs Temp Pulse Resp BP Pulse Ox 05/03/21 12:00 37.2 C 52 L 27 H 126/58 L 92 05/03/21 11:22 100/49 L 05/03/21 11:01 48 L 26 H 94 05/03/21 11:00 37.0 C 62 27 H 145/46 H 92 05/03/21 10:01 37.0 C 50 L 26 H 121/61 93 05/03/21 09:00 36.9 C 55 L 27 H 147/53 H 93 05/03/21 08:18 193/70 H 05/03/21 08:00 46 L 05/03/21 07:00 36.5 C 47 L 27 H 146/67 H 94 05/03/21 06:19 46 L 26 H 92 05/03/21 05:30 36.4 C L 46 L 26 H 92 05/03/21 05:00 36.4 C L 46 L 26 H 136/64 05/03/21 04:30 36.5 C 46 L 26 H 92 05/03/21 04:00 36.5 C 47 L 26 H 90 05/03/21 03:30 36.5 C 49 L 26 H 89 L 05/03/21 03:00 36.6 C 48 L 26 H 132/62 89 L 05/03/21 02:00 36.6 C 52 L 26 H 92 05/03/21 01:49 52 L 26 H 90 05/03/21 01:00 36.7 C 47 L 26 H 87 L Coding Level of Care Code Critical Care 1st 30-74 mins Diagnoses Multilobar lung infiltrate R91.8 Acute respiratory failure with hypoxia J96.01 Pleural effusion J90 Septic shock A41.9; R65.21 Pneumomediastinum J98.2 Time Spent (min) 41
--- NOTE | 2021-05-03 13:49 | Palliative Care Progress Note ---
Date of Service May 03, 2021 Assessment & Plan (1) Palliative care encounter: Plan: Mr. Wagner son, Ubaldo called in to talk with Palliative. I called him back and talked at length regarding his current status, including his failed SBT today. We talked about the process of trying an SBT and what it entails. He is fully understanding of his Dad's complex illness and for now would like to continue with aggressive measures; however, recognizes that cardiac intervention like CPR or defibrillation would likely have little to no benefit for his recovery, would like to switch his Dad to a DNR and if he were to be extubation, he, at this time, would not like him to be reintubated. We did discuss a tracheostomy and he does not think that his father would want that if he were not showing signs of improvement. For now, palliative will follow. (2) COVID-19: (3) Hypoxia: (4) Weakness: Admission and Anticipated Discharge Date Admission Date: April 18, 2021 Subjective Pt seen and examined Pt failed an SBT and was placed back on rate. Review of Systems Review of Systems: Unobtainable due to endotracheal tube Physical Exam Skin: + ecchymosis and + pallor Neurologic: + obtunded (on ventilator ) Results & Data ([facility]) Vital Signs (Past 12 Hours) Vital Signs Temp Pulse Resp BP Pulse Ox 05/03/21 13:00 37.2 C 49 L 27 H 129/46 L 95 05/03/21 12:00 37.2 C 52 L 27 H 126/58 L 92 05/03/21 11:22 100/49 L 05/03/21 11:01 48 L 26 H 94 05/03/21 11:00 37.0 C 62 27 H 145/46 H 92 05/03/21 10:01 37.0 C 50 L 26 H 121/61 93 05/03/21 09:00 36.9 C 55 L 27 H 147/53 H 93 05/03/21 08:18 193/70 H 05/03/21 08:00 46 L 05/03/21 07:00 36.5 C 47 L 27 H 146/67 H 94 05/03/21 06:19 46 L 26 H 92 05/03/21 05:30 36.4 C L 46 L 26 H 92 05/03/21 05:00 36.4 C L 46 L 26 H 136/64 05/03/21 04:30 36.5 C 46 L 26 H 92 05/03/21 04:00 36.5 C 47 L 26 H 90 05/03/21 03:30 36.5 C 49 L 26 H 89 L 05/03/21 03:00 36.6 C 48 L 26 H 132/62 89 L 05/03/21 02:00 36.6 C 52 L 26 H 92 PG Care Time/CCT Total # of Minutes Spent Total Time Spent with Patient: Total time spent is greater than 50% in coordination of care (as documented) at patient's floor/unit and/or counseling patient: 35 minutes Coding Level of Care Code 16627 Subseq Hosp Care Lvl 3 Diagnoses Palliative care encounter Z51.5 COVID-19 U07.1 Hypoxia R09.02 Weakness R53.1 Time Spent (min) 35
[2021-05-03] MEDS: PEPTAMEN INTENSE VHP 1.0 CAL 1,000 ML BAG OG SCH (13:54)
[2021-05-03] MEDS: TUBE FEEDING WATER FLUSH OG SCH ×3 (14:01→20:39)
--- NOTE | 2021-05-03 14:45 | Pharmacy Report ---
Pharmacy Glycemic Short Note 2 - Date of Service May 03, 2021 - Glycemic Short BSG Results (Last 24 hours): 05/02/21 05/02/21 05/02/21 14:40 16:25 18:19 Glucose POC Glucose (other) 177 H 175 H 170 H 05/02/21 05/02/21 05/02/21 20:44 22:44 23:59 Glucose POC Glucose (other) 153 H 131 H 122 H 05/03/21 05/03/21 05/03/21 01:14 02:00 03:38 Glucose POC Glucose (other) 129 H 130 H 132 H 05/03/21 05/03/21 05/03/21 05:03 05:27 05:32 Glucose 136 H POC Glucose (other) 135 H 135 H 05/03/21 05/03/21 05/03/21 06:36 07:54 09:10 Glucose POC Glucose (other) 132 H 133 H 126 H 05/03/21 09:59 Glucose POC Glucose (other) 129 H OUTPATIENT ANTIDIABETIC REGIMEN: * Canagliflozin 100MG PO daily * Glipizide ER 2.5 mg PO daily * HbA1c: 8.3% (04/19/21) ASSESSMENT: 05/03 * Patient continues on insulin infusion + Lantus 20 units daily (will not go above due to hypoglycemia with Lantus 22 units). Insulin infusion rate has decreased to 1.7 units/hr with BSGs at goal. * Patient failed sedation vacation. Initiating tube feeds. Continues on low dose norepinephrine. * Set CR of 4 for now --- may need to be more aggressive with carbohydrate ratio depending on how BSGs are. * Will not d/c insulin infusion until effects of tube feeds are seen. 05/02: * Insulin drip continued yesterday. Drip rate has been running at 5.1 ml/hr. BSGs have been at goal. since last night. * In addition, pt received total 20 units of basal insulin yesterday. AM dose of basal Lantus increased to 20 units this AM. * NPH insulin added this AM as well since pt was started on IV Decadron QAM. Dosed at 0.3 unit/kg. * Will let the insulin drip continue for now since IV steroids is now started and patient continues to be intubated and on pressors. 05/01: * Patient transferred to ICU [facility] yesterday for intubation and bronchoscope. * He was started on stressors and IV sedation with Fentanyl, propofol and Nimbex last night. * Blood sugars trended up to 384 early this AM. Insulin drip started per hyperglycemia protocol. * Basal Lantus dose 15 units (based off doses given early on during this admission) given this AM. BSGs trended down to 286 mg/dl around noon. * Plan for insulin drip to be weaned off this evening, otherwise by tomorrow morning. 04/30: * Patient received total of 109 units of insulin yesterday: 45 units basal NPH + 64 units bolus. * Fasting BSG = 144 mg/dl today. Since Dexamethasone was discontinued, basal NPH discontinued after yesterday's dose. * Lantus HS dose was moved to AM today but since patient was hypoxic last night and started on continuous CPAP, Lantus dose reduced to [address] Burks. Spoke to RN, patient's CPAP should not be paused per respiratory and hence he cannot take anything by mouth for now. Novolog dose held this AM. 04/29/21 * Last day of dexamethsone will be today - dc NPH tomorrow when dexamethasone dc. * AM fasting still below goal range despite significant dose reduction in Lantus last evening. Will hold Lantus this AM and restart QAM tomorrow. Will give Lantus when NPH dc. * NovoLog CF/CR will need loosened 04/30 without steroids on board. 04/28/21 * Patient's BSGs yesterday were [phone] mg/dL with fasting today of 68 mg/dL. * Patient received 169 units of insulin with 67 units of basal (22 units of Lantus and 45 units of basal) and 102 units of bolus. * Hypoglycemic this morning with several OJ. Decrease Lantus by 50% to 10 units. * BSGs stable throughout the day. Concern with lower BSG this AM so loosen CR. PLAN FOR INPATIENT GLYCEMIC CONTROL: * Hold outpatient oral diabetes medications * Insulin drip per protocol * Basal insulin * Lantus 20 units SQ AM * Bolus insulin: * NovoLog per scale ACHS and ,04 checks * Goal Range: Low 110 mg/dL - High 140 mg/dL * Correction Factor: -- mg/dL/unit * Nutritional / Prandial insulin per carb ratio of 1 unit per 4 grams CHO consumed PLAN FOR DISCHARGE: * HbA1c of 8.3% is elevated * Reasonable goal may be less than 8% given multiple comorbidities * Options limited based on CKD and reported intolerance to metformin * Continue current outpatient regimen * with eGFR 30-59 mL/min do not exceed Invokana 100 mg daily. * Could consider addition of Lantus 15 units QAM
[2021-05-03] MEDS ORDERED: VANCOMYCIN TROUGH ONE (15:30)
[2021-05-03] MEDS: PRAVASTATIN SOD 40 MG TAB PO SCH (20:38)
[2021-05-03] MEDS: MIRTAZAPINE TAB 15 MG TAB PO SCH (20:38)
[2021-05-03] MEDS: NOREPINEPHRINE/D5W 8 MG/508 ML BAG IV SCH (20:55)
--- NOTE | 2021-05-03 22:57 | Hospitalist Progress Note ---
Date of Service May 03, 2021 Assessment & Plan (1) Acute respiratory failure with hypoxia: Plan: Patient is in acute respiratory failure. now mechanically ventilated, with ARDS. Prognosis is poor Pneumomediastinum is slowly improving. Defer management to ICU. (2) COVID-19: Plan: COVID-19 with acute respiratory failure and multilobar infiltratesdoes not appear to have a secondary bacterial pneumonia based on his exam/vitals/lab workobviously need to maintain vigilance for this, low threshold to initiate antibiotic coverage but none at this time -Has been treated with remdesivir, continue dexamethasone for 10 days unless significant clinical changes -Due to sudden worsening of hypoxia without a clear explanation, heparin was initiated to empirically cover for PEhe is clinically improving, at some point in the near future with his kidney function improving, hopefully we can consider CT to confirm, for now to aid in the ability of hopefully being able to get him out of bed and moving more, we will transition heparin to Eliquis -Patient continues to fail to prone. -as above on cpap. -CRP is increasing despite being on 10 mg of dexamethasone. -encourage nutrition (added Remeron a few days ago, still not really helpingafter discussion of risk/benefit will give trial to Marinol) -will continue above treatment. (3) Multilobar lung infiltrate: Plan: as above. (4) Fatigue: Plan: Encourage activity, encourage out of bed, PT/OT eval and treat, hopefully with better sleep that may start to improve some too. Did get out of bed (5) Weakness: Plan: Appears to be due to the severity of his Covid pneumonia/hypoxiasee above (6) CKD (chronic kidney disease) stage 3, GFR 30-59 ml/min: Plan: Continue to follow creatininestable at this time, certainly stable to administer more Lasix (7) Coronary artery disease: Plan: No angina, continue to monitor (8) Sleep apnea: Plan: Does not want CPAP at this time, perhaps if his is able to bring in his unit from home he may be more amenable (9) Hypertension: Plan: Blood pressures are acceptable given situation (10) Diabetes: Plan: Poorly controlled at baseline as well as acutely. continue to adjust insulinspharmacy is managing at this time (11) Lumbar stenosis with neurogenic claudication: Plan: Will likely represent an impediment to PT/OT once he has improved enough, will need to help him work through this as well (12) DVT prophylaxis: Plan: on eliquis (13) Discharge planning issues: Plan: Remains acutely ill on high flow nasal cannula, continue current level of supportive care. Highly likely to need rehab once he starts to show improvement. Becoming more reassuring with his overall trend looking like it will hopefully be slow improvement Admission and Anticipated Discharge Date Admission Date: April 18, 2021 Subjective Patient is intubated. Review of Systems Review of Systems: Unobtainable due to endotracheal tube Physical Exam Physical Exam: Constitutional: Patient is sedayed and intubated. Eyes: PERRL, conjunctivae normal, anicteric sclerae Respiratory: decreased breath sounds. no adventitious sounds Cardiovascular: RRR, no murmur, no edema Gastrointestinal (Abdomen): normal bowel sounds, soft, nontender, no hepatosplenomegaly Musculoskeletal: Extremities: extremities normal to inspection Skin: no rashes, warm and dry Psychiatric: sedated Results & Data Results & Data ([facility]) Vital Signs (Past 12 Hours) Vital Signs Temp Pulse Pulse Resp BP BP Pulse Ox 05/03/21 22:30 37.2 C 51 L 26 H 90 05/03/21 22:00 37.2 C 51 L 26 H 120/61 90 05/03/21 21:30 37.2 C 52 L 26 H 90 05/03/21 21:00 37.2 C 54 L 26 H 108/54 L 90 05/03/21 20:30 37.2 C 51 L 26 H 88 L 05/03/21 20:00 37.1 C 53 L 26 H 150/66 H 86 L 05/03/21 19:30 37.1 C 51 L 26 H 90 05/03/21 19:00 37.0 C 50 L 26 H 137/62 92 05/03/21 18:00 37.0 C 44 L 26 H 134/47 L 92 05/03/21 17:34 49 L 05/03/21 17:00 37.2 C 48 L 27 H 126/63 93 05/03/21 16:00 37.2 C 50 L 27 H 144/49 H 92 05/03/21 15:00 37.0 C 52 L 26 H 110/58 L 94 05/03/21 14:21 54 L 26 H 95 05/03/21 14:00 37.2 C 54 L 27 H 138/63 94 05/03/21 13:00 37.2 C 49 L 27 H 129/46 L 95 05/03/21 12:00 37.2 C 52 L 27 H 126/58 L 92 05/03/21 11:22 100/49 L 05/03/21 11:01 48 L 26 H 94 05/03/21 11:00 37.0 C 62 27 H 145/46 H 92 PG Care Time/CCT Total # of Minutes Spent Total Time Spent with Patient: Total time spent is greater than 50% in coordination of care (as documented) at patient's floor/unit and/or counseling patient: Coding Level of Care Code 28464 Subseq Hosp Care Lvl 2 Diagnoses Acute respiratory failure with hypoxia J96.01 COVID-19 U07.1 Multilobar lung infiltrate R91.8 Fatigue R53.83 Fatigue type: unspecified Weakness R53.1 CKD (chronic kidney disease) stage 3, GFR 30-59 ml/min N18.3 Coronary artery disease I25.10 Sleep apnea G47.30 Hypertension I10 Diabetes E11.9 Lumbar stenosis with neurogenic claudication M48.062 DVT prophylaxis Z29.9 Discharge planning issues Z02.9 (1) Fatigue Fatigue type: unspecified Qualified Code(s): R53.83 - Other fatigue
[2021-05-04] MEDS: TUBE FEEDING WATER FLUSH OG SCH ×6 (00:41→20:16)
[2021-05-04] MEDS: INSULIN ASPART 100 UNITS/ML 3 ML PEN SC SCH ×6 (00:42→20:15)
[2021-05-04] MEDS: propofoL 1,000 MG/100 ML VIAL IV SCH ×5 (00:43→21:57)
[2021-05-04] MEDS: PIPERACILLIN/TAZOBACTAM 4.5 GM in DEXTROSE 5% 100 ML IV SCH ×3 (01:57→17:04)
[2021-05-04] MEDS: fentaNYL DRIP 1,250 MCG/250 ML BAG IV SCH ×2 (02:55→13:12)
[2021-05-04] MEDS: NOREPINEPHRINE/D5W 8 MG/508 ML BAG IV SCH (02:55)
[2021-05-04 05:12] LABS: iSTAT Arterial Blood Gas HCO3 23 meg/L (19-24); iSTAT Arterial Blood Gas pCO2 34 mmHg (35-46); iSTAT Arterial Blood Gas pH 7.43 (7.35-7.45); iSTAT Arterial Blood Gas pO2 56 mmHg (80-95); iSTAT Carbon Dioxide 24 mmol/L (24-31); iSTAT FiO2 40 %; iSTAT Site Art Line
[2021-05-04 07:29] LABS: Basophils # (auto) 0.01 K/uL (0-0.2); Basophils % (auto) 0.1 %; Eosinophils # (auto) 0.02 K/uL (0-0.5); Eosinophils % (auto) 0.2 %; Hematocrit (blood only) 26.5 % (42-52); Hemoglobin 8.7 g/dL (14.0-18.0); Immature Granulocytes # (auto) 0.19 K/uL (0.00-0.02); Immature Granulocytes % (auto) 1.8 %; Lymphocytes # (auto) 0.83 K/uL (1.2-3.4); Lymphocytes % (auto) 7.8 %; Mean Corpuscular Hemoglobin 29.6 pg (25-34); Mean Corpuscular Hgb Conc 32.8 g/dL (32-36); Mean Corpuscular Volume 90.1 fL (80-100); Mean Platelet Volume 9.7 fL (7.4-10.4); Monocytes # (auto) 0.89 K/uL (0.11-0.59); Monocytes % (auto) 8.4 %; Neutrophils # (auto) 8.66 K/uL (1.4-6.5); Neutrophils % (auto) 81.7 %; Platelet Count 120 K/uL (130-400); RDW Coefficient of Variation 14.9 % (11.5-14.5); RDW Standard Deviation 49.3 fL (36.4-46.3); Red Blood Count 2.94 M/uL (4.7-6.1)
[2021-05-04] MEDS: cilostazoL 100 MG TAB PO SCH ×2 (07:58→19:56)
[2021-05-04 08:02] LABS: BUN Creatinine Ratio 25.4 (10-20); Creatinine Clr Calc Pharmacy 70.6 ml/min; Est GFR (African American) 75.4 ml/min; Est GFR (Non-African American) 65.1 ml/min; Magnesium 2.8 mg/dl (1.8-2.4); Potassium 4.3 mmol/L (3.5-5.1)
[2021-05-04 08:03] LABS: Phosphorus 2.9 mg/dl (2.5-4.9)
[2021-05-04] MEDS: dexAMETHasone 6 MG in SYRINGE 0 ML IV SCH (08:04)
[2021-05-04] MEDS: PANTOprazole 40 MG in SYRINGE 0 ML IV SCH (08:05)
[2021-05-04] MEDS: ZINC SULFATE 220 MG CAPSULE PO SCH (08:08)
--- NOTE | 2021-05-04 08:40 | XRay Report ---
XR chest 1V portable CLINICAL HISTORY: Respiratory failure. COMPARISON STUDY: Chest CT April 30, 2021. Chest radiograph May 03, 2021. FINDINGS: Tip of endotracheal tube is 4.9 cm above the ana. Left internal jugular central line rem ains in place. Tip of nasogastric tube is below the lower aspect of this image but at least within th e proximal stomach. No definite residual pneumomediastinum is identified. Extensive bilateral airspac e opacities, greater on the left, persists. There is a probable small left pleural effusion. IMPRESSION: 1. Satisfactory positioning of lines and tubes. 2. No significant change in bilateral airspace opacities, greater within the left lung. 3. Suspected small left pleural effusion. ACT 112: Negative or not required by law. Electronically signed by: Alon Cervantes M.D. 05/04/2021 8:39 AM
[2021-05-04] MEDS ORDERED: INSULIN GLARGINE SOLOSTAR 100 UNITS/ML 3 ML PEN SC SCH (09:00)
[2021-05-04] MEDS ORDERED: hydrALAZINE HCL 20 MG/ML VIAL IV PRN (09:26)
[2021-05-04] MEDS ORDERED: STAT IV Infusion **Titration per Protocol STA ×2 (09:32→12:05)
[2021-05-04] MEDS ORDERED: DEXMEDETOMIDINE HCL 200 MCG in SODIUM CHLORIDE 0.9% 48 ML IV SCH (09:45)
--- NOTE | 2021-05-04 11:20 | Hospitalist Progress Note ---
Date of Service May 04, 2021 Assessment & Plan (1) Acute respiratory failure with hypoxia: Plan: Patient is in acute respiratory failure. now mechanically ventilated, with ARDS. Prognosis is poor Pneumomediastinum two days in a row he did not do well with SBT palliative spoke with his son, he is a DNR/DNI continue to assess for possible extubation (2) COVID-19: Plan: getting worse, CRP trending up, remains ventilated completed course of Remdesivir continue dexamethasone treating possible secondary infection with Zosyn (3) Multilobar lung infiltrate: Plan: as above. (4) Weakness: Plan: Appears to be due to the severity of his Covid pneumonia/hypoxiasee above (5) CKD (chronic kidney disease) stage 3, GFR 30-59 ml/min: Plan: Continue to follow creatininestable at this time, certainly stable to administer more Lasix (6) Coronary artery disease: Plan: No angina, continue to monitor (7) Sleep apnea: Plan: intubated and ventilated (8) Hypertension: Plan: Blood pressures are acceptable given situation (9) Diabetes: Plan: Poorly controlled at baseline as well as acutely. continue to adjust insulinspharmacy is managing at this time (10) Lumbar stenosis with neurogenic claudication: Plan: sedated (11) DVT prophylaxis: Plan: heparin (12) Discharge planning issues: Plan: poor prognosis Admission and Anticipated Discharge Date Admission Date: April 18, 2021 Subjective patient remains intubated, I reviewed the chart he had a SBT yesterday, did not go well, remained intubated palliative spoke with his son at that time, he changed dad to DNR/DNI, would not want intubated again if he would have respiratory failure patient did not have a successful SBT today either, not following commands had a sedation holiday today, he is now on Precedex appreciate ICU note, he has a poor prognosis Review of Systems Review of Systems: Unobtainable due to endotracheal tube and Unobtainable due to reduced consciousness Physical Exam Physical Exam: General: ill appearing, mechanically ventilated, elderly male Neck: supple, trachea midline, normal thyroid Lungs: symmetric chest movement, decreased breath sounds in bases, ventilated Heart: regular S1 and S2, no murmur, peripheral pulses normal, capillary refill normal, no edema Abdomen: soft, NT, ND, + BS, no hepatomegaly, normal to percussion Extremities: normal in appearance, no cyanosis, no petechiae Neuro: sedated, not following commands, no focal motor deficits, CN II-XII intact Skin: warm, dry, no rash, normal turgor Psych: sedated Results & Data Results & Data ([facility]) Vital Signs (Past 12 Hours) Vital Signs Temp Pulse Resp BP Pulse Ox 05/04/21 11:00 56 L 166/55 H 94 05/04/21 10:56 37.3 C 63 30 H 110/64 90 05/04/21 10:00 37.2 C 75 28 H 130/50 L 94 05/04/21 09:00 36.2 C L 45 L 26 H 126/50 L 94 05/04/21 08:00 36.6 C 61 27 H 147/52 H 96 05/04/21 07:00 36.7 C 46 L 26 H 148/51 H 94 05/04/21 06:50 45 L 26 H 93 05/04/21 05:30 36.8 C 49 L 26 H 92 05/04/21 05:00 36.8 C 48 L 26 H 130/60 92 05/04/21 04:30 36.8 C 47 L 26 H 92 05/04/21 04:00 36.8 C 44 L 26 H 132/63 91 05/04/21 03:30 36.8 C 48 L 26 H 90 05/04/21 03:00 36.8 C 49 L 27 H 134/65 90 05/04/21 02:30 36.8 C 48 L 26 H 90 05/04/21 02:00 36.8 C 46 L 26 H 137/69 92 05/04/21 01:00 36.9 C 48 L 26 H 131/64 91 05/04/21 00:30 37.0 C 48 L 26 H 90 05/04/21 00:01 51 L 05/04/21 00:00 37.1 C 49 L 26 H 103/54 L 91 05/03/21 23:35 49 L 27 H 90 05/03/21 23:30 37.2 C 50 L 26 H 90 Laboratory Results Laboratory Results - last 24 hr 05/03/21 05/03/21 05/03/21 09:59 15:29 16:17 WBC RBC Hgb Hct MCV MCH MCHC RDW Std Deviation RDW Coeff of Patti Plt Count MPV Immature Gran % (Auto) Neut % (Auto) Lymph % (Auto) [place] % (Auto) Eos % (Auto) Baso % (Auto) Neut # (Auto) Lymph # (Auto) [place] # (Auto) Eos # (Auto) Baso # (Auto) Immature Gran # (Auto) Sample Site POC pH POC pCO2 POC pO2 POC HCO3 POC Total CO2 POC Base Excess POC ABG O2 Sat Antonio Test O2 Delivery Device POC O2 Rate POC FiO2 Tidal Volume PEEP Sodium Potassium Chloride Carbon Dioxide Anion Gap BUN Creatinine Est Cr Clr Drug Dosing Est GFR ( Amer) Est GFR (Non-Af Amer) BUN/Creatinine Ratio Glucose POC Glucose 157 H POC Glucose (other) 129 H Calcium Phosphorus Magnesium Vancomycin Trough 1.3 05/03/21 05/03/21 05/03/21 17:02 18:36 20:36 WBC RBC Hgb Hct MCV MCH MCHC RDW Std Deviation RDW Coeff of Patti Plt Count MPV Immature Gran % (Auto) Neut % (Auto) Lymph % (Auto) [place] % (Auto) Eos % (Auto) Baso % (Auto) Neut # (Auto) Lymph # (Auto) [place] # (Auto) Eos # (Auto) Baso # (Auto) Immature Gran # (Auto) Sample Site POC pH POC pCO2 POC pO2 POC HCO3 POC Total CO2 POC Base Excess POC ABG O2 Sat Antonio Test O2 Delivery Device POC O2 Rate POC FiO2 Tidal Volume PEEP Sodium Potassium Chloride Carbon Dioxide Anion Gap BUN Creatinine Est Cr Clr Drug Dosing Est GFR ( Amer) Est GFR (Non-Af Amer) BUN/Creatinine Ratio Glucose POC Glucose POC Glucose (other) 163 H 170 H 183 H Calcium Phosphorus Magnesium Vancomycin Trough 05/04/21 05/04/21 05/04/21 00:40 04:26 04:58 WBC RBC Hgb Hct MCV MCH MCHC RDW Std Deviation RDW Coeff of Patti Plt Count MPV Immature Gran % (Auto) Neut % (Auto) Lymph % (Auto) [place] % (Auto) Eos % (Auto) Baso % (Auto) Neut # (Auto) Lymph # (Auto) [place] # (Auto) Eos # (Auto) Baso # (Auto) Immature Gran # (Auto) Sample Site Art Line POC pH 7.43 POC pCO2 34 L POC pO2 56 L POC HCO3 23 POC Total CO2 24 POC Base Excess -2.0 POC ABG O2 Sat 90.0 Antonio Test NA O2 Delivery Device Ventilator POC O2 Rate 26 POC FiO2 40 Tidal Volume 430 PEEP 5 Sodium Potassium Chloride Carbon Dioxide Anion Gap BUN Creatinine Est Cr Clr Drug Dosing Est GFR ( Amer) Est GFR (Non-Af Amer) BUN/Creatinine Ratio Glucose POC Glucose 149 H 168 H POC Glucose (other) Calcium Phosphorus Magnesium Vancomycin Trough 05/04/21 05/04/21 05/04/21 06:13 06:13 07:59 WBC 10.60 RBC 2.94 L Hgb 8.7 L Hct 26.5 L MCV 90.1 MCH 29.6 MCHC 32.8 RDW Std Deviation 49.3 H RDW Coeff of Patti 14.9 H Plt Count 120 L MPV 9.7 Immature Gran % (Auto) 1.8 Neut % (Auto) 81.7 Lymph % (Auto) 7.8 [place] % (Auto) 8.4 Eos % (Auto) 0.2 Baso % (Auto) 0.1 Neut # (Auto) 8.66 H Lymph # (Auto) 0.83 L [place] # (Auto) 0.89 H Eos # (Auto) 0.02 Baso # (Auto) 0.01 Immature Gran # (Auto) 0.19 H Sample Site POC pH POC pCO2 POC pO2 POC HCO3 POC Total CO2 POC Base Excess POC ABG O2 Sat Antonio Test O2 Delivery Device POC O2 Rate POC FiO2 Tidal Volume PEEP Sodium 143 Potassium 4.3 Chloride 113 H Carbon Dioxide 23 Anion Gap 7.0 BUN 28 H Creatinine 1.11 Est Cr Clr Drug Dosing 70.6 Est GFR ( Amer) 75.4 Est GFR (Non-Af Amer) 65.1 BUN/Creatinine Ratio 25.4 H Glucose 173 H POC Glucose POC Glucose (other) 170 H Calcium 9.0 Phosphorus 2.9 Magnesium 2.8 H Vancomycin Trough Medications Administered Current Inpatient Medications Acetaminophen (Acetaminophen 325 Mg Tab) 650 mg PO Q4H PRN PRN Reason: Pain or Fever Stop: 05/18/21 10:14 Al Hydrox/Mg Hydrox/Simethicone (Aluminum/Magnesium Susp 30 Ml Udc) 15 ml PO Q4 H PRN PRN Reason: Dyspepsia Stop: 05/18/21 10:14 Albuterol (Albuterol Hfa 8 Gm Inhaler) 1 puffs INH QIDR PRN PRN Reason: Shortness Of Breath Or Wheezing Stop: 05/23/21 18:59 Aspirin (Aspirin 81 Mg Ectab) 81 mg PO QAM [facility] Stop: 05/18/21 10:59 Last Admin: 04/30/21 10:20 Dose: Not Given Documented by: Cilostazol (Cilostazol 100 Mg Tab) 50 mg PO BID [facility]; Protocol Stop: 05/21/21 20:59 Last Admin: 05/04/21 07:58 Dose: Not Given Documented by: Dextrose (Dextrose 50% 50 Ml Syringe) 25 - 50 ml IV UD PRN; Protocol PRN Reason: Hypoglycemia Protocol Stop: 05/18/21 10:14 Fentanyl Citrate (Fentanyl Bolus From Bag) 50 mcg IV Q60M PRN PRN Reason: Pain or Agitation Stop: 05/14/21 18:32 Fluoxetine HCl (Fluoxetine Hcl 10 Mg Cap) 10 mg PO QAM [facility] Stop: 05/21/21 11:59 Last Admin: 05/01/21 10:51 Dose: Not Given Documented by: Glucagon (Glucagon For Inj 1 Mg Vial) 1 mg SQ UD PRN; Protocol PRN Reason: Hypoglycemia Protocol Stop: 05/18/21 10:14 Glucose (Glucose 10 Tabs/Tube) 4 - 8 tabs PO UD PRN; Protocol PRN Reason: Hypoglycemia Protocol Stop: 05/18/21 10:14 Glucose (Glucose 40% Gel 15 Gm Tube) 15 - 30 gm PO UD PRN; Protocol PRN Reason: Hypoglycemia Protocol Stop: 05/18/21 10:14 Guaifenesin (Guaifenesin 600 Mg Tabcr) 600 mg PO Q12 [facility] Stop: 05/20/21 20:59 Last Admin: 04/30/21 10:21 Dose: Not Given Documented by: Hydralazine HCl (Hydralazine Hcl 20 Mg/Ml Vial) 5 mg IV Q2H PRN PRN Reason: SBP>180 Stop: 06/03/21 09:25 Fentanyl Citrate (Fentanyl Drip) 1,250 mcg in 250 mls @ 20 mls/hr IV .[id number] [facility]; Protocol Stop: 05/14/21 18:44 Last Admin: 05/04/21 02:55 Dose: 100 mcg/hr, 20 mls/hr Documented by: Norepinephrine Bitartrate (Levophed/D5w) 8 mg in 508 mls @ 7.605 mls/hr IV .Q24H [facility]; Protocol Stop: 05/30/21 23:14 Last Admin: 05/04/21 02:55 Dose: 0.02 mcg/kg/min, 7.6 mls/hr Documented by: Piperacillin Sod/Tazobactam (Sod 4.5 gm/ Dextrose) 120 mls @ 30 mls/hr IV Q8H [facility]; Protocol Stop: 05/08/21 17:14 Last Admin: 05/04/21 08:03 Dose: 30 mls/hr Documented by: Pantoprazole Sodium 40 mg/ (Syringe) 10 mls @ 5 [facility] Stop: 06/02/21 08:59 Last Admin: 05/04/21 08:05 Dose: 5 mls/min Documented by: Dexamethasone 6 mg/ Syringe 1.5 mls @ 1 mls/[facility] [place] Stop: 06/02/21 08:59 Last Admin: 05/04/21 08:04 Dose: 1 mls/min Documented by: Dexmedetomidine HCl 200 mcg/ (Sodium Chloride) 50 mls @ 20.82 mls/hr IV .Q2H25M [facility]; Protocol Stop: 05/08/21 09:44 Last Titration: 05/04/21 10:51 Dose: 0.8 mcg/kg/hr, 20.8 mls/hr Documented by: Insulin Aspart (Insulin Aspart 100 Units/Ml 3 Ml Pen) 0 units SC Q4 [facility]; Prot ocol Stop: 06/02/21 15:59 Last Admin: 05/04/21 08:09 Dose: 4 units Documented by: Insulin Glargine (Insulin Glargine Solostar 100 Units/Ml 3 Ml Pen) 40 [facility] [place] Stop: 06/03/21 08:59 Last Admin: 05/04/21 08:49 Dose: 40 units Documented by: Ipratropium [place] (Ipratropium [place] Hfa Inhaler) 1 puffs INH QIDR PRN PRN Reason: Shortness Of Breath Or Wheezing Stop: 05/23/21 18:59 Magnesium Hydroxide (Magnesium Hydroxide Susp 30 Ml Udc) 30 ml PO Q12H PRN PRN Reason: Constipation Stop: 05/18/21 10:14 Last Admin: 04/28/21 08:09 Dose: 30 ml Documented by: Mirtazapine (Mirtazapine Tab 15 Mg Tab) 15 mg PO HS [facility] Stop: 05/23/21 20:59 Last Admin: 05/03/21 20:38 Dose: 15 mg Documented by: Miscellaneous (Carbohydrates For Hypoglycemia ) 15 - 30 gm PO UD PRN PRN Reason: Hypoglycemia Protocol Stop: 05/18/21 10:14 Last Admin: 04/28/21 08:31 Dose: 15 gm Documented by: Miscellaneous Information (Pharmacy Glycemic Mgmt Consult) 1 ea N/A UD PRN; Protocol PRN Reason: Consult Stop: 05/18/21 10:14 Miscellaneous Information (Piperacill/Tazobac Consult Active) 1 ea N/A UD PRN PRN Reason: Consult Stop: 05/31/21 16:38 Nitroglycerin (Nitroglycerin Sl 0.4 Mg/Tab Tab) 0.4 mg SL UD PRN PRN Reason: Chest Pain Stop: 05/18/21 10:14 Nutritional Formula (Peptamen Intense Vhp 1.0 Tomasz 1,000 Ml Bag) 1,000 ml OG UD [facility]; Protocol Stop: 06/02/21 11:29 Last Admin: 05/03/21 13:54 Dose: 1,000 ml Documented by: Ondansetron HCl (Ondansetron Inj 2 Mg/Ml 2 Ml Vial) 4 mg IV Q6H PRN PRN Reason: Nausea Stop: 05/18/21 10:14 Polyethylene Glycol (Polyethylene (Miralax) 17 Gm Pack) 17 gm PO DAILY PRN PRN Reason: Constipation Stop: 05/18/21 10:14 Last Admin: 04/27/21 07:39 Dose: 17 gm Documented by: Pravastatin Sodium (Pravastatin Sod 40 Mg Tab) 40 mg PO QPM [facility] Stop: 05/18/21 20:59 Last Admin: 05/03/21 20:38 Dose: 40 mg Documented by: Sterile Water (Tube Feeding Water Flush) 30 ml OG Q4H [facility] Stop: 06/02/21 11:29 Last Admin: 05/04/21 07:39 Dose: 30 ml Documented by: Tamsulosin HCl (Tamsulosin Hcl 0.4 Mg Cap) 0.4 mg PO QPM [facility] Stop: 05/18/21 20:59 Last Admin: 04/29/21 23:17 Dose: 0.4 mg Documented by: Zinc Sulfate (Zinc Sulfate 220 Mg Capsule) 220 mg PO QAM [facility] Stop: 05/24/21 08:59 Last Admin: 05/04/21 08:08 Dose: 220 mg Documented by: PG Care Time/CCT Total # of Minutes Spent Total Time Spent with Patient: Total time spent is greater than 50% in coordination of care (as documented) at patient's floor/unit and/or counseling patient: Coding Level of Care Code 06034 Subseq Hosp Care Lvl 2 Diagnoses Acute respiratory failure with hypoxia J96.01 COVID-19 U07.1 Multilobar lung infiltrate R91.8 Weakness R53.1 CKD (chronic kidney disease) stage 3, GFR 30-59 ml/min N18.3 Coronary artery disease I25.10 Sleep apnea G47.30 Hypertension I10 Diabetes E11.9 Lumbar stenosis with neurogenic claudication M48.062 DVT prophylaxis Z29.9 Discharge planning issues Z02.9
--- NOTE | 2021-05-04 11:51 | Critical Care Progress Note ---
Date of Service May 04, 2021 Assessment & Plan (1) Multilobar lung infiltrate: (2) Acute respiratory failure with hypoxia: (3) Pleural effusion: (4) Septic shock: (5) Pneumomediastinum: (6) COVID-19: (7) CKD (chronic kidney disease) stage 3, GFR 30-59 ml/min: (8) HTN (hypertension), benign: Plan: Neurologic: Sedated for mechanical ventilation, delirium - CAM (+) not following commands without focal deficits- change sedation to Precedex and wean off fentanyl and propofol to off - Continue sedation and analgesia with propofol and fentanyl. Neuromuscular blockade weaned off. - Successful sedation holiday Pulmonary: COVID 19 pneumonia, hypoxia with respiratory failure, ARDS, pneumomediastinum, Hemothorax Continue lung protective ventilation strategy. Essentially ARDS secondary to COVID-[address] chest from 04/30/2021 concerning for loculated left hemothorax- no acute changes today. Pulmonary abscess also remains a possibility. Hemoglobin has remained stable. Vent parameters are weaned down considerably. Pneumomediastinum improving. Failed SBT today secondary to delirium and anxiety. Try to manimipulate sedation with higher MOE if able. Cardiovascular: CAD Maintain mean arterial pressure above 65. Hypotension has improved, but remains on low doses of Levophed possibly related to sedation. This has remained on very low dose secondary to sedation likely. Sedation off patient with SBP 150-180s. - Continue to hold asa until HGB stabilizes - If Remains off pressors- add back irbesartan tomorrow as [employer] stable Gastrointestinal: Continue tube feeds. PPI twice daily. - Hold TF in AM for spont trial ENDO: DMII, - BG better controlled today Renal: ROCKY on CKD III ROCKY resolved. Replacing Phos with Neutra-Phos this morning. Electrolytes otherwise acceptable. Infectious disease:- COVID pneumonia with likely bacterial co-infection - Leukocytosis down trending continue zosyn Blood cultures negative to date. MRSA screen negative. - Possible abscess in the left lower lobe versus hemothorax. Unable to place chest tube as noted above- follow clinically Hematologic: Anemia Hemoglobin trickling down slowly over the past 2 days. Hemoglobin dropped from 11.5-9.3, 8.7 as compared to yesterday. CBC later this afternoon VTE prophylaxis: SCDs, Add back chemoprophy with Heparin 5000 units sq BID today as high risk for VTE CODE STATUS: DNR/DNI Poor prognosis overall. Palliative care on board. Disposition: Remain in the ICU I have personally spent 45 minutes of critical care time in the direct management of this patient. This is a life/limb threatening event. This includes time spent evaluating patient, direct bedside care, chart review, placing orders, interpretation of diagnostic studies, discussion with consultants, patient, and family members, as well as other required patient management activities. This time is exclusive of all separately billable procedures, and teaching time and separate from and in addition to any other critical care service time. Thank you for allowing us to participate in the care of this patient. Admission and Anticipated Discharge Date Admission Date: April 18, 2021 Subjective 75 YOM: ICU day 4, Intubation Day 4 for hypoxic respiratory failure secondary to COVID 19. Attempted spont trial and sedation holiday this morning. Patient continues to have anxiety and delirium with tachycardia, HTN, tachypnea so unable to continue to spontaneous breathing trial. The patient did wake up shakes his head appropriate, but does not follow commands. Will change sedation over to Precedex if able and decrease fentanyl and d/c propofol if able. If patient is able to stay calm with the Precedex may attempt spont mode to allow him to work at breathing if able. Continue supportive care. Palliative discussion reviewed from yesterday- DNR/DNI even if failed extubation. Overall no acute changes. HGB 8.7 this morning from 9.1, some scant bloody secretions from [place], no other evidence of bleeding and CXR without acute evolution. Rounds performed with respiratory therapy and RN at the patient bedside. Review of Systems Review of Systems: Unable to perform secondary to intubation and sedation for mechanical ventilation Physical Exam Physical Exam: Constitutional: Intubated. N: CAM ICU (+) Pupils 2-1 Reactive to light, attempts to focus Neck: Trachea midline. Respiratory: Intubated,bite block in place, scattered rhonchi throughout Cardiovascular: Regular rate and rhythm, telemetry reviewed No murmurs. No edema. Gastrointestinal: Normal bowel sounds, soft, nontender and nondistended. tolerating tube feeds Skin: No rashes, warm dry and intact. Neurologic: sedated Skin: no rashes, warm and dry Lymphatic: no cervical or axillary lymphadenopathy Results & Data Results & Data ([facility]) Vital Signs (Past 12 Hours) Vital Signs Temp Pulse Resp BP Pulse Ox 05/04/21 11:00 56 L 166/55 H 94 05/04/21 10:56 37.3 C 63 30 H 110/64 90 05/04/21 10:00 37.2 C 75 28 H 130/50 L 94 05/04/21 09:00 36.2 C L 45 L 26 H 126/50 L 94 05/04/21 08:00 36.6 C 61 27 H 147/52 H 96 05/04/21 07:00 36.7 C 46 L 26 H 148/51 H 94 05/04/21 06:50 45 L 26 H 93 05/04/21 05:30 36.8 C 49 L 26 H 92 05/04/21 05:00 36.8 C 48 L 26 H 130/60 92 05/04/21 04:30 36.8 C 47 L 26 H 92 05/04/21 04:00 36.8 C 44 L 26 H 132/63 91 05/04/21 03:30 36.8 C 48 L 26 H 90 05/04/21 03:00 36.8 C 49 L 27 H 134/65 90 05/04/21 02:30 36.8 C 48 L 26 H 90 05/04/21 02:00 36.8 C 46 L 26 H 137/69 92 05/04/21 01:00 36.9 C 48 L 26 H 131/64 91 05/04/21 00:30 37.0 C 48 L 26 H 90 05/04/21 00:01 51 L 05/04/21 00:00 37.1 C 49 L 26 H 103/54 L 91 05/03/21 23:35 49 L 27 H 90 05/03/21 23:30 37.2 C 50 L 26 H 90 Laboratory Results Abnormal lab results 05/03/21 05/03/21 05/03/21 Range/Units 09:59 16:17 17:02 RBC (4.7-6.1) M/uL Hgb (14.0-18.0) g/dL Hct (42-52) % RDW Std Deviation (36.4-46.3) fL RDW Coeff of Patti (11.5-14.5) % Plt Count (130-400) K/uL Neut # (Auto) (1.4-6.5) K/uL Lymph # (Auto) (1.2-3.4) K/uL [place] # (Auto) (0.11-0.59) K/uL Immature Gran # (Auto) (0.00-0.02) K/uL POC pCO2 (35-46) mmHg POC pO2 (80-95) mmHg Chloride (98-107) mmol/L BUN (7-18) mg/dl BUN/Creatinine Ratio (10-20) Glucose (70-99) mg/dl POC Glucose 157 H (70-99) mg/dl POC Glucose (other) 129 H 163 H (70-99) mg/dl Magnesium (1.8-2.4) mg/dl 05/03/21 05/03/21 05/04/21 Range/Units 18:36 20:36 00:40 RBC (4.7-6.1) M/uL Hgb (14.0-18.0) g/dL Hct (42-52) % RDW Std Deviation (36.4-46.3) fL RDW Coeff of Patti (11.5-14.5) % Plt Count (130-400) K/uL Neut # (Auto) (1.4-6.5) K/uL Lymph # (Auto) (1.2-3.4) K/uL [place] # (Auto) (0.11-0.59) K/uL Immature Gran # (Auto) (0.00-0.02) K/uL POC pCO2 (35-46) mmHg POC pO2 (80-95) mmHg Chloride (98-107) mmol/L BUN (7-18) mg/dl BUN/Creatinine Ratio (10-20) Glucose (70-99) mg/dl POC Glucose 149 H (70-99) mg/dl POC Glucose (other) 170 H 183 H (70-99) mg/dl Magnesium (1.8-2.4) mg/dl 05/04/21 05/04/21 05/04/21 Range/Units 04:26 04:58 06:13 RBC 2.94 L (4.7-6.1) M/uL Hgb 8.7 L (14.0-18.0) g/dL Hct 26.5 L (42-52) % RDW Std Deviation 49.3 H (36.4-46.3) fL RDW Coeff of Patti 14.9 H (11.5-14.5) % Plt Count 120 L (130-400) K/uL Neut # (Auto) 8.66 H (1.4-6.5) K/uL Lymph # (Auto) 0.83 L (1.2-3.4) K/uL [place] # (Auto) 0.89 H (0.11-0.59) K/uL Immature Gran # (Auto) 0.19 H (0.00-0.02) K/uL POC pCO2 34 L (35-46) mmHg POC pO2 56 L (80-95) mmHg Chloride (98-107) mmol/L BUN (7-18) mg/dl BUN/Creatinine Ratio (10-20) Glucose (70-99) mg/dl POC Glucose 168 H (70-99) mg/dl POC Glucose (other) (70-99) mg/dl Magnesium (1.8-2.4) mg/dl 05/04/21 05/04/21 Range/Units 06:13 07:59 RBC (4.7-6.1) M/uL Hgb (14.0-18.0) g/dL Hct (42-52) % RDW Std Deviation (36.4-46.3) fL RDW Coeff of Patti (11.5-14.5) % Plt Count (130-400) K/uL Neut # (Auto) (1.4-6.5) K/uL Lymph # (Auto) (1.2-3.4) K/uL [place] # (Auto) (0.11-0.59) K/uL Immature Gran # (Auto) (0.00-0.02) K/uL POC pCO2 (35-46) mmHg POC pO2 (80-95) mmHg Chloride 113 H (98-107) mmol/L BUN 28 H (7-18) mg/dl BUN/Creatinine Ratio 25.4 H (10-20) Glucose 173 H (70-99) mg/dl POC Glucose (70-99) mg/dl POC Glucose (other) 170 H (70-99) mg/dl Magnesium 2.8 H (1.8-2.4) mg/dl Diagnostic Findings Chest X-Ray 04/18/21 06:08 XR chest 1V portable CLINICAL HISTORY: Atypical chest pain TECHNIQUE: Single frontal radiograph of the chest was obtained. Comparison: Comparison is made to chest one view 04/11/2021 FINDINGS: No lines and tubes are seen. The cardiomediastinal silhouette is normal. Airspace opacity is seen in the right midlung and left lower lung. No evidence of pleural effusion or pneumothorax. IMPRESSION: Multiple airspace opacities are favored to represent atelectasis with or without superimposed pneumonia/aspiration. ACT 112: Negative or not required by law. Electronically signed by: Jose Christensen M.D. 04/18/2021 8:16 AM Hip/Pelvis X-Ray 04/18/21 06:09 XR hips ONESIMO 1v w pelvis HISTORY: 75 years-old Male fall acute bilateral hip pain status post fall COMPARISON: Acute abdominal series radiographs 05/09/2019 TECHNIQUE: AP view of the pelvis with 2 views of the hips FINDINGS: Partially imaged lumbar spinal fusion hardware. There is mild right with [id number] left hip osteoarthritis. No acute fracture, dislocation or avascular necrosis. Unremarkable soft tissues. IMPRESSION: No acute fracture or dislocation. ACT 112: Negative or not required by law. The above report was generated using voice recognition software. It may contain grammatical, syntax or spelling errors. Electronically signed by: Nitin Titus M.D. 04/18/2021 7:32 AM Venous Doppler Study 04/20/21 08:44 US venous doppler LE BI Chest X-Ray 05/03/21 07:13 XR chest 1V portable HISTORY: Shortness of breath. follow up pneumonia COMPARISON: Chest 05/02/2021. FINDINGS: The endotracheal tube terminates 5.7 cm from the ana. Left jugular central venous catheter terminates at the proximal SVC. No pneumothorax. Patchy bilateral airspace opacities have slightly progressed. This is most pronounced within the left lower lobe. The heart remains borderline enlarged. No evidence for pulmonary edema. Nasogastric tube terminates below the diaphragm. The tip is not included on this study. Slight improvement in the pneumomediastinum. IMPRESSION: 1. Satisfactory support line placement. 2. Slight progression of the patchy bilateral airspace opacities consistent with a viral pneumonia. 3. The pneumomediastinum appears to have improved. ACT 112: Negative or not required by law. Electronically signed by: Carlton Odonnell M.D. 05/03/2021 8:00 AM Chest X-Ray 05/04/21 07:00 XR chest 1V portable CLINICAL HISTORY: Respiratory failure. COMPARISON STUDY: Chest CT April 30, 2021. Chest radiograph May 03, 2021. FINDINGS: Tip of endotracheal tube is 4.9 cm above the ana. Left internal jugular central line remains in place. Tip of nasogastric tube is below the lower aspect of this image but at least within the proximal stomach. No definite residual pneumomediastinum is identified. Extensive bilateral airspace opa cities, greater on the left, persists. There is a probable small left pleural effusion. IMPRESSION: 1. Satisfactory positioning of lines and tubes. 2. No significant change in bilateral airspace opacities, greater within the left lung. 3. Suspected small left pleural effusion. ACT 112: Negative or not required by law. Electronically signed by: Alon Cervantes M.D. 05/04/2021 8:39 AM Coding Level of Care Code Critical Care 1st 30-74 mins Diagnoses Multilobar lung infiltrate R91.8 Acute respiratory failure with hypoxia J96.01 Pleural effusion J90 Septic shock A41.9; R65.21 Pneumomediastinum J98.2 COVID-19 U07.1 CKD (chronic kidney disease) stage 3, GFR 30-59 ml/min N18.3 HTN (hypertension), benign I10
[2021-05-04] MEDS ORDERED: AMPICILLIN/SULBACTAM SOD 1,500 MG in 0.9 % SODIUM CHLORIDE 100 ML IV SCH (12:00)
[2021-05-04 14:24] LABS: Hemoglobin 8.7 g/dL (14.0-18.0); Mean Corpuscular Hemoglobin 29.1 pg (25-34); Mean Corpuscular Hgb Conc 32.2 g/dL (32-36); Mean Corpuscular Volume 90.3 fL (80-100); RDW Coefficient of Variation 14.7 % (11.5-14.5); RDW Standard Deviation 48.5 fL (36.4-46.3); Red Blood Count 2.99 M/uL (4.7-6.1); White Blood Count 7.91 K/uL (4.8-10.8)
[2021-05-04 14:47] LABS: Basophils # (auto) 0.01 K/uL (0-0.2); Basophils % (auto) 0.1 %; Eosinophils # (auto) 0.01 K/uL (0-0.5); Eosinophils % (auto) 0.1 %; Immature Granulocytes # (auto) 0.29 K/uL (0.00-0.02); Immature Granulocytes % (auto) 3.7 %; Lymphocytes # (auto) 0.38 K/uL (1.2-3.4); Lymphocytes % (auto) 4.8 %; Mean Platelet Volume 9.2 fL (7.4-10.4); Monocytes # (auto) 0.42 K/uL (0.11-0.59); Monocytes % (auto) 5.3 %; Platelet Count 90 K/uL (130-400); Platelet Estimate Decreased (Normal)
[2021-05-04] MEDS: PEPTAMEN INTENSE VHP 1.0 CAL 1,000 ML BAG OG SCH (15:57)
[2021-05-04] MEDS: DEXMEDETOMIDINE HCL 400 MCG in 0.9 % SODIUM CHLORIDE 96 ML IV SCH ×2 (19:24→19:34)
[2021-05-04] MEDS: PRAVASTATIN SOD 40 MG TAB PO SCH (19:57)
[2021-05-04] MEDS: MIRTAZAPINE TAB 15 MG TAB PO SCH (20:30)
[2021-05-04 20:34] LABS: Hemoglobin 8.9 g/dL (14.0-18.0)
[2021-05-04] MEDS: PROPOFOL BOLUS FROM BAG IV PRN (20:36)
[2021-05-04 20:44] LABS: INR 1.1 (0.9-1.1); Partial Thromboplastin Ratio 0.9; Partial Thromboplastin Time 23.4 Seconds (21.0-31.0); Prothrombin Time 10.9 Seconds (9.0-12.0)
[2021-05-04] MEDS ORDERED: INSULIN GLARGINE SOLOSTAR 100 UNITS/ML 3 ML PEN SC ONE (21:00)
[2021-05-04] MEDS: HEPARIN SOD 5,000 UNIT/0.5 ML VIAL SQ SCH (23:00)
[2021-05-05] MEDS: INSULIN ASPART 100 UNITS/ML 3 ML PEN SC SCH ×6 (01:50→19:58)
[2021-05-05] MEDS: PIPERACILLIN/TAZOBACTAM 4.5 GM in DEXTROSE 5% 100 ML IV SCH ×3 (01:53→16:57)
[2021-05-05] MEDS: fentaNYL DRIP 1,250 MCG/250 ML BAG IV SCH ×2 (03:13→13:21)
[2021-05-05] MEDS: propofoL 1,000 MG/100 ML VIAL IV SCH ×5 (03:13→21:34)
[2021-05-05] MEDS: DEXMEDETOMIDINE HCL 400 MCG in 0.9 % SODIUM CHLORIDE 96 ML IV SCH ×5 (03:56→21:46)
[2021-05-05] MEDS: TUBE FEEDING WATER FLUSH OG SCH ×7 (03:56→21:46)
[2021-05-05] MEDS: NOREPINEPHRINE/D5W 8 MG/508 ML BAG IV SCH ×2 (03:57→21:46)
[2021-05-05 05:31] LABS: iSTAT Art Bld Gas pCO2 Correct 36 mmHg (35-46); iSTAT Art Bld Gas pH Corrected 7.414 (7.35-7.45); iSTAT Arterial Blood Gas HCO3 23 meg/L (19-24); iSTAT Arterial Blood Gas pCO2 36 mmHg (35-46); iSTAT Arterial Blood Gas pH 7.42 (7.35-7.45); iSTAT Arterial Blood Gas pO2 67 mmHg (80-95); iSTAT Arterial Blood Gas pO2 C 68; iSTAT Carbon Dioxide 24 mmol/L (24-31); iSTAT FiO2 50 %; iSTAT Hematocrit 23 % (42-52); iSTAT Hemoglobin 7.8 g/dl (14.0-18.0); iSTAT Potassium 3.8 mmol/L (3.3-5.0); iSTAT Site Art Line; iSTAT Sodium 139 mmol/L (135-144)
[2021-05-05 07:40] LABS: Basophils # (auto) 0.01 K/uL (0-0.2); Basophils % (auto) 0.1 %; Eosinophils # (auto) 0.12 K/uL (0-0.5); Eosinophils % (auto) 1.3 %; Hematocrit (blood only) 25.9 % (42-52); Hemoglobin 8.2 g/dL (14.0-18.0); Immature Granulocytes % (auto) 2.2 %; Lymphocytes # (auto) 0.94 K/uL (1.2-3.4); Lymphocytes % (auto) 10.2 %; Mean Corpuscular Hemoglobin 29.4 pg (25-34); Mean Corpuscular Hgb Conc 31.7 g/dL (32-36); Mean Corpuscular Volume 92.8 fL (80-100); Monocytes # (auto) 0.88 K/uL (0.11-0.59); Monocytes % (auto) 9.6 %; Neutrophils # (auto) 7.06 K/uL (1.4-6.5); Neutrophils % (auto) 76.6 %; Nucleated RBC # (auto) 0.05 K/uL (0-0); Nucleated RBC % (auto) 0.6 %; Platelet Count 105 K/uL (130-400); RDW Coefficient of Variation 15.1 % (11.5-14.5); RDW Standard Deviation 51.4 fL (36.4-46.3); Red Blood Count 2.79 M/uL (4.7-6.1); White Blood Count 9.21 K/uL (4.8-10.8)
[2021-05-05 08:15] LABS: BUN Creatinine Ratio 31.1 (10-20); Calcium 8.6 mg/dl (8.5-10.1); Creatinine Clr Calc Pharmacy 69.1 ml/min; Magnesium 2.6 mg/dl (1.8-2.4); Potassium 3.9 mmol/L (3.5-5.1)
[2021-05-05 08:16] LABS: Phosphorus 2.8 mg/dl (2.5-4.9)
[2021-05-05] MEDS: HEPARIN SOD 5,000 UNIT/0.5 ML VIAL SQ SCH (08:30)
[2021-05-05] MEDS: cilostazoL 100 MG TAB PO SCH ×2 (08:30→20:00)
[2021-05-05] MEDS: PANTOprazole 40 MG in SYRINGE 0 ML IV SCH (08:32)
[2021-05-05] MEDS: ZINC SULFATE 220 MG CAPSULE PO SCH (08:32)
--- NOTE | 2021-05-05 08:41 | XRay Report ---
XR chest 1V portable CLINICAL HISTORY: Respiratory failure. COMPARISON STUDY: Chest radiograph May 04, 2021. FINDINGS: Tip of endotracheal tube 6 cm above the ana. Tip of nasogastric tube is below the lower aspect of this image but at least within the proximal stomach. Left internal jugular central line rem ains in place. There is no pneumothorax. Small left pleural effusion is unchanged. Interstitial thick ening and bilateral opacities persist. Left lung opacity is slightly improved. There are persistent d ense left basilar consolidation. IMPRESSION: 1. Satisfactory positioning of lines and tubes. 2. Extensive bilateral airspace opacities suggestive of viral pneumonia. Slight improvement in left l tiff opacity. 3. Small left pleural effusion. ACT 112: Negative or not required by law. Electronically signed by: Alon Cervantes M.D. 05/05/2021 8:40 AM
[2021-05-05] MEDS ORDERED: INSULIN GLARGINE SOLOSTAR 100 UNITS/ML 3 ML PEN SC SCH (09:00)
[2021-05-05] MEDS: dexAMETHasone 6 MG in SYRINGE 0 ML IV SCH (09:58)
--- NOTE | 2021-05-05 10:02 | CT Scan Report ---
CT OF THE CHEST WITHOUT IV CONTRAST CLINICAL HISTORY: Shortness of breath. Covid. Evaluate hemothorax. COMPARISON STUDY: Chest CT April 30, 2021. Chest radiograph May 05, 2021. CT DOSE: 1041.80 mGy.cm TECHNIQUE: Axial images of the chest were obtained without IV contrast. Images were reviewed in the axial, sagittal, and coronal planes. IV contrast was not administered for this examination. Automat ed exposure control was utilized for the study. A dose lowering technique was utilized adhering to t he principles of ALARA. FINDINGS: Tip of endotracheal tube is 2.8 cm above the ana. Left internal jugular central line is in place. Tip of nasogastric tube is below the lower aspect of this image but at least within the st omach. Moderate cardiomegaly is noted. There is no pericardial effusion. Pneumomediastinum. CT of April 30, 2021 has nearly resolved. There is trace residual pneumomediastinum. There is no p neumothorax. Extensive multifocal airspace opacities within the lungs with multifocal consolidation a nd groundglass opacity have mildly progressed. Minimal hyperdense material within the right lower lob e is unchanged. There is a small amount of low-attenuation left pleural fluid. An adjacent hyperdense focus within the left hemithorax favors a loculated hemothorax which was shown on CT of April 30, 2021. Density of the hemothorax has increased. Size is minimally increased. This now measures 16.1 x 6.9 x 6 cm. It previously measured 15 x 5.9 x 5.4 cm. No additional sites of hemorrhage are identifi ed on this examination. Visualized portions of the upper abdomen are unremarkable on this unenhanced study. IMPRESSION: 1. Minimal increase in size and increase in density of a suspected loculated left hemothorax since CT of April 30, 2021. 2. Extensive multifocal airspace opacities within the lungs which have mildly progressed. This repres ents viral pneumonia. 3. Near complete resolution of pneumomediastinum. 4. Satisfactory positioning of lines and tubes. ACT 112: Negative or not required by law. Electronically signed by: Alon Cervantes M.D. 05/05/2021 10:01 AM
--- NOTE | 2021-05-05 11:21 | Critical Care Progress Note ---
Date of Service May 05, 2021 Assessment & Plan (1) COVID-19: (2) Pneumomediastinum: (3) Pleural effusion: (4) Acute respiratory failure with hypoxia: Plan: (1) Multilobar lung infiltrate: (2) Acute respiratory failure with hypoxia: (3) Pleural effusion: (4) Septic shock: (5) Pneumomediastinum: (6) COVID-19: (7) CKD (chronic kidney disease) stage 3, GFR 30-59 ml/min: (8) HTN (hypertension), benign: (9) Hemothorax (10) Pneumomediastinum Plan: Neurologic:Sedated for mechanical ventilation, delirium - CAM (+) not following commands without focal deficits- continues to wake up delirious and not able to be redirecactable. Today will have to keep sedated to follow up on his left sided hemothorax and anemia - Continue sedation and analgesia with propofol and fentanyl. Neuromuscular blockade weaned off. - Sedation holiday performed today- anxious delirious Pulmonary:COVID 19 pneumonia, hypoxia with respiratory failure, ARDS, pneumomediastinum, Hemothorax Continue lung protective ventilation strategy. Essentially ARDS secondary to COVID-[address] chest from 04/30/2021 concerning for loculated left hemothorax- CT scan completed today with slight increase in this also with surrounding pleural effusion. Hemoglobin has decreased. Will ultrasound this today and evaluate for ability to place pigtail catheter in for drainage and possible MIST protocol. Vent parameters stable overnight. Pneumomediastinum improving. No SBT attempted today Cardiovascular:CAD, ANEMIA Maintain mean arterial pressure above 65. Hypotension has improved, but remains on low doses of Levophed possibly related to sedation. This has remained on very low dose secondary to sedation likely. Sedation off patient with SBP 150-180s. - Continue to hold asa until HGB stabilizes - If Remains off pressors- add back irbesartan tomorrow as ACCOUNTANT BUDGET stable - Discontinue heparin sub q Gastrointestinal: Continue tube feeds. PPI twice daily. ENDO:DMII, - BG better controlled today Renal:ROCKY on CKD III ROCKY resolved. Replacing Phos with Neutra-Phos this morning. Electrolytes otherwise acceptable. Infectious disease:-COVID pneumonia with likely bacterial co-infection - Leukocytosis down trending continue zosyn Blood cultures negative to date. MRSA screen negative. - Possible abscess in the left lower lobe versus hemothorax. Re-evaluate today with ultrasound- follow clinically Hematologic:Anemia Hemoglobin trickling down slowly over the past 2 days. Hemoglobin dropped from 11.5-9.3, 8.7 as compared to yesterday. CBC later this afternoon VTE prophylaxis: SCDs, Add back chemoprophy with Heparin 5000 units sq BID today as high risk for VTE CODE STATUS:DNR/DNI Poor prognosis overall. Palliative care on board. Disposition: Remain in the ICU I have personally spent 50 minutes of critical care time in the direct management of this patient. This is a life/limb threatening event. This includes time spent evaluating patient, direct bedside care, chart review, placing orders, interpretation of diagnostic studies, discussion with consultants, patient, and family members, as well as other required patient management activities. This time is exclusive of all separately billable procedures, and teaching time and separate from and in addition to any other critical care service time. Thank you for allowing us to participate in the care of this patient. Admission and Anticipated Discharge Date Admission Date: April 18, 2021 Subjective 75 YOM: ICU day 5, Intubation Day 5 for hypoxic respiratory failure secondary to COVID 19.Patient has failed SBT x2 days (03-04DEC) secondary to delirium and agitation, he did not tolerate just Precedex as he was too anxious and was also bradycardic. He is back on propofol. May still use Precedex as adjunct to ease his wakening. This morning his HGB continues to trickle down to 8.2 from 8.7. Will repeat his CT scan of his chest to evaluate the left sided hemothroax. If increased may need to perform ultrasound evaluation for pigtail placement/drainage. Continue supportive care. Palliative discussion reviewed from yesterday- DNR/DNI even if failed extubation. Rounds performed with respiratory therapy and RN at the patient bedside. Will further evaluate his hemothorax today. Review of Systems Review of Systems: Unable to perform secondary to sedation and mechanical ventilation Physical Exam Physical Exam: Constitutional: Intubated. N: CAM ICU (+) Pupils 2-1 Reactive to light, attempts to focus but delirious, moves all his extremities Neck: Trachea midline. Respiratory: Intubated,bite block in place, scattered rhonchi throughout Cardiovascular: Regular rate and rhythm, telemetry reviewed No murmurs. No edema. Gastrointestinal: Normal bowel sounds, soft, nontender and nondistended. tolerating tube feeds Skin: No rashes, warm dry and intact. Results & Data Results & Data ([facility]) Vital Signs (Past 12 Hours) Vital Signs Temp Pulse Resp BP Pulse Ox 05/05/21 11:00 38.7 C H 47 L 28 H 117/48 L 92 05/05/21 10:37 105/40 L 05/05/21 10:00 37.6 C H 57 L 28 H 91 05/05/21 09:26 51 L 05/05/21 09:00 37.0 C 51 L 29 H 122/41 L 90 05/05/21 08:00 37.0 C 53 L 29 H 121/40 L 90 05/05/21 07:00 37.2 C 86 30 H 155/71 H 91 05/05/21 06:57 44 L 26 H 92 05/05/21 06:00 37.2 C 45 L 26 H 90 05/05/21 05:00 37.1 C 43 L 26 H 125/59 L 92 05/05/21 04:00 37.1 C 45 L 26 H 121/57 L 91 05/05/21 03:51 43 L 26 H 91 05/05/21 03:00 37.1 C 44 L 26 H 107/52 L 92 05/05/21 02:00 37.1 C 43 L 26 H 114/53 L 92 05/05/21 01:00 37.1 C 43 L 26 H 117/59 L 91 05/05/21 00:00 37.1 C 42 L 26 H 112/58 L 91 05/04/21 23:35 42 L 27 H 93 Laboratory Results Abnormal lab results 05/04/21 05/04/21 05/04/21 Range/Units 11:42 13:57 16:54 RBC 2.99 L (4.7-6.1) M/uL Hgb 8.7 L (14.0-18.0) g/dL POC Hgb (14.0-18.0) g/dl Hct 27.0 L (42-52) % POC Hct (42-52) % MCHC (32-36) g/dL RDW Std Deviation 48.5 H (36.4-46.3) fL RDW Coeff of Patti 14.7 H (11.5-14.5) % Plt Count 90 L (130-400) K/uL Neut # (Auto) 6.80 H (1.4-6.5) K/uL Lymph # (Auto) 0.38 L (1.2-3.4) K/uL [place] # (Auto) (0.11-0.59) K/uL Immature Gran # (Auto) 0.29 H (0.00-0.02) K/uL Absolute Nucleated RBC (0-0) K/uL Platelet Estimate Decreased L (Normal) POC pO2 (80-95) mmHg Chloride (98-107) mmol/L BUN (7-18) mg/dl BUN/Creatinine Ratio (10-20) Glucose (70-99) mg/dl POC Glucose 180 H 199 H (70-99) mg/dl Magnesium (1.8-2.4) mg/dl 05/04/21 05/04/21 05/05/21 Range/Units 20:05 20:09 01:49 RBC (4.7-6.1) M/uL Hgb 8.9 L (14.0-18.0) g/dL POC Hgb (14.0-18.0) g/dl Hct 28.0 L (42-52) % POC Hct (42-52) % MCHC (32-36) g/dL RDW Std Deviation (36.4-46.3) fL RDW Coeff of Patti (11.5-14.5) % Plt Count (130-400) K/uL Neut # (Auto) (1.4-6.5) K/uL Lymph # (Auto) (1.2-3.4) K/uL [place] # (Auto) (0.11-0.59) K/uL Immature Gran # (Auto) (0.00-0.02) K/uL Absolute Nucleated RBC (0-0) K/uL Platelet Estimate (Normal) POC pO2 (80-95) mmHg Chloride (98-107) mmol/L BUN (7-18) mg/dl BUN/Creatinine Ratio (10-20) Glucose (70-99) mg/dl POC Glucose 187 H 152 H (70-99) mg/dl Magnesium (1.8-2.4) mg/dl 05/05/21 05/05/21 05/05/21 Range/Units 03:39 05:00 06:14 RBC 2.79 L (4.7-6.1) M/uL Hgb 8.2 L (14.0-18.0) g/dL POC Hgb 7.8 L (14.0-18.0) g/dl Hct 25.9 L (42-52) % POC Hct 23 L (42-52) % MCHC 31.7 L (32-36) g/dL RDW Std Deviation 51.4 H (36.4-46.3) fL RDW Coeff of Patti 15.1 H (11.5-14.5) % Plt Count 105 L (130-400) K/uL Neut # (Auto) 7.06 H (1.4-6.5) K/uL Lymph # (Auto) 0.94 L (1.2-3.4) K/uL [place] # (Auto) 0.88 H (0.11-0.59) K/uL Immature Gran # (Auto) 0.20 H (0.00-0.02) K/uL Absolute Nucleated RBC 0.05 H (0-0) K/uL Platelet Estimate (Normal) POC pO2 67 L (80-95) mmHg Chloride (98-107) mmol/L BUN (7-18) mg/dl BUN/Creatinine Ratio (10-20) Glucose (70-99) mg/dl POC Glucose 157 H (70-99) mg/dl Magnesium (1.8-2.4) mg/dl 05/05/21 Range/Units 06:14 RBC (4.7-6.1) M/uL Hgb (14.0-18.0) g/dL POC Hgb (14.0-18.0) g/dl Hct (42-52) % POC Hct (42-52) % MCHC (32-36) g/dL RDW Std Deviation (36.4-46.3) fL RDW Coeff of Patti (11.5-14.5) % Plt Count (130-400) K/uL Neut # (Auto) (1.4-6.5) K/uL Lymph # (Auto) (1.2-3.4) K/uL [place] # (Auto) (0.11-0.59) K/uL Immature Gran # (Auto) (0.00-0.02) K/uL Absolute Nucleated RBC (0-0) K/uL Platelet Estimate (Normal) POC pO2 (80-95) mmHg Chloride 111 H (98-107) mmol/L BUN 35 H (7-18) mg/dl BUN/Creatinine Ratio 31.1 H (10-20) Glucose 160 H (70-99) mg/dl POC Glucose (70-99) mg/dl Magnesium 2.6 H (1.8-2.4) mg/dl Diagnostic Findings CT OF THE CHEST WITHOUT IV CONTRAST CLINICAL HISTORY: Shortness of breath. Covid. Evaluate hemothorax. COMPARISON STUDY: Chest CT April 30, 2021. Chest radiograph May 05, 2021. CT DOSE: 1041.80 mGy.cm TECHNIQUE: Axial images of the chest were obtained without IV contrast. Images were reviewed in the axial, sagittal, and coronal planes. IV contrast was not administered for this examination. Automated exposure control was utilized for the study. A dose lowering technique was utilized adhering to the principles of ALARA. FINDINGS: Tip of endotracheal tube is 2.8 cm above the ana. Left internal jugular central line is in place. Tip of nasogastric tube is below the lower aspect of this image but at least within the stomach. Moderate cardiomegaly is noted. There is no pericardial effusion. Pneumomediastinum. CT of April 30, 2021 has nearly resolved. There is trace residual pneumomediastinum. There is no pneumothorax. Extensive multifocal airspace opacities within the lungs with multifocal consolidation and groundglass opacity have mildly progressed. Minimal hyperdense material within the right lower lobe is unchanged. There is a small amount of low-attenuation left pleural fluid. An adjacent hyperdense focus within the left hemithorax favors a loculated hemothorax which was shown on CT of April 30, 2021. Density of the hemothorax has increased. Size is minimally increased. This now measures 16.1 x 6.9 x 6 cm. It previously measured 15 x 5.9 x 5.4 cm. No additional sites of hemorrhage are identified on this examination. Visualized portions of the upper abdomen are unremarkable on this unenhanced study. IMPRESSION: 1. Minimal increase in size and increase in density of a suspected loculated left hemothorax since CT of April 30, 2021. 2. Extensive multifocal airspace opacities within the lungs which have mildly progressed. This represents viral pneumonia. 3. Near complete resolution of pneumomediastinum. 4. Satisfactory positioning of lines and tubes. Coding Level of Care Code Critical Care 1st 30-74 mins Diagnoses COVID-19 U07.1 Pneumomediastinum J98.2 Pleural effusion J90 Acute respiratory failure with hypoxia J96.01
[2021-05-05] MEDS ORDERED: VECURONIUM BROMIDE 10 MG VIAL IV STA (12:19)
[2021-05-05] MEDS ORDERED: VECURONIUM BROMIDE 10 MG VIAL IV ONE (12:30)
[2021-05-05] MEDS ORDERED: SODIUM CHLORIDE 0.9% 250 ML IV PRN (14:08)
--- NOTE | 2021-05-05 14:51 | Procedure Note ---
Procedure Note Date of Service May 05, 2021 Note PIGTAIL CATHETER PLACEMENT NOTE: Procedure: Pigtail Catheter Chest Tube Placement Indication: Left hemothorax Anesthesia: 8ml Lidocaine 1% Consent was delegated to the ICU ASHER and was obtained from the patient's over the phone. Timeout was done prior to the procedure. Prior to procedure, chest x-ray films were reviewed by myself and demonstrated a large left dense pleural fluid collection A time-out was completed verifying correct patient, procedure, site, positioning, and implant(s) or special equipment if applicable. Utilizing bedside ultrasound, chest wall was evaluated for location for optimal chest tube placement. Location between the 6th and 7th ribs were marked on the skin using gentle pressure. The left sided chest wall was prepped with chlorhexidine and draped in the typical sterile fashion. He mL of 1% Lidocaine without epinephrine was used to anesthetize the skin down to the dorsal surface of the 7th rib. Bloody fluid return confirmed entry into the pleural space. Lidocaine was injected into the pleural space for increased anesthetization. Introducer needle on syringe was inserted in perpendicular fashion taking care to ride just above the dorsal surface of the 7th rib. Entry into the pleural space was heralded by bloody fluid return into the syringe while under gentle aspiration. Guide wire was advanced into the pleural space without resistance and the introducer needle was subsequently removed. Scalpel was used to make small incision of the superficial tissue, parallel to the direction of the rib anatomy. Dilator was advanced uneventfully over the guide wire into the pleural space. 14 [place] Pigtail Catheter was inserted into the pleural space. Inner introducer and guide wire were removed. Drain was immediately connected to pre-prepared AYAN pleur-evac system. Pigtail was sut ured securely in place and sterile dressing was applied. Chest tube was placed to -40 cm H2O suction. Patient tolerated procedure well. Blood Loss: Minimal Complications: None Post procedure Chest X-ray was ordered and reviewed by myself which demonstrated adequate placement. We will initiate TPA/dornase protocol given the presence of a hemothorax. Pleural fluid studies sent for culture, cytology and chemistries. Coding CPT Codes Pulmonary/Thoracic - Pulmonary and Thoracic: 97252 Tube thoracostomy ([id number]) [facility] [place] Procedure Codes ([place]) Pulmonary/Thoracic Procedure 1: Pulmonary and Thoracic: 95475 Tube thoracostomy
--- NOTE | 2021-05-05 15:01 | XRay Report ---
XR chest 1V portable HISTORY: Left chest tube placement. COMPARISON: Chest CT 05/05/2021. FINDINGS: Interval placement of a left chest tube which terminates in the medial left lung base. No d efinite pneumothorax. Loculated left pleural effusion appears to have slightly decreased in size. The heart remains normal in size. Satisfactory support line placement with the endotracheal tube termina ting approximately 3.6 cm from the ana. Patchy bilateral airspace opacities are again noted consis tent with the patient's history of a viral pneumonia. IMPRESSION: 1. Interval placement left-sided chest tube which terminates at the medial left lung base. The locula tito left pleural effusion appears of slightly decreased in size. 2. No pneumothorax. 3. Satisfactory support line placement. 4. Patchy bilateral airspace opacities are again noted. ACT 112: Negative or not required by law. Electronically signed by: Carlton Odonnell M.D. 05/05/2021 3:00 PM
[2021-05-05] MEDS: PEPTAMEN INTENSE VHP 1.0 CAL 1,000 ML BAG OG SCH (15:27)
[2021-05-05 16:06] LABS: Appearance Pleural Fluid BLOODY; Color Pleural Fluid RED; Neutrophils, Fluid 85 %; RBC Pleural Fluid (A) 3094000 /uL; Source Pleural Fluid LEFT LUNG; WBC Pleural Fluid (A) 1626 /uL
[2021-05-05 16:07] LABS: Eosinophils, Fluid 0 %; Lymphocytes, Fluid 7 %; Mono,Macrophage,Mesothelial 8 %
[2021-05-05] MEDS: DORNASE ALFA 5 ML in SYRINGE 25 ML IPL SCH (16:43)
[2021-05-05 16:46] LABS: Hematocrit (blood only) 27.2 % (42-52); Hemoglobin 8.6 g/dL (14.0-18.0); Mean Corpuscular Hemoglobin 28.9 pg (25-34); Mean Corpuscular Volume 91.3 fL (80-100); Nucleated RBC # (auto) 0.02 K/uL (0-0); Nucleated RBC % (auto) 0.3 %; RDW Coefficient of Variation 14.9 % (11.5-14.5); RDW Standard Deviation 49.4 fL (36.4-46.3); Red Blood Count 2.98 M/uL (4.7-6.1); White Blood Count 9.45 K/uL (4.8-10.8)
[2021-05-05 17:07] LABS: Mean Corpuscular Hgb Conc 31.6 g/dL (32-36); Mean Platelet Volume 9.3 fL (7.4-10.4); Platelet Count 97 K/uL (130-400)
[2021-05-05 17:08] LABS: Platelet Estimate Decreased (Normal)
[2021-05-05] MEDS: ALTEPLASE, RECOMBINANT 10 MG in SYRINGE 50 ML IPL SCH (18:00)
--- NOTE | 2021-05-05 19:48 | XRay Report ---
XR chest 1V portable HISTORY: follow up dornase instillation into chest tube COMPARISON: Chest 05/05/2021. FINDINGS: Lines and tubes remain unchanged in position. Patchy bilateral airspace opacities are again noted. There is progressive hazy appearance to left mid to lower lung zone. No definite pneumothorax . The patient's loculated left effusion is again noted. This is not significantly changed. IMPRESSION: 1. Satisfactory line placement. 2. Hazy appearance to the left lung has slightly progressed. 3. The patient's likely left pleural effusion is again noted. The left basilar chest tube is unchange d in position. ACT 112: Negative or not required by law. Electronically signed by: Carlton Odonnell M.D. 05/05/2021 7:46 PM
[2021-05-05] MEDS: MIRTAZAPINE TAB 15 MG TAB PO SCH (20:03)
[2021-05-05] MEDS: PRAVASTATIN SOD 40 MG TAB PO SCH (20:03)
[2021-05-05] MEDS ORDERED: INSULIN GLARGINE SOLOSTAR 100 UNITS/ML 3 ML PEN SC ONE (21:00)
--- NOTE | 2021-05-05 21:35 | Hospitalist Progress Note ---
Date of Service May 05, 2021 Assessment & Plan (1) Acute respiratory failure with hypoxia: Plan: Patient is in acute respiratory failure. now mechanically ventilated, with ARDS. Prognosis is poor Pneumomediastinum, left sided pleural effusion/hemothorax three days in a row he did not do well with SBT palliative spoke with his son, he is a DNR/DNI continue to assess for possible extubation (2) Pleural effusion: Plan: chest tube placed 05/[address] Temple, bloody drainage, hemothorax continue drainage to see if it improves ventilation (3) COVID-19: Plan: getting worse, CRP trending up, remains ventilated completed course of Remdesivir continue dexamethasone treating possible secondary infection with Zosyn (4) Multilobar lung infiltrate: Plan: as above. (5) Weakness: Plan: Appears to be due to the severity of his Covid pneumonia/hypoxiasee above (6) CKD (chronic kidney disease) stage 3, GFR 30-59 ml/min: Plan: Continue to follow creatininestable at this time, certainly stable to administer more Lasix (7) Coronary artery disease: Plan: No angina, continue to monitor (8) Sleep apnea: Plan: intubated and ventilated (9) Hypertension: Plan: Blood pressures are acceptable given situation (10) Diabetes: Plan: Poorly controlled at baseline as well as acutely. continue to adjust insulinspharmacy is managing at this time (11) Lumbar stenosis with neurogenic claudication: Plan: sedated (12) DVT prophylaxis: Plan: heparin (13) Discharge planning issues: Plan: poor prognosis Admission and Anticipated Discharge Date Admission Date: April 18, 2021 Subjective patient had left sided chest tube placed by Dr. Temple, found to have hemothorax patient did not do well with SBT today, hypertensive, agitated, rapid breathing Review of Systems Review of Systems: Unobtainable due to endotracheal tube Physical Exam Physical Exam: General: ill appearing, mechanically ventilated, elderly male Neck: supple, trachea midline, normal thyroid Lungs: symmetric chest movement, decreased breath sounds in bases, ventilated Chest: left sided chest tube, draining blood Heart: regular S1 and S2, no murmur, peripheral pulses normal, capillary refill normal, no edema Abdomen: soft, NT, ND, + BS, no hepatomegaly, normal to percussion Extremities: normal in appearance, no cyanosis, no petechiae Neuro: sedated, not following commands, no focal motor deficits, CN II-XII intact Skin: warm, dry, no rash, normal turgor Psych: sedated Results & Data Results & Data ([facility]) Vital Signs (Past 12 Hours) Vital Signs Temp Pulse Pulse Resp BP BP Pulse Ox 05/05/21 19:35 50 L 26 H 91 05/05/21 18:47 37.2 C 48 L 28 H 127/54 L 93 05/05/21 18:15 37.2 C 47 L 28 H 129/54 L 93 05/05/21 18:00 37.2 C 48 L 28 H 131/55 L 94 05/05/21 17:44 37.2 C 46 L 26 H 141/73 H 92 05/05/21 17:17 37.2 C 44 L 28 H 139/52 L 92 05/05/21 17:00 37.3 C 45 L 28 H 124/61 98 05/05/21 16:55 118 H 05/05/21 16:53 37.2 C 45 L 28 H 124/50 L 94 05/05/21 16:36 37.4 C 45 L 28 H 111/60 96 05/05/21 16:00 37.5 C 44 L 28 H 127/50 L 98 05/05/21 15:28 37.5 C 51 L 28 H 121/49 L 91 05/05/21 15:07 45 L 26 H 90 05/05/21 14:00 37.6 C H 61 29 H 135/57 L 88 L 05/05/21 13:00 37.5 C 84 28 H 97 05/05/21 12:00 37.7 C H 46 L 28 H 135/52 L 91 05/05/21 11:35 45 L 26 H 90 05/05/21 11:00 38.7 C H 47 L 28 H 117/48 L 92 05/05/21 10:37 105/40 L 05/05/21 10:00 37.6 C H 57 L 28 H 91 Laboratory Results Laboratory Results - last 24 hr 05/05/21 05/05/21 05/05/21 01:49 03:39 05:00 WBC RBC Hgb POC Hgb 7.8 L Hct POC Hct 23 L MCV MCH MCHC RDW Std Deviation RDW Coeff of Patti Plt Count MPV Immature Gran % (Auto) Neut % (Auto) Lymph % (Auto) [place] % (Auto) Eos % (Auto) Baso % (Auto) Neut # (Auto) Lymph # (Auto) [place] # (Auto) Eos # (Auto) Baso # (Auto) Immature Gran # (Auto) Absolute Nucleated RBC Nucleated RBC % (auto) Platelet Estimate Sample Site Art Line POC pH 7.42 POC pCO2 36 POC pO2 67 L POC HCO3 23 POC Total CO2 24 POC Base Excess -2.0 ABG pH (Temp Correct) 7.414 ABG pCO2 (Temp Corrct 36 POC ABG pO2 at Pt Temp 68 POC ABG O2 Sat 93.0 Antonio Test NA O2 Delivery Device Ventilator POC O2 Rate 26 POC FiO2 50 Tidal Volume 430 PEEP 6 POC Sodium 139 Sodium POC Potassium 3.8 Potassium Chloride Carbon Dioxide Anion Gap BUN Creatinine Est Cr Clr Drug Dosing Est GFR ( Amer) Est GFR (Non-Af Amer) BUN/Creatinine Ratio Glucose POC Glucose 152 H 157 H POC Glucose (other) Calcium Phosphorus Magnesium Fluid Neutrophils % Fluid Lymphocytes % Fluid Eosinophils % Fluid Meso/Macro/[place] % Fluid Comment Pleural Fluid Source Pleural Color Pleural Appearance Pleural pH Pleural WBC Pleural RBC Pleural Total Protein Pleural LDH Pleural Glucose Miscellaneous Test Blood Type Antibody Screen Crossmatch 05/05/21 05/05/21 05/05/21 06:14 06:14 06:14 WBC 9.21 RBC 2.79 L Hgb 8.2 L POC Hgb Hct 25.9 L POC Hct MCV 92.8 MCH 29.4 MCHC 31.7 L RDW Std Deviation 51.4 H RDW Coeff of Patti 15.1 H Plt Count 105 L MPV 10.0 Immature Gran % (Auto) 2.2 Neut % (Auto) 76.6 Lymph % (Auto) 10.2 [place] % (Auto) 9.6 Eos % (Auto) 1.3 Baso % (Auto) 0.1 Neut # (Auto) 7.06 H Lymph # (Auto) 0.94 L [place] # (Auto) 0.88 H Eos # (Auto) 0.12 Baso # (Auto) 0.01 Immature Gran # (Auto) 0.20 H Absolute Nucleated RBC 0.05 H Nucleated RBC % (auto) 0.6 Platelet Estimate Sample Site POC pH POC pCO2 POC pO2 POC HCO3 POC Total CO2 POC Base Excess ABG pH (Temp Correct) ABG pCO2 (Temp Corrct POC ABG pO2 at Pt Temp POC ABG O2 Sat Antonio Test O2 Delivery Device POC O2 Rate POC FiO2 Tidal Volume PEEP POC Sodium Sodium 142 POC Potassium Potassium 3.9 Chloride 111 H Carbon Dioxide 24 Anion Gap 7.0 BUN 35 H Creatinine 1.14 Est Cr Clr Drug Dosing 69.1 Est GFR ( Amer) 73.0 Est GFR (Non-Af Amer) 63.0 BUN/Creatinine Ratio 31.1 H Glucose 160 H POC Glucose POC Glucose (other) Calcium 8.6 Phosphorus 2.8 Magnesium 2.6 H Fluid Neutrophils % Fluid Lymphocytes % Fluid Eosinophils % Fluid Meso/Macro/[place] % Fluid Comment Pleural Fluid Source Pleural Color Pleural Appearance Pleural pH Pleural WBC Pleural RBC Pleural Total Protein Pleural LDH Pleural Glucose Miscellaneous Test Blood Type B Negative Antibody Screen NEGATIVE Crossmatch See Detail 05/05/21 05/05/21 05/05/21 14:00 14:00 14:00 WBC RBC Hgb POC Hgb Hct POC Hct MCV MCH MCHC RDW Std Deviation RDW Coeff of Patti Plt Count MPV Immature Gran % (Auto) Neut % (Auto) Lymph % (Auto) [place] % (Auto) Eos % (Auto) Baso % (Auto) Neut # (Auto) Lymph # (Auto) [place] # (Auto) Eos # (Auto) Baso # (Auto) Immature Gran # (Auto) Absolute Nucleated RBC Nucleated RBC % (auto) Platelet Estimate Sample Site POC pH POC pCO2 POC pO2 POC HCO3 POC Total CO2 POC Base Excess ABG pH (Temp Correct) ABG pCO2 (Temp Corrct POC ABG pO2 at Pt Temp POC ABG O2 Sat Antonio Test O2 Delivery Device POC O2 Rate POC FiO2 Tidal Volume PEEP POC Sodium Sodium POC Potassium Potassium Chloride Carbon Dioxide Anion Gap BUN Creatinine Est Cr Clr Drug Dosing Est GFR ( Amer) Est GFR (Non-Af Amer) BUN/Creatinine Ratio Glucose POC Glucose POC Glucose (other) Calcium Phosphorus Magnesium Fluid Neutrophils % 85 Fluid Lymphocytes % 7 Fluid Eosinophils % 0 Fluid Meso/Macro/[place] % 8 Fluid Comment Pleural Fluid Source LEFT LUNG Pleural Color RED Pleural Appearance BLOODY Pleural pH Cancelled Pleural WBC 1626 Pleural RBC [id number] Pleural Total Protein Pleural LDH Pleural Glucose Cancelled Miscellaneous Test Blood Type Antibody Screen Crossmatch 05/05/21 05/05/21 05/05/21 14:00 15:54 16:25 WBC 9.45 RBC 2.98 L Hgb 8.6 L POC Hgb Hct 27.2 L POC Hct MCV 91.3 MCH 28.9 MCHC 31.6 L RDW Std Deviation 49.4 H RDW Coeff of Patti 14.9 H Plt Count 97 L MPV 9.3 Immature Gran % (Auto) Neut % (Auto) Lymph % (Auto) [place] % (Auto) Eos % (Auto) Baso % (Auto) Neut # (Auto) Lymph # (Auto) [place] # (Auto) Eos # (Auto) Baso # (Auto) Immature Gran # (Auto) Absolute Nucleated RBC 0.02 H Nucleated RBC % (auto) 0.3 Platelet Estimate Decreased L Sample Site POC pH POC pCO2 POC pO2 POC HCO3 POC Total CO2 POC Base Excess ABG pH (Temp Correct) ABG pCO2 (Temp Corrct POC ABG pO2 at Pt Temp POC ABG O2 Sat Antonio Test O2 Delivery Device POC O2 Rate POC FiO2 Tidal Volume PEEP POC Sodium Sodium POC Potassium Potassium Chloride Carbon Dioxide Anion Gap BUN Creatinine Est Cr Clr Drug Dosing Est GFR ( Amer) Est GFR (Non-Af Amer) BUN/Creatinine Ratio Glucose POC Glucose POC Glucose (other) 174 H Calcium Phosphorus Magnesium Fluid Neutrophils % Fluid Lymphocytes % Fluid Eosinophils % Fluid Meso/Macro/[place] % Fluid Comment Pleural Fluid Source Pleural Color Pleural Appearance Pleural pH Pleural WBC Pleural RBC Pleural Total Protein Pleural LDH Pleural Glucose Miscellaneous Test Pending Blood Type Antibody Screen Crossmatch 05/05/21 19:57 WBC RBC Hgb POC Hgb Hct POC Hct MCV MCH MCHC RDW Std Deviation RDW Coeff of Patti Plt Count MPV Immature Gran % (Auto) Neut % (Auto) Lymph % (Auto) [place] % (Auto) Eos % (Auto) Baso % (Auto) Neut # (Auto) Lymph # (Auto) [place] # (Auto) Eos # (Auto) Baso # (Auto) Immature Gran # (Auto) Absolute Nucleated RBC Nucleated RBC % (auto) Platelet Estimate Sample Site POC pH POC pCO2 POC pO2 POC HCO3 POC Total CO2 POC Base Excess ABG pH (Temp Correct) ABG pCO2 (Temp Corrct POC ABG pO2 at Pt Temp POC ABG O2 Sat Antonio Test O2 Delivery Device POC O2 Rate POC FiO2 Tidal Volume PEEP POC Sodium Sodium POC Potassium Potassium Chloride Carbon Dioxide Anion Gap BUN Creatinine Est Cr Clr Drug Dosing Est GFR ( Amer) Est GFR (Non-Af Amer) BUN/Creatinine Ratio Glucose POC Glucose POC Glucose (other) 183 H Calcium Phosphorus Magnesium Fluid Neutrophils % Fluid Lymphocytes % Fluid Eosinophils % Fluid Meso/Macro/[place] % Fluid Comment Pleural Fluid Source Pleural Color Pleural Appearance Pleural pH Pleural WBC Pleural RBC Pleural Total Protein Pleural LDH Pleural Glucose Miscellaneous Test Blood Type Antibody Screen Crossmatch Medications Administered Current Inpatient Medications Acetaminophen (Acetaminophen 325 Mg Tab) 650 mg PO Q4H PRN PRN Reason: Pain or Fever Stop: 05/18/21 10:14 Al Hydrox/Mg Hydrox/Simethicone (Aluminum/Magnesium Susp 30 Ml Udc) 15 ml PO Q4H PRN PRN Reason: Dyspepsia Stop: 05/18/21 10:14 Albuterol (Albuterol Hfa 8 Gm Inhaler) 1 puffs INH QIDR PRN PRN Reason: Shortness Of Breath Or Wheezing Stop: 05/23/21 18:59 Aspirin (Aspirin 81 Mg Ectab) 81 mg PO QAM MIR Stop: 05/18/21 10:59 Last Admin: 04/30/21 10:20 Dose: Not Given Documented by: Cilostazol (Cilostazol 100 Mg Tab) 50 mg PO BID MIR; Protocol Stop: 05/21/21 20:59 Last Admin: 05/05/21 20:00 Dose: 50 mg Documented by: Dextrose (Dextrose 50% 50 Ml Syringe) 25 - 50 ml IV UD PRN; Protocol PRN Reason: Hypoglycemia Protocol Stop: 05/18/21 10:14 Fentanyl Citrate (Fentanyl Bolus From Bag) 50 mcg IV Q60M PRN PRN Reason: Pain or Agitation Stop: 05/14/21 18:32 Fluoxetine HCl (Fluoxetine Hcl 10 Mg Cap) 10 mg PO QAM MIR Stop: 05/21/21 11:59 Last Admin: 05/01/21 10:51 Dose: Not Given Documented by: Glucagon (Glucagon For Inj 1 Mg Vial) 1 mg SQ UD PRN; Protocol PRN Reason: Hypoglycemia Protocol Stop: 05/18/21 10:14 Glucose (Glucose 10 Tabs/Tube) 4 - 8 tabs PO UD PRN; Protocol PRN Reason: Hypoglycemia Protocol Stop: 05/18/21 10:14 Glucose (Glucose 40% Gel 15 Gm Tube) 15 - 30 gm PO UD PRN; Protocol PRN Reason: Hypoglycemia Protocol Stop: 05/18/21 10:14 Guaifenesin (Guaifenesin 600 Mg Tabcr) 600 mg PO Q12 [facility] Stop: 05/20/21 20:59 Last Admin: 04/30/21 10:21 Dose: Not Given Documented by: Hydralazine HCl (Hydralazine Hcl 20 Mg/Ml Vial) 5 mg IV Q2H PRN PRN Reason: SBP>180 Stop: 06/03/21 09:25 Fentanyl Citrate (Fentanyl Drip) 1,250 mcg in 250 mls @ 20 mls/hr IV .[id number] [facility]; Protocol Stop: 05/14/21 18:44 Last Admin: 05/05/21 13:21 Dose: 100 mcg/hr, 20 mls/hr Documented by: Norepinephrine Bitartrate (Levophed/D5w) 8 mg in 508 mls @ 3.802 mls/hr IV .Q24H [facility]; Protocol Stop: 05/30/21 23:14 Last Admin: 05/05/21 21:46 Dose: Not Given Documented by: Piperacillin Sod/Tazobactam (Sod 4.5 gm/ Dextrose) 120 mls @ 30 mls/hr IV Q8H [facility]; Protocol Stop: 05/08/21 17:14 Last Admin: 05/05/21 16:57 Dose: 30 mls/hr Documented by: Pantoprazole Sodium 40 mg/ (Syringe) 10 mls @ 5 mls[facility]: 06/02/21 08:59 Last Admin: 05/05/21 08:32 Dose: 5 mls/min Documented by: Dexamethasone 6 mg/ Syringe 1.5 mls @ 1 mls/[facility] Stop: 06/02/21 08:59 Last Admin: 05/05/21 09:58 Dose: 1 mls/min Documented by: Dexmedetomidine HCl 400 mcg/ (Sodium Chloride) 100 mls @ 18.217 mls/hr IV .Q5H30M [facility]; Protocol Stop: 05/08/21 12:29 Last Admin: 05/05/21 21:46 Dose: Not Given Documented by: Propofol (Diprivan) 1,000 mg in 100 mls @ 21.861 mls/hr IV .Q4H35M [facility]; Protocol Stop: 05/07/21 12:14 Last Admin: 05/05/21 21:34 Dose: 35 mcg/kg/min, 21.9 mls/hr Documented by: Sodium Chloride (Nss) 250 mls @ 15 mls/hr IV .[id number] PRN PRN Reason: For Transfusion Stop: 05/06/21 00:08 Alteplase, Recombinant 10 mg/ (Syringe) 60 mls @ 0.0006 mls/min IPL Q12H MIR; Protocol Stop: 05/08/21 15:59 Last Admin: 05/05/21 18:00 Dose: 0.0006 mls/min Documented by: Dornase Alexis 5 ml/ Syringe 30 mls @ 0.0006 mls/min IPL Q12H MIR; Protocol Stop: 05/08/21 15:59 Last Admin: 05/05/21 16:43 Dose: 0.0006 mls/min Documented by: Insulin Aspart (Insulin Aspart 100 Units/Ml 3 Ml Pen) 0 units SC Q4 MIR; Protocol Stop: 06/02/21 15:59 Last Admin: 05/05/21 19:58 Dose: 11 units Documented by: Insulin Glargine (Insulin Glargine Solostar 100 Units/Ml 3 Ml Pen) 50 units SC QAM MIR Stop: 06/05/21 08:59 Ipratropium Chrisney (Ipratropium Chrisney Hfa Inhaler) 1 puffs INH QIDR PRN PRN Reason: Shortness Of Breath Or Wheezing Stop: 05/23/21 18:59 Magnesium Hydroxide (Magnesium Hydroxide Susp 30 Ml Udc) 30 ml PO Q12H PRN PRN Reason: Constipation Stop: 05/18/21 10:14 Last Admin: 04/28/21 08:09 Dose: 30 ml Documented by: Mirtazapine (Mirtazapine Tab 15 Mg Tab) 15 mg PO HS MIR Stop: 05/23/21 20:59 Last Admin: 05/05/21 20:03 Dose: 15 mg Documented by: Miscellaneous (Carbohydrates For Hypoglycemia ) 15 - 30 gm PO UD PRN PRN Reason: Hypoglycemia Protocol Stop: 05/18/21 10:14 Last Admin: 04/28/21 08:31 Dose: 15 gm Documented by: Miscellaneous Information (Pharmacy Glycemic Mgmt Consult) 1 ea N/A UD PRN; Protocol PRN Reason: Consult Stop: 05/18/21 10:14 Miscellaneous Information (Piperacill/Tazobac Consult Active) 1 ea N/A UD PRN PRN Reason: Consult Stop: 05/31/21 16:38 Nitroglycerin (Nitroglycerin Sl 0.4 Mg/Tab Tab) 0.4 mg SL UD PRN PRN Reason: Chest Pain Stop: 05/18/21 10:14 Nutritional Formula (Peptamen Intense Vhp 1.0 Tomasz 1,000 Ml Bag) 1,000 ml OG UD MIR; Protocol Stop: 06/02/21 11:29 Last Admin: 05/05/21 15:27 Dose: 1,000 ml Documented by: Ondansetron HCl (Ondansetron Inj 2 Mg/Ml 2 Ml Vial) 4 mg IV Q6H PRN PRN Reason: Nausea Stop: 05/18/21 10:14 Polyethylene Glycol (Polyethylene (Miralax) 17 Gm Pack) 17 gm PO DAILY PRN PRN Reason: Constipation Stop: 05/18/21 10:14 Last Admin: 04/27/21 07:39 Dose: 17 gm Documented by: Pravastatin Sodium (Pravastatin Sod 40 Mg Tab) 40 mg PO QPM MIR Stop: 05/18/21 20:59 Last Admin: 05/05/21 20:03 Dose: 40 mg Documented by: Propofol (Propofol Bolus From Bag) 20 mg IV Q5M PRN PRN Reason: Sedation Stop: 05/07/21 12:04 Last Admin: 05/04/21 20:36 Dose: 20 mg Documented by: Sterile Water (Tube Feeding Water Flush) 30 ml OG Q4H MIR Stop: 06/02/21 11:29 Last Admin: 05/05/21 21:46 Dose: 30 ml Documented by: Tamsulosin HCl (Tamsulosin Hcl 0.4 Mg Cap) 0.4 mg PO QPM MIR Stop: 05/18/21 20:59 Last Admin: 04/29/21 23:17 Dose: 0.4 mg Documented by: Zinc Sulfate (Zinc Sulfate 220 Mg Capsule) 220 mg PO QAM MIR Stop: 05/24/21 08:59 Last Admin: 05/05/21 08:32 Dose: 220 mg Documented by: PG Care Time/CCT Total # of Minutes Spent Total Time Spent with Patient: Total time spent is greater than 50% in coordination of care (as documented) at patient's floor/unit and/or counseling patient: Coding Level of Care Code 33449 Subseq Hosp Care Lvl 2 Diagnoses Acute respiratory failure with hypoxia J96.01 COVID-19 U07.1 Multilobar lung infiltrate R91.8 Weakness R53.1 CKD (chronic kidney disease) stage 3, GFR 30-59 ml/min N18.3 Coronary artery disease I25.10 Sleep apnea G47.30 Hypertension I10 Diabetes E11.9 Lumbar stenosis with neurogenic claudication M48.062 DVT prophylaxis Z29.9 Discharge planning issues Z02.9 Pleural effusion J90
[2021-05-05 23:05] LABS: Hematocrit (blood only) 31.2 % (42-52); Mean Corpuscular Hemoglobin 29.4 pg (25-34); Mean Corpuscular Hgb Conc 32.1 g/dL (32-36); Mean Corpuscular Volume 91.8 fL (80-100); Mean Platelet Volume 9.3 fL (7.4-10.4); Nucleated RBC # (auto) 0.03 K/uL (0-0); Nucleated RBC % (auto) 0.3 %; Platelet Count 101 K/uL (130-400); RDW Coefficient of Variation 15.2 % (11.5-14.5); RDW Standard Deviation 50.8 fL (36.4-46.3); White Blood Count 9.85 K/uL (4.8-10.8)
[2021-05-06] MEDS: fentaNYL DRIP 1,250 MCG/250 ML BAG IV SCH ×2 (00:56→13:34)
[2021-05-06] MEDS: INSULIN ASPART 100 UNITS/ML 3 ML PEN SC SCH ×6 (00:56→22:23)
[2021-05-06] MEDS: PIPERACILLIN/TAZOBACTAM 4.5 GM in DEXTROSE 5% 100 ML IV SCH ×2 (01:30→08:56)
[2021-05-06] MEDS: propofoL 1,000 MG/100 ML VIAL IV SCH ×6 (02:10→22:24)
[2021-05-06] MEDS: DEXMEDETOMIDINE HCL 400 MCG in 0.9 % SODIUM CHLORIDE 96 ML IV SCH (02:14)
[2021-05-06] MEDS: ALTEPLASE, RECOMBINANT 10 MG in SYRINGE 50 ML IPL SCH ×2 (03:15→16:06)
[2021-05-06] MEDS: TUBE FEEDING WATER FLUSH OG SCH ×5 (03:20→22:23)
[2021-05-06] MEDS: DORNASE ALFA 5 ML in SYRINGE 25 ML IPL SCH ×2 (04:13→16:42)
[2021-05-06 05:32] LABS: iSTAT Art Bld Gas pCO2 Correct 37 mmHg (35-46); iSTAT Art Bld Gas pH Corrected 7.396 (7.35-7.45); iSTAT Arterial Blood Gas HCO3 23 meg/L (19-24); iSTAT Arterial Blood Gas pCO2 37 mmHg (35-46); iSTAT Arterial Blood Gas pO2 54 mmHg (80-95); iSTAT Arterial Blood Gas pO2 C 54; iSTAT Carbon Dioxide 24 mmol/L (24-31); iSTAT FiO2 40 %; iSTAT Hematocrit 27 % (42-52); iSTAT Hemoglobin 9.2 g/dl (14.0-18.0); iSTAT Site Art Line; iSTAT Sodium 139 mmol/L (135-144)
--- NOTE | 2021-05-06 07:34 | XRay Report ---
XR chest 1V portable CLINICAL HISTORY: Respiratory failure. COMPARISON STUDY: Chest CT May 05, 2021. Chest radiograph May 05, 2021. FINDINGS: Tip of endotracheal tube is 4.6 cm above the ana. Left pleural catheter remains in place . Left internal jugular line is unchanged in position. Tip of nasogastric tube is below the lower asp ect of the image but at least within the body of the stomach. There is no pneumothorax. Bilateral air space opacities persist. Cardiomediastinal silhouette is stable. IMPRESSION: 1. Satisfactory positioning of lines and tubes. 2. Left pleural catheter remains in place. No pneumothorax. 3. Persistent extensive bilateral airspace opacities. ACT 112: Negative or not required by law. Electronically signed by: Alon Cervantes M.D. 05/06/2021 7:32 AM
[2021-05-06] MEDS: ZINC SULFATE 220 MG CAPSULE PO SCH (08:34)
[2021-05-06] MEDS: PANTOprazole 40 MG in SYRINGE 0 ML IV SCH (08:34)
[2021-05-06] MEDS: dexAMETHasone 6 MG in SYRINGE 0 ML IV SCH ×2 (08:34→08:55)
[2021-05-06 08:39] LABS: Hematocrit (blood only) 30.8 % (42-52); Hemoglobin 9.9 g/dL (14.0-18.0); Mean Corpuscular Hemoglobin 29.1 pg (25-34); Mean Corpuscular Hgb Conc 32.1 g/dL (32-36); Mean Corpuscular Volume 90.6 fL (80-100); RDW Coefficient of Variation 15.6 % (11.5-14.5); RDW Standard Deviation 50.5 fL (36.4-46.3)
[2021-05-06] MEDS: cilostazoL 100 MG TAB PO SCH (08:57)
[2021-05-06] MEDS ORDERED: INSULIN GLARGINE SOLOSTAR 100 UNITS/ML 3 ML PEN SC SCH (09:00)
[2021-05-06 09:09] LABS: Mean Platelet Volume 9.6 fL (7.4-10.4); Platelet Count 99 K/uL (130-400)
[2021-05-06 09:10] LABS: Basophils # (auto) 0.02 K/uL (0-0.2); Basophils % (auto) 0.2 %; Eosinophils # (auto) 0.26 K/uL (0-0.5); Eosinophils % (auto) 2.7 %; Immature Granulocytes % (auto) 4.2 %; Lymphocytes % (auto) 9.4 %; Monocytes # (auto) 0.99 K/uL (0.11-0.59); Monocytes % (auto) 10.3 %; Neutrophils # (auto) 7.03 K/uL (1.4-6.5); Neutrophils % (auto) 73.2 %
[2021-05-06 09:21] LABS: BUN Creatinine Ratio 33.9 (10-20); Creatinine Clr Calc Pharmacy 74.5 ml/min; Est GFR (African American) 79.7 ml/min; Est GFR (Non-African American) 68.8 ml/min; Magnesium 2.6 mg/dl (1.8-2.4); Phosphorus 2.5 mg/dl (2.5-4.9); Potassium 3.9 mmol/L (3.5-5.1)
--- NOTE | 2021-05-06 10:58 | Palliative Care Progress Note ---
Date of Service May 06, 2021 Assessment & Plan (1) Palliative care encounter: Plan: Pt sedated. CT in place for hemothorax. Hgb holding 9.9 currently. He has poorly tolerated SBT to this point as he becomes agitated and dyssynchronous on the vent. Plan for sedation vacation today to attempt additional wean as he is only receiving 40% FiO2. I was able to talk with his son Ubaldo on the phone at [phone] and provide him with an update. He is aware that it looks like things are not moving in the right direction, but willing to continue care for the coming days. Confirmed that if he was extubated, no further re-intubation if he would decompensate further. We did discuss a tracheostomy previously and he does not think that his father would want that if he were not showing signs of improvement. Ubaldo is in [place] and his mother is in [place], recovering from Covid herself. For now, palliative will follow. (2) COVID-19: (3) Hypoxia: (4) Weakness: Admission and Anticipated Discharge Date Admission Date: April 18, [address] Subjective [address] CT in place for hemothorax. Hgb holding 9.9 Plan for sedation vacation today. Failed SBT previously x2. Review of Systems Review of Systems: Unobtainable due to endotracheal tube Physical Exam Constitutional: + frail appearing Respiratory: + tachypneic Skin: + ecchymosis and + pallor Neurologic: + obtunded (on ventilator ) Results & Data ([facility]) Vital Signs (Past 12 Hours) Vital Signs Temp Pulse Resp BP Pulse Ox 05/06/21 09:00 37.6 C H 58 L 29 H 05/06/21 08:00 37.3 C 66 29 H 05/06/21 07:25 54 L 26 H 93 05/06/21 07:00 37.2 C 53 L 26 H 110/53 L 94 05/06/21 06:00 37.3 C 52 L 26 H 101/50 L 92 05/06/21 05:30 37.3 C 52 L 26 H 90 05/06/21 05:00 37.2 C 54 L 85 L 05/06/21 04:30 37.3 C 80 86 L 05/06/21 04:06 53 L 27 H 89 L 05/06/21 04:00 37.3 C 53 L 124/57 L 89 L 05/06/21 03:30 37.4 C 52 L 88 L 05/06/21 03:00 37.5 C 51 L 103/53 L 89 L 05/06/21 02:57 52 L 05/06/21 02:30 37.5 C 53 L 89 L 05/06/21 02:00 37.6 C H 53 L 90 05/06/21 01:00 37.5 C 56 L 109/51 L 90 05/06/21 00:00 37.5 C 58 L 29 H 155/66 H 98 05/05/21 23:53 54 L 27 H 90 05/05/21 23:00 37.5 C 52 L 92 PG Care Time/CCT Total # of Minutes Spent Total Time Spent with Patient: Total time spent is greater than 50% in coordination of care (as documented) at patient's floor/unit and/or counseling patient: 35 minutes Coding Level of Care Code 96146 Subseq Hosp Care Lvl 3 Diagnoses Palliative care encounter Z51.5 COVID-19 U07.1 Hypoxia R09.02 Weakness R53.1 Time Spent (min) 35
--- NOTE | 2021-05-06 14:42 | Pharmacy Report ---
Pharmacy Glycemic Short Note 2 - Date of Service May 06, 2021 - Glycemic Short BSG Results (Last 24 hours): 05/05/21 05/05/21 05/06/21 15:54 19:57 00:57 Glucose POC Glucose POC Glucose (other) 174 H 183 H 159 H 05/06/21 05/06/21 05/06/21 04:12 07:51 07:56 Glucose 173 H POC Glucose 144 H POC Glucose (other) 161 H 05/06/21 11:30 Glucose POC Glucose 181 H POC Glucose (other) OUTPATIENT ANTIDIABETIC REGIMEN: * Canagliflozin 100MG PO daily * Glipizide ER 2.5 mg PO daily * HbA1c: 8.3% (04/19/21) ASSESSMENT: 05/06: * BSGs well controlled over last 24 hrs * Pt remains intubated, sedated, receiving IV dexamethasone 6mg daily, and tube feeds at goal (Peptamen VHP @ 70cc/hr). Norepi continues however the dose has been weaned to 0.01mcg/kg/min. * Lantus dosing was recently converted to once daily in the AM. This may need to be split BID for greater ease of dose titration in critically ill patient who will likely have tube feeds held if extubated and may be NPO for a period of time afterwards. Will convert back to BID dosing tomorrow. 05/03: * Patient continues on insulin infusion + Lantus 20 units daily (will not go above due to hypoglycemia with Lantus 22 units). Insulin infusion rate has decreased to 1.7 units/hr with BSGs at goal. * Patient failed sedation vacation. Initiating tube feeds. Continues on low dose norepinephrine. * Set CR of 4 for now --- may need to be more aggressive with carbohydrate ratio depending on how BSGs are. * Will not d/c insulin infusion until effects of tube feeds are seen. 05/02: * Insulin drip continued yesterday. Drip rate has been running at 5.1 ml/hr. BSGs have been at goal. since last night. * In addition, pt received total 20 units of basal insulin yesterday. AM dose of basal Lantus increased to 20 units this AM. * NPH insulin added this AM as well since pt was started on IV Decadron QAM. Dosed at 0.3 unit/kg. * Will let the insulin drip continue for now since IV steroids is now started and patient continues to be intubated and on pressors. 05/01: * Patient transferred to ICU [facility] yesterday for intubation and bronchoscope. * He was started on stressors and IV sedation with Fentanyl, propofol and Nimbex last night. * Blood sugars trended up to 384 early this AM. Insulin drip started per hyperglycemia protocol. * Basal Lantus dose 15 units (based off doses given early on during this admission) given this AM. BSGs trended down to 286 mg/dl around noon. * Plan for insulin drip to be weaned off this evening, otherwise by tomorrow morning. PLAN FOR INPATIENT GLYCEMIC CONTROL: * Hold outpatient oral diabetes medications * Insulin drip per protocol * Basal insulin * Lantus 50 units SQ give this AM, convert to 25 units BID tomorrow * Bolus insulin: * NovoLog per scale ACHS and checks * Goal Range: Low 110 mg/dL - High 140 mg/dL * Correction Factor:10 mg/dL/unit * Nutritional / Prandial insulin per carb ratio of 1 unit per 3 grams CHO consumed PLAN FOR DISCHARGE: * HbA1c of 8.3% is elevated * Reasonable goal may be less than 8% given multiple comorbidities * Options limited based on CKD and reported intolerance to metformin * Continue current outpatient regimen * with eGFR 30-59 mL/min do not exceed Invokana 100 mg daily. * Could consider addition of Lantus 15 units QAM
--- NOTE | 2021-05-06 14:59 | Critical Care Progress Note ---
Date of Service May 06, 2021 Assessment & Plan (1) COVID-19: (2) Pneumomediastinum: (3) Pleural effusion: (4) Acute respiratory failure with hypoxia: Plan: (1) Multilobar lung infiltrate: (2) Acute respiratory failure with hypoxia: (3) Pleural effusion: (4) Septic shock: (5) Pneumomediastinum: (6) COVID-19: (7) CKD (chronic kidney disease) stage 3, GFR 30-59 ml/min: (8) HTN (hypertension), benign: (9) Hemothorax (10) Pneumomediastinum Impression: 75-year-old male with a history of coronary disease chronic kidney disease prior CVA and sleep apnea. He was admitted 04/18. He initially refused all interventions but eventually became noncompliant with oxygen or CPAP and was ripping it off which point the patient was intubated at the request of his family. Intubation was accomplished 04/30/2021. 24-hour events: Attempted SBT. The patient became very agitated and was unable to complete the SBT. He became tachypneic and tachycardic. Sedation was reinitiated. Continues to have output from the chest tube which appears bloody. Chest x-ray appears stable. Recommendations: Neurologic: Acute agitated delirium. Continue propofol and fentanyl. Continue nightly Remeron, although will increase dose to 30 mg and oral clonazepam. No indication for imaging. With his lowish blood pressure and low heart rate, not sure he can tolerate Precedex. Pulmonary:Patient has Covid pneumonia and hypoxemic respiratory failure with diffuse pulmonary infiltrates complicated by hemothorax. Pigtail catheter is in place. He is undergoing intrapleural installation of TPA and dornase which is s omewhat risky in the setting of a known hemothorax however there do not appear to be significant alternatives. His x-ray looks better. Continue to follow. May require repeat CT scan in the next few days to see how it looks. He has developed pneumomediastinum. No indication for repeat proning currently. Continue low PEEP high FiO2 strategy. He is currently day #7 intubation and mechanical ventilation. Continue dexamethasone. Cardiovascular:Maintain mean arterial pressure above 65. Now off pressors. Gastrointestinal: Continue tube feeds. PPI twice daily. ENDO:Glycemic control per protocol. Renal:ROCKY on presentation now resolved. Continue to replace electrolytes as needed. Acid-base status appropriate. Infectious disease:-Questionable left lower lobe abscess. Cultures are negative. Has been placed on Zosyn and is currently day #7 we will discontinue antibiotics at this point time and follow. Okay to discontinue isolation given the patient is over 21 days out from his initial diagnosis. Hematologic:No indication for acute transfusion currently. SCDs and subcu heparin 5000 twice daily. CODE STATUS:DNR/DNI Poor prognosis overall. Palliative care on board. Disposition: Remain in the ICU I have personally spent 50 minutes of critical care time in the direct management of this patient. This is a life/limb threatening event. This includes time spent evaluating patient, direct bedside care, chart review, placing orders, interpretation of diagnostic studies, discussion with consultants, patient, and family members, as well as other required patient management activities. This time is exclusive of all separately billable procedures, and teaching time and separate from and in addition to any other critical care service time. Thank you for allowing us to participate in the care of this patient. Admission and Anticipated Discharge Date Admission Date: April 18, 2021 Subjective Patient is intubated and sedated. Review of Systems Review of Systems: Unobtainable due to endotracheal tube Physical Exam Constitutional: WD/WN, vitals as above + mechanically ventilated Neck: trachea midline, no thyromegaly Respiratory: normal respiratory effort, lungs clear to auscultation Cardiovascular: RRR, no murmur, no edema Gastrointestinal (Abdomen): normal bowel sounds, soft, nontender, no hepatosplenomegaly Musculoskeletal: Extremities: extremities normal to inspection Skin: no rashes, warm and dry Neurologic: Nonfocal exam Lymphatic: no cervical lymphadenopathy Results & Data Results & Data ([facility]) Vital Signs (Past 12 Hours) Vital Signs Temp Pulse Resp BP Pulse Ox 05/06/21 14:00 37.2 C 49 L 26 H 105/55 L 93 05/06/21 13:00 37.5 C 49 L 26 H 91 05/06/21 12:07 55 L 27 H 94 05/06/21 12:00 37.6 C H 56 L 26 H 94 05/06/21 11:00 37.7 C H 54 L 28 H 106/49 L 91 05/06/21 10:00 37.8 C H 53 L 27 H 05/06/21 09:00 37.6 C H 58 L 29 H 05/06/21 08:00 37.3 C 66 29 H 05/06/21 07:25 54 L 26 H 93 05/06/21 07:00 37.2 C 53 L 26 H 110/53 L 94 05/06/21 06:00 37.3 C 52 L 26 H 101/50 L 92 05/06/21 05:30 37.3 C 52 L 26 H 90 05/06/21 05:00 37.2 C 54 L 85 L 05/06/21 04:30 37.3 C 80 86 L 05/06/21 04:06 53 L 27 H 89 L 05/06/21 04:00 37.3 C 53 L 124/57 L 89 L 05/06/21 03:30 37.4 C 52 L 88 L 05/06/21 03:00 37.5 C 51 L 103/53 L 89 L 05/06/21 02:57 52 L Critical Care Results & Data Vital Signs (Past 12 Hours) Vital Signs Temp Pulse Resp BP Pulse Ox 05/06/21 14:41 58 L 27 H 94 05/06/21 14:00 37.2 C 49 L 26 H 105/55 L 93 05/06/21 13:00 37.5 C 49 L 26 H 91 05/06/21 12:07 55 L 27 H 94 05/06/21 12:00 37.6 C H 56 L 26 H 94 05/06/21 11:00 37.7 C H 54 L 28 H 106/49 L 91 05/06/21 10:00 37.8 C H 53 L 27 H 05/06/21 09:00 37.6 C H 58 L 29 H 05/06/21 08:00 37.3 C 66 29 H 05/06/21 07:25 54 L 26 H 93 05/06/21 07:00 37.2 C 53 L 26 H 110/53 L 94 05/06/21 06:00 37.3 C 52 L 26 H 101/50 L 92 05/06/21 05:30 37.3 C 52 L 26 H 90 05/06/21 05:00 37.2 C 54 L 85 L 05/06/21 04:30 37.3 C 80 86 L 05/06/21 04:06 53 L 27 H 89 L 05/06/21 04:00 37.3 C 53 L 124/57 L 89 L 05/06/21 03:30 37.4 C 52 L 88 L 05/06/21 03:00 37.5 C 51 L 103/53 L 89 L 05/06/21 02:57 52 L Lab & Micro Results (Past 24 Hours) RBC 3.40 M/uL (4.7-6.1) L 05/06/21 WBC 9.60 K/uL (4.8-10.8) 05/06/21 Hgb 9.9 g/dL (14.0-18.0) L 05/06/21 Hct 30.8 % (42-52) L 05/06/21 MCV 90.6 fL (80-100) 05/06/21 MCH 29.1 pg (25-34) 05/06/21 MCHC 32.1 g/dL (32-36) 05/06/21 RDW Standard Deviation 50.5 fL (36.4-46.3) H 05/06/21 RDW Coefficient of Variation 15.6 % (11.5-14.5) H 05/06/21 Plt Count 99 K/uL (130-400) L 05/06/21 MPV 9.6 fL (7.4-10.4) 05/06/21 Nucleated Red Blood Cells % (auto) 0.3 % 05/05/21 Nucleated RBC Absolute Count (auto) 0.03 K/uL (0-0) H 05/05/21 Neutrophils (%) (Auto) 73.2 % 05/06/21 Lymphocytes (%) (Auto) 9.4 % 05/06/21 Monocytes # (Auto) 0.99 K/uL (0.11-0.59) H 05/06/21 Eosinophils # (Auto) 0.26 K/uL (0-0.5) 05/06/21 Immature Granulocyte % (Auto) 4.2 % 05/06/21 Neutrophils # (Auto) 7.03 K/uL (1.4-6.5) H 05/06/21 Lymphocytes # (Auto) 0.90 K/uL (1.2-3.4) L 05/06/21 Monocytes # (Auto) 0.99 K/uL (0.11-0.59) H 05/06/21 Eosinophils # (Auto) 0.26 K/uL (0-0.5) 05/06/21 Basophils # (Auto) 0.02 K/uL (0-0.2) 05/06/21 Immature Granulocyte # (Auto) 0.40 K/uL (0.00-0.02) H 05/06/21 Na 141 mmol/L (136-145) 05/06/21 K 3.9 mmol/L (3.5-5.1) 05/06/21 Cl 112 mmol/L (98-107) H 05/06/21 CO2 20 mmol/L (21-32) L 05/06/21 Anion Gap 9.0 (3-11) 05/06/21 BUN 36 mg/dl (7-18) H 05/06/21 Creatinine 1.06 mg/dl (0.6-1.4) 05/06/21 Estimated GFR ( Amer) 79.7 ml/min 05/06/21 Estimated GFR (Non-Af Amer) 68.8 ml/min 05/06/21 BUN/Creatinine Ratio 33.9 (10-20) H 05/06/21 Glu 173 mg/dl (70-99) H 05/06/21 Ca 9.0 mg/dl (8.5-10.1) 05/06/21 Phosphorus Level 2.5 mg/dl (2.5-4.9) 05/06/21 Mg 2.6 mg/dl (1.8-2.4) H 05/06/21 07:51 05/06/21 Calcium Level 9.0 mg/dl (8.5-10.1) 05/06/21 07:51 05/06/21 Antonio Test NA 05/06/21 05:09 05/06/21 Microbiology 05/05/21 14:00 Gram Stain - Final Pleural Fluid Aerobic and Anaerobic Culture - Preliminary No growth to date. 04/30/21 20:43 Aerobic Blood Culture - Final Blood No growth in Aerobic bottle after 5 days. Anaerobic Blood Culture - Final No growth in Anaerobic bottle after 5 days. 04/30/21 20:40 Aerobic Blood Culture - Final Blood No growth in Aerobic bottle after 5 days. Anaerobic Blood Culture - Final Diagnostic Findings (Past 24 Hours) Chest X-Ray 05/05/21 14:05 XR chest 1V portable HISTORY: Left chest tube placement. COMPARISON: Chest CT 05/05/2021. FINDINGS: Interval placement of a left chest tube which terminates in the medial left lung base. No definite pneumothorax. Loculated left pleural effusion appears to have slightly decreased in size. The heart remains normal in size. Satisfactory support line placement with the endotracheal tube terminating approximately 3.6 cm from the ana. Patchy bilateral airspace opacities are again noted consistent with the patient's history of a viral pneumonia. IMPRESSION: 1. Interval placement left-sided chest tube which terminates at the medial left lung base. The loculated left pleural effusion appears of slightly decreased in size. 2. No pneumothorax. 3. Satisfactory support line placement. 4. Patchy bilateral airspace opacities are again noted. ACT 112: Negative or not required by law. Electronically signed by: Carlton Odonnell M.D. 05/05/2021 3:00 PM Chest X-Ray 05/05/21 16:57 XR chest 1V portable HISTORY: follow up dornase instillation into chest tube COMPARISON: Chest 05/05/2021. FINDINGS: Lines and tubes remain unchanged in position. Patchy bilateral airspace opacities are again noted. There is progressive hazy appearance to left mid to lower lung zone. No definite pneumothorax. The patient's loculated left effusion is again noted. This is not significantly changed. IMPRESSION: 1. Satisfactory line placement. 2. Hazy appearance to the left lung has slightly progressed. 3. The patient's likely left pleural effusion is again noted. The left basilar chest tube is unchanged in position. ACT 112: Negative or not required by law. Electronically signed by: Carlton Odonnell M.D. 05/05/2021 7:46 PM Chest X-Ray 05/06/21 07:00 XR chest 1V portable CLINICAL HISTORY: Respiratory failure. COMPARISON STUDY: Chest CT May 05, 2021. Chest radiograph May 05, 2021. FINDINGS: Tip of endotracheal tube is 4.6 cm above the ana. Left pleural catheter remains in place. Left internal jugular line is unchanged in position. Tip of nasogastric tube is below the lower aspect of the image but at least within the body of the stomach. There is no pneumothorax. Bilateral airspace opacities persist. Cardiomediastinal silhouette is stable. IMPRESSION: 1. Satisfactory positioning of lines and tubes. 2. Left pleural catheter remains in place. No pneumothorax. 3. Persistent extensive bilateral airspace opacities. ACT 112: Negative or not required by law. Electronically signed by: Alon Cervantes M.D. 05/06/2021 7:32 AM I & O Totals 24 Hours 05/05/21 05/06/21 05/07/21 06:59 06:59 06:59 Intake Total 1543.346 / 0372.367 1937.504 / 2160.504 1046.625 / 1046.625 Output Total 1650 / 1650 4275 / 4275 840 / 840 Balance -106.654 / -106.654 -2114.496 / -2114.496 206.625 / 206.625 Cumulative 04/18/21 05:46 thru 05/06/21 13:32 Intake Total 60673.522 Output Total 12464 Balance -4900.478 RT Ventilator Mngmt (Last Documented) Ventilator Ordered Settings Ventilator Support Mode Assist Control 05/06/21 14:41 Respiratory Rate 27 05/06/21 14:41 Ventilator Tidal Volume 430 05/06/21 14:41 Setting Minute Ventilation 11.2 05/06/21 14:41 Ventilator Positive Pressure 6 05/02/21 12:00 Support Setting Positive End Expiratory 6 05/06/21 14:41 Pressure Fraction of Inspired Oxygen 50 05/06/21 14:41 Peak Inspiratory Flow 49 05/06/21 12:07 Machine Comment pt found on current settings 05/05/21 19:35 Ventilator - PT Measurements Respiratory Rate 27 Exhaled Tidal Volume 431 Minute Ventilation 11.2 Peak Inspiratory Airway 25 Pressure Plateau Pressure 19 Respiratory Cycle Inspiratory: 1:2.3 Expiratory Ratio Inspiratory Phase Time 0.70 End-Tidal CO2 27 Static Lung Compliance 33.15 Dynamic Lung Compliance 22.68 Normal Static Lung Compliance 46.00 Patient Measurements Comment hilow suctioning blood secretions Coding Level of Care Code Critical Care 1st 30-74 mins Diagnoses COVID-19 U07.1 Pneumomediastinum J98.2 Pleural effusion J90 Acute respiratory failure with hypoxia J96.01 Time Spent (min) 50
[2021-05-06] MEDS: PRAVASTATIN SOD 40 MG TAB PO SCH (21:56)
[2021-05-06] MEDS: MIRTAZAPINE TAB 15 MG TAB PO SCH (21:56)
[2021-05-06] MEDS: clonazePAM 1 MG TAB PO SCH (21:56)
[2021-05-07] MEDS: INSULIN ASPART 100 UNITS/ML 3 ML PEN SC SCH ×2 (00:01→04:14)
[2021-05-07] MEDS: TUBE FEEDING WATER FLUSH OG SCH ×7 (00:01→23:39)
[2021-05-07] MEDS: fentaNYL DRIP 1,250 MCG/250 ML BAG IV SCH ×2 (00:49→16:58)
[2021-05-07] MEDS: propofoL 1,000 MG/100 ML VIAL IV SCH ×4 (03:06→18:23)
[2021-05-07 03:32] LABS: iSTAT Art Bld Gas pCO2 Correct 39 mmHg (35-46); iSTAT Art Bld Gas pH Corrected 7.375 (7.35-7.45); iSTAT Arterial Blood Gas HCO3 23 meg/L (19-24); iSTAT Arterial Blood Gas pCO2 38 mmHg (35-46); iSTAT Arterial Blood Gas pH 7.38 (7.35-7.45); iSTAT Arterial Blood Gas pO2 59 mmHg (80-95); iSTAT Arterial Blood Gas pO2 C 61; iSTAT Carbon Dioxide 24 mmol/L (24-31); iSTAT FiO2 40 %; iSTAT Hematocrit 26 % (42-52); iSTAT Hemoglobin 8.8 g/dl (14.0-18.0); iSTAT Potassium 3.9 mmol/L (3.3-5.0); iSTAT Site Art Line; iSTAT Sodium 141 mmol/L (135-144)
[2021-05-07] MEDS: ALTEPLASE, RECOMBINANT 10 MG in SYRINGE 50 ML IPL SCH ×2 (04:10→16:49)
[2021-05-07] MEDS: DORNASE ALFA 5 ML in SYRINGE 25 ML IPL SCH ×2 (05:30→17:46)
[2021-05-07 06:44] LABS: Hematocrit (blood only) 30.2 % (42-52); Hemoglobin 9.7 g/dL (14.0-18.0); Mean Corpuscular Hemoglobin 29.7 pg (25-34); Mean Corpuscular Hgb Conc 32.1 g/dL (32-36); Mean Corpuscular Volume 92.4 fL (80-100); RDW Coefficient of Variation 15.9 % (11.5-14.5); RDW Standard Deviation 53.4 fL (36.4-46.3); Red Blood Count 3.27 M/uL (4.7-6.1)
[2021-05-07 07:08] LABS: Eosinophils # (auto) 0.32 K/uL (0-0.5); Eosinophils % (auto) 3.7 %; Immature Granulocytes % (auto) 4.6 %; Lymphocytes % (auto) 11.5 %; Mean Platelet Volume 9.9 fL (7.4-10.4); Monocytes # (auto) 0.71 K/uL (0.11-0.59); Monocytes % (auto) 8.2 %; Neutrophils # (auto) 6.27 K/uL (1.4-6.5); Platelet Count 91 K/uL (130-400)
[2021-05-07 07:17] LABS: BUN Creatinine Ratio 39.9 (10-20); Calcium 9.2 mg/dl (8.5-10.1); Creatinine Clr Calc Pharmacy 82.4 ml/min; Est GFR (Non-African American) 78.5 ml/min; Magnesium 2.7 mg/dl (1.8-2.4); Phosphorus 2.5 mg/dl (2.5-4.9)
--- NOTE | 2021-05-07 07:49 | XRay Report ---
XR chest 1V not portable CLINICAL HISTORY: intubated, evaluate hemothorax. Left-sided chest tube. Follow-up airspace opaciti es COMPARISON STUDY: 05/06/2021 TECHNIQUE: 1 view of the chest FINDINGS: Single frontal view of the chest demonstrates the cardiomediastinal silhouette to be within normal li mits. Tubes and catheters are unchanged. Left pleural catheter is again seen with no gross pleural ef fusion or pneumothorax. Minimal fluid layering along the posterior gutter cannot be excluded. There i s again evidence for bilateral airspace opacities which are decreased on the left. There is no eviden ce for vascular congestion. There is no acute osseous pathology. IMPRESSION: Left pleural-based catheter is again seen with no gross pleural effusion with the patient in this position. Small layering pleural effusion cannot be excluded. There is no evidence for pneum othorax. There is decreased alveolar opacity on the left with persistent alveolar opacities on the ri ght. ACT 112: Negative or not required by law. Electronically signed by: Taz Gavin M.D. 05/07/2021 7:48 AM
[2021-05-07] MEDS: PEPTAMEN INTENSE VHP 1.0 CAL 1,000 ML BAG OG SCH (08:54)
[2021-05-07] MEDS: INSULIN ASPART 100 UNITS/ML VIAL SC SCH ×4 (08:56→20:42)
[2021-05-07] MEDS: clonazePAM 1 MG TAB PO SCH ×2 (09:01→21:17)
[2021-05-07] MEDS: INSULIN GLARGINE SOLOSTAR 100 UNITS/ML 3 ML PEN SC SCH ×2 (09:10→20:45)
[2021-05-07] MEDS: PROPOFOL BOLUS FROM BAG IV PRN (09:44)
[2021-05-07] MEDS: PANTOprazole 40 MG in SYRINGE 0 ML IV SCH (09:45)
--- NOTE | 2021-05-07 10:59 | Hospitalist Progress Note ---
Date of Service May 07, 2021 Assessment & Plan (1) Acute respiratory failure with hypoxia: Plan: Patient is in acute respiratory failure. now mechanically ventilated, with ARDS. Prognosis is poor Pneumomediastinum, left sided pleural effusion/hemothorax four days in a row he did not do well with SBT palliative spoke with his son, he is a DNR/DNI possible tracheostomy in next few days, Dr. Major d/w patient's son (2) Pleural effusion: Plan: chest tube placed 05/[address] Temple, bloody drainage, hemothorax continue drainage to see if it improves ventilation no growth on cultures completed Zosyn (3) COVID-19: Plan: getting worse, CRP trending up, remains ventilated completed course of Remdesivir continue dexamethasone treated possible secondary infection with Zosyn (4) Multilobar lung infiltrate: Plan: as above. (5) Weakness: Plan: Appears to be due to the severity of his Covid pneumonia/hypoxiasee above (6) CKD (chronic kidney disease) stage 3, GFR 30-59 ml/min: Plan: Continue to follow creatininestable at this time, Lasix per ICU staff (7) Coronary artery disease: Plan: No angina, continue to monitor (8) Sleep apnea: Plan: intubated and ventilated (9) Hypertension: Plan: Blood pressures are acceptable given situation (10) Diabetes: Plan: Poorly controlled at baseline as well as acutely. continue to adjust insulinspharmacy is managing at this time (11) Lumbar stenosis with neurogenic claudication: Plan: sedated (12) DVT prophylaxis: Plan: heparin (13) Discharge planning issues: Plan: poor prognosis Admission and Anticipated Discharge Date Admission Date: April 18, 2021 Subjective patient failed his SBT again this morning moved out of isolation Dr. Major discussed option of tracheostomy with patient's son, he is in agreement reviewed labs and chart discussed with ICU team Review of Systems Review of Systems: Unobtainable due to cognitive status and Unobtainable due to endotracheal tube Physical Exam Physical Exam: General: ill appearing, mechanically ventilated, elderly male Neck: supple, trachea midline, normal thyroid Lungs: symmetric chest movement, decreased breath sounds in bases, ventilated Chest: left sided chest tube, draining Heart: regular S1 and S2, no murmur, peripheral pulses normal, capillary refill normal, no edema Abdomen: soft, NT, ND, + BS, no hepatomegaly, normal to percussion Extremities: normal in appearance, no cyanosis, no petechiae Neuro: sedated, not following commands, no focal motor deficits, CN II-XII intact Skin: warm, dry, no rash, normal turgor Psych: sedated Results & Data Results & Data ([facility]) Vital Signs (Past 12 Hours) Vital Signs Temp Pulse Resp BP Pulse Ox 05/07/21 10:43 66 26 H 89 L 05/07/21 07:52 37.6 C H 05/07/21 06:30 70 26 H 87 L 05/07/21 05:30 37.6 C H 63 26 H 90 05/07/21 05:00 37.6 C H 56 L 26 H 87 L 05/07/21 04:30 37.6 C H 55 L 26 H 89 L 05/07/21 04:00 37.5 C 54 L 26 H 105/55 L 87 L 05/07/21 03:30 37.5 C 80 27 H 88 L 05/07/21 03:00 37.5 C 65 27 H 90 05/07/21 02:32 56 L 27 H 90 05/07/21 02:30 37.5 C 55 L 26 H 89 L 05/07/21 02:00 37.5 C 54 L 26 H 110/48 L 89 L 05/07/21 01:30 37.5 C 52 L 26 H 92 05/07/21 01:00 37.4 C 52 L 26 H 91 05/07/21 00:30 37.4 C 53 L 26 H 92 05/07/21 00:00 37.4 C 55 L 26 H 107/50 L 90 05/06/21 23:30 37.3 C 55 L 26 H 87 L 05/06/21 23:00 37.3 C 50 L 26 H 105/53 L 92 Laboratory Results Laboratory Results - last 24 hr 05/06/21 05/06/21 05/06/21 11:30 16:14 20:07 WBC RBC Hgb POC Hgb Hct POC Hct MCV MCH MCHC RDW Std Deviation RDW Coeff of Patti Plt Count MPV Immature Gran % (Auto) Neut % (Auto) Lymph % (Auto) [place] % (Auto) Eos % (Auto) Baso % (Auto) Neut # (Auto) Lymph # (Auto) [place] # (Auto) Eos # (Auto) Baso # (Auto) Immature Gran # (Auto) Sample Site POC pH POC pCO2 POC pO2 POC HCO3 POC Total CO2 POC Base Excess ABG pH (Temp Correct) ABG pCO2 (Temp Corrct POC ABG pO2 at Pt Temp POC ABG O2 Sat Antonio Test O2 Delivery Device POC O2 Rate POC FiO2 Tidal Volume PEEP POC Sodium Sodium POC Potassium Potassium Chloride Carbon Dioxide Anion Gap BUN Creatinine Est Cr Clr Drug Dosing Est GFR ( Amer) Est GFR (Non-Af Amer) BUN/Creatinine Ratio Glucose POC Glucose 181 H 172 H 148 H Calcium Phosphorus Magnesium 05/07/21 05/07/21 05/07/21 00:17 03:20 04:13 WBC RBC Hgb POC Hgb 8.8 L Hct POC Hct 26 L MCV MCH MCHC RDW Std Deviation RDW Coeff of Patti Plt Count MPV Immature Gran % (Auto) Neut % (Auto) Lymph % (Auto) [place] % (Auto) Eos % (Auto) Baso % (Auto) Neut # (Auto) Lymph # (Auto) [place] # (Auto) Eos # (Auto) Baso # (Auto) Immature Gran # (Auto) Sample Site Art Line POC pH 7.38 POC pCO2 38 POC pO2 59 L POC HCO3 23 POC Total CO2 24 POC Base Excess -2.0 ABG pH (Temp Correct) 7.375 ABG pCO2 (Temp Corrct 39 POC ABG pO2 at Pt Temp 61 POC ABG O2 Sat 90.0 Antonio Test NA O2 Delivery Device Ventilator POC O2 Rate 26 POC FiO2 40 Tidal Volume 430 PEEP 6 POC Sodium 141 Sodium POC Potassium 3.9 Potassium Chloride Carbon Dioxide Anion Gap BUN Creatinine Est Cr Clr Drug Dosing Est GFR ( Amer) Est GFR (Non-Af Amer) BUN/Creatinine Ratio Glucose POC Glucose 135 H 111 H Calcium Phosphorus Magnesium 05/07/21 05/07/21 05/07/21 05:58 05:58 07:41 WBC 8.70 RBC 3.27 L Hgb 9.7 L POC Hgb Hct 30.2 L POC Hct MCV 92.4 MCH 29.7 MCHC 32.1 RDW Std Deviation 53.4 H RDW Coeff of Patti 15.9 H Plt Count 91 L MPV 9.9 Immature Gran % (Auto) 4.6 Neut % (Auto) 72.0 Lymph % (Auto) 11.5 [place] % (Auto) 8.2 Eos % (Auto) 3.7 Baso % (Auto) 0.0 Neut # (Auto) 6.27 Lymph # (Auto) 1.00 L [place] # (Auto) 0.71 H Eos # (Auto) 0.32 Baso # (Auto) 0.00 Immature Gran # (Auto) 0.40 H Sample Site POC pH POC pCO2 POC pO2 POC HCO3 POC Total CO2 POC Base Excess ABG pH (Temp Correct) ABG pCO2 (Temp Corrct POC ABG pO2 at Pt Temp POC ABG O2 Sat Antonio Test O2 Delivery Device POC O2 Rate POC FiO2 Tidal Volume PEEP POC Sodium Sodium 141 POC Potassium Potassium 4.0 Chloride 113 H Carbon Dioxide 22 Anion Gap 6.0 BUN 38 H Creatinine 0.95 Est Cr Clr Drug Dosing 82.4 Est GFR ( Amer) 91.0 Est GFR (Non-Af Amer) 78.5 BUN/Creatinine Ratio 39.9 H Glucose 146 H POC Glucose 124 H Calcium 9.2 Phosphorus 2.5 Magnesium 2.7 H Medications Administered Current Inpatient Medications Acetaminophen (Acetaminophen 325 Mg Tab) 650 mg PO Q4H PRN PRN Reason: Pain or Fever Stop: 05/18/21 10:14 Albuterol (Albuterol Hfa 8 Gm Inhaler) 1 puffs INH QIDR PRN PRN Reason: Shortness Of Breath Or Wheezing Stop: 05/23/21 18:59 Aspirin (Aspirin 81 Mg Ectab) 81 mg PO QAM [facility] Stop: 05/18/21 10:59 Last Admin: 04/30/21 10:20 Dose: Not Given Documented by: Clonazepam (Clonazepam 1 Mg Tab) 1 mg PO BID [facility] Stop: 06/05/21 20:59 Last Admin: 05/07/21 09:01 Dose: 1 mg Documented by: Dextrose (Dextrose 50% 50 Ml Syringe) 25 - 50 ml IV UD PRN; Protocol PRN Reason: Hypoglycemia Protocol Stop: 05/18/21 10:14 Fentanyl Citrate (Fentanyl Bolus From Bag) 50 mcg IV Q60M PRN PRN Reason: Pain or Agitation Stop: 05/14/21 18:32 Glucagon (Glucagon For Inj 1 Mg Vial) 1 mg SQ UD PRN; Protocol PRN Reason: Hypoglycemia Protocol Stop: 05/18/21 10:14 Glucose (Glucose 10 Tabs/Tube) 4 - 8 tabs PO UD PRN; Protocol PRN Reason: Hypoglycemia Protocol Stop: 05/18/21 10:14 Glucose (Glucose 40% Gel 15 Gm Tube) 15 - 30 gm PO UD PRN; Protocol PRN Reason: Hypoglycemia Protocol Stop: 05/18/21 10:14 Hydralazine HCl (Hydralazine Hcl 20 Mg/Ml Vial) 5 mg IV Q2H PRN PRN Reason: SBP>180 Stop: 06/03/21 09:25 Fentanyl Citrate (Fentanyl Drip) 1,250 mcg in 250 mls @ 10 mls/hr IV .Q25H MIR; Protocol Stop: 05/14/21 18:44 Last Titration: 05/07/21 08:42 Dose: 50 mcg/hr, 10 mls/hr Documented by: Norepinephrine Bitartrate (Levophed/D5w) 8 mg in 508 mls @ 0 mls/hr IV .Q0M MIR; Protocol Stop: 05/30/21 23:14 Last Titration: 05/06/21 19:27 Dose: 0 mcg/kg/min, 0 mls/hr Documented by: Pantoprazole Sodium 40 mg/ (Syringe) 10 mls @ 5 mls/min IV QAM MIR Stop: 06/02/21 08:59 Last Admin: 05/07/21 09:45 Dose: 5 mls/min Documented by: Dexamethasone 6 mg/ Syringe 1.5 mls @ 1 mls/min IV QAM MIR Stop: 06/02/21 08:59 Last Admin: 05/06/21 08:55 Dose: 1 mls/min Documented by: Propofol (Diprivan) 1,000 mg in 100 mls @ 21.861 mls/hr IV .Q4H35M MIR; Protocol Stop: 05/07/21 12:14 Last Titration: 05/07/21 09:44 Dose: Infused Documented by: Alteplase, Recombinant 10 mg/ (Syringe) 60 mls @ 0.0006 mls/min IPL Q12H MIR; Protocol Stop: 05/08/21 15:59 Last Admin: 05/07/21 04:10 Dose: 0.0006 mls/min Documented by: Dornase Alexis 5 ml/ Syringe 30 mls @ 0.0006 mls/min IPL Q12H MIR; Protocol Stop: 05/08/21 15:59 Last Admin: 05/07/21 05:30 Dose: 0.0006 mls/min Documented by: Insulin Aspart (Insulin Aspart 100 Units/Ml Vial) 0 units SC Q4 MIR; Protocol Stop: 06/06/21 07:59 Last Admin: 05/07/21 08:56 Dose: 7 units Documented by: Insulin Glargine (Insulin Glargine Solostar 100 Units/Ml 3 Ml Pen) 25 units SC BID MIR Stop: 06/06/21 08:59 Last Admin: 05/07/21 09:10 Dose: 25 units Documented by: Ipratropium [place] (Ipratropium [place] Hfa Inhaler) 1 puffs INH QIDR PRN PRN Reason: Shortness Of Breath Or Wheezing Stop: 05/23/21 18:59 Mirtazapine (Mirtazapine Tab 15 Mg Tab) 15 mg PO HS MIR Stop: 05/23/21 20:59 Last Admin: 05/06/21 21:56 Dose: 15 mg Documented by: Miscellaneous (Carbohydrates For Hypoglycemia ) 15 - 30 gm PO UD PRN PRN Reason: Hypoglycemia Protocol Stop: 05/18/21 10:14 Last Admin: 04/28/21 08:31 Dose: 15 gm Documented by: Miscellaneous Information (Pharmacy Glycemic Mgmt Consult) 1 ea N/A UD PRN; Protocol PRN Reason: Consult Stop: 05/18/21 10:14 Nutritional Formula (Peptamen Intense Vhp 1.0 Tomasz 1,000 Ml Bag) 1,000 ml OG UD MIR; Protocol Stop: 06/02/21 11:29 Last Admin: 05/07/21 08:54 Dose: 1,000 ml Documented by: Polyethylene Glycol (Polyethylene (Miralax) 17 Gm Pack) 17 gm PO DAILY PRN PRN Reason: Constipation Stop: 05/18/21 10:14 Last Admin: 04/27/21 07:39 Dose: 17 gm Documented by: Pravastatin Sodium (Pravastatin Sod 40 Mg Tab) 40 mg PO QPM MIR Stop: 05/18/21 20:59 Last Admin: 05/06/21 21:56 Dose: 40 mg Documented by: Propofol (Propofol Bolus From Bag) 20 mg IV Q5M PRN PRN Reason: Sedation Stop: 05/07/21 12:04 Last Admin: 12/07/21 09:44 Dose: 20 mg Documented by: Sterile Water (Tube Feeding Water Flush) 30 ml OG Q4H [facility] Stop: 06/02/21 11:29 Last Admin: 05/07/21 08:55 Dose: 30 ml Documented by: Tamsulosin HCl (Tamsulosin Hcl 0.4 Mg Cap) 0.4 mg PO QPM [facility] Stop: 05/18/21 20:59 Last Admin: 04/29/21 23:17 Dose: 0.4 mg Documented by: PG Care Time/CCT Total # of Minutes Spent Total Time Spent with Patient: Total time spent is greater than 50% in coordination of care (as documented) at patient's floor/unit and/or counseling patient: Coding Level of Care Code 56847 Subseq Hosp Care Lvl 2 Diagnoses Acute respiratory failure with hypoxia J96.01 Pleural effusion J90 COVID-19 U07.1 Multilobar lung infiltrate R91.8 Weakness R53.1 CKD (chronic kidney disease) stage 3, GFR 30-59 ml/min N18.3 Coronary artery disease I25.10 Sleep apnea G47.30 Hypertension I10 Diabetes E11.9 Lumbar stenosis with neurogenic claudication M48.062 DVT prophylaxis Z29.9 Discharge planning issues Z02.9
[2021-05-07] MEDS ORDERED: LACTULOSE SYRUP 20 GM/30 ML UDC PO ONE (11:15)
[2021-05-07] MEDS: dexAMETHasone 6 MG in SYRINGE 0 ML IV SCH (11:47)
[2021-05-07] MEDS: hydrALAZINE HCL 20 MG/ML VIAL IV PRN ×2 (12:55→17:18)
--- NOTE | 2021-05-07 15:12 | Critical Care Progress Note ---
Date of Service May 07, 2021 Assessment & Plan (1) COVID-19: (2) Pneumomediastinum: (3) Pleural effusion: (4) Acute respiratory failure with hypoxia: Plan: (1) Multilobar lung infiltrate: (2) Acute respiratory failure with hypoxia: (3) Pleural effusion: (4) Septic shock: (5) Pneumomediastinum: (6) COVID-19: (7) CKD (chronic kidney disease) stage 3, GFR 30-59 ml/min: (8) HTN (hypertension), benign: (9) Hemothorax (10) Pneumomediastinum Impression: 75-year-old male with a history of coronary disease chronic kidney disease prior CVA and sleep apnea. He was admitted 04/18. He initially refused all interventions but eventually became noncompliant with oxygen or CPAP and was ripping it off which point the patient was intubated at the request of his family. Intubation was accomplished 04/30/2021. 24-hour events: Attempted SBT. Agitation persisted with tachycardia and hypertension. He was unable to follow commands and then desaturated. Sedation had to be resumed. Chest x-ray with slight clearing. Recommendations: Neurologic: Acute agitated delirium. Continue propofol and fentanyl. Continue nightly Remeron and oral clonazepam. Add oral oxycodone. No indication for imaging. He has become tachycardic and hypertensive with sedation breaks so we will pursue a trial of Precedex and attempt to wean propofol and fentanyl. Pulmonary:Patient has Covid pneumonia and hypoxemic respiratory failure with diffuse pulmonary infiltrates complicated by hemothorax. Pigtail catheter is in place. He is undergoing intrapleural installation of TPA and dornase (day #2 of 3) which is somewhat risky in the setting of a known hemothorax however there do not appear to be significant alternatives. His x-ray looks better. Continue to follow. Chest tube output is 720 cc over the last 24 hours. Will continue until chest tube output is less than 100 cc/day. May require repeat CT scan in the next few days to see how it looks. He has developed pneumomediastinum. No indication for repeat proning currently. Continue low PEEP high FiO2 strategy. He is currently day #8 intubation and mechanical ventilation. Continue dexamethasone. If he fails to show progress over the next 24 to 48 hours, would recommend tracheostomy to facilitate liberation from mechanical ventilator. Discussed with son, Ubaldo, today. He is in agreement to proceed if needed. We will see how he looks tomorrow and then make additional assessments. Cardiovascular:Maintain mean arterial pressure above 65. Now off pressors. Gentle diuresis as tolerated Gastrointestinal: Continue tube feeds. PPI twice daily.. Bowel protocol ENDO:Glycemic control per protocol. Renal:ROCKY on presentation now resolved. Continue to replace electrolytes as needed. Acid-base status appropriate. Infectious disease:-Questionable left lower lobe abscess. Cultures are negative. He completed 7 days of Zosyn. Okay to discontinue respiratory isolation given the patient is over 21 days out from his initial diagnosis. Hematologic:Mild anemia and thrombocytopenia. Stable. No indication for acute transfusion currently. SCDs and subcu heparin 5000 twice daily. CODE STATUS:DNR/DNI Poor prognosis overall. Palliative care on board. Disposition: Remain in the ICU I have personally spent 42 minutes of critical care time in the direct management of this patient. This is a life/limb threatening event. This includes time spent evaluating patient, direct bedside care, chart review, placing orders, interpretation of diagnostic studies, discussion with consultants, patient, and family members, as well as other required patient management activities. This time is exclusive of all separately billable procedures, and teaching time and separate from and in addition to any other critical care service time. Admission and Anticipated Discharge Date Admission Date: April 18, 2021 Subjective Intubated and sedated Review of Systems Review of Systems: Unobtainable due to endotracheal tube Physical Exam Constitutional: WD/WN, vitals as above + mechanically ventilated Neck: trachea midline, no thyromegaly Respiratory: normal respiratory effort, lungs clear to auscultation Cardiovascular: RRR, no murmur, no edema Chest (Breasts): Additional Comments: Chest tube site clean dry and intact Gastrointestinal (Abdomen): normal bowel sounds, soft, nontender, no hepatosplenomegaly Musculoskeletal: Extremities: extremities normal to inspection Skin: no rashes, warm and dry Lymphatic: no cervical lymphadenopathy Results & Data Results & Data ([facility]) Vital Signs (Past 12 Hours) Vital Signs Temp Pulse Resp BP Pulse Ox 05/07/21 11:54 37.9 C H 05/07/21 10:43 66 26 H 89 L 05/07/21 07:52 37.6 C H 12/07/21 06:30 70 26 H 87 L 05/07/21 05:30 37.6 C H 63 26 H 90 05/07/21 05:00 37.6 C H 56 L 26 H 87 L 05/07/21 04:30 37.6 C H 55 L 26 H 89 L 05/07/21 04:00 37.5 C 54 L 26 H 105/55 L 87 L 05/07/21 03:30 37.5 C 80 27 H 88 L Critical Care Results & Data Vital Signs (Past 12 Hours) Vital Signs Temp Pulse Resp BP Pulse Ox 05/07/21 11:54 37.9 C H 05/07/21 10:43 66 26 H 89 L 05/07/21 07:52 37.6 C H 05/07/21 06:30 70 26 H 87 L 05/07/21 05:30 37.6 C H 63 26 H 90 05/07/21 05:00 37.6 C H 56 L 26 H 87 L 05/07/21 04:30 37.6 C H 55 L 26 H 89 L 05/07/21 04:00 37.5 C 54 L 26 H 105/55 L 87 L 05/07/21 03:30 37.5 C 80 27 H 88 L Lab & Micro Results (Past 24 Hours) RBC 3.27 M/uL (4.7-6.1) L 05/07/21 WBC 8.70 K/uL (4.8-10.8) 05/07/21 Hgb 9.7 g/dL (14.0-18.0) L 05/07/21 Hct 30.2 % (42-52) L 05/07/21 MCV 92.4 fL (80-100) 05/07/21 MCH 29.7 pg (25-34) 05/07/21 MCHC 32.1 g/dL (32-36) 05/07/21 RDW Standard Deviation 53.4 fL (36.4-46.3) H 05/07/21 RDW Coefficient of Variation 15.9 % (11.5-14.5) H 05/07/21 Plt Count 91 K/uL (130-400) L 05/07/21 MPV 9.9 fL (7.4-10.4) 05/07/21 Neutrophils (%) (Auto) 72.0 % 05/07/21 Lymphocytes (%) (Auto) 11.5 % 05/07/21 Monocytes # (Auto) 0.71 K/uL (0.11-0.59) H 05/07/21 Eosinophils # (Auto) 0.32 K/uL (0-0.5) 05/07/21 Immature Granulocyte % (Auto) 4.6 % 05/07/21 Neutrophils # (Auto) 6.27 K/uL (1.4-6.5) 05/07/21 Lymphocytes # (Auto) 1.00 K/uL (1.2-3.4) L 05/07/21 Monocytes # (Auto) 0.71 K/uL (0.11-0.59) H 05/07/21 Eosinophils # (Auto) 0.32 K/uL (0-0.5) 05/07/21 Basophils # (Auto) 0.00 K/uL (0-0.2) 05/07/21 Immature Granulocyte # (Auto) 0.40 K/uL (0.00-0.02) H 05/07/21 Na 141 mmol/L (136-145) 05/07/21 K 4.0 mmol/L (3.5-5.1) 05/07/21 Cl 113 mmol/L (98-107) H 05/07/21 CO2 22 mmol/L (21-32) 05/07/21 Anion Gap 6.0 (3-11) 05/07/21 BUN 38 mg/dl (7-18) H 05/07/21 Creatinine 0.95 mg/dl (0.6-1.4) 05/07/21 Estimated GFR ( Amer) 91.0 ml/min 05/07/21 Estimated GFR (Non-Af Amer) 78.5 ml/min 05/07/21 BUN/Creatinine Ratio 39.9 (10-20) H 05/07/21 Glu 146 mg/dl (70-99) H 05/07/21 Ca 9.2 mg/dl (8.5-10.1) 05/07/21 Phosphorus Level 2.5 mg/dl (2.5-4.9) 05/07/21 Mg 2.7 mg/dl (1.8-2.4) H 05/07/21 05:58 05/07/21 Calcium Level 9.2 mg/dl (8.5-10.1) 05/07/21 05:58 05/07/21 Antonio Test NA 05/07/21 03:20 05/07/21 Microbiology 05/05/21 14:00 Acid Fast Bacilli Smear - Final Pleural Fluid Diagnostic Findings (Past 24 Hours) Chest X-Ray 05/07/21 08:00 XR chest 1V not portable CLINICAL HISTORY: intubated, evaluate hemothorax. Left-sided chest tube. Follow-up airspace opacities COMPARISON STUDY: 05/06/2021 TECHNIQUE: 1 view of the chest FINDINGS: Single frontal view of the chest demonstrates the cardiomediastinal silhouette to be within normal limits. Tubes and catheters are unchanged. Left pleural catheter is again seen with no gross pleural effusion or pneumothorax. Minimal fluid layering along the posterior gutter cannot be excluded. There is again evidence for bilateral airspace opacities which are decreased on the left. There is no evidence for vascular congestion. There is no acute osseous pathology. IMPRESSION: Left pleural-based catheter is again seen with no gross pleural effusion with the patient in this position. Small layering pleural effusion cannot be excluded. There is no evidence for pneumothorax. There is decreased alveolar opacity on the left with persistent alveolar opacities on the right. ACT 112: Negative or not required by law. Electronically signed by: Taz Gavin M.D. 05/07/2021 7:48 AM I & O Totals 24 Hours 05/06/21 05/07/21 05/08/21 06:59 06:59 06:59 Intake Total 2160.504 / 2160.504 60 / 249.942 / 249.942 Output Total 4275 / 4275 2670 / 2670 775 / 775 Balance -2114.496 / -2114.496 -674.397 / -674.397 -525.058 / -525.058 Cumulative 04/18/21 05:46 thru 05/07/21 14:33 Intake Total 83271.442 Output Total 01599 Balance -6306.558 RT Ventilator Mngmt (Last Documented) Ventilator Ordered Settings Ventilator Support Mode Assist Control 05/07/21 12:00 Respiratory Rate 26 05/07/21 10:43 Ventilator Tidal Volume 430 05/07/21 12:00 Setting Minute Ventilation 12 12/07/21 10:43 Ventilator Positive Pressure 6 05/02/21 12:00 Support Setting Positive End Expiratory 6 05/07/21 12:00 Pressure Fraction of Inspired Oxygen 45 05/07/21 12:00 Peak Inspiratory Flow 49 05/06/21 19:01 Machine Comment pt found on current settings 05/05/21 19:35 Ventilator - PT Measurements Respiratory Rate 26 Exhaled Tidal Volume 430 Minute Ventilation 12 Peak Inspiratory Airway 24 Pressure Plateau Pressure 20 Respiratory Cycle Inspiratory: 1:2.3 Expiratory Ratio Inspiratory Phase Time 0.7 End-Tidal CO2 24 Static Lung Compliance 30.71 Dynamic Lung Compliance 23.89 Normal Static Lung Compliance 46.00 Patient Measurements Comment INCREASED TO 45% FIO2 Coding Level of Care Code Critical Care 1st 30-74 mins Diagnoses COVID-19 U07.1 Pneumomediastinum J98.2 Pleural effusion J90 Acute respiratory failure with hypoxia J96.01 Time Spent (min) 42
[2021-05-07] MEDS ORDERED: STAT IV Infusion **Titration per Protocol STA (15:14)
[2021-05-07] MEDS: FUROSEMIDE 40 MG/4 ML VIAL IV SCH (17:11)
[2021-05-07] MEDS: DEXMEDETOMIDINE HCL 200 MCG in SODIUM CHLORIDE 0.9% 48 ML IV SCH ×2 (17:15→20:43)
[2021-05-07] MEDS ORDERED: PROPOFOL IV EMULSION 10 MG/ML 100 ML VIAL IV ONE (18:22)
[2021-05-07] MEDS: MIRTAZAPINE TAB 15 MG TAB PO SCH (21:12)
[2021-05-07] MEDS: PRAVASTATIN SOD 40 MG TAB PO SCH (21:12)
[2021-05-07] MEDS: SENNOSIDES 8.8 MG/5 ML UDC PO SCH (21:13)
[2021-05-07] MEDS: oxyCODONE HCL SOLN 5 MG/5 ML UDC PO SCH (21:17)
[2021-05-07] MEDS: NOREPINEPHRINE/D5W 8 MG/508 ML BAG IV SCH (23:38)
[2021-05-08] MEDS: INSULIN ASPART 100 UNITS/ML VIAL SC SCH ×6 (00:53→20:21)
[2021-05-08] MEDS ORDERED: PROPOFOL IV EMULSION 10 MG/ML 100 ML VIAL IV ONE (02:13)
[2021-05-08] MEDS ORDERED: STAT IV Infusion **Titration per Protocol STA (02:13)
[2021-05-08] MEDS ORDERED: PROPOFOL BOLUS FROM BAG IV PRN (02:13)
[2021-05-08] MEDS: propofoL 1,000 MG/100 ML VIAL IV SCH ×7 (02:17→21:29)
[2021-05-08] MEDS: DEXMEDETOMIDINE HCL 200 MCG in SODIUM CHLORIDE 0.9% 48 ML IV SCH ×6 (03:23→22:25)
[2021-05-08 04:04] LABS: iSTAT Arterial Blood Gas HCO3 23 meg/L (19-24); iSTAT Arterial Blood Gas pCO2 38 mmHg (35-46); iSTAT Arterial Blood Gas pO2 87 mmHg (80-95); iSTAT Carbon Dioxide 24 mmol/L (24-31); iSTAT FiO2 60 %; iSTAT Site Art Line
[2021-05-08] MEDS: ALTEPLASE, RECOMBINANT 10 MG in SYRINGE 50 ML IPL SCH (04:08)
[2021-05-08] MEDS: TUBE FEEDING WATER FLUSH OG SCH ×5 (04:09→20:24)
[2021-05-08] MEDS: DORNASE ALFA 5 ML in SYRINGE 25 ML IPL SCH (05:05)
[2021-05-08 05:14] LABS: Basophils # (auto) 0.01 K/uL (0-0.2); Basophils % (auto) 0.1 %; Eosinophils # (auto) 0.21 K/uL (0-0.5); Eosinophils % (auto) 1.7 %; Hematocrit (blood only) 32.3 % (42-52); Hemoglobin 10.2 g/dL (14.0-18.0); Immature Granulocytes # (auto) 0.48 K/uL (0.00-0.02); Immature Granulocytes % (auto) 3.9 %; Lymphocytes # (auto) 1.07 K/uL (1.2-3.4); Lymphocytes % (auto) 8.7 %; Mean Corpuscular Hemoglobin 29.4 pg (25-34); Mean Corpuscular Hgb Conc 31.6 g/dL (32-36); Mean Corpuscular Volume 93.1 fL (80-100); Mean Platelet Volume 9.9 fL (7.4-10.4); Monocytes # (auto) 1.04 K/uL (0.11-0.59); Monocytes % (auto) 8.5 %; Neutrophils # (auto) 9.44 K/uL (1.4-6.5); Neutrophils % (auto) 77.1 %; Platelet Count 131 K/uL (130-400); RDW Coefficient of Variation 16.1 % (11.5-14.5); RDW Standard Deviation 53.7 fL (36.4-46.3); Red Blood Count 3.47 M/uL (4.7-6.1); White Blood Count 12.25 K/uL (4.8-10.8)
[2021-05-08] MEDS: oxyCODONE HCL SOLN 5 MG/5 ML UDC PO SCH ×3 (05:27→20:25)
[2021-05-08 05:41] LABS: BUN Creatinine Ratio 35.3 (10-20); Calcium 9.3 mg/dl (8.5-10.1); Creatinine Clr Calc Pharmacy 76.7 ml/min; Est GFR (African American) 83.5 ml/min; Est GFR (Non-African American) 72.1 ml/min; Magnesium 2.6 mg/dl (1.8-2.4); Potassium 3.9 mmol/L (3.5-5.1)
[2021-05-08] MEDS ORDERED: VECURONIUM BROMIDE 10 MG VIAL IV STA (07:07)
[2021-05-08] MEDS ORDERED: VECURONIUM BROMIDE 10 MG VIAL IV ONE (07:09)
[2021-05-08] MEDS: NOREPINEPHRINE/D5W 8 MG/508 ML BAG IV SCH ×2 (07:34→07:35)
--- NOTE | 2021-05-08 08:01 | XRay Report ---
XR chest 1V not portable CLINICAL HISTORY: intubated, evaluate hemothorax. COMPARISON STUDY: 05/07/2021 TECHNIQUE: 1 view of the chest FINDINGS: Single frontal view of the chest demonstrates the cardiomediastinal silhouette to be within normal li mits. Tubes and catheters are unchanged. There is again no evidence for definite left-sided pneumotho rax. There is residual left basilar atelectasis. No gross left-sided pleural effusion is seen. Inters titial and alveolar opacities are again noted bilaterally. There is no evidence for vascular congesti on. There is no acute osseous pathology. IMPRESSION: Compared to the previous examination, there is no significant interval change with no def inite pneumothorax or gross left pleural effusion identified on this portable technique. Bilateral in terstitial and alveolar opacities are again seen and essentially unchanged. ACT 112: Negative or not required by law. Electronically signed by: Taz Gavin M.D. 05/08/2021 7:59 AM
[2021-05-08] MEDS: dexAMETHasone 6 MG in SYRINGE 0 ML IV SCH (08:03)
[2021-05-08] MEDS: FUROSEMIDE 40 MG/4 ML VIAL IV SCH (08:03)
[2021-05-08] MEDS: clonazePAM 1 MG TAB PO SCH ×2 (08:03→20:21)
[2021-05-08] MEDS: INSULIN GLARGINE SOLOSTAR 100 UNITS/ML 3 ML PEN SC SCH ×2 (08:04→20:20)
[2021-05-08] MEDS: PANTOprazole 40 MG in SYRINGE 0 ML IV SCH (08:05)
[2021-05-08] MEDS: SENNOSIDES 8.8 MG/5 ML UDC PO SCH ×2 (08:05→20:14)
--- NOTE | 2021-05-08 08:36 | Critical Care Progress Note ---
Date of Service May 08, 2021 Assessment & Plan (1) COVID-19: (2) Pneumomediastinum: (3) Pleural effusion: (4) Acute respiratory failure with hypoxia: Plan: (1) Multilobar lung infiltrate: (2) Acute respiratory failure with hypoxia: (3) Pleural effusion: (4) Septic shock: (5) Pneumomediastinum: (6) COVID-19: (7) CKD (chronic kidney disease) stage 3, GFR 30-59 ml/min: (8) HTN (hypertension), benign: (9) Hemothorax (10) Pneumomediastinum Impression: 75-year-old male with a history of coronary disease chronic kidney disease prior CVA and sleep apnea. He was admitted 04/18. He initially refused all interventions but eventually became noncompliant with oxygen or CPAP and was ripping it off which point the patient was intubated at the request of his family. Intubation was accomplished 04/30/2021. 24-hour events: Transferred out of COVID unit, cleared isolation protocol. This morning had an episode of desaturation requiring increasing his FiO2 to 100% and increase her PEEP to 8. Chest x-ray demonstrated no acute changes. His hemodynamics remain borderline and norepinephrine had to be reinitiated. He remains deeply sedated and was actually paralyzed early this morning due to ventilator noncompliance. Recommendations: Neurologic: Agitated delirium. Continue propofol and fentanyl. Continue nightly Remeron and oral clonazepam as well as oral oxycodone. No indication for imaging. His current ventilatory requirements preclude sedation break this morning. Pulmonary:Patient has Covid pneumonia and hypoxemic respiratory failure with diffuse pulmonary infiltrates complicated by hemothorax. Pigtail catheter is in place. He is undergoing intrapleural installation of TPA and dornase (day #3 of 3) which is somewhat risky in the setting of a known hemothorax however there do not appear to be significant alternatives. His x-ray looks better. Continue to follow. Chest tube output is over a liter cc over the last 24 hours. Will continue until chest tube output is less than 100 cc/day. May require repeat CT scan in the next few days to see how it looks although his chest x-ray significantly improved. He has developed pneumomediastinum. No indication for repeat proning currently. Continue low PEEP high FiO2 strategy. He is currently day #9 intubation and mechanical ventilation. Continue dexamethasone. Given his inability to wean from the ventilator, would recommend proceeding with bedside percutaneous dilatation of tracheostomy. Tried to discuss with Ubaldo (son) and patient this AM but no answer on either of their phones. Cardiovascular:Maintain mean arterial pressure above 65. Now off pressors. Holding diuretics given need for vasopressor agents currently. Gastrointestinal: Continue tube feeds. PPI twice daily. Bowel protocol ENDO:Glycemic control per protocol. Renal:ROCKY on presentation now resolved. Continue to replace electrolytes as needed. Acid-base status appropriate. Infectious disease: Cultures are negative. He completed 7 days of Zosyn. Out of respiratory isolation given the patient is over 21 days out from his initial diagnosis. White count slightly elevated today and will continue to trend. He has been afebrile. Hematologic:Mild anemia and thrombocytopenia. Stable. No indication for acute transfusion currently. SCDs and subcu heparin 5000 twice daily. CODE STATUS:DNR/DNI Poor prognosis overall. Palliative care on board. Disposition: Remain in the ICU I have personally spent 45 minutes of critical care time in the direct management of this patient. This is a life/limb threatening event. This includes time spent evaluating patient, direct bedside care, chart review, placing orders, interpretation of diagnostic studies, discussion with consultants, patient, and family members, as well as other required patient management activities. This time is exclusive of all separately billable procedures, and teaching time and separate from and in addition to any other critical care service time. Admission and Anticipated Discharge Date Admission Date: April 18, 2021 Subjective intubated and sedated Review of Systems Review of Systems: Unobtainable due to endotracheal tube Physical Exam Constitutional: WD/WN, vitals as above + mechanically ventilated Neck: trachea midline, no thyromegaly Respiratory: normal respiratory effort, lungs clear to auscultation Cardiovascular: RRR, no murmur, no edema Gastrointestinal (Abdomen): normal bowel sounds, soft, nontender, no hepatosplenomegaly Musculoskeletal: Extremities: extremities normal to inspection Skin: no rashes, warm and dry Lymphatic: no cervical lymphadenopathy Results & Data Results & Data ([facility]) Vital Signs (Past 12 Hours) Vital Signs Temp Pulse Resp BP Pulse Ox 05/08/21 08:07 37.1 C 05/08/21 08:00 73 26 H 90 05/08/21 07:30 67 26 H 92 05/08/21 07:18 63 26 H 92 05/08/21 07:00 70 26 H 89 L 05/08/21 04:30 66 26 H 93 05/08/21 04:00 36.8 C 60 28 H 156/59 H 92 05/08/21 03:30 60 27 H 95 05/08/21 03:00 62 27 H 96 05/08/21 02:30 58 L 27 H 96 05/08/21 02:00 36.9 C 57 L 27 H 97 05/08/21 01:30 65 27 H 96 05/08/21 01:00 57 L 29 H 95 05/08/21 00:30 58 L 26 H 96 05/08/21 00:00 36.8 C 60 26 H 96 05/07/21 23:30 60 28 H 97 05/07/21 23:00 65 28 H 97 05/07/21 22:30 73 26 H 95 05/07/21 22:00 86 27 H 96 05/07/21 21:30 85 31 H 96 05/07/21 21:00 69 27 H 96 Critical Care Results & Data Vital Signs (Past 12 Hours) Vital Signs Temp Pulse Resp BP Pulse Ox 05/08/21 08:07 37.1 C 05/08/21 08:00 73 26 H 90 05/08/21 07:30 67 26 H 92 05/08/21 07:18 63 26 H 92 05/08/21 07:00 70 26 H 89 L 05/08/21 04:30 66 26 H 93 05/08/21 04:00 36.8 C 60 28 H 156/59 H 92 05/08/21 03:30 60 27 H 95 05/08/21 03:00 62 27 H 96 05/08/21 02:30 58 L 27 H 96 05/08/21 02:00 36.9 C 57 L 27 H 97 05/08/21 01:30 65 27 H 96 05/08/21 01:00 57 L 29 H 95 05/08/21 00:30 58 L 26 H 96 05/08/21 00:00 36.8 C 60 26 H 96 05/07/21 23:30 60 28 H 97 05/07/21 23:00 65 28 H 97 05/07/21 22:30 73 26 H 95 05/07/21 22:00 86 27 H 96 05/07/21 21:30 85 31 H 96 05/07/21 21:00 69 27 H 96 Lab & Micro Results (Past 24 Hours) RBC 3.47 M/uL (4.7-6.1) L 05/08/21 WBC 12.25 K/uL (4.8-10.8) H 05/08/21 Hgb 10.2 g/dL (14.0-18.0) L 05/08/21 Hct 32.3 % (42-52) L 05/08/21 MCV 93.1 fL (80-100) 05/08/21 MCH 29.4 pg (25-34) 05/08/21 MCHC 31.6 g/dL (32-36) L 05/08/21 RDW Standard Deviation 53.7 fL (36.4-46.3) H 05/08/21 RDW Coefficient of Variation 16.1 % (11.5-14.5) H 05/08/21 Plt Count 131 K/uL (130-400) 05/08/21 MPV 9.9 fL (7.4-10.4) 05/08/21 Neutrophils (%) (Auto) 77.1 % 05/08/21 Lymphocytes (%) (Auto) 8.7 % 05/08/21 Monocytes # (Auto) 1.04 K/uL (0.11-0.59) H 05/08/21 Eosinophils # (Auto) 0.21 K/uL (0-0.5) 05/08/21 Immature Granulocyte % (Auto) 3.9 % 05/08/21 Neutrophils # (Auto) 9.44 K/uL (1.4-6.5) H 05/08/21 Lymphocytes # (Auto) 1.07 K/uL (1.2-3.4) L 05/08/21 Monocytes # (Auto) 1.04 K/uL (0.11-0.59) H 05/08/21 Eosinophils # (Auto) 0.21 K/uL (0-0.5) 05/08/21 Basophils # (Auto) 0.01 K/uL (0-0.2) 05/08/21 Immature Granulocyte # (Auto) 0.48 K/uL (0.00-0.02) H 05/08/21 Na 141 mmol/L (136-145) 05/08/21 K 3.9 mmol/L (3.5-5.1) 05/08/21 Cl 112 mmol/L (98-107) H 05/08/21 CO2 24 mmol/L (21-32) 05/08/21 Anion Gap 5.0 (3-11) 05/08/21 BUN 36 mg/dl (7-18) H 05/08/21 Creatinine 1.02 mg/dl (0.6-1.4) 05/08/21 Estimated GFR ( Amer) 83.5 ml/min 05/08/21 Estimated GFR (Non-Af Amer) 72.1 ml/min 05/08/21 BUN/Creatinine Ratio 35.3 (10-20) H 05/08/21 Glu 129 mg/dl (70-99) H 05/08/21 Ca 9.3 mg/dl (8.5-10.1) 05/08/21 Phosphorus Level 3.0 mg/dl (2.5-4.9) 05/08/21 Mg 2.6 mg/dl (1.8-2.4) H 05/08/21 04:37 05/08/21 Calcium Level 9.3 mg/dl (8.5-10.1) 05/08/21 04:37 05/08/21 Antonio Test NA 05/08/21 03:48 05/08/21 Microbiology 05/05/21 14:00 Acid Fast Bacilli Smear - Final Pleural Fluid Diagnostic Findings (Past 24 Hours) Chest X-Ray 05/08/21 08:00 XR chest 1V not portable CLINICAL HISTORY: intubated, evaluate hemothorax. COMPARISON STUDY: 05/07/2021 TECHNIQUE: 1 view of the chest FINDINGS: Single frontal view of the chest demonstrates the cardiomediastinal silhouette to be within normal limits. Tubes and catheters are unchanged. There is again no evidence for definite left-sided pneumothorax. There is residual left basilar atelectasis. No gross left-sided pleural effusion is seen. Interstitial and alveolar opacities are again noted bilaterally. There is no evidence for vascular congestion. There is no acute osseous pathology. IMPRESSION: Compared to the previous examination, there is no significant interval change with no definite pneumothorax or gross left pleural effusion identified on this portable technique. Bilateral interstitial and alveolar opacities are again seen and essentially unchanged. ACT 112: Negative or not required by law. Electronically signed by: Taz Gavin M.D. 05/08/2021 7:59 AM I & O Totals 24 Hours 05/07/21 05/08/21 05/09/21 06:59 06:59 06:59 Intake Total 1994.603 / 4469.756 7864.853 / 1613.853 342.062 / 342.062 Output Total 2670 / 2670 4500 / 4500 Balance -674.397 / -674.397 -2886.147 / -2886.147 342.062 / 342.062 Cumulative 04/18/21 05:46 thru 05/08/21 07:51 Intake Total 60689.415 Output Total 10490 Balance -8325.585 RT Ventilator Mngmt (Last Documented) Ventilator Ordered Settings Ventilator Support Mode Assist Control 05/08/21 07:18 Respiratory Rate 26 05/08/21 08:00 Ventilator Tidal Volume 430 05/08/21 07:18 Setting Minute Ventilation 11.2 05/08/21 07:18 Ventilator Positive Pressure 6 05/02/21 12:00 Support Setting Positive End Expiratory 8 05/08/21 07:18 Pressure Fraction of Inspired Oxygen 100 05/08/21 07:18 Peak Inspiratory Flow 49 05/06/21 19:01 Machine Comment FOUND ON THESE SETTINGS 05/08/21 07:18 Ventilator - PT Measurements Respiratory Rate 26 Exhaled Tidal Volume 430 Minute Ventilation 11.2 Peak Inspiratory Airway 31 Pressure Plateau Pressure 26 Respiratory Cycle Inspiratory: 1:2.3 Expiratory Ratio Inspiratory Phase Time 0.7 End-Tidal CO2 29 Static Lung Compliance 23.89 Dynamic Lung Compliance 18.70 Normal Static Lung Compliance 45.00 Patient Measurements Comment Recieved patient in ICU from 2E. Placed on previous settings. Patient is mildly awake and responsive to stimuli. Coding Level of Care Code Critical Care 1st 30-74 mins Diagnoses COVID-19 U07.1 Pneumomediastinum J98.2 Pleural effusion J90 Acute respiratory failure with hypoxia J96.01
[2021-05-08] MEDS: fentaNYL DRIP 1,250 MCG/250 ML BAG IV SCH ×3 (09:32→23:22)
[2021-05-08] MEDS ORDERED: METHYLNALTREXONE BROMIDE 12 MG/0.6 ML VIAL SQ ONE (11:15)
--- NOTE | 2021-05-08 11:47 | Palliative Care Progress Note ---
Date of Service May 08, 2021 Assessment & Plan (1) Palliative care encounter: Plan: Patient remains intubated and sedated. He is now requiring an FiO2 of 100% and does not appear to be breathing comfortably. He has been failing SBT over the last few days and his sedation was changed to Precedex to see if this would improve his agitation and desynchronous breathing; however, it did not. A trach discussion was held and family decided to pursue; however, his called in and said that she is not sure if he would want that. I was able to talk with the patients , Ankita [phone]. She recounted a few conversations in his medical past. She recounts a previous ER visit with a Dr. Wagner regarding prolonging life measures and he has indicated that he would not resuscitated or heroic efforts to be taken for his life. He has a computer at home but her never showed her how to use it and would not let her use it. She does a smart phone, but is unable to use it with zoom or duo. I suggested a bedside visit but she said 'I can't see him that w ay'. I did say that if we are not pursing the tracheostomy that a transition to comfort measures with compassionate extubation would be supported. I explained that withdraw of care would likely lead to his passing away within minutes to a few hours. She stated that she 'had no idea it was this bad'. She said 'I can not have that decision on my conscience, do the tracheostomy'. I explained that regardless of a trach intervention, it is likely he will have a grave prognosis and that his body is making the decision and we are interfering with the natural process if that could help her with her decision. She said she will talk with her son, Titus, but for now, continue care with a trach, unless it would be futile. Per discussion with ICU/pulm as he has failed numerous breathing trials aggressive option includes bedside percutaneous dilatation of tracheostomy. I did reach out to Titus at [phone] and left a voicemail. I am hopeful that a video conference for him to see his father would be helpful for decision making. For now, palliative will follow. (2) COVID-19: (3) Hypoxia: (4) Weakness: Admission and Anticipated Discharge Date Admission Date: April 18, 2021 Subjective intubated and sedated FiO2 90-100% Review of Systems Review of Systems: Unobtainable due to endotracheal tube Physical Exam Constitutional: + frail appearing Respiratory: + tachypneic Skin: + ecchymosis and + pallor Neurologic: + obtunded (on ventilator ) Results & Data ([facility]) Vital Signs (Past 12 Hours) Vital Signs Temp Pulse Resp BP Pulse Ox 05/08/21 09:30 63 26 H 92 05/08/21 09:00 62 26 H 92 05/08/21 08:30 68 26 H 88 L 05/08/21 08:07 37.1 C 05/08/21 08:00 69 26 H 90 05/08/21 07:30 67 26 H 92 05/08/21 07:18 63 26 H 92 05/08/21 07:00 70 26 H 89 L 05/08/21 04:30 66 26 H 93 05/08/21 04:00 36.8 C 60 28 H 156/59 H 92 05/08/21 03:30 60 27 H 95 05/08/21 03:00 62 27 H 96 05/08/21 02:30 58 L 27 H 96 05/08/21 02:00 36.9 C 57 L 27 H 97 05/08/21 01:30 65 27 H 96 05/08/21 01:00 57 L 29 H 95 05/08/21 00:30 58 L 26 H 96 05/08/21 00:00 36.8 C 60 26 H 96 PG Care Time/CCT Total # of Minutes Spent Total Time Spent with Patient: Total time spent is greater than 50% in coordination of care (as documented) at patient's floor/unit and/or counseling patient: 45 minutes Coding Level of Care Code 75367 Subseq Hosp Care Lvl 3 Diagnoses Palliative care encounter Z51.5 COVID-19 U07.1 Hypoxia R09.02 Weakness R53.1 Time Spent (min) 45
--- NOTE | 2021-05-08 16:00 | Pharmacy Report ---
Pharmacy Glycemic Short Note 2 - Date of Service May 08, 2021 - Glycemic Short BSG Results (Last 24 hours): 05/07/21 05/07/21 05/08/21 16:42 20:07 00:04 Glucose POC Glucose 129 H 113 H 81 POC Glucose (other) 05/08/21 05/08/21 05/08/21 04:03 04:37 07:57 Glucose 129 H POC Glucose 114 H POC Glucose (other) 153 H 05/08/21 12:02 Glucose POC Glucose POC Glucose (other) 242 H OUTPATIENT ANTIDIABETIC REGIMEN: * Canagliflozin 100MG PO daily * Glipizide ER 2.5 mg PO daily * HbA1c: 8.3% (04/19/21) ASSESSMENT: 05/08: * BSGs well controlled last 48 hrs * Multiple BSGs less than 140 yesterday and one overnight BSG in 80s- will scale back Lantus dose as a precaution. Dexamethasone IV dose will be scaled back tomorrow as well, another reason for proactively reducing basal. * Noon BSG unexpectedly elevated (242), uncertain why this may be, and rather than acting upon this one outlier - will wait for further BSGs to guide treatment decisions. * Pt remains intubated, sedated and is receiving low dose norepi off and on. Peptamen VHP running at 70cc/hr 05/06: * BSGs well controlled over last 24 hrs * Pt remains intubated, sedated, receiving IV dexamethasone 6mg daily, and tube feeds at goal (Peptamen VHP @ 70cc/hr). Norepi continues however the dose has been weaned to 0.01mcg/kg/min. * Lantus dosing was recently converted to once daily in the AM. This may need to be split BID for greater ease of dose titration in critically ill patient who will likely have tube feeds held if extubated and may be NPO for a period of time afterwards. Will convert back to BID dosing tomorrow. 05/03: * Patient continues on insulin infusion + Lantus 20 units daily (will not go above due to hypoglycemia with Lantus 22 units). Insulin infusion rate has decreased to 1.7 units/hr with BSGs at goal. * Patient failed sedation vacation. Initiating tube feeds. Continues on low dose norepinephrine. * Set CR of 4 for now --- may need to be more aggressive with carbohydrate ratio depending on how BSGs are. * Will not d/c insulin infusion until effects of tube feeds are seen. PLAN FOR INPATIENT GLYCEMIC CONTROL: * Hold outpatient oral diabetes medications * Basal insulin * Lantus 20 units SQ BID * Bolus insulin: * NovoLog per scale Q 4 hrs * Goal Range: Low 110 mg/dL - High 140 mg/dL * Correction Factor:10 mg/dL/unit * Nutritional / Prandial insulin per carb ratio of 1 unit per 3 grams CHO provided in tube feeds PLAN FOR DISCHARGE: * HbA1c of 8.3% is elevated * Reasonable goal may be less than 8% given multiple comorbidities * Options limited based on CKD and reported intolerance to metformin * Continue current outpatient regimen * with eGFR 30-59 mL/min do not exceed Invokana 100 mg daily. * Could consider addition of Lantus 15 units QAM
--- NOTE | 2021-05-08 17:14 | Hospitalist Progress Note ---
Date of Service May 08, 2021 Assessment & Plan (1) Acute respiratory failure with hypoxia: Plan: Patient is in acute respiratory failure. now mechanically ventilated, with ARDS. Prognosis is poor Pneumomediastinum, left sided pleural effusion/hemothorax five days in a row he did not do well with SBT palliative spoke with his son, he is a DNR/DNI possible tracheostomy in next few days, Dr. Major d/w patient's son palliative d/w his , she is not ready for terminal extubation offered visit or video conference, she cannot see him like that (2) Pleural effusion: Plan: chest tube placed 05/[address] Temple, bloody drainage, hemothorax continue drainage to see if it improves ventilation no growth on cultures completed Zosyn (3) COVID-19: Plan: getting worse, CRP trended up, remains ventilated completed course of Remdesivir continue dexamethasone treated possible secondary infection with Zosyn (4) Multilobar lung infiltrate: Plan: as above. (5) Weakness: Plan: Appears to be due to the severity of his Covid pneumonia/hypoxiasee above (6) CKD (chronic kidney disease) stage 3, GFR 30-59 ml/min: Plan: Continue to follow creatininestable at this time, Lasix per ICU staff (7) Coronary artery disease: Plan: No angina, continue to monitor (8) Sleep apnea: Plan: intubated and ventilated (9) Hypertension: Plan: Blood pressures are acceptable given situation (10) Diabetes: Plan: Poorly controlled at baseline as well as acutely. continue to adjust insulinspharmacy is managing at this time (11) Lumbar stenosis with neurogenic claudication: Plan: sedated (12) DVT prophylaxis: Plan: heparin (13) Discharge planning issues: Plan: poor prognosis Admission and Anticipated Discharge Date Admission Date: April 18, 2021 Subjective discussed with Jill Clement, she spoke with the patient's she is having a difficult time making a decision to withdraw care, leaning towards tracheostomy she does not want to do a video conference or visit him both Dr. Major and Jill tried to call the patient's son, no answer numerous SBT have been attempted and he has failed will continue to reach out to family, either terminal extubation or tracheostomy reviewed labs Review of Systems Review of Systems: Unobtainable due to endotracheal tube Physical Exam Physical Exam: General: ill appearing, mechanically ventilated, elderly male Neck: supple, trachea midline, normal thyroid Lungs: symmetric chest movement, decreased breath sounds in bases, ventilated Chest: left sided chest tube, draining Heart: regular S1 and S2, no murmur, peripheral pulses normal, capillary refill normal, no edema Abdomen: soft, NT, ND, + BS, no hepatomegaly, normal to percussion Extremities: normal in appearance, no cyanosis, no petechiae Neuro: sedated, not following commands, no focal motor deficits, CN II-XII intact Skin: warm, dry, no rash, normal turgor Psych: sedated Results & Data Results & Data ([facility]) Vital Signs (Past 12 Hours) Vital Signs Temp Pulse Resp Pulse Ox 05/08/21 16:33 37 C 05/08/21 16:00 56 L 26 H 97 05/08/21 15:00 57 L 26 H 96 05/08/21 14:44 57 L 30 H 96 05/08/21 14:00 58 L 23 96 05/08/21 13:00 55 L 20 97 05/08/21 12:10 56 L 29 H 98 05/08/21 12:00 55 L 20 98 05/08/21 11:00 65 27 H 98 05/08/21 10:00 65 25 H 94 05/08/21 09:30 63 26 H 92 05/08/21 09:00 62 26 H 92 05/08/21 08:30 68 26 H 88 L 05/08/21 08:07 37.1 C 05/08/21 08:00 69 26 H 90 05/08/21 07:30 67 26 H 92 05/08/21 07:18 63 26 H 92 05/08/21 07:00 70 26 H 89 L Laboratory Results Laboratory Results - last 24 hr 05/05/21 05/05/21 05/07/21 06:14 14:00 20:07 WBC RBC Hgb Hct MCV MCH MCHC RDW Std Deviation RDW Coeff of Patti Plt Count MPV Immature Gran % (Auto) Neut % (Auto) Lymph % (Auto) Callahan % (Auto) Eos % (Auto) Baso % (Auto) Neut # (Auto) Lymph # (Auto) Callahan # (Auto) Eos # (Auto) Baso # (Auto) Immature Gran # (Auto) Sample Site POC pH POC pCO2 POC pO2 POC HCO3 POC Total CO2 POC Base Excess POC ABG O2 Sat Antonio Test O2 Delivery Device POC O2 Rate POC FiO2 Tidal Volume PEEP Sodium Potassium Chloride Carbon Dioxide Anion Gap BUN Creatinine POC Creatinine Est Cr Clr Drug Dosing Est GFR ( Amer) Est GFR (Non-Af Amer) BUN/Creatinine Ratio Glucose POC Glucose 113 H POC Glucose (other) Calcium Phosphorus Magnesium Miscellaneous Test REPORT Crossmatch See Detail 05/08/21 05/08/21 05/08/21 00:04 03:44 03:48 WBC RBC Hgb Hct MCV MCH MCHC RDW Std Deviation RDW Coeff of Patti Plt Count MPV Immature Gran % (Auto) Neut % (Auto) Lymph % (Auto) Callahan % (Auto) Eos % (Auto) Baso % (Auto) Neut # (Auto) Lymph # (Auto) Callahan # (Auto) Eos # (Auto) Baso # (Auto) Immature Gran # (Auto) Sample Site Art Line POC pH 7.40 POC pCO2 38 POC pO2 87 POC HCO3 23 POC Total CO2 24 POC Base Excess -2.0 POC ABG O2 Sat 97.0 H Antonio Test NA O2 Delivery Device Ventilator POC O2 Rate 26 POC FiO2 60 Tidal Volume 430 PEEP 6 Sodium Potassium Chloride Carbon Dioxide Anion Gap BUN Creatinine POC Creatinine 1.0 Est Cr Clr Drug Dosing Est GFR ( Amer) Est GFR (Non-Af Amer) BUN/Creatinine Ratio Glucose POC Glucose 81 POC Glucose (other) Calcium Phosphorus Magnesium Miscellaneous Test Crossmatch 05/08/21 05/08/21 05/08/21 04:03 04:37 04:37 WBC 12.25 H RBC 3.47 L Hgb 10.2 L Hct 32.3 L MCV 93.1 MCH 29.4 MCHC 31.6 L RDW Std Deviation 53.7 H RDW Coeff of Patti 16.1 H Plt Count 131 MPV 9.9 Immature Gran % (Auto) 3.9 Neut % (Auto) 77.1 Lymph % (Auto) 8.7 Callahan % (Auto) 8.5 Eos % (Auto) 1.7 Baso % (Auto) 0.1 Neut # (Auto) 9.44 H Lymph # (Auto) 1.07 L Callahan # (Auto) 1.04 H Eos # (Auto) 0.21 Baso # (Auto) 0.01 Immature Gran # (Auto) 0.48 H Sample Site POC pH POC pCO2 POC pO2 POC HCO3 POC Total CO2 POC Base Excess POC ABG O2 Sat Antonio Test O2 Delivery Device POC O2 Rate POC FiO2 Tidal Volume PEEP Sodium 141 Potassium 3.9 Chloride 112 H Carbon Dioxide 24 Anion Gap 5.0 BUN 36 H Creatinine 1.02 POC Creatinine Est Cr Clr Drug Dosing 76.7 Est GFR ( Amer) 83.5 Est GFR (Non-Af Amer) 72.1 BUN/Creatinine Ratio 35.3 H Glucose 129 H POC Glucose 114 H POC Glucose (other) Calcium 9.3 Phosphorus 3.0 Magnesium 2.6 H Miscellaneous Test Crossmatch 05/08/21 05/08/21 05/08/21 07:57 12:02 16:03 WBC RBC Hgb Hct MCV MCH MCHC RDW Std Deviation RDW Coeff of Patti Plt Count MPV Immature Gran % (Auto) Neut % (Auto) Lymph % (Auto) Callahan % (Auto) Eos % (Auto) Baso % (Auto) Neut # (Auto) Lymph # (Auto) Callahan # (Auto) Eos # (Auto) Baso # (Auto) Immature Gran # (Auto) Sample Site POC pH POC pCO2 POC pO2 POC HCO3 POC Total CO2 POC Base Excess POC ABG O2 Sat Antonio Test O2 Delivery Device POC O2 Rate POC FiO2 Tidal Volume PEEP Sodium Potassium Chloride Carbon Dioxide Anion Gap BUN Creatinine POC Creatinine Est Cr Clr Drug Dosing Est GFR ( Amer) Est GFR (Non-Af Amer) BUN/Creatinine Ratio Glucose POC Glucose POC Glucose (other) 153 H 242 H 250 H Calcium Phosphorus Magnesium Miscellaneous Test Crossmatch Medications Administered Current Inpatient Medications Acetaminophen (Acetaminophen 325 Mg Tab) 650 mg PO Q4H PRN PRN Reason: Pain or Fever Stop: 05/18/21 10:14 Albuterol (Albuterol Hfa 8 Gm Inhaler) 1 puffs INH QIDR PRN PRN Reason: Shortness Of Breath Or Wheezing Stop: 05/23/21 18:59 Aspirin (Aspirin 81 Mg Ectab) 81 mg PO QAM MIR Stop: 05/18/21 10:59 Last Admin: 04/30/21 10:20 Dose: Not Given Documented by: Clonazepam (Clonazepam 1 Mg Tab) 1 mg PO BID MIR Stop: 06/05/21 20:59 Last Admin: 05/08/21 08:03 Dose: 1 mg Documented by: Dextrose (Dextrose 50% 50 Ml Syringe) 25 - 50 ml IV UD PRN; Protocol PRN Reason: Hypoglycemia Protocol Stop: 05/18/21 10:14 Fentanyl Citrate (Fentanyl Bolus From Bag) 50 mcg IV Q60M PRN PRN Reason: Pain or Agitation Stop: 05/14/21 18:32 Last Admin: 05/08/21 07:51 Dose: 50 mcg Documented by: Glucagon (Glucagon For Inj 1 Mg Vial) 1 mg SQ UD PRN; Protocol PRN Reason: Hypoglycemia Protocol Stop: 05/18/21 10:14 Glucose (Glucose 10 Tabs/Tube) 4 - 8 tabs PO UD PRN; Protocol PRN Reason: Hypoglycemia Protocol Stop: 05/18/21 10:14 Glucose (Glucose 40% Gel 15 Gm Tube) 15 - 30 gm PO UD PRN; Protocol PRN Reason: Hypoglycemia Protocol Stop: 05/18/21 10:14 Heparin Sodium (Porcine) (Heparin Sod 5,000 Unit/0.5 Ml Vial) 5,000 units SQ Q12 MIR Stop: 06/07/21 20:59 Hydralazine HCl (Hydralazine Hcl 20 Mg/Ml Vial) 10 mg IV Q4H PRN PRN Reason: SBP > 160 Stop: 06/06/21 11:11 Last Admin: 05/07/21 17:18 Dose: 10 mg Documented by: Fentanyl Citrate (Fentanyl Drip) 1,250 mcg in 250 mls @ 20 mls/hr IV .[id number] [facility]; Protocol Stop: 05/14/21 18:44 Last Admin: 05/08/21 09:32 Dose: 100 mcg/hr, 20 mls/hr Documented by: Norepinephrine Bitartrate (Levophed/D5w) 8 mg in 508 mls @ 11.407 mls/hr IV .Q24H MIR; Protocol Stop: 05/30/21 23:14 Last Titration: 05/08/21 07:45 Dose: 0.03 mcg/kg/min, 11.4 mls/hr Documented by: Pantoprazole Sodium 40 mg/ (Syringe) 10 mls @ 5 mls/min IV QAM [facility] Stop: 06/02/21 08:59 Last Admin: 05/08/21 08:05 Dose: 5 mls/min Documented by: Dexmedetomidine HCl 200 mcg/ (Sodium Chloride) 50 mls @ 13 mls/hr IV .Q3H51M [facility]; Protocol Stop: 05/11/21 15:14 Last Admin: 05/08/21 14:02 Dose: 0.5 mcg/kg/hr, 13 mls/hr Documented by: Propofol (Diprivan) 1,000 mg in 100 mls @ 9.36 mls/hr IV .[id number] [facility]; Protocol Stop: 05/11/21 02:14 Last Titration: 05/08/21 16:31 Dose: 15 mcg/kg/min, 9.4 mls/hr Documented by: Dexamethasone 4 mg/ Syringe 1 mls @ 1 mls/min IV QAM [facility] Stop: 05/11/21 09:00 Dexamethasone 2 mg/ Syringe 0.5 mls @ 1 mls/min IV QAM [facility] Stop: 05/14/21 09:01 Insulin Aspart (Insulin Aspart 100 Units/Ml Vial) 0 units SC Q4 [facility]; Protocol Stop: 06/06/21 07:59 Last Admin: 05/08/21 16:10 Dose: 18 units Documented by: Insulin Glargine (Insulin Glargine Solostar 100 Units/Ml 3 Ml Pen) 20 units SC BID [facility] Stop: 06/07/21 08:59 Last Admin: 05/08/21 08:04 Dose: 20 units Documented by: Ipratropium [place] (Ipratropium [place] Hfa Inhaler) 1 puffs INH QIDR PRN PRN Reason: Shortness Of Breath Or Wheezing Stop: 05/23/21 18:59 Mirtazapine (Mirtazapine Tab 15 Mg Tab) 30 mg PO HS [facility] Stop: 06/06/21 20:59 Last Admin: 05/07/21 21:12 Dose: 30 mg Documented by: Miscellaneous (Carbohydrates For Hypoglycemia ) 15 - 30 gm PO UD PRN PRN Reason: Hypoglycemia Protocol Stop: 05/18/21 10:14 Last Admin: 04/28/21 08:31 Dose: 15 gm Documented by: Miscellaneous Information (Pharmacy Glycemic Mgmt Consult) 1 ea N/A UD PRN; Protocol PRN Reason: Consult Stop: 05/18/21 10:14 Nutritional Formula (Peptamen Intense Vhp 1.0 Tomasz 1,000 Ml Bag) 1,000 ml OG UD MIR; Protocol Stop: 06/02/21 11:29 Last Admin: 12/07/21 08:54 Dose: 1,000 ml Documented by: Oxycodone HCl (Oxycodone Hcl Soln 5 Mg/5 Ml Udc) 15 mg PO Q8 MIR Stop: 05/21/21 21:59 Last Admin: 05/08/21 14:02 Dose: 15 mg Documented by: Polyethylene Glycol (Polyethylene (Miralax) 17 Gm Pack) 17 gm PO DAILY PRN PRN Reason: Constipation Stop: 05/18/21 10:14 Last Admin: 04/27/21 07:39 Dose: 17 gm Documented by: Pravastatin Sodium (Pravastatin Sod 40 Mg Tab) 40 mg PO QPM MIR Stop: 05/18/21 20:59 Last Admin: 05/07/21 21:12 Dose: 40 mg Documented by: Propofol (Propofol Bolus From Bag) 20 mg IV Q5M PRN PRN Reason: Sedation Stop: 05/11/21 02:12 Sennosides (Sennosides 8.8 Mg/5 Ml Udc) 8.8 mg PO BID MIR Stop: 06/06/21 20:59 Last Admin: 05/08/21 08:05 Dose: 8.8 mg Documented by: Sterile Water (Tube Feeding Water Flush) 30 ml OG Q4H MIR Stop: 06/02/21 11:29 Last Admin: 05/08/21 15:14 Dose: 30 ml Documented by: Tamsulosin HCl (Tamsulosin Hcl 0.4 Mg Cap) 0.4 mg PO QPM MIR Stop: 05/18/21 20:59 Last Admin: 04/29/21 23:17 Dose: 0.4 mg Documented by: PG Care Time/CCT Total # of Minutes Spent Total Time Spent with Patient: Total time spent is greater than 50% in coordination of care (as documented) at patient's floor/unit and/or counseling patient: Coding Level of Care Code 17158 Subseq Hosp Care Lvl 2 Diagnoses Acute respiratory failure with hypoxia J96.01 Pleural effusion J90 COVID-19 U07.1 Multilobar lung infiltrate R91.8 Weakness R53.1 CKD (chronic kidney disease) stage 3, GFR 30-59 ml/min N18.3 Coronary artery disease I25.10 Sleep apnea G47.30 Hypertension I10 Diabetes E11.9 Lumbar stenosis with neurogenic claudication M48.062 DVT prophylaxis Z29.9 Discharge planning issues Z02.9
[2021-05-08] MEDS: PEPTAMEN INTENSE VHP 1.0 CAL 1,000 ML BAG OG SCH (17:59)
[2021-05-08] MEDS: MIRTAZAPINE TAB 15 MG TAB PO SCH (20:14)
[2021-05-08] MEDS: HEPARIN SOD 5,000 UNIT/0.5 ML VIAL SQ SCH (20:14)
[2021-05-08] MEDS: PRAVASTATIN SOD 40 MG TAB PO SCH (20:24)
[2021-05-08] MEDS ORDERED: INSULIN GLARGINE SOLOSTAR 100 UNITS/ML 3 ML PEN SC ONE (21:00)
[2021-05-09] MEDS: TUBE FEEDING WATER FLUSH OG SCH ×7 (00:47→21:56)
[2021-05-09] MEDS: INSULIN ASPART 100 UNITS/ML VIAL SC SCH ×6 (00:48→20:12)
[2021-05-09] MEDS: DEXMEDETOMIDINE HCL 200 MCG in SODIUM CHLORIDE 0.9% 48 ML IV SCH ×10 (04:11→20:34)
[2021-05-09] MEDS: propofoL 1,000 MG/100 ML VIAL IV SCH ×5 (04:16→13:02)
[2021-05-09] MEDS: NOREPINEPHRINE/D5W 8 MG/508 ML BAG IV SCH (04:40)
[2021-05-09] MEDS: oxyCODONE HCL SOLN 5 MG/5 ML UDC PO SCH ×3 (04:48→21:46)
[2021-05-09 05:00] LABS: iSTAT Arterial Blood Gas HCO3 25 meg/L (19-24); iSTAT Arterial Blood Gas pCO2 40 mmHg (35-46); iSTAT Arterial Blood Gas pO2 83 mmHg (80-95); iSTAT Carbon Dioxide 26 mmol/L (24-31); iSTAT FiO2 60 %; iSTAT Site Art Line
[2021-05-09 05:39] LABS: Basophils # (auto) 0.01 K/uL (0-0.2); Basophils % (auto) 0.1 %; Eosinophils # (auto) 0.31 K/uL (0-0.5); Eosinophils % (auto) 2.8 %; Hematocrit (blood only) 30.2 % (42-52); Hemoglobin 9.5 g/dL (14.0-18.0); Immature Granulocytes % (auto) 1.8 %; Lymphocytes # (auto) 1.08 K/uL (1.2-3.4); Lymphocytes % (auto) 9.8 %; Mean Corpuscular Hemoglobin 29.1 pg (25-34); Mean Corpuscular Hgb Conc 31.5 g/dL (32-36); Mean Corpuscular Volume 92.4 fL (80-100); Mean Platelet Volume 9.9 fL (7.4-10.4); Monocytes # (auto) 0.86 K/uL (0.11-0.59); Monocytes % (auto) 7.8 %; Neutrophils % (auto) 77.7 %; Platelet Count 126 K/uL (130-400); RDW Coefficient of Variation 15.4 % (11.5-14.5); RDW Standard Deviation 51.8 fL (36.4-46.3); Red Blood Count 3.27 M/uL (4.7-6.1); White Blood Count 11.06 K/uL (4.8-10.8)
[2021-05-09 06:15] LABS: BUN Creatinine Ratio 40.4 (10-20); Calcium 9.4 mg/dl (8.5-10.1); Creatinine Clr Calc Pharmacy 71.7 ml/min; Est GFR (African American) 77.1 ml/min; Est GFR (Non-African American) 66.5 ml/min; Magnesium 2.7 mg/dl (1.8-2.4); Potassium 4.1 mmol/L (3.5-5.1)
[2021-05-09 06:18] LABS: Phosphorus 2.2 mg/dl (2.5-4.9)
--- NOTE | 2021-05-09 07:30 | XRay Report ---
XR chest 1V portable HISTORY: 75 years-old Male chest tube acute respiratory failure COMPARISON: Chest radiograph 05/08/2021 TECHNIQUE: Portable AP view the chest FINDINGS: Cardiac silhouette is mildly enlarged. Endotracheal tube overlies the midline, 3.8 cm superior to the ana. Left IJ central venous catheter is in unchanged positioning. The enteric tube courses below the diaphragm with distal tip outside the [id number]. Left basilar chest tube projects over the me dial left lung base. Suspected trace pleural effusions. No pneumothorax identified. Pulmonary vascula r congestion. Interstitial coarsening with ill-defined bilateral airspace opacities appear stable fro m comparison. IMPRESSION: 1. Lines and tubes as above. No pneumothorax. 2. Unchanged mixed interstitial and alveolar opacities compatible with ongoing viral pneumonia. ACT 112: Negative or not required by law. The above report was generated using voice recognition software. It may contain grammatical, syntax o r spelling errors. Electronically signed by: Nitin Titus M.D. 05/09/2021 7:29 AM
[2021-05-09] MEDS: clonazePAM 1 MG TAB PO SCH ×2 (08:47→21:43)
[2021-05-09] MEDS: HEPARIN SOD 5,000 UNIT/0.5 ML VIAL SQ SCH ×2 (08:48→20:13)
[2021-05-09] MEDS: SENNOSIDES 8.8 MG/5 ML UDC PO SCH ×2 (08:48→21:44)
[2021-05-09] MEDS: PANTOprazole 40 MG in SYRINGE 0 ML IV SCH (08:48)
[2021-05-09] MEDS: dexAMETHasone 4 MG in SYRINGE 0 ML IV SCH (08:49)
[2021-05-09] MEDS ORDERED: INSULIN GLARGINE SOLOSTAR 100 UNITS/ML 3 ML PEN SC SCH (09:00)
[2021-05-09] MEDS ORDERED: VECURONIUM BROMIDE 10 MG VIAL IV ONE (10:45)
[2021-05-09] MEDS ORDERED: VECURONIUM BROMIDE 10 MG VIAL IV SCH (11:00)
[2021-05-09] MEDS: fentaNYL DRIP 1,250 MCG/250 ML BAG IV SCH ×2 (11:21→23:23)
--- NOTE | 2021-05-09 11:24 | Pharmacy Report ---
Pharmacy Glycemic Short Note 2 - Date of Service May 09, 2021 - Glycemic Short BSG Results (Last 24 hours): 05/08/21 05/08/21 05/08/21 12:02 16:03 20:15 Glucose POC Glucose (other) 242 H 250 H 220 H 05/09/21 05/09/21 05/09/21 00:47 04:05 05:29 Glucose 152 H POC Glucose (other) 176 H 165 H 05/09/21 07:44 Glucose POC Glucose (other) 167 H OUTPATIENT ANTIDIABETIC REGIMEN: * Canagliflozin 100MG PO daily * Glipizide ER 2.5 mg PO daily * HbA1c: 8.3% (04/19/21) ASSESSMENT: 05/09: * BSG's persistently elevated yesterday - unknown etiology. * However, dexamethasone decreased today and tubefeeds will be on hold for anticipated trach. Therefore will not make adjustments to Novolog as the decrease in dexamethasone is likely to increase sensitivity. Will also decrease Lantus in response to possible tubefeeds being held 05/08: * BSGs well controlled last 48 hrs * Multiple BSGs less than 140 yesterday and one overnight BSG in 80s- will scale back Lantus dose as a precaution. Dexamethasone IV dose will be scaled back tomorrow as well, another reason for proactively reducing basal. * Noon BSG unexpectedly elevated (242), uncertain why this may be, and rather than acting upon this one outlier - will wait for further BSGs to guide treatment decisions. * Pt remains intubated, sedated and is receiving low dose norepi off and on. Peptamen VHP running at 70cc/hr 05/06: * BSGs well controlled over last 24 hrs * Pt remains intubated, sedated, receiving IV dexamethasone 6mg daily, and tube feeds at goal (Peptamen VHP @ 70cc/hr). Norepi continues however the dose has been weaned to 0.01mcg/kg/min. * Lantus dosing was recently converted to once daily in the AM. This may need to be split BID for greater ease of dose titration in critically ill patient who will likely have tube feeds held if extubated and may be NPO for a period of time afterwards. Will convert back to BID dosing tomorrow. PLAN FOR INPATIENT GLYCEMIC CONTROL: * Hold outpatient oral diabetes medications * Basal insulin * Lantus 10-20 units SQ BID * Bolus insulin: * NovoLog per scale Q 4 hrs * Goal Range: Low 110 mg/dL - High 140 mg/dL * Correction Factor: 10 mg/dL/unit * Nutritional / Prandial insulin per carb ratio of 1 unit per 3 grams CHO provided in tube feeds PLAN FOR DISCHARGE: * HbA1c of 8.3% is elevated * Reasonable goal may be less than 8% given multiple comorbidities * Options limited based on CKD and reported intolerance to metformin * Continue current outpatient regimen * with eGFR 30-59 mL/min do not exceed Invokana 100 mg daily. * Could consider addition of Lantus 15 units QAM
[2021-05-09] MEDS: ICU ELECTROLYTE REPLACEMENT PROTOCOL SCH ×2 (11:50→18:18)
[2021-05-09] MEDS: POT PHOSPHATE MONOBASIC W/ SOD TAB PO SCH ×3 (12:39→21:44)
--- NOTE | 2021-05-09 14:25 | Hospitalist Progress Note ---
Date of Service May 09, 2021 Assessment & Plan (1) Acute respiratory failure with hypoxia: Plan: Patient is in acute respiratory failure. now mechanically ventilated, with ARDS. Prognosis is poor Pneumomediastinum, left sided pleural effusion/hemothorax six days in a row he did not do well with SBT palliative spoke with his son, he is a DNR/DNI spoke with at bedside on 05/09, she agreed that patient would not want a tracheostomy we discussed timing of extubation, her son Titus wants to be here I asked her to have him come home as soon as he can, will reach out to son if she needs me to, we can arrange a video conference if that would be easier (2) Pleural effusion: Plan: chest tube placed 05/[address] Temple, bloody drainage, hemothorax continue drainage to see if it improves ventilation no growth on cultures completed Zosyn (3) COVID-19: Plan: getting worse, CRP trended up, remains ventilated completed course of Remdesivir continue dexamethasone treated possible secondary infection with Zosyn (4) Multilobar lung infiltrate: Plan: as above. (5) Weakness: Plan: Appears to be due to the severity of his Covid pneumonia/hypoxiasee above (6) CKD (chronic kidney disease) stage 3, GFR 30-59 ml/min: Plan: Continue to follow creatininestable at this time, Lasix per ICU staff (7) Coronary artery disease: Plan: No angina, continue to monitor (8) Sleep apnea: Plan: intubated and ventilated (9) Hypertension: Plan: Blood pressures are acceptable given situation (10) Diabetes: Plan: Poorly controlled at baseline as well as acutely. continue to adjust insulinspharmacy is managing at this time (11) Lumbar stenosis with neurogenic claudication: Plan: sedated (12) DVT prophylaxis: Plan: heparin (13) Discharge planning issues: Plan: poor prognosis Admission and Anticipated Discharge Date Admission Date: April 18, 2021 Subjective patient continues to not do well, no plans for SBT today or extubation discussed the situations with his at the bedside as she came in to discuss goals of care we discussed tracheostomy and what that would entail discussed needing feeding tube and being on life support, going to LTACH, not sure where that would be, would be far from here though she discussed that the patient had had this conversation with his PCP, Dr. Johnny Wagner when he had prostate CA the patient had told Dr. Wagner that he would not want to be kept alive on life support I explained that she was really not the one having to make this decision as the patient had expressed what he would want she should not have this on her conscience we agreed that a tracheostomy would not be appropriate I then said that we would need to plan for extubation and see how he does and if he struggles we would make him comfortable I explained that we should plan for extubation soon as he has been here 21 days, intubated for 10 days she wants her son Titus to be here but he has interviews in [place] the next few days I told her that it is not appropriate to wait until later next week, not appropriate care for the patient if it would be against his wishes she will reach out to Titus, I told her I would be happy to speak with him as well I updated Dr. Major as well as Jill VENCES on our conversation Review of Systems Review of Systems: Unobtainable due to endotracheal tube Physical Exam Physical Exam: General: ill appearing, mechanically ventilated, elderly male Neck: supple, trachea midline, normal thyroid Lungs: symmetric chest movement, decreased breath sounds in bases, ventilated Chest: left sided chest tube, draining Heart: regular S1 and S2, no murmur, peripheral pulses normal, capillary refill normal, no edema Abdomen: soft, NT, ND, + BS, no hepatomegaly, normal to percussion Extremities: normal in appearance, no cyanosis, no petechiae Neuro: sedated, not following commands, no focal motor deficits, CN II-XII intact Skin: warm, dry, no rash, normal turgor Psych: sedated Results & Data Results & Data ([facility]) Vital Signs (Past 12 Hours) Vital Signs Temp Pulse Resp BP Pulse Ox 05/09/21 12:58 69 05/09/21 12:00 73 26 H 92 05/09/21 11:00 86 26 H 92 05/09/21 10:40 74 32 H 91 05/09/21 10:00 72 26 H 90 05/09/21 09:00 82 26 H 91 05/09/21 08:30 74 27 H 05/09/21 08:17 72 32 H 90 05/09/21 08:00 73 24 90 12/09/21 07:30 69 24 90 05/09/21 07:00 72 23 05/09/21 06:00 37.9 C H 65 28 H 90 05/09/21 05:00 64 29 H 89 L 05/09/21 04:20 32 H 05/09/21 04:00 37.9 C H 64 19 117/49 L 92 05/09/21 03:00 63 31 H 92 Laboratory Results Laboratory Results - last 24 hr 05/05/21 05/08/21 05/08/21 14:00 16:03 20:15 WBC RBC Hgb Hct MCV MCH MCHC RDW Std Deviation RDW Coeff of Patti Plt Count MPV Immature Gran % (Auto) Neut % (Auto) Lymph % (Auto) Cuming % (Auto) Eos % (Auto) Baso % (Auto) Neut # (Auto) Lymph # (Auto) Cuming # (Auto) Eos # (Auto) Baso # (Auto) Immature Gran # (Auto) Sample Site POC pH POC pCO2 POC pO2 POC HCO3 POC Total CO2 POC Base Excess POC ABG O2 Sat Antonio Test O2 Delivery Device POC O2 Rate POC FiO2 Tidal Volume PEEP Sodium Potassium Chloride Carbon Dioxide Anion Gap BUN Creatinine Est Cr Clr Drug Dosing Est GFR ( Amer) Est GFR (Non-Af Amer) BUN/Creatinine Ratio Glucose POC Glucose (other) 250 H 220 H Calcium Phosphorus Magnesium Triglycerides Miscellaneous Test REPORT 05/09/21 05/09/21 05/09/21 00:47 04:05 04:14 WBC RBC Hgb Hct MCV MCH MCHC RDW Std Deviation RDW Coeff of Patti Plt Count MPV Immature Gran % (Auto) Neut % (Auto) Lymph % (Auto) Cuming % (Auto) Eos % (Auto) Baso % (Auto) Neut # (Auto) Lymph # (Auto) Cuming # (Auto) Eos # (Auto) Baso # (Auto) Immature Gran # (Auto) Sample Site Art Line POC pH 7.40 POC pCO2 40 POC pO2 83 POC HCO3 25 H POC Total CO2 26 POC Base Excess 0.0 POC ABG O2 Sat 96.0 H Antonio Test NA O2 Delivery Device Ventilator POC O2 Rate 26 POC FiO2 60 Tidal Volume 430 PEEP 8 Sodium Potassium Chloride Carbon Dioxide Anion Gap BUN Creatinine Est Cr Clr Drug Dosing Est GFR ( Amer) Est GFR (Non-Af Amer) BUN/Creatinine Ratio Glucose POC Glucose (other) 176 H 165 H Calcium Phosphorus Magnesium Triglycerides Miscellaneous Test 05/09/21 05/09/21 05/09/21 05:29 05:29 07:44 WBC 11.06 H RBC 3.27 L Hgb 9.5 L Hct 30.2 L MCV 92.4 MCH 29.1 MCHC 31.5 L RDW Std Deviation 51.8 H RDW Coeff of Patti 15.4 H Plt Count 126 L MPV 9.9 Immature Gran % (Auto) 1.8 Neut % (Auto) 77.7 Lymph % (Auto) 9.8 Cuming % (Auto) 7.8 Eos % (Auto) 2.8 Baso % (Auto) 0.1 Neut # (Auto) 8.60 H Lymph # (Auto) 1.08 L Cuming # (Auto) 0.86 H Eos # (Auto) 0.31 Baso # (Auto) 0.01 Immature Gran # (Auto) 0.20 H Sample Site POC pH POC pCO2 POC pO2 POC HCO3 POC Total CO2 POC Base Excess POC ABG O2 Sat Anotnio Test O2 Delivery Device POC O2 Rate POC FiO2 Tidal Volume PEEP Sodium 142 Potassium 4.1 Chloride 113 H Carbon Dioxide 25 Anion Gap 4.0 BUN 44 H Creatinine 1.09 Est Cr Clr Drug Dosing 71.7 Est GFR ( Amer) 77.1 Est GFR (Non-Af Amer) 66.5 BUN/Creatinine Ratio 40.4 H Glucose 152 H POC Glucose (other) 167 H Calcium 9.4 Phosphorus 2.2 L Magnesium 2.7 H Triglycerides 193 H Miscellaneous Test 05/09/21 12:35 WBC RBC Hgb Hct MCV MCH MCHC RDW Std Deviation RDW Coeff of Patti Plt Count MPV Immature Gran % (Auto) Neut % (Auto) Lymph % (Auto) Cuming % (Auto) Eos % (Auto) Baso % (Auto) Neut # (Auto) Lymph # (Auto) Cuming # (Auto) Eos # (Auto) Baso # (Auto) Immature Gran # (Auto) Sample Site POC pH POC pCO2 POC pO2 POC HCO3 POC Total CO2 POC Base Excess POC ABG O2 Sat Antonio Test O2 Delivery Device POC O2 Rate POC FiO2 Tidal Volume PEEP Sodium Potassium Chloride Carbon Dioxide Anion Gap BUN Creatinine Est Cr Clr Drug Dosing Est GFR ( Amer) Est GFR (Non-Af Amer) BUN/Creatinine Ratio Glucose POC Glucose (other) 214 H Calcium Phosphorus Magnesium Triglycerides Miscellaneous Test Medications Administered Current Inpatient Medications Acetaminophen (Acetaminophen 325 Mg Tab) 650 mg PO Q4H PRN PRN Reason: Pain or Fever Stop: 05/18/21 10:14 Albuterol (Albuterol Hfa 8 Gm Inhaler) 1 puffs INH QIDR PRN PRN Reason: Shortness Of Breath Or Wheezing Stop: 05/23/21 18:59 Aspirin (Aspirin 81 Mg Ectab) 81 mg PO QAM MIR Stop: 05/18/21 10:59 Last Admin: 04/30/21 10:20 Dose: Not Given Documented by: Clonazepam (Clonazepam 1 Mg Tab) 1 mg PO BID MIR Stop: 06/05/21 20:59 Last Admin: 05/09/21 08:47 Dose: 1 mg Documented by: Dextrose (Dextrose 50% 50 Ml Syringe) 25 - 50 ml IV UD PRN; Protocol PRN Reason: Hypoglycemia Protocol Stop: 05/18/21 10:14 Fentanyl Citrate (Fentanyl Bolus From Bag) 50 mcg IV Q60M PRN PRN Reason: Pain or Agitation Stop: 05/14/21 18:32 Last Admin: 05/08/21 07:51 Dose: 50 mcg Documented by: Glucagon (Glucagon For Inj 1 Mg Vial) 1 mg SQ UD PRN; Protocol PRN Reason: Hypoglycemia Protocol Stop: 05/18/21 10:14 Glucose (Glucose 10 Tabs/Tube) 4 - 8 tabs PO UD PRN; Protocol PRN Reason: Hypoglycemia Protocol Stop: 05/18/21 10:14 Glucose (Glucose 40% Gel 15 Gm Tube) 15 - 30 gm PO UD PRN; Protocol PRN Reason: Hypoglycemia Protocol Stop: 05/18/21 10:14 Heparin Sodium (Porcine) (Heparin Sod 5,000 Unit/0.5 Ml Vial) 5,000 units SQ Q12 MIR Stop: 06/07/21 20:59 Last Admin: 05/09/21 08:48 Dose: 5,000 units Documented by: Hydralazine HCl (Hydralazine Hcl 20 Mg/Ml Vial) 10 mg IV Q4H PRN PRN Reason: SBP > 160 Stop: 06/06/21 11:11 Last Admin: 05/07/21 17:18 Dose: 10 mg Documented by: Fentanyl Citrate (Fentanyl Drip) 1,250 mcg in 250 mls @ 20 mls/hr IV .[id number] MIR; Protocol Stop: 05/14/21 18:44 Last Admin: 05/09/21 11:21 Dose: 100 mcg/hr, 20 mls/hr Documented by: Norepinephrine Bitartrate (Levophed/D5w) 8 mg in 508 mls @ 0 mls/hr IV .Q0M MIR; Protocol Stop: 05/30/21 23:14 Last Titration: 05/09/21 13:08 Dose: 0 mcg/kg/min, 0 mls/hr Documented by: Pantoprazole Sodium 40 mg/ (Syringe) 10 mls @ 5 mls/min IV QAM MIR Stop: 06/02/21 08:59 Last Admin: 05/09/21 08:48 Dose: 5 mls/min Documented by: Dexmedetomidine HCl 200 mcg/ (Sodium Chloride) 50 mls @ 15.6 mls/hr IV .Q3H13M MIR; Protocol Stop: 05/11/21 15:14 Last Admin: 05/09/21 14:03 Dose: 0.6 mcg/kg/hr, 15.6 mls/hr Documented by: Propofol (Diprivan) 1,000 mg in 100 mls @ 6.24 mls/hr IV .Q16H2M MIR; Protocol Stop: 05/11/21 02:14 Last Titration: 05/09/21 14:07 Dose: 10 mcg/kg/min, 6.2 mls/hr Documented by: Dexamethasone 4 mg/ Syringe 1 mls @ 1 mls/min IV QAM MIR Stop: 05/11/21 09:00 Last Admin: 05/09/21 08:49 Dose: 1 mls/min Documented by: Dexamethasone 2 mg/ Syringe 0.5 mls @ 1 mls/min IV QAM [facility] Stop: 05/14/21 09:01 Insulin Aspart (Insulin Aspart 100 Units/Ml Vial) 0 units SC Q4 MIR; Protocol Stop: 06/06/21 07:59 Last Admin: 05/09/21 12:37 Dose: 15 units Documented by: Insulin Glargine (Insulin Glargine Solostar 100 Units/Ml 3 Ml Pen) 0 units SC BID MIR; Protocol Stop: 06/08/21 20:59 Ipratropium [place] (Ipratropium [place] Hfa Inhaler) 1 puffs INH QIDR PRN PRN Reason: Shortness Of Breath Or Wheezing Stop: 05/23/21 18:59 Mirtazapine (Mirtazapine Tab 15 Mg Tab) 30 mg PO HS [facility] Stop: 06/06/21 20:59 Last Admin: 05/08/21 20:14 Dose: 30 mg Documented by: Miscellaneous (Carbohydrates For Hypoglycemia ) 15 - 30 gm PO UD PRN PRN Reason: Hypoglycemia Protocol Stop: 05/18/21 10:14 Last Admin: 04/28/21 08:31 Dose: 15 gm Documented by: Miscellaneous (Icu Electrolyte Replacement Protocol) 1 ea N/A BID@ [facility]; Protocol Stop: 05/16/21 11:15 Last Admin: 05/09/21 11:50 Dose: 1 ea Documented by: Miscellaneous Information (Pharmacy Glycemic Mgmt Consult) 1 ea N/A UD PRN; Protocol PRN Reason: Consult Stop: 05/18/21 10:14 Nutritional Formula (Peptamen Intense Vhp 1.0 Tomasz 1,000 Ml Bag) 1,000 ml OG UD [facility]; Protocol Stop: 06/02/21 11:29 Last Admin: 05/08/21 17:59 Dose: 1,000 ml Documented by: Oxycodone HCl (Oxycodone Hcl Soln 5 Mg/5 Ml Udc) 15 mg PO Q8 [facility] Stop: 05/21/21 21:59 Last Admin: 05/09/21 14:07 Dose: 15 mg Documented by: Polyethylene Glycol (Polyethylene (Miralax) 17 Gm Pack) 17 gm PO DAILY PRN PRN Reason: Constipation Stop: 05/18/21 10:14 Last Admin: 04/27/21 07:39 Dose: 17 gm Documented by: Potassium Phosphate (Pot Phosphate Monobasic W/ Sod Tab) 1 tab PO Q4H MIR Stop: 05/09/21 20:01 Last Admin: 05/09/21 12:39 Dose: 1 tab Documented by: Pravastatin Sodium (Pravastatin Sod 40 Mg Tab) 40 mg PO QPM MIR Stop: 05/18/21 20:59 Last Admin: 05/08/21 20:24 Dose: 40 mg Documented by: Propofol (Propofol Bolus From Bag) 20 mg IV Q5M PRN PRN Reason: Sedation Stop: 05/11/21 02:12 Sennosides (Sennosides 8.8 Mg/5 Ml Udc) 8.8 mg PO BID [facility] Stop: 06/06/21 20:59 Last Admin: 05/09/21 08:48 Dose: 8.8 mg Documented by: Sterile Water (Tube Feeding Water Flush) 30 ml OG Q4H MIR Stop: 06/02/21 11:29 Last Admin: 05/09/21 11:51 Dose: Not Given Documented by: Tamsulosin HCl (Tamsulosin Hcl 0.4 Mg Cap) 0.4 mg PO QPM MIR Stop: 05/18/21 20:59 Last Admin: 04/29/21 23:17 Dose: 0.4 mg Documented by: PG Care Time/CCT Total # of Minutes Spent Total Time Spent: 33 Total Time Spent with Patient: Total time spent is greater than 50% in coordination of care (as documented) at patient's floor/unit and/or counseling patient: 20 minutes spent speaking with patient's at the bedside 13 minutes spent on chart review, documentation, speaking with Dr. Major and ICU team Coding Level of Care Code 61099 Subseq Hosp Care Lvl 3 (25 - SIGNIFICANT, SEPARATELY IDENTIFIABLE ) Diagnoses Acute respiratory failure with hypoxia J96.01 Pleural effusion J90 COVID-19 U07.1 Multilobar lung infiltrate R91.8 Weakness R53.1 CKD (chronic kidney disease) stage 3, GFR 30-59 ml/min N18.3 Coronary artery disease I25.10 Sleep apnea G47.30 Hypertension I10 Diabetes E11.9 Lumbar stenosis with neurogenic claudication M48.062 DVT prophylaxis Z29.9 Discharge planning issues Z02.9
--- NOTE | 2021-05-09 17:29 | Critical Care Progress Note ---
Date of Service May 09, 2021 Assessment & Plan (1) COVID-19: (2) Pneumomediastinum: (3) Pleural effusion: (4) Acute respiratory failure with hypoxia: Plan: (1) Multilobar lung infiltrate: (2) Acute respiratory failure with hypoxia: (3) Pleural effusion: (4) Septic shock: (5) Pneumomediastinum: (6) COVID-19: (7) CKD (chronic kidney disease) stage 3, GFR 30-59 ml/min: (8) HTN (hypertension), benign: (9) Hemothorax (10) Pneumomediastinum Impression: 75-year-old male with a history of coronary disease chronic kidney disease prior CVA and sleep apnea. He was admitted 04/18. He initially refused all interventions but eventually became noncompliant with oxygen or CPAP and was ripping it off which point the patient was intubated at the request of his family. Intubation was accomplished 04/30/2021. 24-hour events: Still on 50% oxygen. met with palliative and admitting service. now states she does not want trach. Son considering coming. Recommendations: Neurologic: Agitated delirium. Continue propofol and fentanyl. Continue nightly Remeron and oral clonazepam as well as oral oxycodone. No indication for imaging. His current ventilatory requirements preclude sedation break this morning. Pulmonary:Patient has Covid pneumonia and hypoxemic respiratory failure with diffuse pulmonary infiltrates complicated by hemothorax. Pigtail catheter is in place. Completed tPA and dornase, output now decreased. Chest tube to water seal and possibly discontinue in AM if no output. His x-ray stable. Continue low PEEP high FiO2 strategy. He is currently day #11 intubation and mechanical ventilation. Continue dexamethasone. now wants to hold on trach or any additional intervention. Cardiovascular:Maintain mean arterial pressure above 65. Now off pressors. Holding diuretics given need for vasopressor agents currently. Gastrointestinal: Continue tube feeds. PPI twice daily. Bowel protocol ENDO:Glycemic control per protocol. Renal:ROCKY on presentation now resolved. Continue to replace electrolytes as needed. Acid-base status appropriate. Infectious disease: Staph now growing from pleural fluid - speciation and sensitivities pending. He completed 7 days of Zosyn. WBC elevated today and fever curve trending up. Will place on unasyn. Out of respiratory isolation Hematologic:Mild anemia and thrombocytopenia. Stable. No indication for acute transfusion currently. SCDs and subcu heparin 5000 twice daily. CODE STATUS:DNR/DNI Poor prognosis overall. Family now considering terminal extubation and transition to full comfort measures. Disposition: Remain in the ICU I have personally spent 78 minutes of critical care time in the direct management of this patient. This is a life/limb threatening event. This includes time spent evaluating patient, direct bedside care, chart review, placing orders, interpretation of diagnostic studies, discussion with consultants, rajiv ent, and family members, as well as other required patient management activities. This time is exclusive of all separately billable procedures, and teaching time and separate from and in addition to any other critical care service time. Admission and Anticipated Discharge Date Admission Date: April 18, 2021 Subjective Patient remains intubated and sedated Review of Systems Review of Systems: Unobtainable due to endotracheal tube Physical Exam Constitutional: WD/WN, vitals as above + mechanically ventilated Neck: trachea midline, no thyromegaly Respiratory: normal respiratory effort, lungs clear to auscultation Cardiovascular: RRR, no murmur, no edema Gastrointestinal (Abdomen): normal bowel sounds, soft, nontender, no hepatosplenomegaly Musculoskeletal: Extremities: extremities normal to inspection Skin: no rashes, warm and dry Lymphatic: no cervical lymphadenopathy Results & Data Results & Data ([facility]) Vital Signs (Past 12 Hours) Vital Signs Temp Pulse Resp Pulse Ox 05/09/21 14:42 69 32 H 95 05/09/21 14:00 69 26 H 94 05/09/21 13:00 71 26 H 92 05/09/21 12:58 69 05/09/21 12:00 73 26 H 92 05/09/21 11:00 86 26 H 92 05/09/21 10:40 74 32 H 91 05/09/21 10:00 72 26 H 90 05/09/21 09:00 82 26 H 91 05/09/21 08:30 74 27 H 05/09/21 08:17 72 32 H 90 05/09/21 08:00 73 24 90 05/09/21 07:30 69 24 90 05/09/21 07:00 72 23 05/09/21 06:00 37.9 C H 65 28 H 90 Critical Care Results & Data Vital Signs (Past 12 Hours) Vital Signs Temp Pulse Resp Pulse Ox 05/09/21 14:42 69 32 H 95 05/09/21 14:00 69 26 H 94 05/09/21 13:00 71 26 H 92 05/09/21 12:58 69 05/09/21 12:00 73 26 H 92 05/09/21 11:00 86 26 H 92 05/09/21 10:40 74 32 H 91 05/09/21 10:00 72 26 H 90 05/09/21 09:00 82 26 H 91 05/09/21 08:30 74 27 H 05/09/21 08:17 72 32 H 90 05/09/21 08:00 73 24 90 05/09/21 07:30 69 24 90 05/09/21 07:00 72 23 05/09/21 06:00 37.9 C H 65 28 H 90 Lab & Micro Results (Past 24 Hours) RBC 3.27 M/uL (4.7-6.1) L 05/09/21 WBC 11.06 K/uL (4.8-10.8) H 05/09/21 Hgb 9.5 g/dL (14.0-18.0) L 05/09/21 Hct 30.2 % (42-52) L 05/09/21 MCV 92.4 fL (80-100) 05/09/21 MCH 29.1 pg (25-34) 05/09/21 MCHC 31.5 g/dL (32-36) L 05/09/21 RDW Standard Deviation 51.8 fL (36.4-46.3) H 05/09/21 RDW Coefficient of Variation 15.4 % (11.5-14.5) H 05/09/21 Plt Count 126 K/uL (130-400) L 05/09/21 MPV 9.9 fL (7.4-10.4) 05/09/21 Neutrophils (%) (Auto) 77.7 % 05/09/21 Lymphocytes (%) (Auto) 9.8 % 05/09/21 Monocytes # (Auto) 0.86 K/uL (0.11-0.59) H 05/09/21 Eosinophils # (Auto) 0.31 K/uL (0-0.5) 05/09/21 Immature Granulocyte % (Auto) 1.8 % 05/09/21 Neutrophils # (Auto) 8.60 K/uL (1.4-6.5) H 05/09/21 Lymphocytes # (Auto) 1.08 K/uL (1.2-3.4) L 05/09/21 Monocytes # (Auto) 0.86 K/uL (0.11-0.59) H 05/09/21 Eosinophils # (Auto) 0.31 K/uL (0-0.5) 05/09/21 Basophils # (Auto) 0.01 K/uL (0-0.2) 05/09/21 Immature Granulocyte # (Auto) 0.20 K/uL (0.00-0.02) H 05/09/21 Na 142 mmol/L (136-145) 05/09/21 K 4.1 mmol/L (3.5-5.1) 05/09/21 Cl 113 mmol/L (98-107) H 05/09/21 CO2 25 mmol/L (21-32) 05/09/21 Anion Gap 4.0 (3-11) 05/09/21 BUN 44 mg/dl (7-18) H 05/09/21 Creatinine 1.09 mg/dl (0.6-1.4) 05/09/21 Estimated GFR ( Amer) 77.1 ml/min 05/09/21 Estimated GFR (Non-Af Amer) 66.5 ml/min 05/09/21 BUN/Creatinine Ratio 40.4 (10-20) H 05/09/21 Glu 152 mg/dl (70-99) H 05/09/21 Ca 9.4 mg/dl (8.5-10.1) 05/09/21 Phosphorus Level 2.2 mg/dl (2.5-4.9) L 05/09/21 Mg 2.7 mg/dl (1.8-2.4) H 05/09/21 05:29 05/09/21 Calcium Level 9.4 mg/dl (8.5-10.1) 05/09/21 05:29 05/09/21 Antonio Test NA 05/09/21 04:14 05/09/21 Microbiology 05/05/21 14:00 Gram Stain - Final Pleural Fluid Aerobic and Anaerobic Culture - Preliminary Staphylococcus species Diagnostic Findings (Past 24 Hours) Chest X-Ray 05/09/21 07:00 XR chest 1V portable HISTORY: 75 years-old Male chest tube acute respiratory failure COMPARISON: Chest radiograph 05/08/2021 TECHNIQUE: Portable AP view the chest FINDINGS: Cardiac silhouette is mildly enlarged. Endotracheal tube overlies the midline, 3.8 cm superior to the ana. Left IJ central venous catheter is in unchanged positioning. The enteric tube courses below the diaphragm with distal tip outside the [id number]. Left basilar chest tube projects over the medial left lung base. Suspected trace pleural effusions. No pneumothorax identified. Pulmonary vascular congestion. Interstitial coarsening with ill-defined bilateral airspace opacities appear stable from comparison. IMPRESSION: 1. Lines and tubes as above. No pneumothorax. 2. Unchanged mixed interstitial and alveolar opacities compatible with ongoing viral pneumonia. ACT 112: Negative or not required by law. The above report was generated using voice recognition software. It may contain grammatical, syntax or spelling errors. Electronically signed by: Nitin Titus M.D. 05/09/2021 7:29 AM I & O Totals 24 Hours 05/08/21 05/09/21 05/10/21 06:59 06:59 06:59 Intake Total 1613.853 / 7018.149 1968.018 / 3482.018 370.190 / 370.190 Output Total 4500 / 4500 2405 / 2405 850 / 850 Balance -2886.147 / -2886.147 1077.018 / 1077.018 -479.810 / -479.810 Cumulative 04/18/21 05:46 thru 05/09/21 17:02 Intake Total 86808.561 Output Total 73437 Balance -8070.439 RT Ventilator Mngmt (Last Documented) Ventilator Ordered Settings Ventilator Support Mode Assist Control 05/09/21 16:00 Respiratory Rate 32 05/09/21 14:42 Ventilator Tidal Volume 430 05/09/21 16:00 Setting Minute Ventilation 10 05/09/21 14:42 Ventilator Positive Pressure 6 05/02/21 12:00 Support Setting Positive End Expiratory 6 05/09/21 16:00 Pressure Fraction of Inspired Oxygen 50 05/09/21 16:00 Peak Inspiratory Flow 49 05/06/21 19:01 Machine Comment FOUND ON 80%, DECREASED TO 70% 05/08/21 14:44 Ventilator - PT Measurements Respiratory Rate 32 Exhaled Tidal Volume 529 Minute Ventilation 10 Peak Inspiratory Airway 21 Pressure Plateau Pressure 18.2 Respiratory Cycle Inspiratory: 1:2.3 Expiratory Ratio Inspiratory Phase Time 0.7 End-Tidal CO2 32 Static Lung Compliance 51.86 Dynamic Lung Compliance 40.69 Normal Static Lung Compliance 48.00 Patient Measurements Comment FiO2 decreased to 45% per ABG results Coding Level of Care Code Critical Care ea addt'l 30 min Diagnoses COVID-19 U07.1 Pneumomediastinum J98.2 Pleural effusion J90 Acute respiratory failure with hypoxia J96.01 Time Spent (min) 78 Comment 20183 and 62269
[2021-05-09] MEDS: AMPICILLIN/SULBACTAM SOD 3,000 MG in 0.9 % SODIUM CHLORIDE 100 ML IV SCH (19:31)
[2021-05-09] MEDS: INSULIN GLARGINE SOLOSTAR 100 UNITS/ML 3 ML PEN SC SCH (20:22)
[2021-05-09] MEDS: MIRTAZAPINE TAB 15 MG TAB PO SCH (21:44)
[2021-05-09] MEDS: PRAVASTATIN SOD 40 MG TAB PO SCH (21:45)
--- NOTE | 2021-05-09 22:08 | Palliative Care Progress Note ---
Date of Service May 09, 2021 Assessment & Plan (1) Palliative care encounter: Plan: Lengthy conversation with Hospitalist and Senior Support Analyst regarding pts care. Pt with continued failing of SBT. I suggested yesterday that the patients come to the bedside for discussion regarding plan of care. She decided to come in today and lengthy conversation held with Hospitalist and myself on separate occasion. She is in agreement that he would not want additional measures taken to prolong his life. Patient is an established DNR. Agreed to not perform trach. She does not want to withdrawl care until her son can come (next Thursday). She said he has work priorities. I explained that numerous complications can occur prior to then and her son, Titus, either needs to make this situation a priority or he can say goodbye to his father on an ipad visit with her at the bedside. She plans to return to the hospital tomorrow at 2PM for a decision and ipad visit with Titus. I did reach out to Titus at [phone] and left a voicemail. I have not been able to talk with him for two days to discuss this scenario. For now, palliative will follow. (2) COVID-19: (3) Hypoxia: (4) Weakness: Admission and Anticipated Discharge Date Admission Date: April 18, 2021 Subjective Patient remains intubated and sedated. Requiring more ventilation at times today with a max of 100% FiO2 Review of Systems Review of Systems: Unobtainable due to endotracheal tube Physical Exam Constitutional: + frail appearing Respiratory: + tachypneic Skin: + ecchymosis and + pallor Neurologic: + obtunded (on ventilator ) Results & Data ([facility]) Vital Signs (Past 12 Hours) Vital Signs Pulse Resp Pulse Ox 05/09/21 21:00 63 29 H 92 05/09/21 20:10 66 29 H 93 05/09/21 20:00 65 24 93 05/09/21 19:00 66 22 92 05/09/21 18:00 66 26 H 92 05/09/21 17:00 65 26 H 94 05/09/21 16:00 70 26 H 93 05/09/21 15:00 68 26 H 93 05/09/21 14:42 69 32 H 95 05/09/21 14:00 69 26 H 94 05/09/21 13:00 71 26 H 92 05/09/21 12:58 69 05/09/21 12:00 73 26 H 92 05/09/21 11:00 86 26 H 92 05/09/21 10:40 74 32 H 91 PG Care Time/CCT Total # of Minutes Spent Total Time Spent with Patient: Total time spent is greater than 50% in coordination of care (as documented) at patient's floor/unit and/or counseling patient: 45 minutes Coding Level of Care Code 34940 Subseq Hosp Care Lvl 3 Diagnoses Palliative care encounter Z51.5 COVID-19 U07.1 Hypoxia R09.02 Weakness R53.1 Time Spent (min) 45
[2021-05-09] MEDS: ACETAMINOPHEN 325 MG TAB PO PRN (22:16)
[2021-05-10] MEDS: TUBE FEEDING WATER FLUSH OG SCH ×5 (00:06→21:21)
[2021-05-10] MEDS: INSULIN ASPART 100 UNITS/ML VIAL SC SCH ×6 (00:13→21:21)
[2021-05-10] MEDS: AMPICILLIN/SULBACTAM SOD 3,000 MG in 0.9 % SODIUM CHLORIDE 100 ML IV SCH ×4 (00:17→17:53)
[2021-05-10] MEDS: DEXMEDETOMIDINE HCL 400 MCG in 0.9 % SODIUM CHLORIDE 96 ML IV SCH ×3 (01:19→16:17)
[2021-05-10 04:15] LABS: iSTAT Arterial Blood Gas HCO3 24 meg/L (19-24); iSTAT Arterial Blood Gas pCO2 38 mmHg (35-46); iSTAT Arterial Blood Gas pH 7.41 (7.35-7.45); iSTAT Arterial Blood Gas pO2 71 mmHg (80-95); iSTAT Carbon Dioxide 25 mmol/L (24-31); iSTAT FiO2 50 %; iSTAT Site Art Line
[2021-05-10] MEDS: ACETAMINOPHEN 325 MG TAB PO PRN ×2 (04:44→12:12)
[2021-05-10 05:01] LABS: Basophils # (auto) 0.01 K/uL (0-0.2); Basophils % (auto) 0.1 %; Eosinophils # (auto) 0.22 K/uL (0-0.5); Eosinophils % (auto) 1.7 %; Hematocrit (blood only) 28.9 % (42-52); Hemoglobin 9.1 g/dL (14.0-18.0); Immature Granulocytes # (auto) 0.18 K/uL (0.00-0.02); Immature Granulocytes % (auto) 1.4 %; Lymphocytes # (auto) 1.49 K/uL (1.2-3.4); Lymphocytes % (auto) 11.8 %; Mean Corpuscular Hemoglobin 29.2 pg (25-34); Mean Corpuscular Hgb Conc 31.5 g/dL (32-36); Mean Corpuscular Volume 92.6 fL (80-100); Mean Platelet Volume 9.3 fL (7.4-10.4); Monocytes # (auto) 1.31 K/uL (0.11-0.59); Monocytes % (auto) 10.4 %; Neutrophils # (auto) 9.42 K/uL (1.4-6.5); Neutrophils % (auto) 74.6 %; Platelet Count 145 K/uL (130-400); RDW Coefficient of Variation 15.5 % (11.5-14.5); RDW Standard Deviation 52.7 fL (36.4-46.3); Red Blood Count 3.12 M/uL (4.7-6.1); White Blood Count 12.63 K/uL (4.8-10.8)
[2021-05-10 05:25] LABS: BUN Creatinine Ratio 38.9 (10-20); Calcium 9.2 mg/dl (8.5-10.1); Creatinine Clr Calc Pharmacy 73.4 ml/min; Est GFR (African American) 79.7 ml/min; Est GFR (Non-African American) 68.8 ml/min; Potassium 4.4 mmol/L (3.5-5.1)
[2021-05-10 05:54] LABS: Magnesium 2.6 mg/dl (1.8-2.4)
[2021-05-10] MEDS: ICU ELECTROLYTE REPLACEMENT PROTOCOL SCH ×2 (06:13→17:54)
[2021-05-10] MEDS: oxyCODONE HCL SOLN 5 MG/5 ML UDC PO SCH ×3 (06:15→21:22)
--- NOTE | 2021-05-10 08:22 | XRay Report ---
XR chest 1V portable CLINICAL HISTORY: Follow-up left-sided chest tube and airspace opacities. COMPARISON STUDY: 05/09/2021 TECHNIQUE: 1 view of the chest FINDINGS: Single frontal view of the chest demonstrates the cardiomediastinal silhouette to be within normal li mits. Tubes and catheters remain unchanged. Mild interstitial and alveolar opacities are again seen b ilaterally. There is no evidence of pneumothorax. There is again haziness involving the left lung bas e with blunting left costophrenic angle characteristic of a small left pleural effusion. There is no evidence for vascular congestion. There is no acute osseous pathology. IMPRESSION: No significant interval change in the previous examination with bilateral interstitial an d alveolar opacities again seen. There is again evidence for left pleural effusion and left basilar a telectasis with no pneumothorax. ACT 112: Negative or not required by law. Electronically signed by: Taz Gavin M.D. 05/10/2021 8:21 AM
[2021-05-10] MEDS: fentaNYL DRIP 1,250 MCG/250 ML BAG IV SCH ×5 (08:24→18:30)
[2021-05-10] MEDS: NOREPINEPHRINE/D5W 8 MG/508 ML BAG IV SCH (08:25)
[2021-05-10] MEDS: DEXMEDETOMIDINE HCL 200 MCG in SODIUM CHLORIDE 0.9% 48 ML IV SCH ×2 (08:30→08:31)
[2021-05-10] MEDS: PANTOprazole 40 MG in SYRINGE 0 ML IV SCH (08:34)
[2021-05-10] MEDS: HEPARIN SOD 5,000 UNIT/0.5 ML VIAL SQ SCH ×2 (08:35→21:19)
[2021-05-10] MEDS: SENNOSIDES 8.8 MG/5 ML UDC PO SCH ×2 (08:35→21:22)
[2021-05-10] MEDS: dexAMETHasone 4 MG in SYRINGE 0 ML IV SCH (08:37)
[2021-05-10] MEDS: clonazePAM 1 MG TAB PO SCH ×2 (08:37→21:21)
[2021-05-10] MEDS ORDERED: METHYLNALTREXONE BROMIDE 12 MG/0.6 ML VIAL SQ ONE (12:00)
[2021-05-10] MEDS: LACTULOSE SYRUP 20 GM/30 ML UDC PO SCH (12:02)
--- NOTE | 2021-05-10 12:32 | Palliative Care Progress Note ---
Date of Service May 10, 2021 Assessment & Plan (1) Palliative care encounter: Plan: Lengthy conversation with Hospitalist and Cloth Doffer regarding pts care. Pt with continued failing of SBT; however, having some improvement today. Plan for extubation compassionately and see how he does with no future plans for reintubation which was discussed with the patients Ankita yesterday. I called Titus and Ankita separately and discussed the plan. Both are in agreement. Nursing and case management and psychology professor aware. (2) COVID-19: (3) Hypoxia: (4) Weakness: Admission and Anticipated Discharge Date Admission Date: April 18, 2021 Subjective Patient remains intubated. Continued respiratory support, now on PS and breathing on his own. see A/P for further details. Review of Systems Review of Systems: Unobtainable due to endotracheal tube Physical Exam Constitutional: + frail appearing Respiratory: + tachypneic Skin: + ecchymosis and + pallor Neurologic: + obtunded (on ventilator ) Results & Data ([facility]) Vital Signs (Past 12 Hours) Vital Signs Temp Pulse Resp Pulse Ox 05/10/21 11:11 67 19 91 05/10/21 08:11 55 L 27 H 93 05/10/21 06:00 38.6 C H 55 L 26 H 92 05/10/21 05:00 38.7 C H 56 L 26 H 91 05/10/21 04:00 38.8 C H 55 L 26 H 89 L 05/10/21 03:42 57 L 27 H 89 L 05/10/21 03:00 38.9 C H 58 L 26 H 92 05/10/21 02:00 38.9 C H 57 L 26 H 91 05/10/21 01:00 39.0 C H 60 26 H 90 PG Care Time/CCT Total # of Minutes Spent Total Time Spent with Patient: Total time spent is greater than 50% in coordination of care (as documented) at patient's floor/unit and/or counseling patient: 35 minutes Coding Level of Care Code 50362 Subseq Hosp Care Lvl 3 Diagnoses Palliative care encounter Z51.5 COVID-19 U07.1 Hypoxia R09.02 Weakness R53.1 Time Spent (min) 35
--- NOTE | 2021-05-10 13:07 | Critical Care Progress Note ---
Date of Service May 10, 2021 Assessment & Plan (1) COVID-19: (2) Pneumomediastinum: (3) Pleural effusion: (4) Acute respiratory failure with hypoxia: Plan: (1) Multilobar lung infiltrate: (2) Acute respiratory failure with hypoxia: (3) Pleural effusion: (4) Septic shock: (5) Pneumomediastinum: (6) COVID-19: (7) CKD (chronic kidney disease) stage 3, GFR 30-59 ml/min: (8) HTN (hypertension), benign: (9) Hemothorax (10) Pneumomediastinum Impression: 75-year-old male with a history of coronary disease chronic kidney disease prior CVA and sleep apnea. He was admitted 04/18. He initially refused all interventions but eventually became noncompliant with oxygen or CPAP and was ripping it off which point the patient was intubated at the request of his family. Intubation was accomplished 04/30/2021. 24-hour events: Patient oxygenation improved. Is off fentanyl this morning maintained on Precedex. We transitioned him to an SBT and he is tolerating pressure support 10/5 currently. Continue to wean sedation in hopes of potential liberation from mechanical ventilation. Family has decided not to pursue aggressive intervention such as tracheostomy. They are planning on trying to get him extubated with no plans to reintubate him. Minimal output on the chest tube currently. Recommendations: Neurologic: Continue nightly Remeron and oral clonazepam as well as oral oxycodone. Discontinue fentanyl. Wean Precedex as tolerated and see whether or not the patient's mental status would allow for potential extubation unless the family elects to pursue extubation and palliative approach. Pulmonary:Patient has Covid pneumonia and hypoxemic respiratory failure with diffuse pulmonary infiltrates complicated by hemothorax. Pigtail catheter is in place. Completed tPA and dornase, output now decreased. Chest tube to water seal with minimal output. His x-ray stable. He continues to have low-grade fevers with an elevated white blood cell count. See ID below. Current vent settings: Pressure support 10/5 with an FiO2 0.4. He is currently day #12 intubation and mechanical ventilation. Weaning dexamethasone. now wants to hold on trach or any additional intervention. Reasonable to pursue extubation without plans for reintubation. Cardiovascular:Maintain mean arterial pressure above 65. Now off pressors. Gastrointestinal: Holding tube feeds for possible extubation. PPI twice daily. Bowel protocol ENDO:Glycemic control per protocol. Renal:ROCKY on presentation now resolved. Continue to replace electrolytes as needed. Acid-base status appropriate. Infectious disease: Staph now growing from pleural fluid - speciation and sensitivities pending. He completed 7 days of Zosyn. Day #2 unasyn. Out of respiratory isolation. Continue to follow white blood cell count fever curve. May consider repeat CT of the chest prior to pulling chest tube if family elects to pursue continued aggressive approach Hematologic:Mild anemia and thrombocytopenia. Stable. No indication for acute transfusion currently. SCDs and subcu heparin 5000 twice daily. CODE STATUS:DNR/DNI Prognosis guarded. We will continue to try and wean ventilator in hopes of ventilator liberation which will allow the patient to participate in discussion. Of note previously the patient had declined aggressive interventions. Appreciate palliative care input Disposition: Remain in the ICU I have personally spent 52 minutes of critical care time in the direct management of this patient. This is a life/limb threatening event. This includes time spent evaluating patient, direct bedside care, chart review, placing orders, interpretation of diagnostic studies, discussion with consultants, patient, and family members, as well as other required patient management activities. This time is exclusive of all separately billable procedures, and teaching time and separate from and in addition to any other critical care service time. Admission and Anticipated Discharge Date Admission Date: April 18, 2021 Subjective intubated and sedated Review of Systems Review of Systems: Unobtainable due to endotracheal tube Physical Exam Constitutional: WD/WN, vitals as above + mechanically ventilated Neck: trachea midline, no thyromegaly Respiratory: normal respiratory effort, lungs clear to auscultation Cardiovascular: RRR, no murmur, no edema Gastrointestinal (Abdomen): normal bowel sounds, soft, nontender, no hepatosplenomegaly Musculoskeletal: Extremities: extremities normal to inspection Skin: no rashes, warm and dry Lymphatic: no cervical lymphadenopathy Results & Data Results & Data ([facility]) Vital Signs (Past 12 Hours) Vital Signs Temp Pulse Resp Pulse Ox 05/10/21 12:00 38.7 C H 62 17 94 05/10/21 11:11 67 19 91 05/10/21 11:00 38.6 C H 58 L 26 H 92 05/10/21 10:00 38.5 C H 58 L 16 92 05/10/21 09:00 38.4 C H 55 L 26 H 93 05/10/21 08:11 55 L 27 H 93 05/10/21 08:00 38.4 C H 56 L 26 H 92 05/10/21 07:00 38.5 C H 56 L 26 H 93 05/10/21 06:00 38.6 C H 55 L 26 H 92 05/10/21 05:00 38.7 C H 56 L 26 H 91 05/10/21 04:00 38.8 C H 55 L 26 H 89 L 05/10/21 03:42 57 L 27 H 89 L 05/10/21 03:00 38.9 C H 58 L 26 H 92 05/10/21 02:00 38.9 C H 57 L 26 H 91 Critical Care Results & Data Vital Signs (Past 12 Hours) Vital Signs Temp Pulse Resp Pulse Ox 05/10/21 12:00 38.7 C H 62 17 94 05/10/21 11:11 67 19 91 05/10/21 11:00 38.6 C H 58 L 26 H 92 05/10/21 10:00 38.5 C H 58 L 16 92 05/10/21 09:00 38.4 C H 55 L 26 H 93 05/10/21 08:11 55 L 27 H 93 05/10/21 08:00 38.4 C H 56 L 26 H 92 05/10/21 07:00 38.5 C H 56 L 26 H 93 05/10/21 06:00 38.6 C H 55 L 26 H 92 05/10/21 05:00 38.7 C H 56 L 26 H 91 05/10/21 04:00 38.8 C H 55 L 26 H 89 L 05/10/21 03:42 57 L 27 H 89 L 05/10/21 03:00 38.9 C H 58 L 26 H 92 05/10/21 02:00 38.9 C H 57 L 26 H 91 Lab & Micro Results (Past 24 Hours) RBC 3.12 M/uL (4.7-6.1) L 05/10/21 WBC 12.63 K/uL (4.8-10.8) H 05/10/21 Hgb 9.1 g/dL (14.0-18.0) L 05/10/21 Hct 28.9 % (42-52) L 05/10/21 MCV 92.6 fL (80-100) 05/10/21 MCH 29.2 pg (25-34) 05/10/21 MCHC 31.5 g/dL (32-36) L 05/10/21 RDW Standard Deviation 52.7 fL (36.4-46.3) H 05/10/21 RDW Coefficient of Variation 15.5 % (11.5-14.5) H 05/10/21 Plt Count 145 K/uL (130-400) 05/10/21 MPV 9.3 fL (7.4-10.4) 05/10/21 Neutrophils (%) (Auto) 74.6 % 05/10/21 Lymphocytes (%) (Auto) 11.8 % 05/10/21 Monocytes # (Auto) 1.31 K/uL (0.11-0.59) H 05/10/21 Eosinophils # (Auto) 0.22 K/uL (0-0.5) 05/10/21 Immature Granulocyte % (Auto) 1.4 % 05/10/21 Neutrophils # (Auto) 9.42 K/uL (1.4-6.5) H 05/10/21 Lymphocytes # (Auto) 1.49 K/uL (1.2-3.4) 05/10/21 Monocytes # (Auto) 1.31 K/uL (0.11-0.59) H 05/10/21 Eosinophils # (Auto) 0.22 K/uL (0-0.5) 05/10/21 Basophils # (Auto) 0.01 K/uL (0-0.2) 05/10/21 Immature Granulocyte # (Auto) 0.18 K/uL (0.00-0.02) H 05/10/21 Na 143 mmol/L (136-145) 05/10/21 K 4.4 mmol/L (3.5-5.1) 05/10/21 Cl 115 mmol/L (98-107) H 05/10/21 CO2 26 mmol/L (21-32) 05/10/21 Anion Gap 2.0 (3-11) L 05/10/21 BUN 41 mg/dl (7-18) H 05/10/21 Creatinine 1.06 mg/dl (0.6-1.4) 05/10/21 Estimated GFR ( Amer) 79.7 ml/min 05/10/21 Estimated GFR (Non-Af Amer) 68.8 ml/min 05/10/21 BUN/Creatinine Ratio 38.9 (10-20) H 05/10/21 Glu 99 mg/dl (70-99) 05/10/21 Ca 9.2 mg/dl (8.5-10.1) 05/10/21 Phosphorus Level 3.0 mg/dl (2.5-4.9) 05/10/21 Mg 2.6 mg/dl (1.8-2.4) H 05/10/21 04:31 05/10/21 Calcium Level 9.2 mg/dl (8.5-10.1) 05/10/21 04:31 05/10/21 Antonio Test NA 05/10/21 03:35 05/10/21 Microbiology 05/05/21 14:00 Gram Stain - Final Pleural Fluid Aerobic and Anaerobic Culture - Preliminary Staphylococcus species Diagnostic Findings (Past 24 Hours) Chest X-Ray 05/10/21 07:00 XR chest 1V portable CLINICAL HISTORY: Follow-up left-sided chest tube and airspace opacities. COMPARISON STUDY: 05/09/2021 TECHNIQUE: 1 view of the chest FINDINGS: Single frontal view of the chest demonstrates the cardiomediastinal silhouette to be within normal limits. Tubes and catheters remain unchanged. Mild interstitial and alveolar opacities are again seen bilaterally. There is no evidence of pneumothorax. There is again haziness involving the left lung base with blunting left costophrenic angle characteristic of a small left pleural effusion. There is no evidence for vascular congestion. There is no acute osseous pathology. IMPRESSION: No significant interval change in the previous examination with bilateral interstitial and alveolar opacities again seen. There is again evidence for left pleural effusion and left basilar atelectasis with no pneumothorax. ACT 112: Negative or not required by law. Electronically signed by: Taz Gavin M.D. 05/10/2021 8:21 AM I & O Totals 24 Hours 05/09/21 05/10/21 05/11/21 06:59 06:59 06:59 Intake Total 3482.018 / 3482.018 913.810 / 913.810 681.610 / 681.610 Output Total 2405 / 2405 1794 / 1794 450 / 450 Balance 1077.018 / 1077.018 -880.190 / -880.190 231.610 / 231.610 Cumulative 04/18/21 05:46 thru 05/10/21 12:46 Intake Total 84006.791 Output Total 72434 Balance -8239.209 RT Ventilator Mngmt (Last Documented) Ventilator Ordered Settings Ventilator Support Mode CPAP 05/10/21 12:00 Respiratory Rate 17 05/10/21 12:00 Ventilator Tidal Volume 430 05/10/21 11:11 Setting Minute Ventilation 9.3 05/10/21 11:11 Ventilator Positive Pressure 6 05/02/21 12:00 Support Setting Positive End Expiratory 8 05/10/21 12:00 Pressure Fraction of Inspired Oxygen 40 05/10/21 12:00 Peak Inspiratory Flow 49 05/06/21 19:01 Machine Comment FOUND ON 80%, DECREASED TO 70% 05/08/21 14:44 Ventilator - PT Measurements Respiratory Rate 17 Exhaled Tidal Volume 459 Minute Ventilation 9.3 Peak Inspiratory Airway 19 Pressure Plateau Pressure 24 Respiratory Cycle Inspiratory: 1:2.3 Expiratory Ratio Inspiratory Phase Time 0.70 End-Tidal CO2 69 Static Lung Compliance 28.69 Dynamic Lung Compliance 41.73 Normal Static Lung Compliance 48.00 Patient Measurements Comment FiO2 decreased to 40% per ABG results, PA and RN aware. Coding Level of Care Code Critical Care 1st 30-74 mins Diagnoses COVID-19 U07.1 Pneumomediastinum J98.2 Pleural effusion J90 Acute respiratory failure with hypoxia J96.01 Time Spent (min) 52
--- NOTE | 2021-05-10 15:03 | Pharmacy Report ---
Pharmacy Glycemic Short Note 2 - Date of Service May 10, 2021 - Glycemic Short BSG Results (Last 24 hours): 05/09/21 05/09/21 05/10/21 15:58 20:05 00:12 Glucose POC Glucose 125 H POC Glucose (other) 209 H 92 05/10/21 05/10/21 05/10/21 04:02 04:31 07:17 Glucose 99 POC Glucose 116 H POC Glucose (other) 96 05/10/21 12:05 Glucose POC Glucose 124 H POC Glucose (other) OUTPATIENT ANTIDIABETIC REGIMEN: * Canagliflozin 100MG PO daily * Glipizide ER 2.5 mg PO daily * HbA1c: 8.3% (04/19/21) ASSESSMENT: 05/10 * Family declining trach. Possible extubation planned. Tubefeeds on hold since yesterday PM and ongoing hold today for possible extubation. * BSG below goal this AM - will hold Lantus as tubefeeds are being held. OK to resume tonight, but at ~50% of prior * No changes to Novolog needed 05/09: * BSG's persistently elevated yesterday - unknown etiology. * However, dexamethasone decreased today and tubefeeds will be on hold for anticipated trach. Therefore will not make adjustments to Novolog as the decrease in dexamethasone is likely to increase sensitivity. Will also decrease Lantus in response to possible tubefeeds being held 05/08: * BSGs well controlled last 48 hrs * Multiple BSGs less than 140 yesterday and one overnight BSG in 80s- will scale back Lantus dose as a precaution. Dexamethasone IV dose will be scaled back tomorrow as well, another reason for proactively reducing basal. * Noon BSG unexpectedly elevated (242), uncertain why this may be, and rather than acting upon this one outlier - will wait for further BSGs to guide treatment decisions. * Pt remains intubated, sedated and is receiving low dose norepi off and on. Peptamen P running at 70cc/hr PLAN FOR INPATIENT GLYCEMIC CONTROL: * Hold outpatient oral diabetes medications * Basal insulin * Lantus 5-10 units SQ BID * Bolus insulin: * NovoLog per scale Q 4 hrs * Goal Range: Low 110 mg/dL - High 140 mg/dL * Correction Factor: 10 mg/dL/unit * Nutritional / Prandial insulin per carb ratio of 1 unit per 3 grams CHO provided in tube feeds PLAN FOR DISCHARGE: * HbA1c of 8.3% is elevated * Reasonable goal may be less than 8% given multiple comorbidities * Options limited based on CKD and reported intolerance to metformin * Continue current outpatient regimen * with eGFR 30-59 mL/min do not exceed Invokana 100 mg daily. * Could consider addition of Lantus 15 units QAM
--- NOTE | 2021-05-10 15:08 | Communication Note ---
Date of Service: May 10, 2021 I met with patient's at bedside this afternoon and had a 45-minute discussion regarding extubation and code status. Patient's does not want pa tient to receive chest compressions or defibrillation if the need arises, but she does want breathing intervention done in the event that patient does poorly after extubation. Patient's voices understanding that the chance at any meaningful recovery would be extremely small at that point. I have changed patient's code status to conditional code (NO chest compressions, NO defibrillation, YES intubation, YES ventilation) and notified the pathology manager. Resident Activity Tracking Resident Involvement: Resident Care Provided Care Provided: Adult Hospital Medicine
--- NOTE | 2021-05-10 16:02 | Hospitalist Progress Note ---
Date of Service May 10, 2021 Assessment & Plan (1) Acute respiratory failure with hypoxia: Plan: Patient is in acute respiratory failure. now mechanically ventilated, with ARDS. Prognosis is poor Pneumomediastinum, left sided pleural effusion/hemothorax six days in a row he did not do well with SBT, however, he did okay with pressure support today spoke with at bedside on 05/09, she agreed that patient would not want a tracheostomy we discussed timing of extubation, her son Titus wants to be here the plan was to have Titus do a video conference today and then extubate, see how he did the changed her mind, not ready to extubate she will visit on 05/11 to discuss further, determine if she is ready Dr. Major aware of plan (2) Pleural effusion: Plan: chest tube placed 05/[address] Temple, bloody drainage, hemothorax continue drainage to see if it improves ventilation no growth on cultures completed Zosyn (3) COVID-19: Plan: completed course of Remdesivir continue dexamethasone taper, 4mg then 2mg then stop treated possible secondary infection with Zosyn (4) Multilobar lung infiltrate: Plan: as above. (5) Weakness: Plan: Appears to be due to the severity of his Covid pneumonia/hypoxiasee above (6) CKD (chronic kidney disease) stage 3, GFR 30-59 ml/min: Plan: Continue to follow creatininestable at this time, Lasix per ICU staff (7) Coronary artery disease: Plan: No angina, continue to monitor (8) Sleep apnea: Plan: intubated and ventilated (9) Hypertension: Plan: Blood pressures are acceptable given situation (10) Diabetes: Plan: Poorly controlled at baseline as well as acutely. continue to adjust insulinspharmacy is managing at this time (11) Lumbar stenosis with neurogenic claudication: Plan: sedated (12) DVT prophylaxis: Plan: heparin (13) Discharge planning issues: Plan: poor prognosis Admission and Anticipated Discharge Date Admission Date: April 18, 2021 Subjective patient did reasonable well on SBT today, turned sedation down plan was to extubate him after his visited and set up a video chat with his son Titus his changed her mind because she saw that the patient was responsive she claims that she asked him "do you want to live? close your eyes if you want to live." and the patient closed his eyes she wants to give him more time she said to extubate and if he fails then re-intubate but only for 3 days and no tracheostomy I told her this is not fair to the patient, if we are extubating it is with the hope that he stays off or transition to comfort measures it would be inappropriate care to extubate and then re-intubate and then extubate, when would it end? she asked for some more time, not ready to make this difficult decision, will visit again tomorrow relayed this to the RN and Dr. Major Review of Systems Review of Systems: Unobtainable due to endotracheal tube Physical Exam Physical Exam: General: ill appearing, mechanically ventilated, elderly male Neck: supple, trachea midline, normal thyroid Lungs: symmetric chest movement, decreased breath sounds in bases, ventilated Chest: left sided chest tube, draining Heart: regular S1 and S2, no murmur, peripheral pulses normal, capillary refill normal, no edema Abdomen: soft, NT, ND, + BS, no hepatomegaly, normal to percussion Extremities: normal in appearance, no cyanosis, no petechiae Neuro: sedated, not following commands, no focal motor deficits, CN II-XII intact Skin: warm, dry, no rash, normal turgor Psych: sedated Results & Data Results & Data ([facility]) Vital Signs (Past 12 Hours) Vital Signs Temp Pulse Resp Pulse Ox 05/10/21 15:04 63 26 H 89 L 05/10/21 14:00 38.4 C H 68 27 H 87 L 05/10/21 13:00 38.6 C H 66 24 88 L 05/10/21 12:00 38.7 C H 62 17 94 05/10/21 11:11 67 19 91 05/10/21 11:00 38.6 C H 58 L 26 H 92 05/10/21 10:00 38.5 C H 58 L 16 92 05/10/21 09:00 38.4 C H 55 L 26 H 93 05/10/21 08:11 55 L 27 H 93 05/10/21 08:00 38.4 C H 56 L 26 H 92 05/10/21 07:00 38.5 C H 56 L 26 H 93 05/10/21 06:00 38.6 C H 55 L 26 H 92 05/10/21 05:00 38.7 C H 56 L 26 H 91 05/10/21 04:00 38.8 C H 55 L 26 H 89 L Laboratory Results Laboratory Results - last 24 hr 05/09/21 05/09/21 05/10/21 15:58 20:05 00:12 WBC RBC Hgb Hct MCV MCH MCHC RDW Std Deviation RDW Coeff of Patti Plt Count MPV Immature Gran % (Auto) Neut % (Auto) Lymph % (Auto) [place] % (Auto) Eos % (Auto) Baso % (Auto) Neut # (Auto) Lymph # (Auto) [place] # (Auto) Eos # (Auto) Baso # (Auto) Immature Gran # (Auto) Sample Site POC pH POC pCO2 POC pO2 POC HCO3 POC Total CO2 POC Base Excess POC ABG O2 Sat Antonio Test O2 Delivery Device POC O2 Rate POC FiO2 Tidal Volume PEEP Sodium Potassium Chloride Carbon Dioxide Anion Gap BUN Creatinine Est Cr Clr Drug Dosing Est GFR ( Amer) Est GFR (Non-Af Amer) BUN/Creatinine Ratio Glucose POC Glucose 125 H POC Glucose (other) 209 H 92 Calcium Phosphorus Magnesium 05/10/21 05/10/21 05/10/21 03:35 04:02 04:31 WBC 12.63 H RBC 3.12 L Hgb 9.1 L Hct 28.9 L MCV 92.6 MCH 29.2 MCHC 31.5 L RDW Std Deviation 52.7 H RDW Coeff of Patti 15.5 H Plt Count 145 MPV 9.3 Immature Gran % (Auto) 1.4 Neut % (Auto) 74.6 Lymph % (Auto) 11.8 [place] % (Auto) 10.4 Eos % (Auto) 1.7 Baso % (Auto) 0.1 Neut # (Auto) 9.42 H Lymph # (Auto) 1.49 [place] # (Auto) 1.31 H Eos # (Auto) 0.22 Baso # (Auto) 0.01 Immature Gran # (Auto) 0.18 H Sample Site Art Line POC pH 7.41 POC pCO2 38 POC pO2 71 L POC HCO3 24 POC Total CO2 25 POC Base Excess 0.0 POC ABG O2 Sat 94.0 Antonio Test NA O2 Delivery Device Ventilator POC O2 Rate 26 POC FiO2 50 Tidal Volume 430 PEEP 8 Sodium Potassium Chloride Carbon Dioxide Anion Gap BUN Creatinine Est Cr Clr Drug Dosing Est GFR ( Amer) Est GFR (Non-Af Amer) BUN/Creatinine Ratio Glucose POC Glucose POC Glucose (other) 96 Calcium Phosphorus Magnesium 05/10/21 05/10/21 05/10/21 04:31 07:17 12:05 WBC RBC Hgb Hct MCV MCH MCHC RDW Std Deviation RDW Coeff of Patti Plt Count MPV Immature Gran % (Auto) Neut % (Auto) Lymph % (Auto) [place] % (Auto) Eos % (Auto) Baso % (Auto) Neut # (Auto) Lymph # (Auto) [place] # (Auto) Eos # (Auto) Baso # (Auto) Immature Gran # (Auto) Sample Site POC pH POC pCO2 POC pO2 POC HCO3 POC Total CO2 POC Base Excess POC ABG O2 Sat Antonio Test O2 Delivery Device POC O2 Rate POC FiO2 Tidal Volume PEEP Sodium 143 Potassium 4.4 Chloride 115 H Carbon Dioxide 26 Anion Gap 2.0 L BUN 41 H Creatinine 1.06 Est Cr Clr Drug Dosing 73.4 Est GFR ( Amer) 79.7 Est GFR (Non-Af Amer) 68.8 BUN/Creatinine Ratio 38.9 H Glucose 99 POC Glucose 116 H 124 H POC Glucose (other) Calcium 9.2 Phosphorus 3.0 Magnesium 2.6 H Medications Administered Current Inpatient Medications Acetaminophen (Acetaminophen 325 Mg Tab) 650 mg PO Q4H PRN PRN Reason: Pain or Fever Stop: 05/18/21 10:14 Last Admin: 05/10/21 12:12 Dose: 650 mg Documented by: Albuterol (Albuterol Hfa 8 Gm Inhaler) 1 puffs INH QIDR PRN PRN Reason: Shortness Of Breath Or Wheezing Stop: 05/23/21 18:59 Aspirin (Aspirin 81 Mg Ectab) 81 mg PO QAM [facility] Stop: 05/18/21 10:59 Last Admin: 04/30/21 10:20 Dose: Not Given Documented by: Clonazepam (Clonazepam 1 Mg Tab) 1 mg PO BID [facility] Stop: 06/05/21 20:59 Last Admin: 05/10/21 08:37 Dose: 1 mg Documented by: Dextrose (Dextrose 50% 50 Ml Syringe) 25 - 50 ml IV UD PRN; Protocol PRN Reason: Hypoglycemia Protocol Stop: 05/18/21 10:14 Fentanyl Citrate (Fentanyl Bolus From Bag) 50 mcg IV Q60M PRN PRN Reason: Pain or Agitation Stop: 05/14/21 18:32 Last Admin: 05/09/21 22:39 Dose: 50 mcg Documented by: Glucagon (Glucagon For Inj 1 Mg Vial) 1 mg SQ UD PRN; Protocol PRN Reason: Hypoglycemia Protocol Stop: 05/18/21 10:14 Glucose (Glucose 10 Tabs/Tube) 4 - 8 tabs PO UD PRN; Protocol PRN Reason: Hypoglycemia Protocol Stop: 05/18/21 10:14 Glucose (Glucose 40% Gel 15 Gm Tube) 15 - 30 gm PO UD PRN; Protocol PRN Reason: Hypoglycemia Protocol Stop: 05/18/21 10:14 Heparin Sodium (Porcine) (Heparin Sod 5,000 Unit/0.5 Ml Vial) 5,000 units SQ Q12 MIR Stop: 06/07/21 20:59 Last Admin: 05/10/21 08:35 Dose: 5,000 units Documented by: Hydralazine HCl (Hydralazine Hcl 20 Mg/Ml Vial) 10 mg IV Q4H PRN PRN Reason: SBP > 160 Stop: 06/06/21 11:11 Last Admin: 05/07/21 17:18 Dose: 10 mg Documented by: Fentanyl Citrate (Fentanyl Drip) 1,250 mcg in 250 mls @ 25 mls/hr IV .Q10H MIR; Protocol Stop: 05/14/21 18:44 Last Admin: 05/10/21 12:06 Dose: Not Given Documented by: Norepinephrine Bitartrate (Levophed/D5w) 8 mg in 508 mls @ 11.407 mls/hr IV .Q 24H MIR; Protocol Stop: 05/30/21 23:14 Last Admin: 05/10/21 08:25 Dose: Not Given Documented by: Pantoprazole Sodium 40 mg/ (Syringe) 10 mls @ 5 mls/min IV QAM [facility] Stop: 06/02/21 08:59 Last Admin: 05/10/21 08:34 Dose: 5 mls/min Documented by: Dexamethasone 4 mg/ Syringe 1 mls @ 1 mls/min IV QAM MIR Stop: 05/11/21 09:00 Last Admin: 05/10/21 08:37 Dose: 1 mls/min Documented by: Dexamethasone 2 mg/ Syringe 0.5 mls @ 1 mls/min IV QAM [facility] Stop: 05/14/21 09:01 Ampicillin Sodium/Sulbactam Sodium 3,000 mg/ Sodium Chloride 108 mls @ 200 mls/hr IV Q6H [facility]; Protocol Stop: 05/16/21 17:59 Last Infusion: 05/10/21 12:46 Dose: Infused Documented by: Dexmedetomidine HCl 400 mcg/ (Sodium Chloride) 100 mls @ 13 mls/hr IV .Q7H42M [facility]; Protocol Stop: 05/11/21 15:14 Last Admin: 05/10/21 08:34 Dose: 0.5 mcg/kg/hr, 13 mls/hr Documented by: Insulin Aspart (Insulin Aspart 100 Units/Ml Vial) 0 units SC Q4 [facility]; Protocol Stop: 06/06/21 07:59 Last Admin: 05/10/21 12:05 Dose: Not Given Documented by: Insulin Glargine (Insulin Glargine Solostar 100 Units/Ml 3 Ml Pen) 0 units SC BID [facility]; Protocol Stop: 06/08/21 20:59 Last Admin: 05/09/21 20:22 Dose: 10 units Documented by: Ipratropium Macy (Ipratropium Macy Hfa Inhaler) 1 puffs INH QIDR PRN PRN Reason: Shortness Of Breath Or Wheezing Stop: 05/23/21 18:59 Lactulose (Lactulose Syrup 20 Gm/30 Ml Udc) [facility] Stop: 06/09/21 11:59 Last Admin: 05/10/21 12:02 Dose: 20 gm Documented by: Mirtazapine (Mirtazapine Tab 15 Mg Tab) 30 mg PO [facility] Stop: 06/06/21 20:59 Last Admin: 05/09/21 21:44 Dose: 30 mg Documented by: Miscellaneous (Carbohydrates For Hypoglycemia ) 15 - 30 gm PO UD PRN PRN Reason: Hypoglycemia Protocol Stop: 05/18/21 10:14 Last Admin: 04/28/21 08:31 Dose: 15 gm Documented by: Miscellaneous (Icu Electrolyte Replacement Protocol) 1 ea N/A BID@18 [facility]; Protocol Stop: 05/16/21 11:15 Last Admin: 05/10/21 06:13 Dose: Not Given Documented by: Miscellaneous Information (Pharmacy Glycemic Mgmt Consult) 1 ea N/A UD PRN; Protocol PRN Reason: Consult Stop: 05/18/21 10:14 Nutritional Formula (Peptamen Intense Vhp 1.0 Tomasz 1,000 Ml Bag) 1,000 ml OG UD MIR; Protocol Stop: 06/02/21 11:29 Last Admin: 05/08/21 17:59 Dose: 1,000 ml Documented by: Oxycodone HCl (Oxycodone Hcl Soln 5 Mg/5 Ml Udc) 15 mg PO Q8 MIR Stop: 05/21/21 21:59 Last Admin: 05/10/21 13:55 Dose: 15 mg Documented by: Polyethylene Glycol (Polyethylene (Miralax) 17 Gm Pack) 17 gm PO DAILY PRN PRN Reason: Constipation Stop: 05/18/21 10:14 Last Admin: 04/27/21 07:39 Dose: 17 gm Documented by: Pravastatin Sodium (Pravastatin Sod 40 Mg Tab) 40 mg PO QPM MIR Stop: 05/18/21 20:59 Last Admin: 05/09/21 21:45 Dose: 40 mg Documented by: Propofol (Propofol Bolus From Bag) 20 mg IV Q5M PRN PRN Reason: Sedation Stop: 05/11/21 02:12 Sennosides (Sennosides 8.8 Mg/5 Ml Udc) 8.8 mg PO BID MIR Stop: 06/06/21 20:59 Last Admin: 05/10/21 08:35 Dose: 8.8 mg Documented by: Sterile Water (Tube Feeding Water Flush) 30 ml OG Q4H MIR Stop: 06/02/21 11:29 Last Admin: 05/10/21 13:55 Dose: 30 ml Documented by: Tamsulosin HCl (Tamsulosin Hcl 0.4 Mg Cap) 0.4 mg PO QPM MIR Stop: 05/18/21 20:59 Last Admin: 04/29/21 23:17 Dose: 0.4 mg Documented by: PG Care Time/CCT Total # of Minutes Spent Total Time Spent: 33 Total Time Spent with Patient: Total time spent is greater than 50% in coordination of care (as documented) at patient's floor/unit and/or counseling patient: 20 minutes speaking with patient's , Ankita, on the phone 13 minutes reviewing chart, speaking with RN and Dr. Major, documenting Coding Level of Care Code 93558 Subseq Hosp Care Lvl 3 (25 - SIGNIFICANT, SEPARATELY IDENTIFIABLE ) Diagnoses Acute respiratory failure with hypoxia J96.01 Pleural effusion J90 COVID-19 U07.1 Multilobar lung infiltrate R91.8 Weakness R53.1 CKD (chronic kidney disease) stage 3, GFR 30-59 ml/min N18.3 Coronary artery disease I25.10 Sleep apnea G47.30 Hypertension I10 Diabetes E11.9 Lumbar stenosis with neurogenic claudication M48.062 DVT prophylaxis Z29.9 Discharge planning issues Z02.9
[2021-05-10] MEDS: hydrALAZINE HCL 20 MG/ML VIAL IV PRN (17:40)
[2021-05-10] MEDS ORDERED: MIDAZOLAM HCL 1 MG/ML 2ML VIAL IV STA (17:48)
[2021-05-10] MEDS ORDERED: fentaNYL citrate 100 MCG/2 ML VIAL IV STA (17:48)
[2021-05-10] MEDS ORDERED: fentaNYL citrate 100 MCG/2 ML VIAL ONE (17:48)
[2021-05-10] MEDS ORDERED: MIDAZOLAM HCL 1 MG/ML 2ML VIAL ONE (17:48)
[2021-05-10] MEDS ORDERED: fentaNYL citrate 100 MCG/2 ML VIAL IV PRN (18:00)
[2021-05-10] MEDS ORDERED: MIDAZOLAM HCL 1 MG/ML 2ML VIAL IV PRN (18:00)
[2021-05-10] MEDS ORDERED: STAT IV Infusion **Titration per Protocol STA (18:18)
[2021-05-10] MEDS ORDERED: PROPOFOL BOLUS FROM BAG IV PRN (18:18)
[2021-05-10] MEDS: propofoL 1,000 MG/100 ML VIAL IV SCH (18:24)
[2021-05-10] MEDS: INSULIN GLARGINE SOLOSTAR 100 UNITS/ML 3 ML PEN SC SCH (21:20)
[2021-05-10] MEDS: PRAVASTATIN SOD 40 MG TAB PO SCH (21:22)
[2021-05-10] MEDS: MIRTAZAPINE TAB 15 MG TAB PO SCH (21:22)
[2021-05-11] MEDS: TUBE FEEDING WATER FLUSH OG SCH ×7 (00:03→22:42)
[2021-05-11] MEDS: AMPICILLIN/SULBACTAM SOD 3,000 MG in 0.9 % SODIUM CHLORIDE 100 ML IV SCH ×5 (00:03→23:39)
[2021-05-11] MEDS: propofoL 1,000 MG/100 ML VIAL IV SCH (00:05)
[2021-05-11] MEDS: DEXMEDETOMIDINE HCL 400 MCG in 0.9 % SODIUM CHLORIDE 96 ML IV SCH ×3 (00:45→15:23)
[2021-05-11] MEDS: INSULIN ASPART 100 UNITS/ML VIAL SC SCH ×6 (00:46→21:01)
[2021-05-11] MEDS: NOREPINEPHRINE/D5W 8 MG/508 ML BAG IV SCH (01:35)
[2021-05-11] MEDS: fentaNYL DRIP 1,250 MCG/250 ML BAG IV SCH (03:31)
[2021-05-11 05:00] LABS: iSTAT Arterial Blood Gas HCO3 25 meg/L (19-24); iSTAT Arterial Blood Gas pCO2 39 mmHg (35-46); iSTAT Arterial Blood Gas pH 7.41 (7.35-7.45); iSTAT Arterial Blood Gas pO2 85 mmHg (80-95); iSTAT Carbon Dioxide 26 mmol/L (24-31); iSTAT FiO2 80 %; iSTAT Site Art Line
[2021-05-11] MEDS: oxyCODONE HCL SOLN 5 MG/5 ML UDC PO SCH ×3 (05:38→22:24)
[2021-05-11 05:58] LABS: Eosinophils # (auto) 0.07 K/uL (0-0.5); Hematocrit (blood only) 25.1 % (42-52); Hemoglobin 8.1 g/dL (14.0-18.0); Immature Granulocytes # (auto) 0.04 K/uL (0.00-0.02); Immature Granulocytes % (auto) 0.5 %; Lymphocytes # (auto) 0.52 K/uL (1.2-3.4); Lymphocytes % (auto) 7.1 %; Mean Corpuscular Hemoglobin 29.5 pg (25-34); Mean Corpuscular Hgb Conc 32.3 g/dL (32-36); Mean Corpuscular Volume 91.3 fL (80-100); Mean Platelet Volume 10.1 fL (7.4-10.4); Monocytes # (auto) 0.61 K/uL (0.11-0.59); Monocytes % (auto) 8.3 %; Neutrophils # (auto) 6.12 K/uL (1.4-6.5); Neutrophils % (auto) 83.1 %; Platelet Count 104 K/uL (130-400); RDW Coefficient of Variation 15.1 % (11.5-14.5); RDW Standard Deviation 50.5 fL (36.4-46.3); Red Blood Count 2.75 M/uL (4.7-6.1); White Blood Count 7.36 K/uL (4.8-10.8)
[2021-05-11 06:26] LABS: BUN Creatinine Ratio 39.1 (10-20); Calcium 8.7 mg/dl (8.5-10.1); Creatinine Clr Calc Pharmacy 80.8 ml/min; Est GFR (African American) 89.9 ml/min; Est GFR (Non-African American) 77.6 ml/min; Magnesium 2.5 mg/dl (1.8-2.4); Potassium 4.4 mmol/L (3.5-5.1)
[2021-05-11 06:27] LABS: Phosphorus 3.4 mg/dl (2.5-4.9)
[2021-05-11] MEDS: ICU ELECTROLYTE REPLACEMENT PROTOCOL SCH ×2 (06:28→18:11)
[2021-05-11] MEDS: INSULIN GLARGINE SOLOSTAR 100 UNITS/ML 3 ML PEN SC SCH ×2 (08:40→21:02)
[2021-05-11] MEDS: HEPARIN SOD 5,000 UNIT/0.5 ML VIAL SQ SCH ×2 (08:41→20:48)
[2021-05-11] MEDS: PANTOprazole 40 MG in SYRINGE 0 ML IV SCH (08:41)
[2021-05-11] MEDS: LACTULOSE SYRUP 20 GM/30 ML UDC PO SCH (08:41)
[2021-05-11] MEDS: SENNOSIDES 8.8 MG/5 ML UDC PO SCH ×2 (08:42→20:49)
[2021-05-11] MEDS: clonazePAM 1 MG TAB PO SCH ×2 (08:44→20:50)
[2021-05-11] MEDS: dexAMETHasone 4 MG in SYRINGE 0 ML IV SCH (08:44)
--- NOTE | 2021-05-11 08:56 | Hospitalist Progress Note ---
Date of Service May 11, 2021 Assessment & Plan (1) Acute respiratory failure with hypoxia: Plan: Patient is in acute respiratory failure. now mechanically ventilated, with ARDS. Prognosis is poor Pneumomediastinum, left sided pleural effusion/hemothorax six days in a row he did not do well with SBT, however, he did okay with pressure support on 05/10 and so far on 05/11 Previous hospitalist spoke with at bedside on 05/09, she agreed that patient would not want a tracheostomy we discussed timing of extubation, her son Titus wants to be here the plan was to have Titus do a video conference and then extubate on 05/10 see how he did but the changed her mind, not ready to extubate she will visit on 05/11 to discuss further, determine if she is ready Dr. Major aware of plan (2) Pleural effusion: Plan: chest tube placed 05/[address] Temple, bloody drainage, hemothorax continue drainage to see if it improves ventilation-not much out in the few days Growing coagulase-negative Staphylococcus resistant only to erythromycin Continue Unasyn, but previously was on Zosyn May need chest CT as per pulmonology prior to removing chest tube (3) COVID-19: Plan: completed course of Remdesivir continue dexamethasone taper, 4mg then 2mg then stop treated possible secondary infection with Zosyn and now with Unasyn as above (4) Multilobar lung infiltrate: Plan: as above. (5) Weakness: Plan: Appears to be due to the severity of his Covid pneumonia/hypoxiasee above If able to be extubated, will need PT/OT (6) CKD (chronic kidney disease) stage 3, GFR 30-59 ml/min: Plan: Continue to follow creatininestable at this time, Lasix per ICU staff Renal function stable, making urine (7) Coronary artery disease: Plan: No angina, continue to monitor (8) Sleep apnea: Plan: intubated and ventilated (9) Hypertension: Plan: Blood pressures are acceptable given situation Holding home irbesartan (10) Diabetes: Plan: Poorly controlled at baseline as well as acutely. continue to adjust insulinspharmacy is managing at this time (11) Lumbar stenosis with neurogenic claudication: Plan: sedated (12) DVT prophylaxis: Plan: heparin GI prophylaxis-IV PPI FEN-tube feeds on hold-discussed with nursing who will bring up on ICU rounds, can likely restart if not being extubated Bowel regimen with methylnaltrexone and lactulose as needed (13) Discharge planning issues: Plan: poor prognosis, plan is to see how he does through the weekend and see if extubation is possible on Thursday No trach desired Admission and Anticipated Discharge Date Admission Date: April 18, 2021 Subjective Patient is currently on SBT when I saw him with fentanyl and propofol turned off but Precedex on. He does open his eyes to voice and nods his head when I ask if he is doing okay. Nursing otherwise reports that when Precedex turned off the patient is quite agitated. His tube feeds are still on hold given prior plans to extubate which were canceled yesterday. He is moving his bowels. Briefly on vasopressors overnight but weaned off after a few minutes. Remains febrile. Review of Systems Review of Systems: Unobtainable due to endotracheal tube and Unobtainable due to reduced consciousness Physical Exam Constitutional: WD/WN, vitals as above + lethargic and + mechanically ventilated Eyes: + anicteric sclerae ENMT: ET tube in place Neck: trachea midline, no thyromegaly Respiratory: normal respiratory effort Auscultation: + crackles (Bases bilaterally); no rhonchi and no wheezes Cardiovascular: Rate/Rhythm: regular rate and regular rhythm Vessels: dorsalis pedis pulses present Extremities: + edema (Trace pitting edema in hands and feet) Chest (Breasts): Chest: normal inspection of chest Gastrointestinal (Abdomen): normal bowel sounds, soft, nontender, no hepatosplenomegaly Musculoskeletal: Extremities: extremities normal to inspection; no cyanosis and no clubbing Skin: no rashes, warm and dry Neurologic: + not awake Genitourinary: Santiago catheter in place draining dark yellow urine Results & Data Results & Data ([facility]) Vital Signs (Past 12 Hours) Vital Signs Temp Pulse Resp Pulse Ox 05/11/21 06:00 38.0 C H 58 L 17 95 05/11/21 05:30 38.1 C H 57 L 16 94 05/11/21 05:15 56 L 14 93 05/11/21 05:00 38.1 C H 57 L 32 H 95 05/11/21 04:30 38.1 C H 57 L 26 H 95 05/11/21 04:00 38.1 C H 58 L 29 H 95 05/11/21 03:30 38.1 C H 59 L 30 H 94 05/11/21 03:01 58 L 30 H 94 05/11/21 03:00 38.2 C H 59 L 26 H 93 05/11/21 02:30 38.2 C H 60 26 H 97 05/11/21 02:00 38.3 C H 61 26 H 96 05/11/21 01:30 38.3 C H 61 26 H 94 05/11/21 01:00 38.4 C H 61 28 H 95 05/11/21 00:30 38.3 C H 63 26 H 93 05/11/21 00:00 38.2 C H 62 26 H 89 L 05/10/21 23:40 60 34 H 90 05/10/21 23:30 38.2 C H 62 26 H 89 L 05/10/21 23:00 38.1 C H 63 26 H 89 L Laboratory Results 05/11/21 05/11/21 05/11/21 Range/Units 08:38 05:09 05:09 WBC 7.36 (4.8-10.8) K/uL RBC 2.75 L (4.7-6.1) M/uL Hgb 8.1 L (14.0-18.0) g/dL Hct 25.1 L (42-52) % MCV 91.3 (80-100) fL MCH 29.5 (25-34) pg MCHC 32.3 (32-36) g/dL RDW Std Deviation 50.5 H (36.4-46.3) fL RDW Coeff of Patti 15.1 H (11.5-14.5) % Plt Count 104 L (130-400) K/uL MPV 10.1 (7.4-10.4) fL Immature Gran % (Auto) 0.5 % Neut % (Auto) 83.1 % Lymph % (Auto) 7.1 % [place] % (Auto) 8.3 % Eos % (Auto) 1.0 % Baso % (Auto) 0.0 % Neut # (Auto) 6.12 (1.4-6.5) K/uL Lymph # (Auto) 0.52 L (1.2-3.4) K/uL [place] # (Auto) 0.61 H (0.11-0.59) K/uL Eos # (Auto) 0.07 (0-0.5) K/uL Baso # (Auto) 0.00 (0-0.2) K/uL Immature Gran # (Auto) 0.04 H (0.00-0.02) K/uL Sample Site POC pH (7.35-7.45) POC pCO2 (35-46) mmHg POC pO2 (80-95) mmHg POC HCO3 (19-24) apoorva/L POC Total CO2 (24-31) mmol/L POC Base Excess (-9-1.8) apoorva/L POC ABG O2 Sat (90-95) % Antonio Test O2 Delivery Device POC O2 Rate POC FiO2 % Tidal Volume PEEP Sodium 145 (136-145) mmol/L Potassium 4.4 (3.5-5.1) mmol/L Chloride 115 H (98-107) mmol/L Carbon Dioxide 26 (21-32) mmol/L Anion Gap 4.0 (3-11) BUN 37 H (7-18) mg/dl Creatinine 0.96 (0.6-1.4) mg/dl Est Cr Clr Drug Dosing 80.8 ml/min Est GFR ( Amer) 89.9 ml/min Est GFR (Non-Af Amer) 77.6 ml/min BUN/Creatinine Ratio 39.1 H (10-20) Glucose 165 H (70-99) mg/dl POC Glucose 150 H (70-99) mg/dl Calcium 8.7 (8.5-10.1) mg/dl Phosphorus 3.4 (2.5-4.9) mg/dl Magnesium 2.5 H (1.8-2.4) mg/dl 05/11/21 05/11/21 05/11/21 Range/Units 04:43 04:00 00:04 WBC (4.8-10.8) K/uL RBC (4.7-6.1) M/uL Hgb (14.0-18.0) g/dL Hct (42-52) % MCV (80-100) fL MCH (25-34) pg MCHC (32-36) g/dL RDW Std Deviation (36.4-46.3) fL RDW Coeff of Patti (11.5-14.5) % Plt Count (130-400) K/uL MPV (7.4-10.4) fL Immature Gran % (Auto) % Neut % (Auto) % Lymph % (Auto) % [place] % (Auto) % Eos % (Auto) % Baso % (Auto) % Neut # (Auto) (1.4-6.5) K/uL Lymph # (Auto) (1.2-3.4) K/uL [place] # (Auto) (0.11-0.59) K/uL Eos # (Auto) (0-0.5) K/uL Baso # (Auto) (0-0.2) K/uL Immature Gran # (Auto) (0.00-0.02) K/uL Sample Site Art Line POC pH 7.41 (7.35-7.45) POC pCO2 39 (35-46) mmHg POC pO2 85 (80-95) mmHg POC HCO3 25 H (19-24) apoorva/L POC Total CO2 26 (24-31) mmol/L POC Base Excess 0.0 (-9-1.8) apoorva/L POC ABG O2 Sat 97.0 H (90-95) % Antonio Test NA O2 Delivery Device Ventilator POC O2 Rate 26 POC FiO2 80 % Tidal Volume 430 PEEP 8 Sodium (136-145) mmol/L Potassium (3.5-5.1) mmol/L Chloride (98-107) mmol/L Carbon Dioxide (21-32) mmol/L Anion Gap (3-11) BUN (7-18) mg/dl Creatinine (0.6-1.4) mg/dl Est Cr Clr Drug Dosing ml/min Est GFR ( Amer) ml/min Est GFR (Non-Af Amer) ml/min BUN/Creatinine Ratio (10-20) Glucose (70-99) mg/dl POC Glucose 162 H 140 H (70-99) mg/dl Calcium (8.5-10.1) mg/dl Phosphorus (2.5-4.9) mg/dl Magnesium (1.8-2.4) mg/dl 05/10/21 05/10/21 05/10/21 Range/Units 21:12 16:15 12:05 WBC (4.8-10.8) K/uL RBC (4.7-6.1) M/uL Hgb (14.0-18.0) g/dL Hct (42-52) % MCV (80-100) fL MCH (25-34) pg MCHC (32-36) g/dL RDW Std Deviation (36.4-46.3) fL RDW Coeff of Patti (11.5-14.5) % Plt Count (130-400) K/uL MPV (7.4-10.4) fL Immature Gran % (Auto) % Neut % (Auto) % Lymph % (Auto) % [place] % (Auto) % Eos % (Auto) % Baso % (Auto) % Neut # (Auto) (1.4-6.5) K/uL Lymph # (Auto) (1.2-3.4) K/uL [place] # (Auto) (0.11-0.59) K/uL Eos # (Auto) (0-0.5) K/uL Baso # (Auto) (0-0.2) K/uL Immature Gran # (Auto) (0.00-0.02) K/uL Sample Site POC pH (7.35-7.45) POC pCO2 (35-46) mmHg POC pO2 (80-95) mmHg POC HCO3 (19-24) apoorva/L POC Total CO2 (24-31) mmol/L POC Base Excess (-9-1.8) apoorva/L POC ABG O2 Sat (90-95) % Antonio Test O2 Delivery Device POC O2 Rate POC FiO2 % Tidal Volume PEEP Sodium (136-145) mmol/L Potassium (3.5-5.1) mmol/L Chloride (98-107) mmol/L Carbon Dioxide (21-32) mmol/L Anion Gap (3-11) BUN (7-18) mg/dl Creatinine (0.6-1.4) mg/dl Est Cr Clr Drug Dosing ml/min Est GFR ( Amer) ml/min Est GFR (Non-Af Amer) ml/min BUN/Creatinine Ratio (10-20) Glucose (70-99) mg/dl POC Glucose 150 H 142 H 124 H (70-99) mg/dl Calcium (8.5-10.1) mg/dl Phosphorus (2.5-4.9) mg/dl Magnesium (1.8-2.4) mg/dl PG Care Time/CCT Total # of Minutes Spent Total Time Spent with Patient: Total time spent is greater than 50% in coordination of care (as documented) at patient's floor/unit and/or counseling patient: Coding Level of Care Code 67808 Subseq Hosp Care Lvl 3 Diagnoses Acute respiratory failure with hypoxia J96.01 Pleural effusion J90 COVID-19 U07.1 Multilobar lung infiltrate R91.8 Weakness R53.1 CKD (chronic kidney disease) stage 3, GFR 30-59 ml/min N18.3 Coronary artery disease I25.10 Sleep apnea G47.30 Hypertension I10 Diabetes E11.9 Lumbar stenosis with neurogenic claudication M48.062 DVT prophylaxis Z29.9 Discharge planning issues Z02.9
--- NOTE | 2021-05-11 08:57 | XRay Report ---
XR chest 1V portable CLINICAL HISTORY: Follow-up bilateral interstitial and alveolar opacities. Follow up left basilar at electasis and effusion as well.. COMPARISON STUDY: 05/10/2021 TECHNIQUE: 1 view of the chest FINDINGS: Single frontal view of the chest demonstrates the cardiomediastinal silhouette to be within normal li mits. Tubes and catheters again appear unchanged. Left-sided pigtail chest tube is again seen with pe rsistent left pleural effusion and left basilar atelectasis. Patchy interstitial and alveolar opacities are again seen bilaterally as well and essentially unchang ed. There is no evidence for right pleural effusion. There is no evidence for vascular congestion. Th ere is no acute osseous pathology. IMPRESSION: No significant interval change in bilateral interstitial and alveolar opacities, left ple ural effusion and left basilar atelectasis. ACT 112: Negative or not required by law. Electronically signed by: Taz Gavin M.D. 05/11/2021 8:56 AM
--- NOTE | 2021-05-11 09:43 | Critical Care Progress Note ---
Date of Service May 11, 2021 Assessment & Plan (1) COVID-19: (2) Pneumomediastinum: (3) Pleural effusion: (4) Acute respiratory failure with hypoxia: Plan: (1) Multilobar lung infiltrate: (2) Acute respiratory failure with hypoxia: (3) Pleural effusion: (4) Septic shock: (5) Pneumomediastinum: (6) COVID-19: (7) CKD (chronic kidney disease) stage 3, GFR 30-59 ml/min: (8) HTN (hypertension), benign: (9) Hemothorax (10) Pneumomediastinum Impression: 75-year-old male with a history of coronary disease chronic kidney disease prior CVA and sleep apnea. He was admitted 04/18. He initially refused all interventions but eventually became noncompliant with oxygen or CPAP and was ripping it off which point the patient was intubated at the request of his family. Intubation was accomplished 04/30/2021. 24-hour events: Patient tolerated pressure support ventilation yesterday but had an increase in his oxygen requirement overnight. His is apparently reconsidering his CODE STATUS and would like him to be reintubated if he should fail. She still does not think she would want a tracheostomy would like him intubated for an additional 3 days. He remains febrile. He was briefly on pre ssors last night but now off. Recommendations: Neurologic: Continue nightly Remeron and oral clonazepam as well as oral oxycodone. Off fentanyl. Continue Precedex in hopes of extubation. Pulmonary:Patient has Covid pneumonia and hypoxemic respiratory failure with diffuse pulmonary infiltrates complicated by hemothorax. Pigtail catheter is in place. Completed tPA and dornase, output now decreased. Chest tube to water seal with minimal output. His x-ray stable. Check CT of the chest with contrast this morning given his persistent low-grade fevers to see whether or not there is additional fluid collections or pulmonary abscess. He is currently day #13 intubation and mechanical ventilation. Weaning dexamethasone. apparently wants to continue care until the middle of next week. If they were to fail extubation she would want him reintubated but does not want a trach. Will defer additional discussions with the to palliative care Cardiovascular:Maintain mean arterial pressure above 65. Now off pressors. Gastrointestinal: Holding tube feeds for possible extubation. PPI twice daily. Bowel protocol ENDO:Glycemic control per protocol. Renal:ROCKY on presentation now resolved. Continue to replace electrolytes as needed. Acid-base status appropriate. Infectious disease: Staph now growing from pleural fluid - speciation and sens itivities pending. He completed 7 days of Zosyn. Day #3 unasyn. Out of respiratory isolation. Continue to follow white blood cell count fever curve. Repeat CT of the chest today. His white count is better however he has persistent fevers although his curve is somewhat improved. Hematologic:Mild anemia and thrombocytopenia. Stable. No indication for acute transfusion currently. SCDs and subcu heparin 5000 twice daily. CODE STATUS:DNR/DNI Prognosis guarded. We will continue to try and wean ventilator in hopes of ventilator liberation which will allow the patient to participate in discussion. Of note previously the patient had declined aggressive interventions. Appreciate palliative care input Disposition: Remain in the ICU I have personally spent 45 minutes of critical care time in the direct management of this patient. This is a life/limb threatening event. This includes time spent evaluating patient, direct bedside care, chart review, placing orders, interpretation of diagnostic studies, discussion with consultants, patient, and family members, as well as other required patient management activities. This time is exclusive of all separately billable procedures, and teaching time and separate from and in addition to any other critical care service time. Admission and Anticipated Discharge Date Admission Date: April 18, 2021 Subjective Patient sedated on Precedex and mechanically ventilated. He is profoundly weak but is following some simple commands. Review of Systems Review of Systems: Unobtainable due to endotracheal tube Physical Exam Constitutional: WD/WN, vitals as above + mechanically ventilated Neck: trachea midline, no thyromegaly Respiratory: normal respiratory effort, lungs clear to auscultation Cardiovascular: RRR, no murmur, no edema Gastrointestinal (Abdomen): normal bowel sounds, soft, nontender, no hepatosplenomegaly Musculoskeletal: Extremities: extremities normal to inspection Skin: no rashes, warm and dry Lymphatic: no cervical lymphadenopathy Results & Data Results & Data ([facility]) Vital Signs (Past 12 Hours) Vital Signs Temp Pulse Resp Pulse Ox 05/11/21 06:00 38.0 C H 58 L 17 95 05/11/21 05:30 38.1 C H 57 L 16 94 05/11/21 05:15 56 L 14 93 05/11/21 05:00 38.1 C H 57 L 32 H 95 05/11/21 04:30 38.1 C H 57 L 26 H 95 05/11/21 04:00 38.1 C H 58 L 29 H 95 05/11/21 03:30 38.1 C H 59 L 30 H 94 05/11/21 03:01 58 L 30 H 94 05/11/21 03:00 38.2 C H 59 L 26 H 93 05/11/21 02:30 38.2 C H 60 26 H 97 05/11/21 02:00 38.3 C H 61 26 H 96 05/11/21 01:30 38.3 C H 61 26 H 94 05/11/21 01:00 38.4 C H 61 28 H 95 05/11/21 00:30 38.3 C H 63 26 H 93 05/11/21 00:00 38.2 C H 62 26 H 89 L 05/10/21 23:40 60 34 H 90 05/10/21 23:30 38.2 C H 62 26 H 89 L 05/10/21 23:00 38.1 C H 63 26 H 89 L Critical Care Results & Data Vital Signs (Past 12 Hours) Vital Signs Temp Pulse Resp Pulse Ox 05/11/21 06:00 38.0 C H 58 L 17 95 05/11/21 05:30 38.1 C H 57 L 16 94 05/11/21 05:15 56 L 14 93 05/11/21 05:00 38.1 C H 57 L 32 H 95 05/11/21 04:30 38.1 C H 57 L 26 H 95 05/11/21 04:00 38.1 C H 58 L 29 H 95 05/11/21 03:30 38.1 C H 59 L 30 H 94 05/11/21 03:01 58 L 30 H 94 05/11/21 03:00 38.2 C H 59 L 26 H 93 05/11/21 02:30 38.2 C H 60 26 H 97 05/11/21 02:00 38.3 C H 61 26 H 96 05/11/21 01:30 38.3 C H 61 26 H 94 05/11/21 01:00 38.4 C H 61 28 H 95 05/11/21 00:30 38.3 C H 63 26 H 93 05/11/21 00:00 38.2 C H 62 26 H 89 L 05/10/21 23:40 60 34 H 90 05/10/21 23:30 38.2 C H 62 26 H 89 L 05/10/21 23:00 38.1 C H 63 26 H 89 L Lab & Micro Results (Past 24 Hours) RBC 2.75 M/uL (4.7-6.1) L 05/11/21 WBC 7.36 K/uL (4.8-10.8) 05/11/21 Hgb 8.1 g/dL (14.0-18.0) L 05/11/21 Hct 25.1 % (42-52) L 05/11/21 MCV 91.3 fL (80-100) 05/11/21 MCH 29.5 pg (25-34) 05/11/21 MCHC 32.3 g/dL (32-36) 05/11/21 RDW Standard Deviation 50.5 fL (36.4-46.3) H 05/11/21 RDW Coefficient of Variation 15.1 % (11.5-14.5) H 05/11/21 Plt Count 104 K/uL (130-400) L 05/11/21 MPV 10.1 fL (7.4-10.4) 05/11/21 Neutrophils (%) (Auto) 83.1 % 05/11/21 Lymphocytes (%) (Auto) 7.1 % 05/11/21 Monocytes # (Auto) 0.61 K/uL (0.11-0.59) H 05/11/21 Eosinophils # (Auto) 0.07 K/uL (0-0.5) 05/11/21 Immature Granulocyte % (Auto) 0.5 % 05/11/21 Neutrophils # (Auto) 6.12 K/uL (1.4-6.5) 05/11/21 Lymphocytes # (Auto) 0.52 K/uL (1.2-3.4) L 05/11/21 Monocytes # (Auto) 0.61 K/uL (0.11-0.59) H 05/11/21 Eosinophils # (Auto) 0.07 K/uL (0-0.5) 05/11/21 Basophils # (Auto) 0.00 K/uL (0-0.2) 05/11/21 Immature Granulocyte # (Auto) 0.04 K/uL (0.00-0.02) H 05/11/21 Na 145 mmol/L (136-145) 05/11/21 K 4.4 mmol/L (3.5-5.1) 05/11/21 Cl 115 mmol/L (98-107) H 05/11/21 CO2 26 mmol/L (21-32) 05/11/21 Anion Gap 4.0 (3-11) 05/11/21 BUN 37 mg/dl (7-18) H 05/11/21 Creatinine 0.96 mg/dl (0.6-1.4) 05/11/21 Estimated GFR ( Amer) 89.9 ml/min 05/11/21 Estimated GFR (Non-Af Amer) 77.6 ml/min 05/11/21 BUN/Creatinine Ratio 39.1 (10-20) H 05/11/21 Glu 165 mg/dl (70-99) H 05/11/21 Ca 8.7 mg/dl (8.5-10.1) 05/11/21 Phosphorus Level 3.4 mg/dl (2.5-4.9) 05/11/21 Mg 2.5 mg/dl (1.8-2.4) H 05/11/21 05:09 05/11/21 Calcium Level 8.7 mg/dl (8.5-10.1) 05/11/21 05:09 05/11/21 Antonio Test NA 05/11/21 04:43 05/11/21 Microbiology 05/05/21 14:00 Gram Stain - Final Pleural Fluid Aerobic and Anaerobic Culture - Preliminary Coag neg staph not lugdunensis 05/10/21 04:44 Aerobic Blood Culture - Preliminary Blood No growth in Aerobic bottle after 24 hours. Anaerobic Blood Culture - Preliminary No growth in Anaerobic bottle after 24 hours. 05/10/21 04:31 Aerobic Blood Culture - Preliminary Blood No growth in Aerobic bottle after 24 hours. Anaerobic Blood Culture - Preliminary No growth in Anaerobic bottle after 24 hours. Diagnostic Findings (Past 24 Hours) Chest X-Ray 05/11/21 07:00 XR chest 1V portable CLINICAL HISTORY: Follow-up bilateral interstitial and alveolar opacities. Follow up left basilar atelectasis and effusion as well.. COMPARISON STUDY: 05/10/2021 TECHNIQUE: 1 view of the chest FINDINGS: Single frontal view of the chest demonstrates the cardiomediastinal silhouette to be within normal limits. Tubes and catheters again appear unchanged. Left- sided pigtail chest tube is again seen with persistent left pleural effusion and left basilar atelectasis. Patchy interstitial and alveolar opacities are again seen bilaterally as well and essentially unchanged. There is no evidence for right pleural effusion. T here is no evidence for vascular congestion. There is no acute osseous pathology. IMPRESSION: No significant interval change in bilateral interstitial and alveolar opacities, left pleural effusion and left basilar atelectasis. ACT 112: Negative or not required by law. Electronically signed by: Taz Gavin M.D. 05/11/2021 8:56 AM I & O Totals 24 Hours 05/10/21 05/11/21 05/12/21 06:59 06:59 06:59 Intake Total 913.810 / 341.044 6124.701 / 1903.701 83.633 / 83.633 Output Total 1794 / 1794 1300 / 1300 Balance -880.190 / -880.190 603.701 / 603.701 83.633 / 83.633 Cumulative 04/18/21 05:46 thru 05/11/21 07:11 Intake Total 08808.515 Output Total 02302 Balance -7783.485 RT Ventilator Mngmt (Last Documented) Ventilator Ordered Settings Ventilator Support Mode CPAP 05/11/21 05:15 Respiratory Rate 17 05/11/21 06:00 Ventilator Tidal Volume 430 05/11/21 04:00 Setting Minute Ventilation 8.1 05/11/21 05:15 Ventilator Positive Pressure 10 05/11/21 05:15 Support Setting Positive End Expiratory 8 05/11/21 05:15 Pressure Fraction of Inspired Oxygen 70 05/11/21 06:00 Peak Inspiratory Flow 49 05/06/21 19:01 Machine Comment FOUND ON 80%, DECREASED TO 70% 05/08/21 14:44 Ventilator - PT Measurements Respiratory Rate 17 Exhaled Tidal Volume 604 Minute Ventilation 8.1 Peak Inspiratory Airway 20 Pressure Plateau Pressure 15.4 Respiratory Cycle Inspiratory: 1:2.3 Expiratory Ratio Inspiratory Phase Time 0.70 End-Tidal CO2 28 Static Lung Compliance 55.14 Dynamic Lung Compliance 50.33 Normal Static Lung Compliance 49.00 Patient Measurements Comment FiO2 decreased to 40% per ABG results, PA and RN aware. Coding Level of Care Code Critical Care 1st 30-74 mins Diagnoses COVID-19 U07.1 Pneumomediastinum J98.2 Pleural effusion J90 Acute respiratory failure with hypoxia J96.01 Time Spent (min) 45
[2021-05-11] MEDS ORDERED: OPTIRAY 320 100ml IV ONE (12:10)
--- NOTE | 2021-05-11 12:47 | CT Scan Report ---
CT chest diagnostic w con CLINICAL HISTORY: empyema follow up . Follow-up airspace opacities in previous pneumomediastinum. COMPARISON STUDY: 05/05/2021 and portable chest radiograph from 05/11/2021 CT DOSE: 1058.38 mGy.cm TECHNIQUE: Standard CT of the Chest was performed with IV contrast. A dose lowering technique was u tilized adhering to the principles of ALARA. Contrast Volume: Optiray 320, 94 ml FINDINGS: Endotracheal tube and enteric tubes are again seen. Airway: The airway is clear. No endobronchial lesion is identified. Lungs and pleural: Compared to previous examination, extensive interstitial and alveolar opacities ar e again seen bilaterally. There is again bilateral lower lobe atelectasis/collapse, left greater than right. Left-sided chest tube is again seen. There has been resolution of the majority of the patient's left pleural effusion. However, there is now a focal air collection seen at the left lung base with the fi ndings representing a small hydropneumothorax. There is no evidence for right pleural effusion. Mediastinum: There has been interval recurrence of pneumomediastinum. No definite pneumopericardium i s seen. There is no evidence for pathologic adenopathy. The heart size is within normal limits. The t horacic aorta is within normal limits. There is no evidence for pericardial effusion. While this study was not performed as a CTA, the pulmonary vasculature is well enhanced with no evide nce for pulmonary embolus. Upper abdomen: The adrenal glands are normal bilaterally. Osseous structures: There is no acute osseous pathology. IMPRESSION: 1. Compared to the previous examinations, extensive interstitial and alveolar opacities are again see n bilaterally. There are no significant emphysematous changes present. 2. Left-sided chest tube has drained the majority of the previously identified left pleural effusion. However, there is now a small hydropneumothorax at the left lung base. 3. Interval recurrence of pneumomediastinum. ACT 112: Negative or not required by law. Electronically signed by: Taz Gavin M.D. 05/11/2021 12:46 PM
[2021-05-11] MEDS ORDERED: STAT IV Infusion **Titration per Protocol STA (19:56)
[2021-05-11] MEDS: DEXMEDETOMIDINE HCL 200 MCG in SODIUM CHLORIDE 0.9% 48 ML IV SCH ×2 (20:35→23:39)
[2021-05-11] MEDS: MIRTAZAPINE TAB 15 MG TAB PO SCH (20:49)
[2021-05-11] MEDS: PRAVASTATIN SOD 40 MG TAB PO SCH (20:49)
[2021-05-12] MEDS: INSULIN ASPART 100 UNITS/ML VIAL SC SCH ×7 (00:25→23:12)
[2021-05-12] MEDS: DEXMEDETOMIDINE HCL 200 MCG in SODIUM CHLORIDE 0.9% 48 ML IV SCH ×4 (02:38→22:24)
[2021-05-12] MEDS: TUBE FEEDING WATER FLUSH OG SCH ×6 (02:38→22:35)
[2021-05-12 05:29] LABS: iSTAT Arterial Blood Gas HCO3 22 meg/L (19-24); iSTAT Arterial Blood Gas pCO2 34 mmHg (35-46); iSTAT Arterial Blood Gas pH 7.43 (7.35-7.45); iSTAT Arterial Blood Gas pO2 69 mmHg (80-95); iSTAT Carbon Dioxide 23 mmol/L (24-31); iSTAT FiO2 60 %; iSTAT Site R Brachial
[2021-05-12 05:31] LABS: Basophils # (auto) 0.01 K/uL (0-0.2); Basophils % (auto) 0.2 %; Eosinophils # (auto) 0.13 K/uL (0-0.5); Hematocrit (blood only) 25.6 % (42-52); Immature Granulocytes # (auto) 0.04 K/uL (0.00-0.02); Immature Granulocytes % (auto) 0.6 %; Lymphocytes # (auto) 0.55 K/uL (1.2-3.4); Lymphocytes % (auto) 8.4 %; Mean Corpuscular Hemoglobin 28.9 pg (25-34); Mean Corpuscular Hgb Conc 31.3 g/dL (32-36); Mean Corpuscular Volume 92.4 fL (80-100); Mean Platelet Volume 10.5 fL (7.4-10.4); Monocytes # (auto) 0.53 K/uL (0.11-0.59); Monocytes % (auto) 8.1 %; Neutrophils # (auto) 5.29 K/uL (1.4-6.5); Neutrophils % (auto) 80.7 %; Platelet Count 136 K/uL (130-400); RDW Coefficient of Variation 15.1 % (11.5-14.5); RDW Standard Deviation 50.6 fL (36.4-46.3); Red Blood Count 2.77 M/uL (4.7-6.1); White Blood Count 6.55 K/uL (4.8-10.8)
[2021-05-12 05:57] LABS: BUN Creatinine Ratio 40.2 (10-20); Calcium 9.3 mg/dl (8.5-10.1); Creatinine Clr Calc Pharmacy 86.2 ml/min; Est GFR (African American) 97.2 ml/min; Est GFR (Non-African American) 83.8 ml/min
[2021-05-12] MEDS: AMPICILLIN/SULBACTAM SOD 3,000 MG in 0.9 % SODIUM CHLORIDE 100 ML IV SCH ×4 (06:04→23:11)
[2021-05-12] MEDS: oxyCODONE HCL SOLN 5 MG/5 ML UDC PO SCH (06:05)
[2021-05-12] MEDS: ICU ELECTROLYTE REPLACEMENT PROTOCOL SCH ×2 (06:27→17:18)
[2021-05-12 06:37] LABS: Magnesium 2.5 mg/dl (1.8-2.4)
[2021-05-12] MEDS ORDERED: dexAMETHasone 2 MG in SYRINGE 0 ML IV SCH (09:00)
--- NOTE | 2021-05-12 09:23 | Critical Care Progress Note ---
Date of Service May 12, 2021 Assessment & Plan (1) COVID-19: (2) Pneumomediastinum: (3) Pleural effusion: (4) Acute respiratory failure with hypoxia: Plan: (1) Multilobar lung infiltrate: (2) Acute respiratory failure with hypoxia: (3) Pleural effusion: (4) Septic shock: (5) Pneumomediastinum: (6) COVID-19: (7) CKD (chronic kidney disease) stage 3, GFR 30-59 ml/min: (8) HTN (hypertension), benign: (9) Hemothorax (10) Pneumomediastinum Impression: 75-year-old male with a history of coronary disease chronic kidney disease prior CVA and sleep apnea. He was admitted 04/18. He initially refused all interventions but eventually became noncompliant with oxygen or CPAP and was ripping it off which point the patient was intubated at the request of his family. Intubation was accomplished 04/30/2021. 24-hour events: Patient developed a large cuff leak. He was awake this morning. He appears significantly weak and debilitated but is nodding his head and following some simple commands. He is on minimal vent settings Recommendations: Neurologic: Continue nightly Remeron but decrease to 50 mg nightly. Will discontinue oral clonazepam as well as oral oxycodone. Discontinue propofol and fentanyl. Hold Precedex. We will need aggressive PT OT. Pulmonary:Patient has Covid pneumonia and hypoxemic respiratory failure with diffuse pulmonary infiltrates complicated by hemothorax. Pigtail catheter has not had any output and the fluid collection appears drained on CT scan. There is a superior cavitary necrotic fluid collection but this does not appear to communicate with the current tube. The pigtail catheter was removed this morning and an occlusive dressing applied. The patient likely needs his endotracheal tube replaced but he also may qualify for extubation. I will plan on extubating him and seeing how he does as he would likely need the tube replaced at any rate. Hopefully we can avoid reintubation. The family is apparently equivocal on trach. We will need to discuss with radiology whether or not a CT-guided drain can be placed in the superior necrotic collection as I suspect it is also secondarily infected. He is not a candidate for VATS. Outside facilities have no capacity to transfer patient. Cardiovascular:Maintain mean arterial pressure above 65. Now off pressors. Gastrointestinal: Holding tube feeds for possible extubation. PPI twice daily. Bowel protocol ENDO:Glycemic control per protocol. Renal:ROCKY on presentation now resolved. Continue to replace electrolytes as needed. Acid-base status appropriate. Infectious disease: Staph now growing from pleural fluid - speciation and sensitivities pending. He completed 7 days of Zosyn. Day #4 unasyn. Out of respiratory isolation. Continue to follow white blood cell count fever curve. His white blood cell count is improved and his fever curve also appears improving. We will continue antibiotics for now and reassess the patient's clinical course. Hopefully we can have discussions with the patient as to whether or not he wants additional invasive procedures conducted as his sensorium clears. Hematologic:Mild anemia and thrombocytopenia. Stable. No indication for acute transfusion currently. SCDs and subcu heparin 5000 twice daily. CODE STATUS:DNR/DNI Prognosis guarded. We will see how he does with a trial of extubation. Disposition: Remain in the ICU 40 minutes caring for patient and coordinating care including discussion with ICU nurse respiratory therapy and patient. Family will be updated by primary admitting service Admission and Anticipated Discharge Date Admission Date: April 18, 2021 Subjective Patient sedated on Precedex and mechanically ventilated. He is profoundly weak but is following some simple commands. Review of Systems Review of Systems: Unobtainable due to endotracheal tube Physical Exam Constitutional: WD/WN, vitals as above + mechanically ventilated Neck: trachea midline, no thyromegaly Respiratory: normal respiratory effort, lungs clear to auscultation Cardiovascular: RRR, no murmur, no edema Gastrointestinal (Abdomen): normal bowel sounds, soft, nontender, no hepat osplenomegaly Musculoskeletal: Extremities: extremities normal to inspection Skin: no rashes, warm and dry Lymphatic: no cervical lymphadenopathy Results & Data Results & Data ([facility]) Vital Signs (Past 12 Hours) Vital Signs Temp Pulse Pulse Resp Pulse Ox 05/12/21 08:55 75 20 93 05/12/21 07:25 58 L 24 91 05/12/21 06:00 37.6 C H 56 L 24 92 05/12/21 05:00 37.7 C H 55 L 26 H 93 05/12/21 04:00 37.7 C H 61 26 H 93 05/12/21 03:03 58 L 24 92 05/12/21 03:00 37.7 C H 53 L 26 H 93 05/12/21 02:00 37.7 C H 52 L 26 H 94 05/12/21 01:00 37.7 C H 53 L 26 H 94 05/12/21 00:00 37.8 C H 51 L 26 H 92 05/11/21 23:39 52 L 26 H 94 05/11/21 23:00 54 L 30 H 95 05/11/21 22:00 52 L 26 H 93 Critical Care Results & Data Vital Signs (Past 12 Hours) Vital Signs Temp Pulse Pulse Resp Pulse Ox 05/12/21 08:55 75 20 93 05/12/21 07:25 58 L 24 91 05/12/21 06:00 37.6 C H 56 L 24 92 05/12/21 05:00 37.7 C H 55 L 26 H 93 05/12/21 04:00 37.7 C H 61 26 H 93 05/12/21 03:03 58 L 24 92 05/12/21 03:00 37.7 C H 53 L 26 H 93 05/12/21 02:00 37.7 C H 52 L 26 H 94 05/12/21 01:00 37.7 C H 53 L 26 H 94 05/12/21 00:00 37.8 C H 51 L 26 H 92 05/11/21 23:39 52 L 26 H 94 05/11/21 23:00 54 L 30 H 95 05/11/21 22:00 52 L 26 H 93 Lab & Micro Results (Past 24 Hours) RBC 2.77 M/uL (4.7-6.1) L 05/12/21 WBC 6.55 K/uL (4.8-10.8) 05/12/21 Hgb 8.0 g/dL (14.0-18.0) L 05/12/21 Hct 25.6 % (42-52) L 05/12/21 MCV 92.4 fL (80-100) 05/12/21 MCH 28.9 pg (25-34) 05/12/21 MCHC 31.3 g/dL (32-36) L 05/12/21 RDW Standard Deviation 50.6 fL (36.4-46.3) H 05/12/21 RDW Coefficient of Variation 15.1 % (11.5-14.5) H 05/12/21 Plt Count 136 K/uL (130-400) 05/12/21 MPV 10.5 fL (7.4-10.4) H 05/12/21 Neutrophils (%) (Auto) 80.7 % 05/12/21 Lymphocytes (%) (Auto) 8.4 % 05/12/21 Monocytes # (Auto) 0.53 K/uL (0.11-0.59) 05/12/21 Eosinophils # (Auto) 0.13 K/uL (0-0.5) 05/12/21 Immature Granulocyte % (Auto) 0.6 % 05/12/21 Neutrophils # (Auto) 5.29 K/uL (1.4-6.5) 05/12/21 Lymphocytes # (Auto) 0.55 K/uL (1.2-3.4) L 05/12/21 Monocytes # (Auto) 0.53 K/uL (0.11-0.59) 05/12/21 Eosinophils # (Auto) 0.13 K/uL (0-0.5) 05/12/21 Basophils # (Auto) 0.01 K/uL (0-0.2) 05/12/21 Immature Granulocyte # (Auto) 0.04 K/uL (0.00-0.02) H 05/12/21 Na 145 mmol/L (136-145) 05/12/21 K 4.0 mmol/L (3.5-5.1) 05/12/21 Cl 115 mmol/L (98-107) H 05/12/21 CO2 23 mmol/L (21-32) 05/12/21 Anion Gap 7.0 (3-11) 05/12/21 BUN 36 mg/dl (7-18) H 05/12/21 Creatinine 0.90 mg/dl (0.6-1.4) 05/12/21 Estimated GFR ( Amer) 97.2 ml/min 05/12/21 Estimated GFR (Non-Af Amer) 83.8 ml/min 05/12/21 BUN/Creatinine Ratio 40.2 (10-20) H 05/12/21 Glu 128 mg/dl (70-99) H 05/12/21 Ca 9.3 mg/dl (8.5-10.1) 05/12/21 Phosphorus Level 3.0 mg/dl (2.5-4.9) 05/12/21 Mg 2.5 mg/dl (1.8-2.4) H 05/12/21 04:25 05/12/21 Calcium Level 9.3 mg/dl (8.5-10.1) 05/12/21 04:25 05/12/21 Antonio Test NA 05/12/21 05:16 05/12/21 Microbiology 05/10/21 04:44 Aerobic Blood Culture - Preliminary Blood No growth in Aerobic bottle after 48 hours. Anaerobic Blood Culture - Preliminary No growth in Anaerobic bottle after 48 hours. 05/10/21 04:31 Aerobic Blood Culture - Preliminary Blood No growth in Aerobic bottle after 48 hours. Anaerobic Blood Culture - Preliminary No growth in Anaerobic bottle after 48 hours. 05/05/21 14:00 Acid Fast Bacilli Smear - Final Pleural Fluid Acid Fast Bacilli Culture - Preliminary No Acid-Fast Bacilli Isolated - Report 1, Additional Report to Follow. 05/05/21 14:00 Gram Stain - Final Pleural Fluid Aerobic and Anaerobic Culture - Final Coag neg staph not lugdunensis Diagnostic Findings (Past 24 Hours) Chest CT 05/11/21 09:33 CT chest diagnostic w con CLINICAL HISTORY: empyema follow up . Follow-up airspace opacities in previous pneumomediastinum. COMPARISON STUDY: 05/05/2021 and portable chest radiograph from 05/11/2021 CT DOSE: 1058.38 mGy.cm TECHNIQUE: Standard CT of the Chest was performed with IV contrast. A dose lowering technique was utilized adhering to the principles of ALARA. Contrast Volume: Optiray 320, 94 ml FINDINGS: Endotracheal tube and enteric tubes are again seen. Airway: The airway is clear. No endobronchial lesion is identified. Lungs and pleural: Compared to previous examination, extensive interstitial and alveolar opacities are again seen bilaterally. There is again bilateral lower lobe atelectasis/collapse, left greater than right. Left-sided chest tube is again seen. There has been resolution of the majority of the patient's left pleural effusion. However, there is now a focal air collection seen at the left lung base with the findings representing a small hydropneumothorax. There is no evidence for right pleural effusion. Mediastinum: There has been interval recurrence of pneumomediastinum. No definite pneumopericardium is seen. There is no evidence for pathologic adenopathy. The heart size is within normal limits. The thoracic aorta is within normal limits. There is no evidence for pericardial effusion. While this study was not performed as a CTA, the pulmonary vasculature is well enhanced with no evidence for pulmonary embolus. Upper abdomen: The adrenal glands are normal bilaterally. Osseous structures: There is no acute osseous pathology. IMPRESSION: 1. Compared to the previous examinations, extensive interstitial and alveolar opacities are again seen bilaterally. There are no significant emphysematous changes present. 2. Left-sided chest tube has drained the majority of the previously identified left pleural effusion. However, there is now a small hydropneumothorax at the left lung base. 3. Interval recurrence of pneumomediastinum. ACT 112: Negative or not required by law. Electronically signed by: Taz Gavin M.D. 05/11/2021 12:46 PM I & O Totals 24 Hours 05/11/21 05/12/21 05/13/21 06:59 06:59 06:59 Intake Total 1903.701 / 1903.701 972.792 / 972.792 18.198 / 18.198 Output Total 1300 / 1300 1551 / 1551 Balance 603.701 / 603.701 -578.208 / -578.208 18.198 / 18.198 Cumulative 04/18/21 05:46 thru 05/12/21 07:05 Intake Total 25563.872 Output Total 99511 Balance -8427.128 RT Ventilator Mngmt (Last Documented) Ventilator Ordered Settings Ventilator Support Mode Assist Control 05/12/21 07:25 Respiratory Rate 20 05/12/21 08:55 Ventilator Tidal Volume 430 05/12/21 07:25 Setting Minute Ventilation 10 05/12/21 07:25 Ventilator Positive Pressure 10 05/11/21 11:15 Support Setting Positive End Expiratory 8 05/12/21 07:25 Pressure Fraction of Inspired Oxygen 100 05/12/21 08:55 Peak Inspiratory Flow 49 05/06/21 19:01 Machine Comment Settings changed post ABG 05/12/21 03:03 Ventilator - PT Measurements Respiratory Rate 20 Exhaled Tidal Volume 421 Minute Ventilation 10 Peak Inspiratory Airway 25 Pressure Plateau Pressure 19 Respiratory Cycle Inspiratory: 1:2.6 Expiratory Ratio Inspiratory Phase Time 0.7 End-Tidal CO2 25 Static Lung Compliance 38.27 Dynamic Lung Compliance 24.76 Normal Static Lung Compliance 46.00 Patient Measurements Comment 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 Leak noted. ETT repositioned to right side to lessen leak. Coding Level of Care Code 65165 Subseq Hosp Care Lvl 3 Diagnoses COVID-19 U07.1 Pneumomediastinum J98.2 Pleural effusion J90 Acute respiratory failure with hypoxia J96.01
--- NOTE | 2021-05-12 10:01 | XRay Report ---
XR chest 1V portable CLINICAL HISTORY: f/u TECHNIQUE: Single frontal radiograph of the chest was obtained. Comparison: Comparison is made to chest one view 05/11/2021 FINDINGS: Lines and tubes are stable. The cardiomediastinal silhouette is normal. Multifocal airspace opacities are seen. Small left pleural effusion, possibly slightly improved from prior exam. IMPRESSION: Possibly slightly improved small left pleural effusion. Multifocal airspace opacities are unchanged. ACT 112: Negative or not required by law. Electronically signed by: Jose Christensen M.D. 05/12/2021 10:00 AM
--- NOTE | 2021-05-12 10:08 | Pharmacy Report ---
Pharmacy Glycemic Short Note 2 - Date of Service May 12, 2021 - Glycemic Short BSG Results (Last 24 hours): 05/11/21 05/11/21 05/11/21 13:24 17:01 20:54 Glucose POC Glucose 169 H 169 H 128 H 05/12/21 05/12/21 05/12/21 00:00 03:56 04:25 Glucose 128 H POC Glucose 127 H 122 H 05/12/21 08:16 Glucose POC Glucose 130 H OUTPATIENT ANTIDIABETIC REGIMEN: * Canagliflozin 100MG PO daily * Glipizide ER 2.5 mg PO daily * HbA1c: 8.3% (04/19/21) ASSESSMENT: 05/11: * BSGs well controlled over the last 24 hours. Patient received 15 units of Lantus and 10 units of Novolog yesterday. * Fasting BSG well controlled at 130 mg/dL this AM. Patient has been extubated to [facility]. * No changes needed to insulin regimen. 05/10: * Family declining trach. Possible extubation planned. Tubefeeds on hold since yesterday PM and ongoing hold today for possible extubation. * BSG below goal this AM - will hold Lantus as tubefeeds are being held. OK to resume tonight, but at ~50% of prior * No changes to Novolog needed 05/09: * BSG's persistently elevated yesterday - unknown etiology. * However, dexamethasone decreased today and tubefeeds will be on hold for anticipated trach. Therefore will not make adjustments to Novolog as the decrease in dexamethasone is likely to increase sensitivity. Will also decrease Lantus in response to possible tubefeeds being held 05/08: * BSGs well controlled last 48 hrs * Multiple BSGs less than 140 yesterday and one overnight BSG in 80s- will scale back Lantus dose as a precaution. Dexamethasone IV dose will be scaled back tomorrow as well, another reason for proactively reducing basal. * Noon BSG unexpectedly elevated (242), uncertain why this may be, and rather than acting upon this one outlier - will wait for further BSGs to guide treatment decisions. * Pt remains intubated, sedated and is receiving low dose norepi off and on. Peptamen P running at 70cc/hr PLAN FOR INPATIENT GLYCEMIC CONTROL: * Hold outpatient oral diabetes medications * Basal insulin * Lantus 5-10 units SC BID * Bolus insulin: * NovoLog per scale Q 4 hrs * Goal Range: Low 110 mg/dL - High 140 mg/dL * Correction Factor: 10 mg/dL/unit * Nutritional / Prandial insulin per carb ratio of 1 unit per 3 grams CHO provided in tube feeds PLAN FOR DISCHARGE: * HbA1c of 8.3% is elevated * Reasonable goal may be less than 8% given multiple comorbidities * Options limited based on CKD and reported intolerance to metformin * Continue current outpatient regimen * with eGFR 30-59 mL/min do not exceed Invokana 100 mg daily. * Could consider addition of Lantus 15 units QAM
[2021-05-12] MEDS: HEPARIN SOD 5,000 UNIT/0.5 ML VIAL SQ SCH ×2 (10:15→20:18)
[2021-05-12] MEDS: PANTOprazole 40 MG in SYRINGE 0 ML IV SCH (10:17)
[2021-05-12] MEDS: SENNOSIDES 8.8 MG/5 ML UDC PO SCH ×2 (10:17→20:18)
[2021-05-12] MEDS: INSULIN GLARGINE SOLOSTAR 100 UNITS/ML 3 ML PEN SC SCH ×2 (10:18→20:19)
[2021-05-12] MEDS: LACTULOSE SYRUP 20 GM/30 ML UDC PO SCH (10:18)
[2021-05-12] MEDS: clonazePAM 1 MG TAB PO SCH (10:21)
[2021-05-12] MEDS: fentaNYL DRIP 1,250 MCG/250 ML BAG IV SCH ×3 (10:37→10:41)
[2021-05-12] MEDS: propofoL 1,000 MG/100 ML VIAL IV SCH (10:37)
[2021-05-12] MEDS: LORazepam 0.5 MG/1 ML VIAL IV PRN ×3 (12:28→23:39)
[2021-05-12] MEDS: hydrALAZINE HCL 20 MG/ML VIAL IV PRN (14:44)
--- NOTE | 2021-05-12 19:04 | Hospitalist Progress Note ---
Date of Service May 12, 2021 Assessment & Plan (1) Acute respiratory failure with hypoxia: Plan: Patient is in acute respiratory failure. Was mechanically ventilated, with ARDS. Extubated on 05/12 after found to have ET tube cuff leak, but had been intubated for 12 to 13 days at that point Prognosis is poor Pneumomediastinum, left sided pleural effusion/hemothorax Now on high flow nasal cannula with tachypnea, tachycardia Chest CT on 05/11 with hydrothorax and possible necrotic area not contiguous with previous pigtail catheter which has since been removed on 05/12 Previous hospitalist spoke with at bedside on 05/09, she agreed that patient would not want a tracheostomy Patient's and son plan coming in on 05/13 and considering comfort measures if respiratory status declines. They would want him reintubated if he decompensates overnight on 05/12 so that they can see him before he passes away. (2) Pleural effusion: Plan: chest tube placed 05/[address] Temple, bloody drainage, hemothorax Growing coagulase-negative Staphylococcus resistant only to erythromycin Continue Unasyn, but previously was on Zosyn Chest CT as above May need drainage of possible necrotic area that was previously not contiguous with pigtail catheter Pigtail catheter now removed (3) COVID-19: Plan: completed course of Remdesivir Completed dexamethasone taper treated secondary bacterial pneumonia with parapneumonic effusion with Zosyn and now with Unasyn as above (4) Multilobar lung infiltrate: Plan: as above. (5) Weakness: Plan: Appears to be due to the severity of his Covid pneumonia/hypoxiasee above will need PT/OT if survives (6) CKD (chronic kidney disease) stage 3, GFR 30-59 ml/min: Plan: Continue to follow creatininestable at this time, Lasix per ICU staff Renal function stable, making urine (7) Coronary artery disease: Plan: No angina, continue to monitor (8) Sleep apnea: Plan: intubated and ventilated, now that is extubated continues high flow nasal cannu la or CPAP as needed (9) Hypertension: Plan: Blood pressures are acceptable given situation Holding home irbesartan (10) Diabetes: Plan: Poorly controlled at baseline as well as acutely. continue to adjust insulinspharmacy is managing at this time (11) Lumbar stenosis with neurogenic claudication: Plan: sedated (12) DVT prophylaxis: Plan: heparin GI prophylaxis-IV PPI FEN-tube feeds on hold for extubation and in case of need for re intubation (13) Discharge planning issues: Plan: Very guarded prognosis, and son coming in on 05/13 to see him and make final decisions about goals of care No trach desired Admission and Anticipated Discharge Date Admission Date: April 18, 2021 Subjective Patient was extubated this morning after being noted to have a large ET tube cuff leak. Since then, he has been on high flow nasal cannula and is having great difficulty clearing secretions from the back of his throat. He is not able to verbalize anything. When I asked if he had pain, he grunted but was not able to tell me or show me where he was hurting. Review of Systems Review of Systems: Unobtainable due to cognitive status Physical Exam Constitutional: WD/WN, vitals as above + ill appearing Eyes: + anicteric sclerae ENMT: Mouth: + oral mucosal abnormality (Thick exudate over tongue and mucosa, lips) Neck: trachea midline, no thyromegaly Respiratory: + cough (With deep suctioning) and + tachypneic Auscultation: + crackles (Bases bilaterally) and + rhonchi (Bilateral); no wheezes Cardiovascular: Rate/Rhythm: regular rate and regular rhythm Extremities: + edema (Trace pitting edema in hands and feet) Chest (Breasts): Chest: normal inspection of chest Gastrointestinal (Abdomen): normal bowel sounds, soft, nontender, no hepatosplenomegaly Musculoskeletal: Extremities: extremities normal to inspection; no cyanosis and no clubbing Skin: no rashes, warm and dry Neurologic: awake and + confused Speech / Cognition: + abnormal speech (Grunting) Moving all 4 extremities Genitourinary: Santiago catheter in place draining dark brown urine with sediment Results & Data Results & Data ([facility]) Vital Signs (Past 12 Hours) Vital Signs Temp Pulse Pulse Pulse Resp BP Pulse Ox 05/12/21 18:21 120 H 23 90 05/12/21 17:00 38.1 C H 117 H 20 96 05/12/21 16:00 38.1 C H 124 H 23 159/56 H 85 L 05/12/21 15:00 38.1 C H 120 H 19 89 L 05/12/21 14:45 110 H 24 92 05/12/21 14:00 38.1 C H 105 H 36 H 90 05/12/21 13:00 38.0 C H 87 24 96 05/12/21 12:00 37.7 C H 99 H 24 159/56 H 92 05/12/21 11:40 92 H 27 H 92 05/12/21 11:05 99 H 21 89 L 05/12/21 11:00 37.4 C 88 21 86 L 05/12/21 10:39 100 H 171/62 H 05/12/21 10:00 37.4 C 77 18 93 05/12/21 09:00 37.5 C 99 H 16 86 L 05/12/21 08:55 75 20 93 05/12/21 08:00 37.6 C H 56 L 24 158/56 H 91 05/12/21 07:25 58 L 24 91 Laboratory Results 05/12/21 04:25 05/12/21 04:25 PG Care Time/CCT Total # of Minutes Spent Total Time Spent with Patient: Total time spent is greater than 50% in coordination of care (as documented) at patient's floor/unit and/or counseling patient: Coding Level of Care Code 72342 Subseq Hosp Care Lvl 2 Diagnoses Acute respiratory failure with hypoxia J96.01 Pleural effusion J90 COVID-19 U07.1 Multilobar lung infiltrate R91.8 Weakness R53.1 CKD (chronic kidney disease) stage 3, GFR 30-59 ml/min N18.3 Coronary artery disease I25.10 Sleep apnea G47.30 Hypertension I10 Diabetes E11.9 Lumbar stenosis with neurogenic claudication M48.062 DVT prophylaxis Z29.9 Discharge planning issues Z02.9
[2021-05-12] MEDS: ACETAMINOPHEN 1000 MG/100 ML IV IV PRN (19:23)
[2021-05-12] MEDS: PRAVASTATIN SOD 40 MG TAB PO SCH (20:17)
[2021-05-12] MEDS ORDERED: MIRTAZAPINE TAB 15 MG TAB PO SCH (21:00)
[2021-05-13] MEDS: hydrALAZINE HCL 20 MG/ML VIAL IV PRN (00:24)
[2021-05-13] MEDS: DEXMEDETOMIDINE HCL 200 MCG in SODIUM CHLORIDE 0.9% 48 ML IV SCH ×3 (01:45→08:55)
[2021-05-13] MEDS: TUBE FEEDING WATER FLUSH OG SCH ×3 (03:03→11:02)
[2021-05-13] MEDS: ACETAMINOPHEN 1000 MG/100 ML IV IV PRN ×2 (03:03→11:41)
[2021-05-13 04:39] LABS: iSTAT Allen Test Pass; iSTAT Arterial Blood Gas HCO3 24 meg/L (19-24); iSTAT Arterial Blood Gas pCO2 32 mmHg (35-46); iSTAT Arterial Blood Gas pH 7.47 (7.35-7.45); iSTAT Arterial Blood Gas pO2 82 mmHg (80-95); iSTAT Carbon Dioxide 24 mmol/L (24-31); iSTAT FiO2 75 %; iSTAT Site Art Line
[2021-05-13] MEDS: INSULIN ASPART 100 UNITS/ML VIAL SC SCH ×3 (05:01→11:41)
[2021-05-13] MEDS: AMPICILLIN/SULBACTAM SOD 3,000 MG in 0.9 % SODIUM CHLORIDE 100 ML IV SCH ×2 (05:02→11:41)
[2021-05-13 06:12] LABS: Hematocrit (blood only) 28.6 % (42-52); Hemoglobin 9.1 g/dL (14.0-18.0); Mean Corpuscular Hemoglobin 29.4 pg (25-34); Mean Corpuscular Hgb Conc 31.8 g/dL (32-36); Mean Corpuscular Volume 92.3 fL (80-100); Mean Platelet Volume 9.9 fL (7.4-10.4); Platelet Count 219 K/uL (130-400); RDW Coefficient of Variation 15.5 % (11.5-14.5); White Blood Count 8.29 K/uL (4.8-10.8)
[2021-05-13 06:41] LABS: BUN Creatinine Ratio 27.3 (10-20); Calcium 9.1 mg/dl (8.5-10.1); Creatinine Clr Calc Pharmacy 97.5 ml/min; Est GFR (African American) 102.5 ml/min; Est GFR (Non-African American) 88.5 ml/min; Magnesium 2.4 mg/dl (1.8-2.4); Phosphorus 2.3 mg/dl (2.5-4.9); Potassium 3.6 mmol/L (3.5-5.1)
[2021-05-13] MEDS: ICU ELECTROLYTE REPLACEMENT PROTOCOL SCH (06:46)
[2021-05-13 07:01] LABS: Basophils # (auto) 0.01 K/uL (0-0.2); Basophils % (auto) 0.1 %; Eosinophils # (auto) 0.17 K/uL (0-0.5); Eosinophils % (auto) 2.1 %; Immature Granulocytes # (auto) 0.09 K/uL (0.00-0.02); Immature Granulocytes % (auto) 1.1 %; Lymphocytes # (auto) 0.55 K/uL (1.2-3.4); Lymphocytes % (auto) 6.6 %; Monocytes # (auto) 0.68 K/uL (0.11-0.59); Monocytes % (auto) 8.2 %; Neutrophils # (auto) 6.79 K/uL (1.4-6.5); Neutrophils % (auto) 81.9 %
[2021-05-13] MEDS: HEPARIN SOD 5,000 UNIT/0.5 ML VIAL SQ SCH (08:08)
[2021-05-13] MEDS: LACTULOSE SYRUP 20 GM/30 ML UDC PO SCH (08:08)
[2021-05-13] MEDS: SENNOSIDES 8.8 MG/5 ML UDC PO SCH (08:08)
[2021-05-13] MEDS: PANTOprazole 40 MG in SYRINGE 0 ML IV SCH (08:08)
[2021-05-13] MEDS: INSULIN GLARGINE SOLOSTAR 100 UNITS/ML 3 ML PEN SC SCH (08:09)
[2021-05-13] MEDS: LORazepam 0.5 MG/1 ML VIAL IV PRN ×4 (08:54→21:21)
--- NOTE | 2021-05-13 09:03 | XRay Report ---
XR chest 1V portable HISTORY: Hypoxia. Follow-up. Pneumonia. COMPARISON: Chest 05/12/2021. FINDINGS: No pneumothorax. No pleural effusions. The heart remains mildly enlarged. There are low steve g volumes. Left subclavian central venous catheter extends slightly cephalad and likely terminates at the brachiocephalic/SVC junction. This could also terminate in the azygos vein. This remains unchang ed in position. Nasogastric tube terminates below the diaphragm. The tip is not included on this stud y. Bilateral patchy airspace opacities have slightly progressed within the left lower lobe. IMPRESSION: 1. Bilateral patchy airspace opacities are again noted and is slightly progressed within the left low er lobe. This likely represents a viral pneumonia. 2. Lines and tubes remain unchanged in position as described above. ACT 112: Negative or not required by law. Electronically signed by: Carlton Odonnell M.D. 05/13/2021 9:02 AM
[2021-05-13] MEDS ORDERED: POTASSIUM PHOS 3 MMOL/1 ML INFUSION IV STA (09:06)
[2021-05-13] MEDS ORDERED: POTASSIUM PHOSPHATE 15 MMOL in SODIUM CHLORIDE 0.9% 250 ML IV ONE (10:00)
--- NOTE | 2021-05-13 11:16 | Critical Care Progress Note ---
Date of Service May 13, 2021 Assessment & Plan (1) COVID-19: (2) Pneumomediastinum: (3) Pleural effusion: (4) Acute respiratory failure with hypoxia: Plan: (1) Multilobar lung infiltrate: (2) Acute respiratory failure with hypoxia: (3) Pleural effusion: (4) Septic shock: (5) Pneumomediastinum: (6) COVID-19: (7) CKD (chronic kidney disease) stage 3, GFR 30-59 ml/min: (8) HTN (hypertension), benign: (9) Hemothorax (10) Pneumomediastinum Impression: 75-year-old male with a history of coronary disease chronic kidney disease prior CVA and sleep apnea. He was admitted 04/18. He initially refused all interventions but eventually became noncompliant with oxygen or CPAP and was ripping it off which point the patient was intubated at the request of his family. Intubation was accomplished 04/30/2021. 24-hour events: Patient was extubated to high flow oxygen and BiPAP intermittently. He is required frequent NT suctioning as well as deep oropharyngeal suctioning overnight. This morning he is awake and in mild distress but is able to communicate. He nods his head yes and no appropriately to questions. When I asked him if he just wants to be kept comfortable he nods his head yes. Recommendations: Neurologic: We will focus on palliative care measures at this point time. Pulmonary: Covid pneumonitis with secondary associated hemothorax and probable empyema. The patient declines additional interventions. No indication for repeat intubation tracheostomy or pigtail catheter placement. Oxygen may be continued as a palliative measure. Cardiovascular:Discontinue arterial line Gastrointestinal: Discontinue nasogastric tube ENDO:No issues Renal:See below Infectious disease: Staph empyema with persistent cavitary or necrotic pleural space. Aggressive intervention would require repeat chest tube placement versus video-assisted thoracoscopic evaluation. This would likely necessitate intubation for the patient. He declines these interventions. Will defer to the primary service and discussion with family as to whether or not antibiotics should be continued or not. Hematologic:Mild anemia and thrombocytopenia. Stable. No indication for acute transfusion currently. SCDs and subcu heparin 5000 twice daily. CODE STATUS:DNR/DNI Based on my discussion with the patient at bedside witnessed by the ICU nurse, the patient does not want aggressive interventions currently and wishes to focus on being kept comfortable. I think this is wholly reasonable. We will increase his Ativan and use morphine on an as-needed basis. Will defer to the hospitalist service as to whether or not drips are required. Palliative care is not available today. I did update the patient's by phone. She expressed understanding and is in agreement with Mr. Wagner decision. They are going to be coming in in a few hours to visit with the patient. The patient is appropriate to transfer out of the intensive care unit. We will sign off at this point in time. Feel free to contact us if we can be of additional assistance 50 minutes critical care time including end-of-life discussions with patient and family and reviewing patient on multidisciplinary rounds and in discussion with bedside critical care nurse and respiratory therapy. Admission and Anticipated Discharge Date Admission Date: April 18, 2021 Subjective Met with patient at bedside with ICU nurse in attendance. He has been extubated but is having a somewhat tenuous course requiring high flow, NT suctioning, and oropharyngeal suctioning. He remains tachycardic and tachypneic with borderline oxygen saturations. We discussed reintubation and he shakes his head no indicating that he would not want reintubation. When I asked him if he understands that this means that he may pass away he shakes his head yes. We discussed additional invasive procedures including chest tubes. He again indicates that he does not want these interventions to be undertaken. When I ask him if he wants to be kept comfortable he shakes his head yes. Review of Systems Review of Systems: Limited due to patient's physical deconditioning in general medical status Physical Exam Constitutional: WD/WN, vitals as above + acute distress and + ill appearing Neck: trachea midline, no thyromegaly Respiratory: normal respiratory effort, lungs clear to auscultation Cardiovascular: RRR, no murmur, no edema Gastrointestinal (Abdomen): normal bowel sounds, soft, nontender, no hepatosplenomegaly Musculoskeletal: Extremities: extremities normal to inspection Skin: no rashes, warm and dry Lymphatic: no cervical lymphadenopathy Results & Data Results & Data ([facility]) Vital Signs (Past 12 Hours) Vital Signs Temp Pulse Pulse Pulse Resp BP Pulse Ox 05/13/21 10:56 116 H 26 H 89 L 05/13/21 08:00 38.2 C H 123 H 20 141/76 H 87 L 05/13/21 07:00 38.1 C H 118 H 31 H 91 05/13/21 06:45 38.1 C H 121 H 27 H 90 05/13/21 06:16 119 H 30 H 92 05/13/21 06:00 38.1 C H 118 H 25 H 92 05/13/21 05:00 38.2 C H 116 H 21 94 05/13/21 04:00 38.4 C H 114 H 26 H 97 05/13/21 03:00 38.5 C H 113 H 26 H 95 05/13/21 02:47 121 H 30 H 97 05/13/21 02:00 38.4 C H 114 H 26 H 97 05/13/21 01:00 38.3 C H 113 H 25 H 93 05/13/21 00:00 38.2 C H 112 H 22 99 05/12/21 23:15 113 H 22 100 Critical Care Results & Data Vital Signs (Past 12 Hours) Vital Signs Temp Pulse Pulse Pulse Resp BP Pulse Ox 05/13/21 10:56 116 H 26 H 89 L 05/13/21 08:00 38.2 C H 123 H 20 141/76 H 87 L 05/13/21 07:00 38.1 C H 118 H 31 H 91 05/13/21 06:45 38.1 C H 121 H 27 H 90 05/13/21 06:16 119 H 30 H 92 05/13/21 06:00 38.1 C H 118 H 25 H 92 05/13/21 05:00 38.2 C H 116 H 21 94 05/13/21 04:00 38.4 C H 114 H 26 H 97 05/13/21 03:00 38.5 C H 113 H 26 H 95 05/13/21 02:47 121 H 30 H 97 05/13/21 02:00 38.4 C H 114 H 26 H 97 05/13/21 01:00 38.3 C H 113 H 25 H 93 05/13/21 00:00 38.2 C H 112 H 22 99 05/12/21 23:15 113 H 22 100 Lab & Micro Results (Past 24 Hours) RBC 3.10 M/uL (4.7-6.1) L 05/13/21 WBC 8.29 K/uL (4.8-10.8) 05/13/21 Hgb 9.1 g/dL (14.0-18.0) L 05/13/21 Hct 28.6 % (42-52) L 05/13/21 MCV 92.3 fL (80-100) 05/13/21 MCH 29.4 pg (25-34) 05/13/21 MCHC 31.8 g/dL (32-36) L 05/13/21 RDW Standard Deviation 52.0 fL (36.4-46.3) H 05/13/21 RDW Coefficient of Variation 15.5 % (11.5-14.5) H 05/13/21 Plt Count 219 K/uL (130-400) 05/13/21 MPV 9.9 fL (7.4-10.4) 05/13/21 Neutrophils (%) (Auto) 81.9 % 05/13/21 Lymphocytes (%) (Auto) 6.6 % 05/13/21 Monocytes # (Auto) 0.68 K/uL (0.11-0.59) H 05/13/21 Eosinophils # (Auto) 0.17 K/uL (0-0.5) 05/13/21 Immature Granulocyte % (Auto) 1.1 % 05/13/21 Neutrophils # (Auto) 6.79 K/uL (1.4-6.5) H 05/13/21 Lymphocytes # (Auto) 0.55 K/uL (1.2-3.4) L 05/13/21 Monocytes # (Auto) 0.68 K/uL (0.11-0.59) H 05/13/21 Eosinophils # (Auto) 0.17 K/uL (0-0.5) 05/13/21 Basophils # (Auto) 0.01 K/uL (0-0.2) 05/13/21 Immature Granulocyte # (Auto) 0.09 K/uL (0.00-0.02) H 05/13/21 Na 145 mmol/L (136-145) 05/13/21 K 3.6 mmol/L (3.5-5.1) 05/13/21 Cl 115 mmol/L (98-107) H 05/13/21 CO2 24 mmol/L (21-32) 05/13/21 Anion Gap 6.0 (3-11) 05/13/21 BUN 22 mg/dl (7-18) H 05/13/21 Creatinine 0.79 mg/dl (0.6-1.4) 05/13/21 Estimated GFR ( Amer) 102.5 ml/min 05/13/21 Estimated GFR (Non-Af Amer) 88.5 ml/min 05/13/21 BUN/Creatinine Ratio 27.3 (10-20) H 05/13/21 Glu 115 mg/dl (70-99) H 05/13/21 Ca 9.1 mg/dl (8.5-10.1) 05/13/21 Phosphorus Level 2.3 mg/dl (2.5-4.9) L 05/13/21 Mg 2.4 mg/dl (1.8-2.4) 05/13/21 05:44 05/13/21 Calcium Level 9.1 mg/dl (8.5-10.1) 05/13/21 05:44 05/13/21 Antonio Test Pass 05/13/21 04:16 05/13/21 Diagnostic Findings (Past 24 Hours) Chest X-Ray 05/13/21 07:00 XR chest 1V portable HISTORY: Hypoxia. Follow-up. Pneumonia. COMPARISON: Chest 05/12/2021. FINDINGS: No pneumothorax. No pleural effusions. The heart remains mildly enlarged. There are low lung volumes. Left subclavian central venous catheter extends slightly cephalad and likely terminates at the brachiocephalic/SVC junction. This could also terminate in the azygos vein. This remains unchanged in position. Nasogastric tube terminates below the diaphragm. The tip is not included on this study. Bilateral patchy airspace opacities have slightly progressed within the left lower lobe. IMPRESSION: 1. Bilateral patchy airspace opacities are again noted and is slightly progressed within the left lower lobe. This likely represents a viral pneumonia. 2. Lines and tubes remain unchanged in position as described above. ACT 112: Negative or not required by law. Electronically signed by: Carlton Odonnell M.D. 05/13/2021 9:02 AM I & O Totals 24 Hours 05/12/21 05/13/21 05/14/21 06:59 06:59 06:59 Intake Total 972.792 / 972.792 602.000 / 602.000 Output Total 1551 / 1551 1400 / 1400 Balance -578.208 / -578.208 -798.000 / -798.000 Cumulative 04/18/21 05:46 thru 05/13/21 06:00 Intake Total 50299.674 Output Total 90390 Balance -9243.326 RT Ventilator Mngmt (Last Documented) Ventilator Ordered Settings Ventilator Support Mode Assist Control 05/12/21 07:25 Respiratory Rate 26 05/13/21 10:56 Ventilator Tidal Volume 430 05/12/21 07:25 Setting Minute Ventilation 10 05/12/21 07:25 Ventilator Positive Pressure 10 05/11/21 11:15 Support Setting Positive End Expiratory 8 05/12/21 07:25 Pressure Fraction of Inspired Oxygen 65 05/13/21 10:56 Peak Inspiratory Flow 49 05/06/21 19:01 Machine Comment Settings changed post ABG 05/12/21 03:03 Ventilator - PT Measurements Respiratory Rate 26 Exhaled Tidal Volume 421 Minute Ventilation 10 Peak Inspiratory Airway 25 Pressure Plateau Pressure 19 Respiratory Cycle Inspiratory: 1:2.6 Expiratory Ratio Inspiratory Phase Time 0.7 End-Tidal CO2 25 Static Lung Compliance 38.27 Dynamic Lung Compliance 24.76 Normal Static Lung Compliance 46.00 Patient Measurements Comment Hemostat in place on agricultural aircraft pilot balloon line due to blown cuff. Leak noted. ETT repositioned to right side to lessen leak. Coding Level of Care Code Critical Care 1st 30-74 mins Diagnoses COVID-19 U07.1 Pneumomediastinum J98.2 Pleural effusion J90 Acute respiratory failure with hypoxia J96.01 Time Spent (min) 50
[2021-05-13] MEDS ORDERED: MoRPHine SULFATE 2 MG/ML CARP IV PRN (11:35)
[2021-05-13] MEDS ORDERED: ONDANSETRON 4 MG OD TAB SL PRN (11:35)
[2021-05-13] MEDS ORDERED: LORazepam 0.5 MG TAB PO PRN (11:35)
[2021-05-13] MEDS ORDERED: MoRPHine SULFATE 5 MG/0.25 ML UDP PO PRN (11:35)
[2021-05-13] MEDS ORDERED: ONDANSETRON INJ 2 MG/ML 2 ML VIAL IV PRN (11:35)
--- NOTE | 2021-05-13 11:46 | Hospitalist Progress Note ---
Date of Service May 13, 2021 Assessment & Plan (1) Acute respiratory failure with hypoxia: Plan: Patient is in acute respiratory failure. Was mechanically ventilated, with ARDS. Extubated on 05/12 after found to have ET tube cuff leak, but had been intubated for 12 to 13 days at that point Prognosis is poor Pneumomediastinum, left sided pleural effusion/hemothorax Transitioned to high flow nasal cannula with tachypnea, tachycardia Chest CT on 05/11 with hydrothorax and possible necrotic area not contiguous with previous pigtail catheter which has since been removed on 05/12 Previous hospitalist spoke with at bedside on 05/09, she agreed that patient would not want a tracheostomy Patient's and son plan coming in on 05/13 and pt has now been able to verbalize that he wants to pursue HEAD ATHLETIC TRAINER/STRENGTH COACH, no reintubation Downgrade to medical, dc all needle sticks, no glucose checks, no meds other than for comfort. Start morphine IV and po prn pain or breathlessness, ativan for agitation prn, atropine for secretions, tylenol for fevers Will dc antibiotics as well Maintain left IJ CVC as is functioning well and does not seem ot be causing discomfort, but if becomes uncomfortable or risk for pulling it out, will dc (2) Pleural effusion: Plan: chest tube placed 05/[address] Temple, bloody drainage, hemothorax Growing coagulase-negative Staphylococcus resistant only to erythromycin previously was on Zosyn and then switched to Unasyn Continues with fevers daily Chest CT as above Would need drainage of possible necrotic area that was previously not contiguous with pigtail catheter, but pt now declines any further procedures as per his discussion with Associate Director Pigtail catheter now removed dc abx (3) COVID-19: Plan: completed course of Remdesivir Completed dexamethasone taper treated secondary bacterial pneumonia with parapneumonic effusion with Zosyn and then with Unasyn as above (4) Multilobar lung infiltrate: Plan: as above. (5) Weakness: Plan: Appears to be due to the severity of his Covid pneumonia/hypoxiasee above transition to HEAD ATHLETIC TRAINER/STRENGTH COACH (6) CKD (chronic kidney disease) stage 3, GFR 30-59 ml/min: Plan: emani mclaughlin no further labs on HEAD ATHLETIC TRAINER/STRENGTH COACH (7) Coronary artery disease: Plan: No angina,dc home meds (8) Sleep apnea: Plan: no CPAP on HEAD ATHLETIC TRAINER/STRENGTH COACH (9) Hypertension: Plan: Blood pressures are acceptable given situation dc home irbesartan (10) Diabetes: Plan: Poorly controlled at baseline as well as acutely. dc accuchecks and insulin as transitioned to HEAD ATHLETIC TRAINER/STRENGTH COACH (11) Lumbar stenosis with neurogenic claudication: Plan: pain control prn (12) DVT prophylaxis: Plan: heparin dcd on HEAD ATHLETIC TRAINER/STRENGTH COACH GI prophylaxis-dc PPI dc tube feeds, NGT removed, can have fod for comfort prn (13) Discharge planning issues: Plan: Dispo-transitioned to HEAD ATHLETIC TRAINER/STRENGTH COACH as per pt's wishes, updated by phone by Associate Director and I will talk to her when she arrives Expect pt to pass away within 7 days Admission and Anticipated Discharge Date Admission Date: April 18, 2021 Subjective Pt remains agitated, nonverbal but does shake head yes and no in response to questions, has decided in discussion with Associate Director he does not want re- intbation, and would like to pursue comfort. He appears very uncomfortable, tachypneic, moaning at times. Tachycardic, remains febrile. Review of Systems Review of Systems: Unobtainable due to cognitive status Physical Exam Constitutional: WD/WN, vitals as above + ill appearing Eyes: + anicteric sclerae ENMT: Mouth: + oral mucosal abnormality (Thick exudate over tongue and mucosa, lips) Neck: trachea midline, no thyromegaly Respiratory: + cough (With deep suctioning) and + tachypneic Auscultation: + crackles (Bases bilaterally) and + rhonchi (Bilateral); no wheezes Cardiovascular: Rate/Rhythm: regular rhythm and + tachycardic Vessels: dorsalis pedis pulses present Extremities: + edema (Trace pitting edema in hands and feet) Chest (Breasts): Chest: normal inspection of chest Gastrointestinal (Abdomen): normal bowel sounds, soft, nontender, no hepatosplenomegaly Musculoskeletal: Extremities: extremities normal to inspection; no cyanosis and no clubbing Skin: no rashes, warm and dry Neurologic: awake and + confused Speech / Cognition: + abnormal speech (Grunting) Results & Data Results & Data ([facility]) Vital Signs (Past 12 Hours) Vital Signs Temp Pulse Pulse Pulse Resp BP Pulse Ox 05/13/21 10:56 116 H 26 H 89 L 05/13/21 08:00 38.2 C H 123 H 20 141/76 H 87 L 05/13/21 07:00 38.1 C H 118 H 31 H 91 05/13/21 06:45 38.1 C H 121 H 27 H 90 05/13/21 06:16 119 H 30 H 92 05/13/21 06:00 38.1 C H 118 H 25 H 92 05/13/21 05:00 38.2 C H 116 H 21 94 05/13/21 04:00 38.4 C H 114 H 26 H 97 05/13/21 03:00 38.5 C H 113 H 26 H 95 05/13/21 02:47 121 H 30 H 97 05/13/21 02:00 38.4 C H 114 H 26 H 97 05/13/21 01:00 38.3 C H 113 H 25 H 93 05/13/21 00:00 38.2 C H 112 H 22 99 Laboratory Results 05/13/21 05/13/21 05/13/21 Range/Units 07:53 05:44 05:44 WBC 8.29 (4.8-10.8) K/uL RBC 3.10 L (4.7-6.1) M/uL Hgb 9.1 L (14.0-18.0) g/dL Hct 28.6 L (42-52) % MCV 92.3 (80-100) fL MCH 29.4 (25-34) pg MCHC 31.8 L (32-36) g/dL RDW Std Deviation 52.0 H (36.4-46.3) fL RDW Coeff of Patti 15.5 H (11.5-14.5) % Plt Count 219 D (130-400) K/uL MPV 9.9 (7.4-10.4) fL Immature Gran % (Auto) 1.1 % Neut % (Auto) 81.9 % Lymph % (Auto) 6.6 % [place] % (Auto) 8.2 % Eos % (Auto) 2.1 % Baso % (Auto) 0.1 % Neut # (Auto) 6.79 H (1.4-6.5) K/uL Lymph # (Auto) 0.55 L (1.2-3.4) K/uL [place] # (Auto) 0.68 H (0.11-0.59) K/uL Eos # (Auto) 0.17 (0-0.5) K/uL Baso # (Auto) 0.01 (0-0.2) K/uL Immature Gran # (Auto) 0.09 H (0.00-0.02) K/uL Sample Site POC pH (7.35-7.45) POC pCO2 (35-46) mmHg POC pO2 (80-95) mmHg POC HCO3 (19-24) apoorva/L POC Total CO2 (24-31) mmol/L POC Base Excess (-9-1.8) apoorva/L POC ABG O2 Sat (90-95) % Antonio Test O2 Delivery Device POC FiO2 % Sodium 145 (136-145) mmol/L Potassium 3.6 (3.5-5.1) mmol/L Chloride 115 H (98-107) mmol/L Carbon Dioxide 24 (21-32) mmol/L Anion Gap 6.0 (3-11) BUN 22 H (7-18) mg/dl Creatinine 0.79 (0.6-1.4) mg/dl Est Cr Clr Drug Dosing 97.5 ml/min Est GFR ( Amer) 102.5 ml/min Est GFR (Non-Af Amer) 88.5 ml/min BUN/Creatinine Ratio 27.3 H (10-20) Glucose 115 H (70-99) mg/dl POC Glucose 120 H (70-99) mg/dl Calcium 9.1 (8.5-10.1) mg/dl Phosphorus 2.3 L (2.5-4.9) mg/dl Magnesium 2.4 (1.8-2.4) mg/dl 05/13/21 05/13/21 05/12/21 Range/Units 04:16 03:23 23:09 WBC (4.8-10.8) K/uL RBC (4.7-6.1) M/uL Hgb (14.0-18.0) g/dL Hct (42-52) % MCV (80-100) fL MCH (25-34) pg MCHC (32-36) g/dL RDW Std Deviation (36.4-46.3) fL RDW Coeff of Patti (11.5-14.5) % Plt Count (130-400) K/uL MPV (7.4-10.4) fL Immature Gran % (Auto) % Neut % (Auto) % Lymph % (Auto) % [place] % (Auto) % Eos % (Auto) % Baso % (Auto) % Neut # (Auto) (1.4-6.5) K/uL Lymph # (Auto) (1.2-3.4) K/uL [place] # (Auto) (0.11-0.59) K/uL Eos # (Auto) (0-0.5) K/uL Baso # (Auto) (0-0.2) K/uL Immature Gran # (Auto) (0.00-0.02) K/uL Sample Site Art Line POC pH 7.47 H (7.35-7.45) POC pCO2 32 L (35-46) mmHg POC pO2 82 (80-95) mmHg POC HCO3 24 (19-24) apoorva/L POC Total CO2 24 (24-31) mmol/L POC Base Excess 0.0 (-9-1.8) apoorva/L POC ABG O2 Sat 97.0 H (90-95) % Antonio Test Pass O2 Delivery Device Hi Lazaro Can POC FiO2 75 % Sodium (136-145) mmol/L Potassium (3.5-5.1) mmol/L Chloride (98-107) mmol/L Carbon Dioxide (21-32) mmol/L Anion Gap (3-11) BUN (7-18) mg/dl Creatinine (0.6-1.4) mg/dl Est Cr Clr Drug Dosing ml/min Est GFR ( Amer) ml/min Est GFR (Non-Af Amer) ml/min BUN/Creatinine Ratio (10-20) Glucose (70-99) mg/dl POC Glucose 116 H 123 H (70-99) mg/dl Calcium (8.5-10.1) mg/dl Phosphorus (2.5-4.9) mg/dl Magnesium (1.8-2.4) mg/dl 05/12/21 05/12/21 05/12/21 Range/Units 20:08 16:26 12:22 WBC (4.8-10.8) K/uL RBC (4.7-6.1) M/uL Hgb (14.0-18.0) g/dL Hct (42-52) % MCV (80-100) fL MCH (25-34) pg MCHC (32-36) g/dL RDW Std Deviation (36.4-46.3) fL RDW Coeff of Patti (11.5-14.5) % Plt Count (130-400) K/uL MPV (7.4-10.4) fL Immature Gran % (Auto) % Neut % (Auto) % Lymph % (Auto) % [place] % (Auto) % Eos % (Auto) % Baso % (Auto) % Neut # (Auto) (1.4-6.5) K/uL Lymph # (Auto) (1.2-3.4) K/uL [place] # (Auto) (0.11-0.59) K/uL Eos # (Auto) (0-0.5) K/uL Baso # (Auto) (0-0.2) K/uL Immature Gran # (Auto) (0.00-0.02) K/uL Sample Site POC pH (7.35-7.45) POC pCO2 (35-46) mmHg POC pO2 (80-95) mmHg POC HCO3 (19-24) apoorva/L POC Total CO2 (24-31) mmol/L POC Base Excess (-9-1.8) apoorva/L POC ABG O2 Sat (90-95) % Antonio Test O2 Delivery Device POC FiO2 % Sodium (136-145) mmol/L Potassium (3.5-5.1) mmol/L Chloride (98-107) mmol/L Carbon Dioxide (21-32) mmol/L Anion Gap (3-11) BUN (7-18) mg/dl Creatinine (0.6-1.4) mg/dl Est Cr Clr Drug Dosing ml/min Est GFR ( Amer) ml/min Est GFR (Non-Af Amer) ml/min BUN/Creatinine Ratio (10-20) Glucose (70-99) mg/dl POC Glucose 123 H 127 H 135 H (70-99) mg/dl Calcium (8.5-10.1) mg/dl Phosphorus (2.5-4.9) mg/dl Magnesium (1.8-2.4) mg/dl PG Care Time/CCT Total # of Minutes Spent Total Time Spent with Patient: Total time spent is greater than 50% in coordination of care (as documented) at patient's floor/unit and/or counseling patient: Coding Level of Care Code 74545 Subseq Hosp Care Lvl 3 Diagnoses Acute respiratory failure with hypoxia J96.01 Pleural effusion J90 COVID-19 U07.1 Multilobar lung infiltrate R91.8 Weakness R53.1 CKD (chronic kidney disease) stage 3, GFR 30-59 ml/min N18.3 Coronary artery disease I25.10 Sleep apnea G47.30 Hypertension I10 Diabetes E11.9 Lumbar stenosis with neurogenic claudication M48.062 DVT prophylaxis Z29.9 Discharge planning issues Z02.9
[2021-05-13] MEDS: MoRPHine SULFATE 2 MG/ML CARP IV PRN ×3 (18:13→22:24)
[2021-05-13] MEDS: ATROPINE SULFATE 1% OP SOLN 5 ML BTL SL PRN (21:28)
[2021-05-13] MEDS ORDERED: LORazepam 1 MG/2 ML VIAL IV STA (22:14)
[2021-05-14] MEDS: ATROPINE SULFATE 1% OP SOLN 5 ML BTL SL PRN ×6 (00:06→23:21)
[2021-05-14] MEDS: MoRPHine SULFATE 2 MG/ML CARP IV PRN ×9 (00:06→23:21)
[2021-05-14] MEDS: LORazepam 0.5 MG/1 ML VIAL IV PRN ×3 (03:17→19:38)
[2021-05-14] MEDS: ACETAMINOPHEN 1000 MG/100 ML IV IV PRN (10:05)
--- NOTE | 2021-05-14 11:06 | Hospitalist Progress Note ---
Date of Service May 14, 2021 Assessment & Plan (1) Acute respiratory failure with hypoxia: Plan: Patient presented with acute respiratory failure. Was mechanically ventilated, with ARDS. Extubated on 05/12 after found to have ET tube cuff leak, but had been intubated for 12 to 13 days at that point Prognosis is poor Pneumomediastinum, left sided pleural effusion/hemothorax Transitioned to high flow nasal cannula with tachypnea, tachycardia Chest CT on 05/11 with hydrothorax and possible necrotic area not contiguous with previous pigtail catheter which has since been removed on 05/12 Previous hospitalist spoke with at bedside on 05/09, she agreed that patient would not want a tracheostomy Patient's and son came in on 05/13 and pt also agreed to pursue RIDING DOUBLE, no reintubation Was transitioned to RIDING DOUBLE on 05/13 in the afternoon Downgrade to medical, dc all needle sticks, no glucose checks, no meds other than for comfort. continue morphine IV and po prn pain or breathlessness, ativan for agitation prn, atropine for secretions, tylenol for fevers Maintain left IJ CVC as is functioning well and does not seem ot be causing discomfort, but if becomes uncomfortable or risk for pulling it out, will dc (2) Pleural effusion: Plan: chest tube placed 05/[address] Temple, bloody drainage, hemothorax Growing coagulase-negative Staphylococcus resistant only to erythromycin previously was on Zosyn and then switched to Unasyn Continues with fevers daily Chest CT as above Would need drainage of possible necrotic area that was previously not contiguous with pigtail catheter, but pt now declines any further procedures as per his discussion with [employer] Pigtail catheter now removed dcd abx (3) COVID-19: Plan: completed course of Remdesivir Completed dexamethasone taper treated secondary bacterial pneumonia with parapneumonic effusion with Zosyn and then with Unasyn as above off precautions (4) Multilobar lung infiltrate: Plan: as above. (5) Weakness: Plan: Appears to be due to the severity of his Covid pneumonia/hypoxiasee above transitioned to RIDING DOUBLE (6) CKD (chronic kidney disease) stage 3, GFR 30-59 ml/min: Plan: no further labs on RIDING DOUBLE (7) Coronary artery disease: Plan: No angina,dc home meds (8) Sleep apnea: Plan: no CPAP on RIDING DOUBLE (9) Hypertension: Plan: Blood pressures are acceptable given situation dc home irbesartan (10) Diabetes: Plan: Poorly controlled at baseline as well as acutely. dc accuchecks and insulin as transitioned to RIDING DOUBLE (11) Lumbar stenosis with neurogenic claudication: Plan: pain control prn (12) DVT prophylaxis: Plan: heparin dcd on RIDING DOUBLE GI prophylaxis-dc PPI dc tube feeds, NGT removed, can have food for comfort prn (13) Discharge planning issues: Plan: Dispo-transitioned to RIDING DOUBLE as per pt's wishes, discussed with and son at bedside on 05/13, gave comfort and they are accepting of his wishes Expect pt to pass away within 7 days Admission and Anticipated Discharge Date Admission Date: April 18, 2021 Subjective Tachypneic today, was just given IV morphine and IV tylenol. Received Roxanol earlier and ativan. Does briefly open eyes to verbal stimulus but then closes them, not as restless today. Discussed with superintendent ammunition storage of Systems Review of Systems: Unobtainable due to reduced consciousness Physical Exam Constitutional: WD/WN, vitals as above + ill appearing Eyes: + anicteric sclerae Neck: trachea midline, no thyromegaly Respiratory: + tachypneic Auscultation: + crackles (Bases bilaterally) and + rhonchi (Bilateral); no wheezes Cardiovascular: Rate/Rhythm: regular rhythm and + tachycardic Vessels: dorsalis pedis pulses present Extremities: + edema (Trace pitting edema in hands and feet) Chest (Breasts): Chest: normal inspection of chest Gastrointestinal (Abdomen): normal bowel sounds, soft, nontender, no hepatosplenomegaly Musculoskeletal: Extremities: extremities normal to inspection; no cyanosis and no clubbing Skin: no rashes, warm and dry Neurologic: + not awake Genitourinary: [place] with brown urine with sediment PG Care Time/CCT Total # of Minutes Spent Total Time Spent with Patient: Total time spent is greater than 50% in coordination of care (as documented) at patient's floor/unit and/or counseling patient: Coding Level of Care Code 16551 Subseq Hosp Care Lvl 1 Diagnoses Acute respiratory failure with hypoxia J96.01 Pleural effusion J90 COVID-19 U07.1 Multilobar lung infiltrate R91.8 Weakness R53.1 CKD (chronic kidney disease) stage 3, GFR 30-59 ml/min N18.3 Coronary artery disease I25.10 Sleep apnea G47.30 Hypertension I10 Diabetes E11.9 Lumbar stenosis with neurogenic claudication M48.062 DVT prophylaxis Z29.9 Discharge planning issues Z02.9
[2021-05-15] MEDS: ATROPINE SULFATE 1% OP SOLN 5 ML BTL SL PRN (01:24)
[2021-05-15] MEDS: MoRPHine SULFATE 2 MG/ML CARP IV PRN (01:24)
[2021-05-15] MEDS ORDERED: GLYCOPYRROLATE 0.2 MG/ML VIAL IV PRN (01:55)
--- NOTE | 2021-05-15 04:13 | Communication Note ---
Date of Service: May 15, 2021 Nursing notified me that the patient had ceased to breath. I went up and evaluated the patient. I watched his chest and listened to him. He did not have any chest rise and no heart or lung sounds. His pupils were fixed and dilated. His family was called and informed. Time of : 4AM Cause of : COVID-19 pneumonia
[2021-05-15] MEDS ORDERED: ETOMIDATE 2 MG/ML 20 ML VIAL IV ONE (05:02)
[2021-05-15] MEDS ORDERED: ROCURONIUM BROMIDE 10 MG/ML 5 ML VIAL IV ONE (05:02)
--- NOTE | 2021-05-27 23:50 | Discharge Summary ---
Date of Service May 27, 2021 Admission HPI Per Admitting Provider 75 y/o M with PMHx CAD - 3 vessel ds - noted on LHC in range of 30-50% stenosis, CKD -3, spinal stenosis, CVA, diabetes, HTN, PAD, h/o CVA 2010, CMP - EF 50%, BPH and moderate sleep apnea came to ED for increasing weakness fatigue with COVID-19. He started having symptom on the of this month as diarrhea and tested positive the next day in the ER. Since Apr 11 he has had continued diarrhea and was seen in ED. He has not had anything significant to eat since being seen last week. This morning he started to feel very weak and had to lower himself to the ground so came to ED. Denies actually falling or losing consciousness. He does report having pain all over and worse in the back. He reported feeling short of breath and mild left sided chest pain. No further questioning he repored pain all over the body. Patient states he is unvaccinated. During his earlier ED visit, he declined monoclonal antibodies due to concern of side effects. Patient's is sick at home as well but he reports she is doing somewhat better. In the ED he has received IV steroids and is receiving 500ml NSS Principal Diagnosis COVID-19 Pneumonia Discharge Exam Constitutional Not examined on day of Discharge Data Allergies Allergy/AdvReac Type Severity Reaction Status Date / Time metformin AdvReac Severe Diarrhea Verified 04/18/21 07:52 Consultations 04/18/21 08:01 ED Decision to Admit Stat 04/19/21 17:38 Consult Pulmonology Routine 04/30/21 11:25 Consult Heel Builder Machine Routine 04/30/21 20:07 Consult Palliative Care Routine 05/13/21 11:35 Consult Palliative Care Routine Ordered Studies 04/20/21 08:44 US venous doppler LE BI Routine 04/30/21 16:02 CT angio chest PE protocol Stat 04/30/21 17:50 US point of care ultrasound Stat 05/05/21 08:08 CT chest diagnostic wo con Urgent 05/05/21 13:20 US point of care ultrasound Stat 05/11/21 09:33 CT chest diagnostic w con Routine Hospital Course (1) Acute respiratory failure with hypoxia: Patient presented with acute respiratory failure. Was mechanically ventilated, with ARDS. Extubated on 05/12 after found to have ET tube cuff leak, but had been intubated for 12 to 13 days at that point Prognosis is poor Pneumomediastinum, left sided pleural effusion/hemothorax Transitioned to high flow nasal cannula with tachypnea, tachycardia Chest CT on 05/11 with hydrothorax and possible necrotic area not contiguous with previous pigtail catheter which has since been removed on 05/12 Previous hospitalist spoke with at bedside on 05/09, she agreed that patient would not want a tracheostomy Patient's and son came in on 05/13 and pt also agreed to pursue [employer]ACILITY [employer]NAGER [employer]OLOG[employer], no reintubation Was transitioned to FACILITY MANAGER HISTOLOGY on 05/13 in the afternoon Downgrade to medical, dc all needle sticks, no glucose checks, no meds other than for comfort. continue morphine IV and po prn pain or breathlessness, ativan for agitation prn, atropine for secretions, tylenol for fevers He at 0400 on 05/15/21 (2) Pleural effusion: chest tube placed 05/[address] Temple, bloody drainage, hemothorax Growing coagulase-negative Staphylococcus resistant only to erythromycin previously was on Zosyn and then switched to Unasyn Continues with fevers daily Chest CT as above Would need drainage of possible necrotic area that was previously not contiguous with pigtail catheter, but pt now declines any further procedures as per his discussion with [employer] Pigtail catheter now removed dcd abx (3) COVID-19: completed course of Remdesivir Completed dexamethasone taper treated secondary bacterial pneumonia with parapneumonic effusion with Zosyn and then with Unasyn as above off precautions (4) Multilobar lung infiltrate: as above. (5) Weakness: Appears to be due to the severity of his Covid pneumonia/hypoxiasee above transitioned to [facility]ILITY [employer]NAGER [employer]ISTOLOG[employer] (6) CKD (chronic kidney disease) stage 3, GFR 30-59 ml/min: no further labs on [employer]ACILITY MANAGER HISTOLOGY (7) Coronary artery disease: No angina,dc home meds (8) Sleep apnea: no CPAP on [employer]NAGER [employer]ISTOLOGY (9) Hypertension: Blood pressures are acceptable given situation dc home irbesartan (10) Diabetes: Poorly controlled at baseline as well as acutely. dc accuchecks and insulin as transitioned to [employer]ILITY [employer]NAGER HISTOLOGY (11) Lumbar stenosis with neurogenic claudication: pain control prn (12) Discharge planning issues: Dispo-transitioned to [employer]ACILITY [employer]NAGER HISTOLOGY as per pt's wishes, discussed with and son at bedside on 05/13, gave comfort and they are accepting of his wishes Total Time Total Time Spent Total Time Spent (In Minutes): 0 min Discharge Plan Discharge Items Patient Disposition: Other Date/Time: 05/15/21 04:00 Coding Level of Care Code None Diagnoses Acute respiratory failure with hypoxia J96.01 Pleural effusion J90 COVID-19 U07.1 Multilobar lung infiltrate R91.8 Weakness R53.1 CKD (chronic kidney disease) stage 3, GFR 30-59 ml/min N18.3 Coronary artery disease I25.10 Sleep apnea G47.30 Hypertension I10 Diabetes E11.9 Lumbar stenosis with neurogenic claudication M48.062 Discharge planning issues Z02.9
== END 2021-05-15 05:03 | disposition expired | DRG 207 ==
LOC: ED 05:55 → EDINP 08:50 → SUATTDRO 08:50 → 2N 10:13 → 2E 04-30 10:57 → 1E 05-07 16:19 → 3E 05-13 21:03
DX: E21.3 Hyperparathyroidism, unspecified; I12.9 Hypertensive chronic kidney disease with stage 1 through stage 4 chronic kidney disease, or unspecified chronic kidney disease; Z88.8 Allergy status to other drugs, medicaments and biological substances; R41.0 Disorientation, unspecified; Z79.82 Long term (current) use of aspirin; N18.30 Chronic kidney disease, stage 3 unspecified; I25.10 Atherosclerotic heart disease of native coronary artery without angina pectoris; Z51.5 Encounter for palliative care; J12.82 Pneumonia due to coronavirus disease 2019; G89.29 Other chronic pain; M54.9 Dorsalgia, unspecified; Z85.46 Personal history of malignant neoplasm of prostate; F32.A Depression, unspecified; N40.0 Benign prostatic hyperplasia without lower urinary tract symptoms; J80 Acute respiratory distress syndrome; A41.9 Sepsis, unspecified organism; J94.8 Other specified pleural conditions; N17.9 Acute kidney failure, unspecified; E11.22 Type 2 diabetes mellitus with diabetic chronic kidney disease; U07.1 COVID-19; M48.062 Spinal stenosis, lumbar region with neurogenic claudication; G47.33 Obstructive sleep apnea (adult) (pediatric); J98.2 Interstitial emphysema; Z66 Do not resuscitate; J85.2 Abscess of lung without pneumonia; I73.9 Peripheral vascular disease, unspecified; I97.51 Accidental puncture and laceration of a circulatory system organ or structure during a circulatory system procedure; R19.7 Diarrhea, unspecified; R65.21 Severe sepsis with septic shock